=== PATIENT | female | born 1955 | race Caucasian/White ===

== ENCOUNTER → 2016-10-29 | Outpatient (CLI) | payer OTHER ==
[~2016-10-29] MED LIST: ADVIN10/60 INH; ALLO100T PO; ASCO100061 PO; ATOR-22 PO; CALC500C70 PO; CHOL20009 PO; DILT120C68 PO; DLCSR120 PO; DTRSR/10 PO; FURO-85 PO; GLIM2TAB2 PO; LEVO112T4 PO; LEVO137T3 PO; LISI20TA3 PO; LSN20 PO; MULT-190 PO; MULT-671 PO; OMEG10007 PO; PRLSR20 PO; RIVA1TAB4 PO; XRL20 PO; [UNRECOGNIZED DRUG - OTHER] PO
--- NOTE | 2016-10-29 13:45 | MAMMOGRAPHY REPORT ---
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 The p atient consulted with the surgeon, and she decided not to have the mass surgically removed and opted for follow-up. TECHNIQUE: Current study was also evaluated with a Computer Aided Detection (CAD) system. Left CC and MLO views and spot magnification left CC and ML views were obtained. COMPARISON: Comparison is made to exams dated: 04/30/2016 mammogram, 04/30/2016 ultrasound biopsy, 04/17/2016 ultrasound, 04/17/2016 mammogram, 04/13/2016 mammogram, and 03/29/2015 mammogram - [facility]. BREAST COMPOSITION: There are scattered areas of fibroglandular density in the left breast. FINDINGS: A biopsy marker clip is noted in the left inferior breast at approximately 6 to 6:30. Im mediately adjacent to the clip is a 5 mm faint mass with 1 to 2 residual calcifications. This was p reviously biopsied and yielded an intraductal papilloma. The mass and associated calcifications do not appear increased compared to the April 2016 exam. The remainder of the left breast is stable c ompared to prior exams, without suspicious masses, calcifications, or areas of architectural distort ion noted. Targeted ultrasound was performed of the area of the left breast mass. In the left breast at 6:00, 2 cm from the nipple, again noted is a lobulated hypoechoic mass which measures 3 x 3 x 2 mm; this i s stable to decreased in size compared to the April 2016 exam, where the mass previously measured 4 x 3 x 3 mm. This corresponds with the mammographic mass and associated calcifications. IMPRESSION: ACR-BI-RADS CATEGORY 3: PROBABLY BENIGN, TARGETED ULTRASOUND ACR-BI-RADS CATEGORY 3: SC OBABLY BENIGN Stable to decreased size of the hypoechoic 3 mm mass with associated calcifications in the left 6:00 breast. This was previously biopsied with pathology yielding an intraductal papilloma without atyp ia. The patient opted for follow-up as opposed to surgical excision. Given no increase in the size of the mass and calcifications, the mass is probably benign. Recommend bilateral diagnostic mammog satish and possible ultrasound in 6 months, to reevaluate the left breast mass and for routine mammogr aphy of the right breast. The patient has been verbally notified of the results. Approximately 10% of breast cancers are not detected with mammography. A negative mammographic repor t should not delay biopsy if a clinically suggestive mass is present. Ritu Mayo M.D. ah/:10/29/2016 10:43:31 Electronic Systems Technician: Jan TENORIO(Jason)(Flor), [facility] letter sent: Follow Up Recommended 3 BI-RADS Code: ACR-BI-RADS Category 3: Probably Benign Ultrasound BI-RADS: ACR-BI-RADS Category 3: P robably Benign
== END | disposition home or self-care (01) ==
LOC: C.MAMM 09:00
PROVIDERS: ATTEND Surgery
DX: N63 Unspecified lump in breast (principal); R92.1 Mammographic calcification found on diagnostic imaging of breast; D24.9 Benign neoplasm of unspecified breast

== ENCOUNTER → 2017-01-05 | Outpatient (CLI) | payer OTHER ==
[2017-01-05 12:40] LABS: HEMATOCRIT 42.3 % (37-47); MEAN CELL VOLUME 87.6 fL (80-100); MEAN CORPUSCULAR HGB CONC 31.9 g/dl (32-36); MEAN PLATELET VOLUME 11.3 fL (7.4-10.4); PLATELET COUNT 260 K/uL (130-400); RED BLOOD COUNT 4.83 M/uL (4.2-5.4); WHITE BLOOD COUNT 6.52 K/uL (4.8-10.8)
[2017-01-05 12:42] LABS: ALB/GLOB RATIO 1.1 (0.9-2); ALT/SGPT 35 U/L (12-78); AST/SGOT 16 U/L (15-37); BLOOD UREA NITROGEN 31 mg/dl (7-18); BUN/CREATININE RATIO 23.6 (10-20); CALCIUM 9.4 mg/dl (8.5-10.1); CARBON DIOXIDE 29 mmol/L (21-32); CHLORIDE 105 mmol/L (98-107); GLUCOSE 162 mg/dl (70-99); POTASSIUM 4.7 mmol/L (3.5-5.1); SODIUM 139 mmol/L (136-145)
[2017-01-05 12:53] LABS: ALKALINE PHOSPHATASE 82 U/L (45-117); CHOLESTEROL 126 mg/dl (0-200); CHOLESTEROL/HDL RATIO 2.7; HDL CHOLESTEROL 46 mg/dl; LDL CHOLESTEROL CALCULATED 58 mg/dl; THYROID STIMULATING HORMONE 0.055 uIu/ml (0.300-4.500); TRIGLYCERIDES 110 mg/dl (0-150); VERY LOW DENSITY LIPOPROT CALC 22 mg/dl
[2017-01-05 14:10] LABS: ESTIMATED AVERAGE GLUCOSE 120 mg/dl; HA1C FLAG Normal (Normal)
== END | disposition home or self-care (01) ==
LOC: C.LABBFT 10:20
PROVIDERS: ATTEND Internal Medicine
DX: E11.65 Type 2 diabetes mellitus with hyperglycemia (principal)

== ENCOUNTER → 2017-02-26 | Day surgery (SDC) | payer OTHER ==
[2017-02-19 08:21] VITALS: BMI 42.0
[~2017-02-26] VITALS: Ht 165.1 cm; Wt 116.4 kg
[~2017-02-26] MED LIST changes: -DLCSR120 PO; -LEVO137T3 PO; -LSN20 PO; -XRL20 PO; -[UNRECOGNIZED DRUG - OTHER] PO
[2017-02-26 09:52] VITALS: Ht 165.1 cm; Wt 116.4 kg
[2017-02-26 10:02] VITALS: TEMP 36.7
--- NOTE | 2017-02-26 10:18 | Endo History and Physical ---
History & Physical Date of Service: Feb 26, 2017. Chief Complaint: 3 YEAR FOLOLOW UP HISTORY POLYPS Referring Physician: DR. MORRIS History of Present Illness 61 yo CF who presents for colonoscopy secondary to history of colon polyps. Past Medical History Asthma, High Cholesterol, Hypertension, Thyroid Disease, Depression Past Surgical History Hx Cardiac Surgery: No Hx Internal Defibrillator: No Hx Pacemaker: No Hx Abdominal Surgery: Yes (UMBILICAL HERNIA REPAIR, DANIEL, TUBAL LIGATION) Hx of Implantable Prosthesis: No Hx Post-Op Nausea and Vomiting: No Hx Cancer Surgery: No Hx Thoracic Surgery: No Hx Orthopedic: No Hx Urinary Tract Surgery: No Family History None Social History Smoking Status: Former Smoker Hx Substance Use: No Hx Alcohol Use: No Allergies Coded Allergies: NO KNOWN DRUG ALLERGIES (Verified Allergy, Unknown, ., 02/26/17) Current Medications Reported Home Medications Medications Dose Route/Sig Max Daily Dose Days Date Category [place]-3 (Fish Oil) 1 Ea Cap 1 Cap PO 02/26/17 Reported Prinivil (Lisinopril) 20 Mg Tab 20 Mg PO QAM 02/19/17 Reported Levothyroxine Sodium 112 Mcg Tab 1 Tab PO QAM 90 02/19/17 Reported Tiazac (Diltiazem HCl) 120 Mg Capcr 120 Mg PO QAM 02/19/17 Reported Xarelto (Rivaroxaban) 20 Mg Tab 20 Mg PO DAILY AT 1130 02/19/17 Reported Lasix (Furosemide) 20 Mg Tab 20 Mg PO QAM 02/19/17 Reported Glimepiride 2 Mg Tab 2 Mg PO QAM 07/30/16 Reported Multi Complete/Iron (Multiple Vitamins W/ Minerals) 1 Tab Tab 1 Tab PO DAILY 07/30/16 Reported Zyloprim (Allopurinol) 100 Mg Tab 100 Mg PO QPM 07/30/16 Reported Prilosec (Omeprazole) 20 Mg Capcr 20 Mg PO QAM 07/30/16 Reported Advair Diskus 100/50 60 Dose (Fluticasone Prop/Salmeterol) 1 Ea Aerp 1 Puff INH BID 12/27/15 Reported Os-Aroldo 500 Plus D (Calcium/Vitamin D) Tab 1 Tab PO QPM 12/27/15 Reported Ascorbic Acid 1,000 Mg Tab 1,000 Mg PO QPM 12/27/15 Reported Vitamin D (Cholecalciferol) 2,000 Unit Tab 2,000 Units PO QPM 12/27/15 Reported Ocuvite Preservision (Multivitamins/Minerals) 1 Tab Tab 1 Tab PO QPM 12/27/15 Reported Oxybutynin Chloride ER (Oxybutynin Chloride) 10 Mg Tabcr 10 Mg PO QAM 12/27/15 Reported Lipitor (Atorvastatin Calcium) 20 Mg Tab 20 Mg PO QPM 12/27/15 Reported Vital Signs Weight (Kilograms): 116.36 Height (Feet): 5 Height (Inches): 5 Date Time Temp Pulse Resp B/P (MAP) Pulse Ox O2 Delivery O2 Flow Rate FiO2 02/26/17 10:02 36.7 76 20 128/72 (90) 96 Room Air Physical Exam General Appearance: WD/WN, no apparent distress Respiratory/Chest: Auscultation: breath sounds normal Cardiovascular: Heart Auscultation: RRR Abdomen: Bowel Sounds: normal Inspection & Palpation: soft, non-distended, no tenderness, guarding & rebound Assessment and Plan Assessment: 61 yo CF who presents for colonoscopy secondary to history of colon polyps. Plan: Proceed with colonoscopy.
--- NOTE | 2017-02-26 11:12 | GI REPORT ---
Procedure Date: 02/26/2017 10:39 AM Procedure: Colonoscopy Indications: Screening for colorectal malignant neoplasm Medicines: Monitored Anesthesia Care Complications: No immediate complications. Estimated Blood Loss: Estimated blood loss: none. Procedure: Pre-Anesthesia Assessment: - Prior to the procedure, a History and Physical was performed, and patient medications and allergies were reviewed. The patient's tolerance of previous anesthesia was also reviewed. The risks and benefits of the procedure and the sedation options and risks were discussed with the patient. All questions were answered, and informed consent was obtained. Prior Anticoagulants: The patient has taken no previous anticoagulant or antiplatelet agents. ASA Grade Assessment: II - A patient with mild systemic disease. After reviewing the risks and benefits, the patient was deemed in satisfactory condition to undergo the procedure. After I obtained informed consent, the scope was passed under direct vision. Throughout the procedure, the patient's blood pressure, pulse, and oxygen saturations were monitored continuously. The scope was introduced through the anus and advanced to the terminal ileum. The colonoscopy was performed without difficulty. The patient tolerated the procedure well. The quality of the bowel preparation was good. The terminal ileum, ileocecal valve, appendiceal orifice, and rectum were photographed. Findings: A 8 mm polyp was found in the ascending colon. The polyp was flat. The polyp was removed with a hot snare. Resection and retrieval were complete. To prevent bleeding after the polypectomy, one hemostatic clip was successfully placed (MR conditional). There was no bleeding at the end of the procedure. A 3 mm polyp was found in the ascending colon. The polyp was sessile. The polyp was removed with a cold biopsy forceps. Resection and retrieval were complete. Multiple small-mouthed diverticula were found in the sigmoid colon. Non-bleeding internal hemorrhoids were found during retroflexion. The hemorrhoids were small. Impression: - One 8 mm polyp in the ascending colon, removed with a hot snare. Resected and retrieved. Clip (MR conditional) was placed. - One 3 mm polyp in the ascending colon, removed with a cold biopsy forceps. Resected and retrieved. - Diverticulosis in the sigmoid colon. - Non-bleeding internal hemorrhoids. Recommendation: - Resume previous diet. - Continue present medications. - Repeat colonoscopy for surveillance based on pathology results. - Return to primary care physician as previously scheduled. Mario Reyez DO 02/26/2017 11:11:21 AM This report has been signed electronically. Note Initiated On: 02/26/2017 10:39 AM I attest to the content of the Intraoperative Record and orders documented therein, exceptions below
--- NOTE | 2017-02-26 11:14 | Discharge Instructions ---
Endoscopy Patient Instructions Date / Procedure(s) Performed Feb 26, 2017. Colonoscopy Allergy Information Coded Allergies: NO KNOWN DRUG ALLERGIES (Verified Allergy, Unknown, ., 02/26/17) Discharge Date / Findings Feb 26, 2017. Colon polyps Diverticulosis Internal hemorrhoids Medication Instructions Stopped Medication(s): XARELTO STOPPED 02/23/17 OK to resume all medications today as prescribed Medications Dose Route/Sig Max Daily Dose Days Date Category [place]-3 (Fish Oil) 1 Ea Cap 1 Cap PO 02/26/17 Reported Prinivil (Lisinopril) 20 Mg Tab 20 Mg PO QAM 02/19/17 Reported Levothyroxine Sodium 112 Mcg Tab 1 Tab PO QAM 90 02/19/17 Reported Tiazac (Diltiazem HCl) 120 Mg Capcr 120 Mg PO QAM 02/19/17 Reported Xarelto (Rivaroxaban) 20 Mg Tab 20 Mg PO DAILY AT 1130 02/19/17 Reported Lasix (Furosemide) 20 Mg Tab 20 Mg PO QAM 02/19/17 Reported Glimepiride 2 Mg Tab 2 Mg PO QAM 07/30/16 Reported Multi Complete/Iron (Multiple Vitamins W/ Minerals) 1 Tab Tab 1 Tab PO DAILY 07/30/16 Reported Zyloprim (Allopurinol) 100 Mg Tab 100 Mg PO QPM 07/30/16 Reported Prilosec (Omeprazole) 20 Mg Capcr 20 Mg PO QAM 07/30/16 Reported Advair Diskus 100/50 60 Dose (Fluticasone Prop/Salmeterol) 1 Ea Aerp 1 Puff INH BID 12/27/15 Reported Os-Aroldo 500 Plus D (Calcium/Vitamin D) Tab 1 Tab PO QPM 12/27/15 Reported Ascorbic Acid 1,000 Mg Tab 1,000 Mg PO QPM 12/27/15 Reported Vitamin D (Cholecalciferol) 2,000 Unit Tab 2,000 Units PO QPM 12/27/15 Reported Ocuvite Preservision (Multivitamins/Minerals) 1 Tab Tab 1 Tab PO QPM 12/27/15 Reported Oxybutynin Chloride ER (Oxybutynin Chloride) 10 Mg Tabcr 10 Mg PO QAM 12/27/15 Reported Lipitor (Atorvastatin Calcium) 20 Mg Tab 20 Mg PO QPM 12/27/15 Reported Provider Instructions Activity Restrictions - No exercising or heavy lifting for 24 hours. - Do not drink alcohol the day of the procedure. - Do not drive a car or operate machinery until the day after the procedure. - Do not make any important decisions or sign important papers in 24 hours after the procedure. Following Day: - Return to full activity which may include returning to work/school. Diet Start your diet with liquids and light foods (jello, soup, juice, toast). Then eat your usual diet if not nauseated. Treatment For Common After Affects For mild abdominal pain, bloating, or excessive gas: - Rest - Eat lightly - Lie on right side Follow-Up Information Follow-up with DR. MORIRS as scheduled Anesthesia Information What You Should Know You have had a procedure that required some medicine to reduce anxiety and discomfort. This treatment is called moderate sedation. After receiving the treatment, you may be sleepy, but you will be able to breathe on your own. The effects of the treatment may last for several hours. Follow these instructions along with Activity/Diet recommendations noted above: * Do NOT do anything where dizziness or clumsiness would be dangerous. * Rest quietly at home today, then you can be up and about tomorrow. * Have a responsible person stay with you the rest of today. * You may have had an I.V. today. If so, you may take the dressing off later today. Recommendations Call your doctor if: * Trouble breathing * Continuous vomiting for more than 24 hours * Temperature above 101 degrees * Severe abdominal pain or bloating * Pain not relieved by pain medicine ordered * There is increased drainage or redness from any incision * A large amount of rectal bleeding greater than 2-3 tablespoons. (If you had a polyp/s removed or have hemorrhoids, a small amount of blood - from the rectum is to be expected.) * You have any unanswered questions or concerns. IN THE EVENT OF A SERIOUS EMERGENCY, GO TO THE NEAREST EMERGENCY ROOM Your discharge instructions were prepared by provider Mario Reyez. Patient Instructions Signature Page Erin Nur Patient (or Guardian) Signature/Date: I have read and understand the instructions given to me by my caregivers. Caregiver/RN/Doctor Signature/Date: The above-named patient and/or guardian has received patient instructions on this date. + Original Patient Signature Page (only) stays with chart. Please make copy for patient.
[2017-02-26 11:36] VITALS: BP 127/69; PULSE 71; O2SAT 98
--- NOTE | 2017-02-26 13:29 | Anesthesiology Progress Note ---
Anesthesia Post Op Note Date & Time Feb 26, 2017 at 13:29 Vital Signs Pain Intensity: 2 Vital Signs Past 12 Hours Date Time Temp Pulse Resp B/P (MAP) Pulse Ox O2 Delivery O2 Flow Rate FiO2 02/26/17 11:36 71 20 127/69 (88) 98 Room Air 02/26/17 11:21 69 20 108/54 (72) 98 Room Air 02/26/17 11:06 73 20 101/51 (68) 95 Room Air 02/26/17 10:02 36.7 76 20 128/72 (90) 96 Room Air Notes Mental Status: alert / awake / arousable, participated in evaluation Pt Amnestic to Procedure: Yes Nausea / Vomiting: adequately controlled Pain: adequately controlled Airway Patency, RR, SpO2: stable & adequate BP & HR: stable & adequate Hydration State: stable & adequate Anesthetic Complications: no major complications apparent
== END | disposition home or self-care (01) ==
LOC: C.GI 09:27
PROVIDERS: ATTEND Internal Medicine
DX: Z12.11 Encounter for screening for malignant neoplasm of colon (principal); D12.2 Benign neoplasm of ascending colon; K57.30 Diverticulosis of large intestine without perforation or abscess without bleeding; K64.8 Other hemorrhoids; Z86.010 Personal history of colon polyps; I10 Essential (primary) hypertension; E78.00 Pure hypercholesterolemia, unspecified; E07.9 Disorder of thyroid, unspecified; J45.909 Unspecified asthma, uncomplicated; F32.9 Major depressive disorder, single episode, unspecified; Z87.891 Personal history of nicotine dependence; Z79.899 Other long term (current) drug therapy

== ENCOUNTER → 2017-03-02 | Outpatient (CLI) | payer OTHER ==
[2017-03-02 12:41] LABS: THYROID STIMULATING HORMONE 0.378 uIu/ml (0.300-4.500)
== END | disposition home or self-care (01) ==
LOC: C.LABBFT 10:21
PROVIDERS: ATTEND Internal Medicine
DX: E03.9 Hypothyroidism, unspecified (principal)

== ENCOUNTER → 2017-03-19 | Outpatient (CLI) | payer OTHER ==
[2017-03-19 13:16] LABS: CHOLESTEROL/HDL RATIO 2.7
== END | disposition home or self-care (01) ==
LOC: C.LABBFT 07:31
PROVIDERS: ATTEND Internal Medicine Cardiovascular Disease
DX: E78.5 Hyperlipidemia, unspecified (principal); E78.00 Pure hypercholesterolemia, unspecified

== ENCOUNTER → 2017-04-29 | Outpatient (CLI) | payer OTHER ==
--- NOTE | 2017-04-29 14:07 | MAMMOGRAPHY REPORT ---
BILATERAL DIGITAL DIAGNOSTIC MAMMOGRAM TOMOSYNTHESIS WITH CAD AND TARGETED LEFT ULTRASOUND: 04/29/2017 CLINICAL HISTORY: History of left breast biopsy April 2016, with pathology yielding an intraductal p apilloma without atypia. The patient decided not to have the mass surgically removed and opted for f ollow-up. The patient reports no current complaints. TECHNIQUE: Breast tomosynthesis in addition to standard 2D mammography was performed. Current study was also evaluated with a Computer Aided Detection (CAD) system. Bilateral CC and MLO 2-D and tomosy nthesis images and spot magnification left CC and ML views were obtained. COMPARISON: Comparison is made to exams dated: 10/29/2016 ultrasound, 10/29/2016 mammogram, 04/30/2016 mammogram, 04/30/2016 ultrasound biopsy, 04/17/2016 mammogram, and 04/13/2016 mammogram - [facility]. BREAST COMPOSITION: There are scattered areas of fibroglandular density in both breasts. FINDINGS: There has been no significant interval change compared to prior exams. A biopsy marker cl ip is again noted in the left 6:00 breast. Immediately adjacent to the clip is a faint 5 mm mass wit h a few faint residual calcifications. The mass and calcifications do not appear significantly wallace ed compared to the Oct 2016 exam. The remainder of both breasts are stable compared to prior exams, without suspicious masses, calcifications, or areas of architectural distortion noted. Targeted ultrasound was performed of the previously biopsied mass. In the left breast at 6:00, 2 cm from the nipple, again noted is a lobulated hypoechoic circumscribed mass which measures 3 x 2 x 4 mm , not significantly changed compared to prior exams. This corresponds with the stable mammographic m ass and residual calcifications. This was previously biopsied and yielded an intraductal papilloma w ithout atypia. IMPRESSION: ACR BI-RADS CATEGORY 2: BENIGN, TARGETED ULTRASOUND ACR BI-RADS CATEGORY 2: BENIGN Stable size of 4 mm hypoechoic mass with a few residual calcifications in the left 6:00 breast, which was previously biopsied and yielded an intraductal papilloma without atypia. Given the stability an d benign pathology, the mass is considered benign and can be monitored for any changes on routine jaelyn ual mammograms. There no mammographic or targeted sonographic evidence of malignancy. A 1 year scree leanne mammogram is recommended. The patient has been verbally notified of the results. Approximately 10% of breast cancers are not detected with mammography. A negative mammographic report should not delay biopsy if a clinically suggestive mass is present. Ritu Mayo M.D. ah/:04/29/2017 11:43:33 Pressurization Mechanic: Gladys TENORIO(R)(M), [facility] letter sent: Normal 1/2 BI-RADS Code: ACR BI-RADS Category 2: Benign Ultrasound BI-RADS: ACR BI-RADS Category 2: Benign
== END | disposition home or self-care (01) ==
LOC: C.MAMM 11:02
PROVIDERS: ATTEND Surgery
DX: N63 Unspecified lump in breast (principal); R92.1 Mammographic calcification found on diagnostic imaging of breast

== ENCOUNTER → 2017-07-30 | Outpatient (CLI) | payer OTHER ==
[2017-07-30 12:16] LABS: BASO % 0.5 %; BASO ABS # 0.03 K/uL (0-0.2); COMPLETE YES; EOS % 5.9 %; HEMATOCRIT 40.4 % (37-47); IG% 0.3 %; LYMPH % 34.6 %; LYMPH ABS # 2.22 K/uL (1.2-3.4); MEAN CELL VOLUME 88.6 fL (80-100); MEAN CORPUSCULAR HEMOGLOBIN 28.3 pg (25-34); MEAN CORPUSCULAR HGB CONC 31.9 g/dl (32-36); MEAN PLATELET VOLUME 10.8 fL (7.4-10.4); MONO % 7.9 %; NEUT % 50.8 %; PLATELET COUNT 262 K/uL (130-400); RED BLOOD COUNT 4.56 M/uL (4.2-5.4); WHITE BLOOD COUNT 6.42 K/uL (4.8-10.8)
[2017-07-30 12:31] LABS: ESTIMATED AVERAGE GLUCOSE 120 mg/dl; HA1C FLAG Normal (Normal)
[2017-07-30 12:40] LABS: ALT/SGPT 31 U/L (12-78); BLOOD UREA NITROGEN 32 mg/dl (7-18); BUN/CREATININE RATIO 26.9 (10-20); CALCIUM 9.5 mg/dl (8.5-10.1); CARBON DIOXIDE 29 mmol/L (21-32); CHLORIDE 102 mmol/L (98-107); CHOLESTEROL 143 mg/dl (0-200); CREATININE 1.19 mg/dl (0.60-1.20); GLUCOSE 146 mg/dl (70-99); POTASSIUM 4.1 mmol/L (3.5-5.1); SODIUM 139 mmol/L (136-145); TRIGLYCERIDES 140 mg/dl (0-150); VERY LOW DENSITY LIPOPROT CALC 28 mg/dl
[2017-07-30 12:41] LABS: CREATININE RANDOM URINE < 13.0 mg/dl
[2017-07-30 12:51] LABS: ALKALINE PHOSPHATASE 102 U/L (45-117); AST/SGOT 13 U/L (15-37); CHOLESTEROL/HDL RATIO 2.6; HDL CHOLESTEROL 55 mg/dl; LDL CHOLESTEROL CALCULATED 60 mg/dl
== END | disposition home or self-care (01) ==
LOC: C.LABBFT 09:19
PROVIDERS: ATTEND Internal Medicine
DX: E11.9 Type 2 diabetes mellitus without complications (principal)

== ENCOUNTER → 2017-09-02 | Outpatient (CLI) | payer OTHER ==
--- NOTE | 2017-09-02 11:56 | DIAGNOSTIC IMAGING REPORT ---
CHEST 2 VIEWS ROUTINE HISTORY: 62 years-old Female ASTHMA W/ ACUTE EXACERBATION acute asthma COMPARISON: Routine chest radiograph 07/30/2016 TECHNIQUE: PA and lateral views of the chest FINDINGS: Cardiac silhouette is mildly enlarged, unchanged. Mild pulmonary vascular congestion. Atherosclerosis of the aorta. No pneumothorax, pleural effusion, focal or overt pulmonary edema. Patchy opacities are noted within the lingula. Trace fluid along the right major fissure. Probable right shoulder rotator cuff calcific tendinosis. Bones of the chest appear grossly intact. IMPRESSION: 1. Mild pulmonary vascular congestion without overt pulmonary edema. 2. Patchy opacities of the lingula suggest atelectasis with pneumonia thought to be less likely. The above report was generated using voice recognition software. It may contain grammatical, syntax or spelling errors. Electronically signed by: Aman Lyn M.D. 09/02/2017 11:55 AM Dictated Date/Time: 09/02/2017 11:53 AM
== END | disposition home or self-care (01) ==
LOC: C.RAD1850 11:43
PROVIDERS: ATTEND Internal Medicine
DX: R91.8 Other nonspecific abnormal finding of lung field (principal); J45.901 Unspecified asthma with (acute) exacerbation

== ENCOUNTER → 2017-10-27 | Outpatient (CLI) | payer OTHER ==
--- NOTE | 2017-10-27 18:17 | DIAGNOSTIC IMAGING REPORT ---
CHEST 2 VIEWS ROUTINE CLINICAL HISTORY: 62 years-old Female presenting with R06.02 Shortness of breath. TECHNIQUE: PA and lateral views of the chest were obtained. COMPARISON: 09/02/2017. FINDINGS: Cardiomediastinal silhouette normal. Bandlike opacity at the left lung base. Trace pleural effusions may be present. No pneumothorax. Degenerative changes of the thoracic spine. Upper abdomen normal. IMPRESSION: 1. Trace pleural effusions and suspected left basilar atelectasis. Otherwise no acute cardiopulmonary disease. Electronically signed by: Geraldo Gallegos M.D. 10/27/2017 6:16 PM Dictated Date/Time: 10/27/2017 6:14 PM
== END | disposition home or self-care (01) ==
LOC: C.RAD 17:58
PROVIDERS: ATTEND Nurse Practitioner
DX: R06.02 Shortness of breath (principal); J90 Pleural effusion, not elsewhere classified

== ENCOUNTER → 2017-11-18 | Outpatient (CLI) | payer OTHER ==
--- NOTE | 2017-11-18 10:29 | DIAGNOSTIC IMAGING REPORT ---
CHEST 2 VIEWS ROUTINE HISTORY: Pneumonia. Cough. COMPARISON: Chest 10/27/2017. FINDINGS: The right lung is clear. The heart is normal in size. No pleural effusions. No pneumothorax. Small focal airspace opacity within the lingula. This is new from the prior study. IMPRESSION: There is a new small focal airspace opacity within the lingula. Therefore, this could represent atelectasis or pneumonia. One month chest x-ray follow up is recommended to ensure resolution. Electronically signed by: Esa Araiza M.D. 11/18/2017 10:28 AM Dictated Date/Time: 11/18/2017 10:26 AM
== END | disposition home or self-care (01) ==
LOC: C.RAD1850 10:17
PROVIDERS: ATTEND Nurse Practitioner
DX: J18.9 Pneumonia, unspecified organism (principal)

== ENCOUNTER → 2017-12-10 | Outpatient (CLI) | payer OTHER ==
[2017-12-10 17:13] LABS: BASO % 0.5 %; BASO ABS # 0.05 K/uL (0-0.2); EOS % 7.3 %; EOS ABS # 0.74 K/uL (0-0.5); HEMATOCRIT 41.5 % (37-47); HEMOGLOBIN 13.4 g/dL (12.0-16.0); IG# 0.09 K/uL (0.00-0.02); LYMPH % 24.7 %; LYMPH ABS # 2.51 K/uL (1.2-3.4); MEAN CELL VOLUME 86.1 fL (80-100); MEAN CORPUSCULAR HEMOGLOBIN 27.8 pg (25-34); MEAN CORPUSCULAR HGB CONC 32.3 g/dl (32-36); MEAN PLATELET VOLUME 10.2 fL (7.4-10.4); MONO ABS # 0.71 K/uL (0.11-0.59); NEUT % 59.6 %; NEUT ABS # 6.07 K/uL (1.4-6.5); PLATELET COUNT 343 K/uL (130-400); RED CELL DISTRIBUTION WIDTH CV 14.7 % (11.5-14.5); RED CELL DISTRIBUTION WIDTH SD 46.4 fL (36.4-46.3); WHITE BLOOD COUNT 10.17 K/uL (4.8-10.8)
[2017-12-10 17:52] LABS: ALBUMIN 3.6 gm/dl (3.4-5.0); ALT/SGPT 29 U/L (12-78); BLOOD UREA NITROGEN 43 mg/dl (7-18); CALCIUM 9.5 mg/dl (8.5-10.1); CARBON DIOXIDE 28 mmol/L (21-32); CHOLESTEROL 135 mg/dl (0-200); CREATININE 1.38 mg/dl (0.60-1.20); GLUCOSE 79 mg/dl (70-99); SODIUM 136 mmol/L (136-145)
[2017-12-10 18:02] LABS: ALKALINE PHOSPHATASE 91 U/L (45-117); AST/SGOT 15 U/L (15-37); LDL CHOLESTEROL CALCULATED 65 mg/dl; TOTAL PROTEIN 7.5 gm/dl (6.4-8.2)
[2017-12-11 07:25] LABS: HEMOGLOBIN A1C 6.5 % (4.5-5.6)
== END | disposition home or self-care (01) ==
LOC: C.LABBFT 13:51
PROVIDERS: ATTEND Internal Medicine
DX: E11.9 Type 2 diabetes mellitus without complications (principal)

== ENCOUNTER → 2017-12-16 | Outpatient (CLI) | payer OTHER ==
--- NOTE | 2017-12-16 10:30 | DIAGNOSTIC IMAGING REPORT ---
CT OF THE CHEST WITHOUT IV CONTRAST CLINICAL HISTORY: Lung infiltrate. COMPARISON STUDY: Chest radiographs October 27, 2017 and November 18, 2017. CT DOSE: 626.60 mGycm TECHNIQUE: Axial images of the chest were obtained without IV contrast. Images were reviewed in the axial, sagittal, and coronal planes. IV contrast was not administered for this examination. A dose lowering technique was utilized adhering to the principles of ALARA. FINDINGS: No enlarged axillary, mediastinal or hilar lymph nodes are present. The size of the heart is normal. There is no pericardial effusion. There is mild coronary artery calcification. The central airways are patent. There is no pneumothorax or pleural effusion. Moderate scattered multifocal airspace opacities throughout the lungs are noted, many of which are in a tree-in-bud distribution. There is no cavitation. Lingular opacity has improved since exam of November 18, 2017. There is no lobar consolidation. No suspicious osseous lesion is present. Upper abdomen is unremarkable on this unenhanced exam. IMPRESSION: Scattered multifocal airspace opacities throughout the lungs, many of which are in a tree-in-bud distribution. The findings favor an infectious process. While nonspecific, an atypical mycobacterial infection is within the differential. Electronically signed by: Ra Kong M.D. 12/16/2017 10:29 AM Dictated Date/Time: 12/16/2017 9:39 AM
== END | disposition home or self-care (01) ==
LOC: C.CTS 09:27
PROVIDERS: ATTEND Internal Medicine Pulmonary Disease
DX: R91.8 Other nonspecific abnormal finding of lung field (principal)

== ENCOUNTER → 2018-01-19 | Outpatient (CLI) | payer OTHER | END | disposition home or self-care (01) | LOC: C.LAB 15:23 | PROVIDERS: ATTEND Internal Medicine Pulmonary Disease | DX: R91.8 Other nonspecific abnormal finding of lung field (principal) ==

== ENCOUNTER → 2018-01-21 | Outpatient (CLI) | payer OTHER | END | disposition home or self-care (01) | LOC: C.LAB 08:11 | PROVIDERS: ATTEND Internal Medicine Pulmonary Disease | DX: R91.8 Other nonspecific abnormal finding of lung field (principal) ==

== ENCOUNTER 2020-06-04 16:37 | Observation (INO) ==
[2020-06-04 17:11] LABS: Basophils # (auto) 0.01 K/uL (0-0.2); Basophils % (auto) 0.1 %; Hematocrit (blood only) 44.8 % (37-47); Hemoglobin 14.9 g/dL (12.0-16.0); Immature Granulocytes # (auto) 0.05 K/uL (0.00-0.02); Immature Granulocytes % (auto) 0.3 %; Lymphocytes # (auto) 1.19 K/uL (1.2-3.4); Mean Corpuscular Hemoglobin 28.3 pg (25-34); Mean Corpuscular Hgb Conc 33.3 g/dL (32-36); Mean Platelet Volume 10.2 fL (7.4-10.4); Monocytes # (auto) 0.96 K/uL (0.11-0.59); Monocytes % (auto) 6.5 %; Neutrophils # (auto) 12.63 K/uL (1.4-6.5); Neutrophils % (auto) 85.1 %; Platelet Count 360 K/uL (130-400); RDW Coefficient of Variation 16.1 % (11.5-14.5); RDW Standard Deviation 49.8 fL (36.4-46.3); Red Blood Count 5.27 M/uL (4.2-5.4); White Blood Count 14.84 K/uL (4.8-10.8)
[2020-06-04] MEDS ORDERED: STAT IV Infusion **Titration per Protocol STA (17:12)
[2020-06-04] MEDS ORDERED: SODIUM CHLORIDE 0.9% 500 ML IV ONE (17:12)
[2020-06-04] MEDS ORDERED: dilTIAZem HCl 5 MG/ML 5 ML VIAL IV STA (17:12)
[2020-06-04] MEDS ORDERED: dilTIAZem HCL 125 MG in DEXTROSE 5% 100 ML IV SCH (17:15)
--- NOTE | 2020-06-04 17:15 | Emergency Department Note ---
Impression & Plan Atrial fibrillation with rapid ventricular response, Cough, Heart palpitations ED Provider Note NAME: MARC GARCIA AGE: 65 SEX: F : 1955 ARRIVES VIA: Walk-In INFORMANT: Patient ED PROVIDER(S): Nino Michaels DO CHIEF COMPLAINT: Palpitations and elevated heart rate HPI: Patient is a 65-year-old female who presents the ER for increased heart rate. She notes this has been present since earlier this morning. She has a history of A. fib. Has happened once before in the past. She takes Xarelto. She has not missed any doses. She follows with Dr. Jacob. She has had a covid test this past for a cough, runny nose, and sore throat which was neg ative. She denies any other complaints. She does admit to some mild shortness of breath and chest tightness. ROS: See above HPI for pertinent positives & negatives. A total of 10 systems reviewed and were otherwise negative. PAST MEDICAL HISTORY:See Below PAST SURGICAL HISTORY:See Below FAMILY HISTORY:See Below SOCIAL HISTORY:See Below HOME MEDICATIONS:See Below ALLERGIES:See Below VITALS:See Below PHYSICAL EXAMINATION: GENERAL: Sitting up in bed, alert, well appearing, well nourished, no distress, non-toxic EYE EXAM: normal conjunctiva. OROPHARYNX: no exudate, no erythema, lips, buccal mucosa, and tongue normal and mucous membranes are moist NECK: supple, no nuchal rigidity, no adenopathy, non-tender LUNGS: Tachycardic and irregular regular. Normal chest wall mechanics HEART: no murmurs, S1 normal and S2 normal ABDOMEN: abdomen soft, non-tender, normo-active bowel sounds, no masses, no rebound or guarding. BACK: Back is symmetrical on inspection and there is no deformity, no midline tenderness, no CVA tenderness. SKIN: no rashes and no bruising UPPER EXTREMITIES: upper extremities are grossly normal. LOWER EXTREMITIES: No pitting edema. NEURO EXAM: Normal sensorium, cranial nerves II-XII grossly intact, normal speech, no gross weakness of arms, no gross weakness of legs. MEDICAL DECISION MAKING: Patient is a 65-year-old female with a past medical history of A. fib on Xarelto who presents the ER for elevated heart rate associate with a cough and shortness of breath. IV was established blood work was obtained and shows mild leukocytosis of 14,000. No significant anemia. INR was at 1.4. BMP with creatinine 1.3. LFTs bilirubin was unremarkable. Troponin was negative. proBNP was unremarkable. TSH was slightly low at 0.14. Chest x-ray with questionable trace pleural effusions. EKG did show A. fib RVR. She was placed on a Cardizem drip. She was updated bedside. Discussed with the hospitalist admit for further work-up. Did not recall the test are as test for the same symptoms was negative this past . Triage Nursing notes reviewed. Prior medical records reviewed Vital Signs: reviewed and remarkable for tachycardia and HTN Differential diagnosis: Differential diagnoses includes but is not limited to acute coronary syndrome, myocardial infarction, pericarditis, pulmonary embolus, aortic dissection, pneumonia, pneumothorax, musculoskeletal, shingles, esophageal. ER treatment provided: See below Diagnostics interpreted by me: ECG: A. fib RVR rate of 115 Normal axis No PVCs Normal QTC Nonspecific ST wave changes in the inferior leads Cardiac Monitoring: An order was placed for continuous cardiac monitoring. The monitor shows a rate of 120 with A. fib rhythm. Laboratory studies: As stated above and show below. Imaging studies: Portable AP upright 1 view of the chest shows no focal infiltrate Consultation(s): Discussed with Dr. Hero Garcia who evaluated the patient for further treatment ED COURSE: Procedures: none Critical Care: I have personally spent 31 minutes of critical care time in the direct manageme nt of this patient. This includes bedside care, interpretation of diagnostic studies, and testing, discussion with consultants, patient, and family members, and other required patient management activities. This 31 minutes is in excess of all separately billable procedures. Past Med/Surg History Medical History (Updated 06/04/20 @ 22:52 by Nino Michaels DO) Diverticulosis Former smoker Papilloma of breast Pneumonia Umbilical hernia Surgical History H/O colonoscopy (02/26/17) sessile serrated adenoma, recheck in 5 years, Dr Reyez H/O oral surgery History of hernia repair S/P hysterectomy S/P tubal ligation Family History Mother Breast cancer Diabetes Hypertension Father Prostate cancer Brother Diabetes Hypertension Social History Smoking Status: Former smoker Tobacco Type: Cigarettes Hx Alcohol Use: Yes Hx Substance Use: No Preferred Language: Thai Communication Ability: Effective Drawer In Jacquard Loom Required: No Beliefs That Will Affect Care: None marital status: Current Living Situation: Spouse current occupational status: employed Other Information That Helps Us Care for You: No Feels Safe at Home: Yes Dental Care, Regularly: No Seatbelt Use: always Assistive Devices: Glasses Allergies Allergies Allergy/AdvReac Type Severity Reaction Status Date / Time No Known Drug Allergies Allergy Unknown . Verified 06/04/20 19:11 Home Meds Home Medications Medication Instructions Recorded Confirmed albuterol sulfate 2.5 mg INHALATION QID PRN #2 ml 04/21/19 06/04/20 blood sugar diagnostic #10 ea 04/21/19 04/08/20 blood-glucose meter #1 ea 04/21/19 04/08/20 diltiazem HCl 120 mg 120 mg PO DAILY 04/21/19 06/04/20 capsule,extended release 24 hr lancets 30 gauge #25 ea 04/21/19 11/23/19 calcium carbonate 500 mg calcium 500 mg PO DAILY tab 04/25/19 06/04/20 (1,250 mg) tablet vit C 250 mg-E 200 unit-zinc 40 1 tab PO DAILY cap 07/03/19 06/04/20 mg-copper 1 [id number] capsule atorvastatin 20 mg tablet 20 mg PO WK tab 11/23/19 06/04/20 allopurinol [Zyloprim] 100 mg PO QPM 06/04/20 06/04/20 furosemide 20 mg PO DAILY 06/04/20 06/04/20 magnesium 500 mg PO DAILY 06/04/20 06/04/20 Previous Rx's Medication Instructions Recorded rivaroxaban 20 mg tablet 20 mg PO DAILY #30 tab 02/06/20 losartan 50 mg tablet 50 mg PO DAILY #90 tab 04/24/20 levothyroxine 137 mcg tablet 137 mcg PO DAILY #30 tab 04/30/20 oxybutynin chloride 10 mg 10 mg PO DAILY #30 tab 04/30/20 tablet,extended release 24 hr fluticasone furoate 200 1 ea INHALATION DAILY #60 ea 05/02/20 mcg-vilanterol 25 mcg/dose inhalation powder albuterol sulfate 90 mcg/actuation 2 puff INHALATION QID PRN #8.5 g 05/21/20 aerosol inhaler benzonatate 100 mg capsule 100 mg PO TID #30 cap 05/30/20 prednisone 20 mg tablet 20 mg PO .COMPLEX #30 tab 05/30/20 Results & Data (ED) Vital Signs Vital Signs - 24 hr 06/04/20 16:40 06/04/20 17:07 06/04/20 17:10 Temperature 37.0 C Temperature Source Oral Pulse Rate 130 H 118 H 112 H Pulse Rate from SpO2 Sensor Respiratory Rate 20 21 21 Respiratory Effort / Characteristics Non-Labored Respiratory Depth Normal Blood Pressure 141/81 H Blood Pressure Mean 101 Pulse Oximetry 94 Oxygen Delivery Method Room Air Sepsis Recent Fever Within 48 Hours No Sepsis New/Unexplained Change in Mental Status N/A Sepsis Action Taken by Nursing No Action Required 06/04/20 17:16 06/04/20 17:20 06/04/20 17:30 Temperature Temperature Source Pulse Rate 98 H 109 H 125 H Pulse Rate from SpO2 Sensor 93 H 91 H 118 H Respiratory Rate 26 H 23 22 Respiratory Effort / Characteristics Respiratory Depth Blood Pressure 101/74 114/62 Blood Pressure Mean 83 71 Pulse Oximetry 92 93 92 Oxygen Delivery Method Sepsis Recent Fever Within 48 Hours Sepsis New/Unexplained Change in Mental Status Sepsis Action Taken by Nursing 06/04/20 17:31 06/04/20 17:40 06/04/20 17:46 Temperature Temperature Source Pulse Rate 108 H 115 H 96 H Pulse Rate from SpO2 Sensor 107 H 104 H 99 H Respiratory Rate 20 22 20 Respiratory Effort / Characteristics Respiratory Depth Blood Pressure 104/69 Blood Pressure Mean 77 Pulse Oximetry 92 93 92 Oxygen Delivery Method Room Air Sepsis Recent Fever Within 48 Hours Sepsis New/Unexplained Change in Mental Status Sepsis Action Taken by Nursing 06/04/20 17:50 06/04/20 18:00 06/04/20 18:01 Temperature Temperature Source Pulse Rate 102 H 113 H 97 H Pulse Rate from SpO2 Sensor 97 H 103 H 99 H Respiratory Rate 22 21 22 Respiratory Effort / Characteristics Respiratory Depth Blood Pressure 107/81 Blood Pressure Mean 98 Pulse Oximetry 93 93 93 Oxygen Delivery Method Sepsis Recent Fever Within 48 Hours Sepsis New/Unexplained Change in Mental Status Sepsis Action Taken by Nursing 06/04/20 18:10 06/04/20 18:15 06/04/20 18:20 Temperature Temperature Source Pulse Rate 99 H 85 108 H Pulse Rate from SpO2 Sensor 102 H 91 H 97 H Respiratory Rate 23 20 19 Respiratory Effort / Characteristics Respiratory Depth Blood Pressure 137/79 Blood Pressure Mean 88 Pulse Oximetry 94 94 94 Oxygen Delivery Method Sepsis Recent Fever Within 48 Hours Sepsis New/Unexplained Change in Mental Status Sepsis Action Taken by Nursing 06/04/20 18:30 06/04/20 18:38 06/04/20 18:40 Temperature Temperature Source Pulse Rate 90 123 H 113 H Pulse Rate from SpO2 Sensor 85 111 H 102 H Respiratory Rate 23 21 23 Respiratory Effort / Characteristics Respiratory Depth Blood Pressure 121/81 Blood Pressure Mean 86 Pulse Oximetry 94 96 95 Oxygen Delivery Method Sepsis Recent Fever Within 48 Hours Sepsis New/Unexplained Change in Mental Status Sepsis Action Taken by Nursing 06/04/20 18:45 06/04/20 18:50 06/04/20 19:00 Temperature Temperature Source Pulse Rate 106 H 98 H 92 H Pulse Rate from SpO2 Sensor 104 H 105 H 94 H Respiratory Rate 22 20 18 Respiratory Effort / Characteristics Respiratory Depth Blood Pressure 135/88 137/97 Blood Pressure Mean 107 105 Pulse Oximetry 93 94 91 Oxygen Delivery Method Sepsis Recent Fever Within 48 Hours Sepsis New/Unexplained Change in Mental Status Sepsis Action Taken by Nursing 06/04/20 19:01 06/04/20 19:10 06/04/20 19:15 Temperature Temperature Source Pulse Rate 97 H 93 H 85 Pulse Rate from SpO2 Sensor 107 H 98 H 94 H Respiratory Rate 15 18 23 Respiratory Effort / Characteristics Respiratory Depth Blood Pressure 132/78 Blood Pressure Mean 92 Pulse Oximetry 93 92 91 Oxygen Delivery Method Sepsis Recent Fever Within 48 Hours Sepsis New/Unexplained Change in Mental Status Sepsis Action Taken by Nursing 06/04/20 19:20 06/04/20 19:30 06/04/20 19:31 Temperature Temperature Source Pulse Rate 94 H 89 83 Pulse Rate from SpO2 Sensor 95 H 86 92 H Respiratory Rate 17 21 22 Respiratory Effort / Characteristics Respiratory Depth Blood Pressure 131/74 Blood Pressure Mean 86 Pulse Oximetry 93 92 92 Oxygen Delivery Method Sepsis Recent Fever Within 48 Hours Sepsis New/Unexplained Change in Mental Status Sepsis Action Taken by Nursing Laboratory Data Result diagrams: 06/04/20 17:00 06/04/20 17:00 Lab Results 06/04/20 06/04/20 06/04/20 Range/Units 17:00 17:00 17:00 WBC 14.84 H (4.8-10.8) K/uL RBC 5.27 (4.2-5.4) M/uL Hgb 14.9 (12.0-16.0) g/dL Hct 44.8 (37-47) % MCV 85.0 (80-100) fL MCH 28.3 (25-34) pg MCHC 33.3 (32-36) g/dL RDW Std Deviation 49.8 H (36.4-46.3) fL RDW Coeff of Parish 16.1 H (11.5-14.5) % Plt Count 360 (130-400) K/uL MPV 10.2 (7.4-10.4) fL Immature Gran % (Auto) 0.3 % Neut % (Auto) 85.1 % Lymph % (Auto) 8.0 % Antelope % (Auto) 6.5 % Eos % (Auto) 0.0 % Baso % (Auto) 0.1 % Neut # (Auto) 12.63 H (1.4-6.5) K/uL Lymph # (Auto) 1.19 L (1.2-3.4) K/uL Antelope # (Auto) 0.96 H (0.11-0.59) K/uL Eos # (Auto) 0.00 (0-0.5) K/uL Baso # (Auto) 0.01 (0-0.2) K/uL Immature Gran # (Auto) 0.05 H (0.00-0.02) K/uL PT 14.6 H (9.0-12.0) Seconds INR 1.4 H (0.9-1.1) APTT 35.0 H (21.0-31.0) Seconds PTT Ratio 1.3 Sodium 139 (136-145) mmol/L Potassium 3.8 (3.5-5.1) mmol/L Chloride 106 (98-107) mmol/L Carbon Dioxide 27 (21-32) mmol/L Anion Gap 6.0 (3-11) BUN 37 H (7-18) mg/dl Creatinine 1.30 H (0.6-1.2) mg/dl Est Cr Clr Drug Dosing 51.2 ml/min Est GFR ( Amer) 49.9 Est GFR (Non-Af Amer) 43.0 BUN/Creatinine Ratio 28.7 H (10-20) Glucose 166 H (70-99) mg/dl Calcium 8.8 (8.5-10.1) mg/dl Total Bilirubin 0.6 (0.2-1) mg/dl AST 10 L (15-37) U/L ALT 24 (12-78) U/L Alkaline Phosphatase 99 (45-117) U/L Troponin I < 0.015 (0-0.045) ng/ml NT-Pro-B Natriuret Pep (0-900) pg/ml Total Protein 6.8 (6.4-8.2) gm/dl Albumin 3.1 L (3.4-5.0) gm/dl Globulin 3.7 (2.5-4.0) gm/dl Albumin/Globulin Ratio 0.8 L (0.9-2) Procalcitonin (0-0.5) ng/ml TSH (0.300-4.500) uIu/ml Specimen Hemolysis 06/04/20 06/04/20 Range/Units 17:00 17:00 WBC (4.8-10.8) K/uL RBC (4.2-5.4) M/uL Hgb (12.0-16.0) g/dL Hct (37-47) % MCV (80-100) fL MCH (25-34) pg MCHC (32-36) g/dL RDW Std Deviation (36.4-46.3) fL RDW Coeff of [place] (11.5-14.5) % Plt Count (130-400) K/uL MPV (7.4-10.4) fL Immature Gran % (Auto) % Neut % (Auto) % Lymph % (Auto) % Antelope % (Auto) % Eos % (Auto) % Baso % (Auto) % Neut # (Auto) (1.4-6.5) K/uL Lymph # (Auto) (1.2-3.4) K/uL Antelope # (Auto) (0.11-0.59) K/uL Eos # (Auto) (0-0.5) K/uL Baso # (Auto) (0-0.2) K/uL Immature Gran # (Auto) (0.00-0.02) K/uL PT (9.0-12.0) Seconds INR (0.9-1.1) APTT (21.0-31.0) Seconds PTT Ratio Sodium (136-145) mmol/L Potassium (3.5-5.1) mmol/L Chloride (98-107) mmol/L Carbon Dioxide (21-32) mmol/L Anion Gap (3-11) BUN (7-18) mg/dl Creatinine (0.6-1.2) mg/dl Est Cr Clr Drug Dosing ml/min Est GFR ( Amer) Est GFR (Non-Af Amer) BUN/Creatinine Ratio (10-20) Glucose (70-99) mg/dl Calcium (8.5-10.1) mg/dl Total Bilirubin (0.2-1) mg/dl AST (15-37) U/L ALT (12-78) U/L Alkaline Phosphatase (45-117) U/L Troponin I (0-0.045) ng/ml NT-Pro-B Natriuret Pep 339 (0-900) pg/ml Total Protein (6.4-8.2) gm/dl Albumin (3.4-5.0) gm/dl Globulin (2.5-4.0) gm/dl Albumin/Globulin Ratio (0.9-2) Procalcitonin < 0.05 (0-0.5) ng/ml TSH 0.149 L (0.300-4.500) uIu/ml Specimen Hemolysis Administered Medications Allopurinol (Allopurinol 100 Mg Tab) 100 mg PO QPM CALOS Stop: 07/04/20 20:59 Last Admin: 06/04/20 22:20 Dose: 100 mg Documented by: [id number] Diltiazem HCl 125 mg/ Dextrose 125 mls @ 5 mls/hr IV .Q24H CALOS; Protocol Stop: 07/04/20 17:14 Last Titration: 06/04/20 21:08 Dose: 5 mg/hr, 5 mls/hr Documented by: [id number] Cosigned by: [id number] Admin: 06/04/20 17:52 Dose: 5 mg/hr, 5 mls/hr Documented by: [id number] Cosigned by: [id number] Methylprednisolone 60 mg/ (Syringe) 0.96 mls @ 1.5 mls/min IV Q12H CALOS Stop: 07/04/20 21:59 Last Admin: 09/22/20 22:20 Dose: 1.5 mls/min Documented by: [id number] Insulin Aspart (Insulin Aspart 100 Units/Ml 3 Ml Pen) 0 units SC ACHS CALOS Stop: 07/04/20 20:59 Last Admin: 06/04/20 22:15 Dose: 9 units Documented by: [id number] Cosigned by: [id number] Discontinued Medications Diltiazem HCl (Diltiazem Hcl 5 Mg/Ml 5 Ml Vial) 10 mg IV NOW STA Stop: 06/04/20 17:13 Last Admin: 06/04/20 17:52 Dose: Not Given Documented by: [id number] Diltiazem HCl (Diltiazem Hcl 30 Mg Tab) 30 mg PO NOW ONE Stop: 06/04/20 19:29 Last Admin: 06/04/20 20:26 Dose: 30 mg Documented by: [id number] Furosemide (Furosemide 40 Mg/4 Ml Vial) 20 mg IV NOW STA Stop: 06/04/20 19:29 Last Admin: 06/04/20 20:26 Dose: 20 mg Documented by: [id number] Sodium Chloride (Nss) 500 mls @ 999 mls/hr IV .Q31M ONE Stop: 06/04/20 17:42 Last Infusion: 06/04/20 18:32 Dose: 0 mls/hr Documented by: [id number] Admin: 06/04/20 17:45 Dose: 999 mls/hr Documented by: [id number] Insulin Human NPH (Novolin-N (Nph) Per Unit Charge) 10 units SQ 2200 ONE Stop: 06/04/20 22:01 Last Admin: 06/04/20 22:17 Dose: 10 units Documented by: [id number] Cosigned by: [id number] Miscellaneous (Stat Iv Infusion Titration Per Protocol) 1 ea N/A NOW STA Stop: 06/04/20 17:13 Last Admin: 06/04/20 17:53 Dose: 1 ea Documented by: [id number] Potassium Chloride (Potassium Chloride 20 Meq Tabcr) 20 meq PO NOW STA Stop: 06/04/20 21:03 Last Admin: 06/04/20 22:20 Dose: 20 meq Documented by: [id number] Discharge Plan Visit Data Chief Complaint: Cardiac Assessment Stated Complaint: AFIB, HEART BEAT FAST ED Provider: Nino Michaels Discharge Problem: Atrial fibrillation with rapid ventricular response, Cough, Heart palpitations Patient Disposition: Admitted As Inpatient Discharge Instructions Interventions: ED Discharge Assessment Last Done: 06/04/20 20:16
--- NOTE | 2020-06-04 17:20 | XRay Report ---
XR chest 1V portable CLINICAL HISTORY: Atypical chest pain COMPARISON STUDY: 07/30/2016 FINDINGS: The heart is the upper limits of normal in size. Mild pulmonary venous hypertension is susp ected. There is no overt edema. There is no lobar consolidation. Trace pleural effusions are suspecte d. Left basilar densities are likely atelectatic IMPRESSION: 1. Cardiomegaly and suspected mild pulmonary venous hypertension 2. Possible trace pleural effusions ACT 112: Negative or not required by law. Electronically signed by: Sarthak Velasquez M.D. 06/04/2020 5:19 PM
[2020-06-04 17:23] LABS: INR 1.4 (0.9-1.1); Partial Thromboplastin Ratio 1.3; Prothrombin Time 14.6 Seconds (9.0-12.0)
[2020-06-04 17:30] LABS: Alanine Aminotransferase 24 U/L (12-78); Albumin Level 3.1 gm/dl (3.4-5.0); Aspartate Aminotransferase 10 U/L (15-37); BUN Creatinine Ratio 28.7 (10-20); Blood Urea Nitrogen 37 mg/dl (7-18); Calcium 8.8 mg/dl (8.5-10.1); Carbon Dioxide 27 mmol/L (21-32); Chloride 106 mmol/L (98-107); Creatinine Clr Calc Pharmacy 51.2 ml/min; Est GFR (African American) 49.9; Glucose 166 mg/dl (70-99); Potassium 3.8 mmol/L (3.5-5.1); Sodium 139 mmol/L (136-145)
[2020-06-04 17:34] LABS: Albumin Globulin Ratio 0.8 (0.9-2); Alkaline Phosphatase 99 U/L (45-117); Bilirubin,Total 0.6 mg/dl (0.2-1); Globulin 3.7 gm/dl (2.5-4.0); Total Protein 6.8 gm/dl (6.4-8.2); Troponin I < 0.015 ng/ml (0-0.045)
[2020-06-04] MEDS ORDERED: FUROSEMIDE 40 MG/4 ML VIAL IV STA (19:28)
[2020-06-04] MEDS ORDERED: dilTIAZem HCL 30 MG TAB PO ONE (19:28)
--- NOTE | 2020-06-04 20:37 | History & Physical Report ---
Date of Service June 04, 2020 Assessment & Plan (1) Atrial fibrillation: Ms. Nur is a 65yo female with a PMHx of atrial fibrillation on Xarelto and PO Diltiazem, HTN, HLD, DMII, Hypothyroidism, REYNALDO on CPAP, Asthma and Gout who presents with the complaint of weakness and shakiness for the past few days and was found to be in a fib with rvr. Atrial Fibrillation with Rapid Ventricular rate -Pt presented with weakness and shakiness -EKG showed a fib with rvr HR of 115,, qtc of 370 -Pt notes that she has had this hx for the last 4 years -Was in NSR last month when she saw her sales engineer account manager last -Likely brought on by acute illness (see below) -TSH pending, has Hx of hypothyroidism (see below) -continue diltiazem drip started in the ED, wean off as tolerated -ordered PO diltiazem 30mg q8h to be given simultaneously, titrate dose up as needed while drip is weaned -continue home xarelto 20mg daily -optimize K+ >4, Mag >2 (Mag pending with AM lab) -consider cardiology consultation Cough/SOB, Hx of Asthma -Pt with a 3 week Hx of cough and SOB -Treated outpatient with Augmentin, Azithromycin, and prednisone taper -Chest XR with some noted pleural effusions, no obvious signs of infection -COVID NEGATIVE -ordered CT chest -procalcitonin pending -BNP, echo pending to rule out CHF as a possible cause -received fluids in the ED, one dose of Lasix IV 20mg ordered, continue home furosemide 20mg daily -will transition from prednisone taper to IV Solumedrol 120mg q12h -continue Xoponex scheduled, hold home albuterol. -continue home Breo inhaler as needed -ordered Robitussin DM for cough, hold home benzonatate DMII -HgbA1c of 5.8 in March 2020 -Pt is not on medications for diabetes, controlled mostly with diet and weight loss -ISS while hospitalized given she is on steroids and current acute illness Hypothyroidism -Last TSH in March WNL -repeat TSH ordered to rule out as potential cause of her atrial fibrillation -continue home levothyroxine 137mcg HTN -continue home losartan 50mg daily HLD -continue home atorvastatin 20mg tablet WEEKLY Gout -continue home allopurinol 100mg daily REYNALDO -ordered CPAP for nightly use Urinary Incontinence -continue home oxybutynin 10mg daily FEN/GI: DMII diet DVT prophylaxis: On home Xarelto CODE STATUS: Full Dispo: PCU/Tele (2) Asthma: (3) Type 2 diabetes mellitus: (4) Obesity: (5) Obstructive sleep apnea of adult: (6) Hyperlipidemia: (7) Hypothyroidism: (8) Cough: (9) Hypertension: (10) Gout: (11) DVT prophylaxis: History of Present Illness Primary Care Provider: Sudeep Monroe MD Ms. Nur is a 65yo female with a PMHx of atrial fibrillation on Xarelto and PO Diltiazem, HTN, HLD, DMII, Hypothyroidism, REYNALDO on CPAP, Asthma and Gout who presents with the complaint of weakness and shakiness for the past few days and was found to be in a fib with rvr. She states she was first diagnosed with a fib about 4 years ago in a similar setting of acute illness. She has been on Xarelto and PO diltiazem for it since then, and was even in NSR as recently as last month when she saw her sales engineer account manager. He recommended she continue with her medications and follow up in a year. She states that she has been having a cough and associated SOB especially when she lays down since Labor day (almost 3 weeks ago). Has been treated with Augmentin, Azithromycin and a prednisone taper all with minimal relief. PSH: Hysterectomy, tubal ligation, umbilical hernia repair, wisdom tooth removal Fam Hx: Mother-HTN Allergies: NKDA SH: Nonsmoker, no alcohol use and no recreational drug use. Lives at home with in a 2 lobo home. Allergies Allergy/AdvReac Type Severity Reaction Status Date / Time No Known Drug Allergies Allergy Unknown . Verified 06/04/20 19:11 Home Medications Home Medications Medication Instructions Recorded Confirmed Type albuterol sulfate 2.5 mg INHALATION QID PRN #2 ml 04/21/19 06/04/20 History blood sugar diagnostic #10 ea 04/21/19 04/08/20 History blood-glucose meter #1 ea 04/21/19 04/08/20 History diltiazem HCl 120 mg 120 mg PO DAILY 04/21/19 06/04/20 History capsule,extended release 24 hr lancets 30 gauge #25 ea 04/21/19 11/23/19 History calcium carbonate 500 mg calcium 500 mg PO DAILY tab 04/25/19 06/04/20 History (1,250 mg) tablet vit C 250 mg-E 200 unit-zinc 40 1 tab PO DAILY cap 07/03/19 06/04/20 History mg-copper 1 [id number] capsule atorvastatin 20 mg tablet 20 mg PO WK tab 11/23/19 06/04/20 History rivaroxaban 20 mg tablet 20 mg PO DAILY #30 tab 02/06/20 06/04/20 Rx losartan 50 mg tablet 50 mg PO DAILY #90 tab 04/24/20 06/04/20 Rx levothyroxine 137 mcg tablet 137 mcg PO DAILY #30 tab 04/30/20 06/04/20 Rx oxybutynin chloride 10 mg 10 mg PO DAILY #30 tab 04/30/20 06/04/20 Rx tablet,extended release 24 hr fluticasone furoate 200 1 ea INHALATION DAILY #60 ea 05/02/20 06/04/20 Rx mcg-vilanterol 25 mcg/dose inhalation powder albuterol sulfate 90 mcg/actuation 2 puff INHALATION QID PRN #8.5 g 05/21/20 06/04/20 Rx aerosol inhaler benzonatate 100 mg capsule 100 mg PO TID #30 cap 05/30/20 06/04/20 Rx prednisone 20 mg tablet 20 mg PO .COMPLEX #30 tab 05/30/20 06/04/20 Rx allopurinol [Zyloprim] 100 mg PO QPM 06/04/20 06/04/20 History furosemide 20 mg PO DAILY 06/04/20 06/04/20 History magnesium 500 mg PO DAILY 06/04/20 06/04/20 History Past Med/Surg History Medical History (Updated 06/04/20 @ 23:06 by Akosua Yates MD) Asthma Atrial fibrillation Colon polyp 12/2012 tubular adenoma. 02/2017 sessile serrated adenoma (recheck in 5 years) Diverticulosis Former smoker Gout Hyperlipidemia Hypertension Hypothyroidism Obesity Obstructive sleep apnea of adult Papilloma of breast Pneumonia Type 2 diabetes mellitus Umbilical hernia Surgical History H/O colonoscopy (02/26/17) sessile serrated adenoma, recheck in 5 years, Dr Reyez H/O oral surgery History of hernia repair S/P hysterectomy S/P tubal ligation Family History Mother Breast cancer Diabetes Hypertension Father Prostate cancer Brother Diabetes Hypertension Social History Smoking Status: Former smoker Tobacco Type: Cigarettes Hx Alcohol Use: Yes Hx Substance Use: No Preferred Language: Setswana Communication Ability: Effective Incoming Inspector Required: No Beliefs That Will Affect Care: None marital status: Current Living Situation: Spouse current occupational status: employed Other Information That Helps Us Care for You: No Feels Safe at Home: Yes Dental Care, Regularly: No Seatbelt Use: always Assistive Devices: Glasses Review of Systems Constitutional: + fatigue, + weakness and + insomnia; no fever, no chills and no sweats Eyes: no worsening vision Ear, Nose, Mouth, Throat: no dizziness, no nasal congestion and no sore throat Respiratory: + cough and + dyspnea; no pain with cough Cardiovascular: + dyspnea and + palpitations; no chest pain and no edema Gastrointestinal: no abdominal pain, no nausea, no vomiting, no constipation, no diarrhea/loose stools and no blood in stools Genitourinary: no dysuria and no hematuria Musculoskeletal: + neck pain; no back pain Integumentary: no rash Neurologic: + generalized weakness; no tingling, no numbness, no dizziness, no headache(s) and no confusion Psychiatric: no confusion Physical Exam Physical Exam: General: Alert, oriented. No acute distress, sitting up in bed Skin: Arms significantly tanned Psych: Appropriate mood and affect Neuro: No gross deficits HEENT: NC/AT Chest: Nontender to palpation. CV: Irregularly irregular rate and rhythm Resp: Breath sounds tight and decreased bilaterally, no increased effort of breathing. Abdomen: BS+. Soft, nontender, nondistended. No guarding. Extremities: No edema in lower extremities bilaterally. Results & Data Results & Data ([facility]) Vital Signs (Past 12 Hours) Vital Signs Temp Pulse Resp BP Pulse Ox 06/04/20 18:50 98 H 20 94 06/04/20 18:45 106 H 22 135/88 93 06/04/20 18:40 113 H 23 95 06/04/20 18:38 123 H 21 96 06/04/20 18:30 90 23 121/81 94 06/04/20 18:20 108 H 19 94 06/04/20 18:15 85 20 137/79 94 06/04/20 18:10 99 H 23 94 06/04/20 18:01 97 H 22 93 06/04/20 18:00 113 H 21 107/81 93 06/04/20 17:50 102 H 22 93 06/04/20 17:46 96 H 20 104/69 92 06/04/20 17:40 115 H 22 93 06/04/20 17:31 108 H 20 92 06/04/20 17:30 125 H 22 114/62 92 06/04/20 17:20 109 H 23 93 06/04/20 17:16 98 H 26 H 101/74 92 06/04/20 17:10 112 H 21 06/04/20 17:07 118 H 21 06/04/20 16:40 37.0 C 130 H 20 141/81 H 94 Laboratory Results 06/04/20 06/04/20 06/04/20 Range/Units 21:10 17:00 17:00 WBC (4.8-10.8) K/uL RBC (4.2-5.4) M/uL Hgb (12.0-16.0) g/dL Hct (37-47) % MCV (80-100) fL MCH (25-34) pg MCHC (32-36) g/dL RDW Std Deviation (36.4-46.3) fL RDW Coeff of Parish (11.5-14.5) % Plt Count (130-400) K/uL MPV (7.4-10.4) fL Immature Gran % (Auto) % Neut % (Auto) % Lymph % (Auto) % [place] % (Auto) % Eos % (Auto) % Baso % (Auto) % Neut # (Auto) (1.4-6.5) K/uL Lymph # (Auto) (1.2-3.4) K/uL [place] # (Auto) (0.11-0.59) K/uL Eos # (Auto) (0-0.5) K/uL Baso # (Auto) (0-0.2) K/uL Immature Gran # (Auto) (0.00-0.02) K/uL PT (9.0-12.0) Seconds INR (0.9-1.1) APTT (21.0-31.0) Seconds PTT Ratio Sodium (136-145) mmol/L Potassium (3.5-5.1) mmol/L Chloride (98-107) mmol/L Carbon Dioxide (21-32) mmol/L Anion Gap (3-11) BUN (7-18) mg/dl Creatinine (0.6-1.2) mg/dl Est Cr Clr Drug Dosing ml/min Est GFR ( Amer) Est GFR (Non-Af Amer) BUN/Creatinine Ratio (10-20) Glucose (70-99) mg/dl POC Glucose 159 H (70-99) mg/dl Calcium (8.5-10.1) mg/dl Total Bilirubin (0.2-1) mg/dl AST (15-37) U/L ALT (12-78) U/L Alkaline Phosphatase (45-117) U/L Troponin I (0-0.045) ng/ml NT-Pro-B Natriuret Pep 339 (0-900) pg/ml Total Protein (6.4-8.2) gm/dl Albumin (3.4-5.0) gm/dl Globulin (2.5-4.0) gm/dl Albumin/Globulin Ratio (0.9-2) Procalcitonin < 0.05 (0-0.5) ng/ml TSH 0.149 L (0.300-4.500) uIu/ml Specimen Hemolysis 06/04/20 06/04/20 06/04/20 Range/Units 17:00 17:00 17:00 WBC 14.84 H (4.8-10.8) K/uL RBC 5.27 (4.2-5.4) M/uL Hgb 14.9 (12.0-16.0) g/dL Hct 44.8 (37-47) % MCV 85.0 (80-100) fL MCH 28.3 (25-34) pg MCHC 33.3 (32-36) g/dL RDW Std Deviation 49.8 H (36.4-46.3) fL RDW Coeff of Parish 16.1 H (11.5-14.5) % Plt Count 360 (130-400) K/uL MPV 10.2 (7.4-10.4) fL Immature Gran % (Auto) 0.3 % Neut % (Auto) 85.1 % Lymph % (Auto) 8.0 % [place] % (Auto) 6.5 % Eos % (Auto) 0.0 % Baso % (Auto) 0.1 % Neut # (Auto) 12.63 H (1.4-6.5) K/uL Lymph # (Auto) 1.19 L (1.2-3.4) K/uL [place] # (Auto) 0.96 H (0.11-0.59) K/uL Eos # (Auto) 0.00 (0-0.5) K/uL Baso # (Auto) 0.01 (0-0.2) K/uL Immature Gran # (Auto) 0.05 H (0.00-0.02) K/uL PT 14.6 H (9.0-12.0) Seconds INR 1.4 H (0.9-1.1) APTT 35.0 H (21.0-31.0) Seconds PTT Ratio 1.3 Sodium 139 (136-145) mmol/L Potassium 3.8 (3.5-5.1) mmol/L Chloride 106 (98-107) mmol/L Carbon Dioxide 27 (21-32) mmol/L Anion Gap 6.0 (3-11) BUN 37 H (7-18) mg/dl Creatinine 1.30 H (0.6-1.2) mg/dl Est Cr Clr Drug Dosing 51.2 ml/min Est GFR ( Amer) 49.9 Est GFR (Non-Af Amer) 43.0 BUN/Creatinine Ratio 28.7 H (10-20) Glucose 166 H (70-99) mg/dl POC Glucose (70-99) mg/dl Calcium 8.8 (8.5-10.1) mg/dl Total Bilirubin 0.6 (0.2-1) mg/dl AST 10 L (15-37) U/L ALT 24 (12-78) U/L Alkaline Phosphatase 99 (45-117) U/L Troponin I < 0.015 (0-0.045) ng/ml NT-Pro-B Natriuret Pep (0-900) pg/ml Total Protein 6.8 (6.4-8.2) gm/dl Albumin 3.1 L (3.4-5.0) gm/dl Globulin 3.7 (2.5-4.0) gm/dl Albumin/Globulin Ratio 0.8 L (0.9-2) Procalcitonin (0-0.5) ng/ml TSH (0.300-4.500) uIu/ml Specimen Hemolysis Diagnostic Findings XR chest 1V portable CLINICAL HISTORY: Atypical chest pain COMPARISON STUDY: 07/30/2016 FINDINGS: The heart is the upper limits of normal in size. Mild pulmonary venous hypertension is suspected. There is no overt edema. There is no lobar consolidation. Trace pleural effusions are suspected. Left basilar densities are likely atelectatic IMPRESSION: 1. Cardiomegaly and suspected mild pulmonary venous hypertension 2. Possible trace pleural effusions ECG Additional Comments: ECG on 06/04/2020 at 1648 with atrial fibrillation with RVR, rate 115, mild upsloping ST depression in anterior leads Code Status & VTE Plan Code Status Full code VTE Prophylaxis Plan VTE Prophylaxis will be ordered: Yes Supervising Physician Co-Signing Physician Notes I personally examined the patient and verified all duran points of history and exam, discussed case, and agree with decision making with Dr. Andrade with the following additions/exceptions: This patient is a 65-year-old female with a history of paroxysmal atrial fibrillation on Xarelto, HTN, hyperlipidemia, DM 2 diet-controlled, asthma, REYNALDO on CPAP, hypothyroidism, obesity, and gout, who presents to the ER with 4 days of feeling weak and shaky and noted to have a rapid heart rate at home in the 130s on home blood pressure monitor cuff. Over the last 3 weeks, she has been struggling with a persistent cough that initially was productive and now has become dry. She has been treated for an asthma exacerbation as well as for bronchitis with first course of Augmentin, followed by 2 bursts of prednisone and 2 Z-Paks as well as albuterol nebulizer and Tessalon Perles. She has persistent cough. She notes worsening shortness of breath with lying flat and has been sleeping sitting upright in a chair. She has not been able to tolerate her CPAP for the last 3 weeks due to the cough and inability to sleep from that. She denies fevers or chills or COVID exposures. She had a COVID test that was -1-week ago. In the ER, found to be in rapid atrial fibrillation. Chest x-ray with bilateral small pleural effusions and some pulmonary vascular congestion. She was started on a diltiazem drip after bolus of 10 mg was given and her rates were in the high 90s when I saw her. History and ROS reviewed as above. Vitals reviewed Gen: AAOx3, NAD, obese HEENT: Anicteric sclerae, EOMI, oropharynx clear without exudate CV: Irregularly irregular, mildly tachycardic no mgr nl S1S2 Pulm: Positive bibasilar crackles, no wheezes Abd: +BS soft NT ND no masses or hernias Ext: No edema, 2+ DP pulses, no calf tenderness Skin: No rashes, warm/dry Neuro: Full strength throughout 65-year-old female with history as above, here with rapid atrial fibrillation in the setting of persistent cough and asthma exacerbation. Plan outlined as above Check CT of the chest and consider pulmonary consultation if abnormal findings Treat for asthma with IV steroids and bronchodilators, also treating with IV Lasix for volume overload which is likely acute on chronic diastolic CHF secondary to 4 days of rapid atrial fibrillation. Check proBNP, procalcitonin. We will hold off on any further antibiotics at this time. She is afebrile and leukocytosis is likely from recent prednisone burst. Follow daily weights, I's and O's Starting diltiazem 30 mg p.o. x1 now and if has good rate control and blood pressure can tolerate, can wean off diltiazem drip and consider increasing home dose of diltiazem 120 up to 180 for tomorrow Check echocardiogram. Continue Xarelto for atrial fibrillation and also DVT prophylaxis Resident Activity Tracking Resident Involvement: Resident Care Provided Care Provided: Adult Hospital Medicine
[2020-06-04] MEDS ORDERED: CARBOHYDRATES FOR HYPOGLYCEMIA PO PRN (21:00)
[2020-06-04] MEDS ORDERED: DEXTROSE 50% 50 ML SYRINGE IV PRN (21:00)
[2020-06-04] MEDS ORDERED: allopurinoL 100 MG TAB PO SCH (21:00)
[2020-06-04] MEDS ORDERED: methylPREDNISolone 125 MG/2 ML VIAL IV SCH (21:00)
[2020-06-04] MEDS ORDERED: GLUCAGON FOR INJ 1 MG VIAL SQ PRN (21:00)
[2020-06-04] MEDS ORDERED: GLUCOSE 10 TABS/TUBE PO PRN (21:00)
[2020-06-04] MEDS ORDERED: GLUCOSE 40% GEL 15 GM TUBE PO PRN (21:00)
[2020-06-04] MEDS ORDERED: GUAIFENESIN/DEXTROM SYRUP 100MG/10MG 5ML UDC PO PRN (21:00)
[2020-06-04] MEDS ORDERED: ALBUTEROL HFA 8 GM INHALER INH PRN (21:00)
[2020-06-04] MEDS ORDERED: POTASSIUM CHLORIDE 20 MEQ TABCR PO STA (21:02)
[2020-06-04] MEDS ORDERED: PHARMACY GLYCEMIC MGMT CONSULT PRN (21:11)
[2020-06-04 21:31] LABS: Thyroid Stimulating Hormone 0.149 uIu/ml (0.300-4.500)
[2020-06-04] MEDS ORDERED: NovoLIN-N (NPH) PER UNIT CHARGE SQ ONE (22:00)
[2020-06-04] MEDS: INSULIN ASPART 100 UNITS/ML 3 ML PEN SC SCH (22:15)
[2020-06-04] MEDS: methylPREDNISolone 60 MG in SYRINGE 0 ML IV SCH (22:20)
--- NOTE | 2020-06-04 23:15 | Billing Data ---
Date of Service June 04, 2020 Coding Level of Care Code 94065 Initial Inpt Care Lvl 3
[2020-06-05] MEDS: INSULIN ASPART 100 UNITS/ML 3 ML PEN SC SCH ×4 (01:03→11:58)
[2020-06-05] MEDS: LEVALBUTEROL HCL 0.63 MG/3 ML NEB NEB SCH ×3 (01:26→13:04)
[2020-06-05] MEDS ORDERED: LEVOTHYROXINE SODIUM 137 MCG TABLET PO SCH (06:30)
[2020-06-05] MEDS ORDERED: LEVOTHYROXINE SODIUM 125 MCG TABLET PO SCH (06:30)
[2020-06-05 07:02] LABS: Hematocrit (blood only) 43.3 % (37-47); Immature Granulocytes # (auto) 0.05 K/uL (0.00-0.02); Immature Granulocytes % (auto) 0.4 %; Lymphocytes # (auto) 1.06 K/uL (1.2-3.4); Lymphocytes % (auto) 8.1 %; Mean Corpuscular Hemoglobin 27.5 pg (25-34); Mean Corpuscular Hgb Conc 32.3 g/dL (32-36); Mean Corpuscular Volume 84.9 fL (80-100); Mean Platelet Volume 10.2 fL (7.4-10.4); Monocytes # (auto) 0.26 K/uL (0.11-0.59); Neutrophils # (auto) 11.78 K/uL (1.4-6.5); Neutrophils % (auto) 89.5 %; Platelet Count 330 K/uL (130-400); RDW Coefficient of Variation 16.1 % (11.5-14.5); RDW Standard Deviation 49.5 fL (36.4-46.3); White Blood Count 13.15 K/uL (4.8-10.8)
[2020-06-05 07:28] LABS: BUN Creatinine Ratio 34.7 (10-20); Calcium 8.7 mg/dl (8.5-10.1); Creatinine Clr Calc Pharmacy 64.2 ml/min; Est GFR (African American) 65.3; Est GFR (Non-African American) 56.3; Magnesium 2.3 mg/dl (1.8-2.4); Potassium 3.7 mmol/L (3.5-5.1)
[2020-06-05 07:29] LABS: Phosphorus 3.1 mg/dl (2.5-4.9)
--- NOTE | 2020-06-05 07:47 | CT Scan Report ---
CT chest wo con CT DOSE: 736.82 mGy.cm CLINICAL HISTORY: 65 years-old Female with unresolving cough, pleaural effusions. Chronic cough with pleural effusion TECHNIQUE: Multiaxial CT images of the chest were performed without contrast. A dose lowering techni que was utilized adhering to the principles of ALARA. COMPARISON: Chest CT 12/16/2017 FINDINGS: Trace pericardial effusion. Heart is normal in size. Mild coronary artery calcifications. A scending thoracic aorta measures 3.5 cm in transverse dimension. Mild calcified plaque of the thoraci c aorta. No adenopathy. Trace pleural effusions with mild right hemidiaphragmatic elevation. Consolidative opacities of the b saloni lower lobes with air bronchograms. There is no pneumothorax, suspicious pulmonary nodule or mass . There is resolution of the previously described patchy bilateral tree-in-bud airspace opacities muc ous plugging of the basal lower lobes. No acute process of the imaged upper abdomen. The soft tissues are unremarkable. Degenerative changes of the spine and shoulders. Demineralized appearance the bones. Bilateral shoulder rotator cuff calc ific tendinosis. IMPRESSION: 1. Trace pleural effusions with dependent consolidative opacities and air bronchograms of the basal l ower lobes. These findings may be secondary to atelectasis versus pneumonitis. 2. Additionally, there is mild bibasilar mucous plugging. 3. Resolution of the previously noted likely infectious tree-in-bud airspace opacities. 4. No adenopathy. ACT 112: Negative or not required by law. Electronically signed by: Aman Lyn M.D. 06/05/2020 7:45 AM
[2020-06-05] MEDS ORDERED: Nursing to Pharmacy Communication SCH (08:15)
[2020-06-05] MEDS ORDERED: FUROSEMIDE 20 MG TAB PO SCH (09:00)
[2020-06-05] MEDS ORDERED: dilTIAZem HCL 120 MG CAPCR PO SCH ×2 (09:00→13:00)
[2020-06-05] MEDS ORDERED: RIVAROXABAN 20 MG TAB PO SCH ×2 (09:00→13:00)
[2020-06-05] MEDS ORDERED: CALCIUM CARBONATE 1250MG TAB PO SCH (09:00)
[2020-06-05] MEDS ORDERED: FLUTICASONE/VILANTEROL 200/25MCG 14 PUFFS/INHALER INH SCH (09:00)
[2020-06-05] MEDS ORDERED: LOSARTAN POTASSIUM 50 MG TAB PO SCH (09:00)
[2020-06-05] MEDS ORDERED: MAGNESIUM OXIDE 400 MG TAB PO SCH (09:00)
[2020-06-05] MEDS ORDERED: OXYBUTYNIN CHLORIDE XL 5 MG TABCR PO SCH (09:00)
[2020-06-05] MEDS ORDERED: INSULIN GLARGINE SOLOSTAR 100 UNITS/ML 3 ML PEN SC SCH ×2 (09:00→21:00)
[2020-06-05] MEDS ORDERED: CEROVITE ADV FORMULA TAB PO SCH (09:00)
[2020-06-05] MEDS: methylPREDNISolone 60 MG in SYRINGE 0 ML IV SCH (10:15)
[2020-06-05] MEDS ORDERED: AZITHROMYCIN 250 MG TAB PO ONE (11:30)
--- NOTE | 2020-06-05 11:31 | Hospitalist Progress Note ---
Date of Service June 05, 2020 Assessment & Plan Admission and Anticipated Discharge Date Admission Date: June 04, 2020 Results & Data Results & Data ([facility]) Vital Signs (Past 12 Hours) Vital Signs Temp Pulse Pulse Pulse Pulse Resp BP 06/05/20 11:09 36.7 C 65 19 135/74 06/05/20 08:00 59 L 06/05/20 07:39 36.5 C 61 19 120/72 06/05/20 06:52 66 20 06/05/20 04:08 36.8 C 56 L 18 06/05/20 01:27 72 16 06/04/20 23:57 36.4 C L 80 18 06/04/20 23:38 80 18 BP Pulse Ox 06/05/20 11:09 93 06/05/20 08:00 06/05/20 07:39 94 06/05/20 06:52 93 06/05/20 04:08 91/52 L 91 06/05/20 01:27 94 06/04/20 23:57 111/68 93 06/04/20 23:38 95 PG Care Time/CCT Total # of Minutes Spent Total Time Spent with Patient: Total time spent is greater than 50% in coordination of care (as documented) at patient's floor/unit and/or counseling patient: Coding
--- NOTE | 2020-06-05 12:07 | XCELERA ---
[id number]
--- NOTE | 2020-06-05 13:40 | Discharge Summary ---
Date of Service June 05, 2020 Admission HPI Per Admitting Provider Ms. Nur is a 65yo female with a PMHx of atrial fibrillation on Xarelto and PO Diltiazem, HTN, HLD, DMII, Hypothyroidism, REYNALDO on CPAP, Asthma and Gout who presents with the complaint of weakness and shakiness for the past few days and was found to be in a fib with rvr. She states she was first diagnosed with a fib about 4 years ago in a similar setting of acute illness. She has been on Xarelto and PO diltiazem for it since then, and was even in NSR as recently as last month when she saw her roll icer. He recommended she continue with her medications and follow up in a year. She states that she has been having a cough and associated SOB especially when she lays down since Labor day (almost 3 weeks ago). Has been treated with Augmentin, Azithromycin and a prednisone taper all with minimal relief. PSH: Hysterectomy, tubal ligation, umbilical hernia repair, wisdom tooth removal Fam Hx: Mother-HTN Allergies: NKDA SH: Nonsmoker, no alcohol use and no recreational drug use. Lives at home with in a 2 lobo home. Admission Exam Per Admitting Provider Physical Exam: General: Alert, oriented. No acute distress, sitting up in bed Skin: Arms significantly tanned Psych: Appropriate mood and affect Neuro: No gross deficits HEENT: NC/AT Chest: Nontender to palpation. CV: Irregularly irregular rate and rhythm Resp: Breath sounds tight and decreased bilaterally, no increased effort of breathing. Abdomen: BS+. Soft, nontender, nondistended. No guarding. Extremities: No edema in lower extremities bilaterally. Principal Diagnosis Afib with RVR Discharge Exam Constitutional WD/WN, vitals as above no acute distress Eyes PERRL, conjunctivae normal, anicteric sclerae ENMT external ear and nose normal, oropharynx normal Neck trachea midline, no thyromegaly Respiratory normal respiratory effort, lungs clear to auscultation Cardiovascular RRR, no murmur, no edema Gastrointestinal (Abdomen) normal bowel sounds, soft, nontender, no hepatosplenomegaly Musculoskeletal no cyanosis or clubbing, extremities motor strength 5/5 Skin no rashes, warm and dry Neurologic patellar DTR's 2+ bilat, sensation intact Psychiatric A+Ox3, euthymic affect Lymphatic no cervical or axillary lymphadenopathy Discharge Data Allergies Allergy/AdvReac Type Severity Reaction Status Date / Time No Known Drug Allergies Allergy Unknown . Verified 06/04/20 19:11 Consultations 06/04/20 18:16 ED Decision to Admit Stat Ordered Studies 06/04/20 21:[address] chest wo con Urgent 06/05 ECHO Hospital Course (1) Atrial fibrillation: Ms. Nur is a 65yo female with a PMHx of atrial fibrillation on Xarelto and PO Diltiazem, HTN, HLD, DMII, Hypothyroidism, REYNALDO on CPAP, Asthma and Gout who presents with the complaint of weakness and shakiness for the past few days and was found to be in a fib with rvr with rates up in the 150s. Patient placed on telemetry and Cardizem gtt with conversion to NSR and maintenance of normal rhythm off of drip and back on her home diltiazem with rates 60-70s. Patient was found to have overtreatment of her thyroid with TSH 0.149 and her levothyroxine was decreased from 137mcg to 125mcg daily and will need repeat TFT outpatient in 4-6 weeks with her PCP. Xarelto continued, given paroxysmal nature of her afib. ECHO with mild LVH, LV systolic function normal, RV systolic pressure is elevated at 40-50mmHg. Scheduled for follow up with Dr. Jacob, her roll icer at discharge. (2) Hypothyroidism: See above -- levothyroxine decreased to 125mcg and will need repeat TFT 4- 6 weeks (3) Asthma: 3 week hx cough/sob. treated outpatient without improvement -- mild persistent CXR with pleural effusions. ECHO without evidence of CHF. COVID negative Nebs, Breo, Robitussin DM for cough CT chest with mucus plugging, effusions, although improvement of bud in tree -- was started and sent on Zpak with Mucinex to thin secretions. Also suggested OTC Zyrtec or Melanie for post-nasal drip/upper airway congestion Maintained 95% on RA Stable prior to discharge and continued on prednisone taper (4) Type 2 diabetes mellitus: -HgbA1c of 5.8 in March 2020 -Pt is not on medications for diabetes, controlled mostly with diet and weight loss -ISS while hospitalized (5) Obesity: Encouraged weight loss/diet (6) Obstructive sleep apnea of adult: CPAP (7) Hyperlipidemia: Continued Lipitor (8) Cough: see above (9) Hypertension: Stable Continued home losartan (10) Gout: continued allopurinol (11) DVT prophylaxis: Xarelto (12) Paroxysmal atrial fibrillation with rapid ventricular response: Total Time Total Time Spent Total Time Spent (In Minutes): 75 Discharge Plan Discharge Items Patient Disposition: Home - Self-Care Reason For Visit: A FIB WITH RVR Discharge Diagnosis: Atrial Fibrillation with RVR Goals: You have been hospitalized for an acute medical problem. During your stay at [facility], we have made an effort to correct the problem that brought you to the hospital while keeping you as comfortable as possible. Medications were used to bring your condition under control and your discharge instructions will include directions for any medications you should take after leaving the hospital. Please make sure you see your Primary Care Provider as part of your follow up plan. Activity: Resume your previous activity Non-emergency contact: Primary Care Provider and Chute Boss Call non-emergency contact if: you have any medication questions and your symptoms worsen Follow-up/Referrals: Lance Jacob MD [Physician] - (2 weeks) Sudeep Monroe III, MD [Primary Care Provider] - Diet: Carb Consistent or DM2 and Heart Healthy Addtl Attending Provider Instructions: You have been hospitalized and found to be in atrial fibrillation with rapid ventricular response. You were placed on a Cardizem drip and converted back into a normal rhythm and have remained in this since discontinuing the IV medication. You were found to have been over treated for your thyroid and your Levnothyroxine (Synthroid) was decreased to 125mcg daily and will need to have repeat thyroid function testing as an outpatient in the next 4-6 weeks to monitor if you will need any further adjustments to this medication. CT of your chest was performed which showed some mucus plugging but otherwise improvement in other areas compared to previous imaging. You have been started on and will continue azithromycin for the next 4 days at 250mg by mouth once daily. You were also started on Mucinex to help thin the mucus and help to bring this up. You may want to consider an over the counter antihistamine such as zyrtec in the future to help with sinus drainage/allergies given your lungs sounded clear but had upper airway congestion. You should continue on your prednisone taper and utilize nebulizer treatments and rescue inhalers as previously ordered. Please follow up with your primary care provider in the next week to monitor your progress as well as follow up with your roll icer in the next 2 weeks for surveillance. An ECHO (ultrasound) of your heart was performed and showed normal pumping function with some leakiness of some of your valves, but only trace-mild and will need routine follow-up. Please return to the emergency department with any worsening palpitations, shortness of breath, chest pain, or for any other symptoms that are concerning for you. It has been a pleasure being a part of the medical team providing for you while you have been in the hospital. Take care! Pending Studies at Discharge: No Stand-Alone Forms: My [facility] [employer], Smoking Cessation Medications and DC Order Prescriptions: New azithromycin 250 mg Tablet 250 mg PO DAILY Qty: 4 RF: 0 dextromethorphan-guaifenesin 10-100 mg/5 mL Syrup 5 ml PO Q6H PRN (Reason: cough) Qty: 237 RF: 0 levothyroxine [Synthroid] 125 mcg Tablet 125 mcg PO DAILYBB Qty: 30 RF: 0 Continued Xarelto 20 mg tablet 20 mg PO DAILY Qty: 30 RF: 11 losartan 50 mg tablet 50 mg PO DAILY Qty: 90 RF: 3 oxybutynin chloride 10 mg tablet extended release 24hr 10 mg PO DAILY Qty: 30 RF: 11 fluticasone furoate-vilanterol 200-25 mcg/dose blister with device 1 ea inhalation DAILY Qty: 60 RF: 5 atorvastatin 20 mg tablet 20 mg PO WK RF: 0 albuterol sulfate 90 mcg/actuation HFA aerosol inhaler 2 puff inhalation QID PRN (Reason: bronchospasm) Qty: 8.5 RF: 0 prednisone 20 mg tablet 20 mg PO .COMPLEX Qty: 30 RF: 0 benzonatate 100 mg capsule 100 mg PO TID Qty: 30 RF: 1 PreserVision AREDS-2 [id number] yh-[id number]-rj-mg capsule 1 tab PO DAILY RF: 0 diltiazem HCl [Cartia XT] 120 mg capsule,extended release 24hr 120 mg PO DAILY RF: 0 albuterol sulfate 2.5 mg /3 mL (0.083 %) solution for nebulization 2.5 mg inhalation QID PRN (Reason: Shortness Of Breath Or Wheezing) Qty: 2 RF: 0 (DME) Accu-Chek SmartView Test Strip strip See Dose Instructions .ROUTE .MEDSUPPLY Qty: 10 RF: 0 (DME) blood-glucose meter [Accu-Chek Nikki] misc See Dose Instructions .ROUTE .MEDSUPPLY Qty: 1 RF: 0 (DME) lancets [OneTouch Delica Lancets] 30 gauge misc See Dose Instructions .ROUTE .MEDSUPPLY Qty: 25 RF: 0 calcium carbonate [Calcium 500] 500 mg calcium (1,250 mg) tablet 500 mg PO DAILY RF: 0 magnesium 500 mg Tablet 500 mg PO DAILY RF: 0 allopurinol [Zyloprim] 100 mg tablet 100 mg PO QPM RF: 0 furosemide 20 mg tablet 20 mg PO DAILY RF: 0 Discontinued levothyroxine 137 mcg tablet 137 mcg PO DAILY Qty: 30 RF: 11 Discharge Orders: Discharge Order (Routine); Ordered 06/05/20 Ordered By: Gay Garcia Admission Data Admit Date/Time: 06/04/20 19:37 Attending Provider: Nehemiah Ovalle Admit Provider: Stacey Andrade Primary Care Provider: Sudeep Monroe III Other Providers: Narciso Garcia Other Interventions: Discharge Summary Assessment (RN) Last Done: 06/05/20 15:03 Coding Level of Care Code 55396 OBS Care - Discharge Diagnoses Atrial fibrillation I48.91 Hypothyroidism E03.9 Asthma J45.909 Type 2 diabetes mellitus E11.9 Obesity E66.9 Obstructive sleep apnea of adult G47.33 Hyperlipidemia E78.5 Cough R05 Hypertension I10 Gout M10.9 DVT prophylaxis Z29.9 Paroxysmal atrial fibrillation with rapid ventricular response I48.0
--- NOTE | 2020-06-05 14:22 | Pharmacy Report ---
Pharmacy Glycemic Short Note 2 - Date of Service June 05, 2020 - Glycemic Short BSG Results (Last 24 hours): 06/04/20 06/04/20 06/05/20 17:00 21:10 00:30 Glucose 166 H POC Glucose 159 H 108 H 06/05/20 06/05/20 06/05/20 04:04 06:27 07:23 Glucose 166 H POC Glucose 158 H 169 H 06/05/20 11:25 Glucose POC Glucose 177 H OUTPATIENT ANTIDIABETIC REGIMEN: * N/A- diet controlled * A1c 5.8% ASSESSMENT: * Ms. Nur admitted with atrial fibrillation currently on diltiazem infusion (dextrose diluent). Her A1c indicates excellent outpatient control. BSGs in the 160-170s with IV solumedrol 60 mg BID. * Patient received 10 units of lantus last PM, fasting 169, slightly above goal range. Will continue lantus with scale up to maximum 20 daily total units * Will continue current novolog parameters with weight based stress of 2 carb ratio and slightly tighter correction factor. If BSGs remain above goal will tighten carb coverage as steroids typically have most effect on prandial BSGS. PLAN FOR INPATIENT GLYCEMIC CONTROL: * Hold outpatient oral diabetes medications * Basal insulin * Lantus 5/10/15 units SQ BID (5 units x 1 this AM) * Bolus insulin * NovoLog per scale ACHS or Q6hrs while NPO * Goal Range: Low 110 mg/dL - High 140 mg/dL * Correction Factor: 20 mg/dL/unit * Nutritional / Prandial insulin per carb ratio of 1 unit per 8 grams CHO consumed PLAN FOR DISCHARGE: * Support Patient Self-Management Healthy Lifestyle (diet, exercise, and smoking cessation) Disease self-management (SMBG) Prevention of complications (BP, Lipid goals, Immunizations)
--- NOTE | 2020-06-05 14:25 | Electrocardiogram Report ---
Test Reason : Blood Pressure : / mmHG Vent. Rate : 115 BPM Atrial Rate : 107 BPM P-R Int : 000 ms QRS Dur : 094 ms QT Int : 268 ms P-R-T Axes : 000 053 033 degrees QTc Int : 370 ms Atrial fibrillation with rapid ventricular response Abnormal ECG When compared with ECG of 31-JUL-2016 07:19, Atrial fibrillation has replaced Sinus rhythm Vent. rate has increased BY [address] no longer elevated in Inferior leads Confirmed by Christiano Singh ([id number]) on 06/05/2020 2:25:31 PM Referred By: REFERRED SELF Confirmed By:Christiano Singh
[2020-06-05] MEDS ORDERED: ATORVASTATIN 20 MG TAB PO SCH (17:00)
[2020-06-05] MEDS ORDERED: guaiFENesin 600 MG TABCR PO SCH (21:00)
[2020-06-06] MEDS ORDERED: AZITHROMYCIN 250 MG TAB PO SCH (09:00)
== END 2020-06-05 15:34 | disposition home or self-care (01) ==
LOC: ED 16:37 → INTOOBSV 19:37 → SUATTDRO 19:37 → 2S 19:37

== ENCOUNTER 2023-01-18 06:37 | Observation (INO) ==
--- NOTE | 2022-12-29 10:52 | PAT Medication Instructions ---
Medication Instructions Date of Service December 29, 2022 Home Medications Medication Instructions Recorded Auto Titrating CPAP #1 ea 06/21/20 CPAP Supplies #1 ea 06/21/20 Incentive Spirometer #1 ea 06/21/20 allopurinol 100 mg tablet 100 mg PO QPM #90 tabs 04/23/22 (Zyloprim) albuterol sulfate 90 mcg/actuation 2 puff inhalation QID PRN 07/08/22 aerosol inhaler bronchospasm #8.5 grams montelukast 10 mg tablet 10 mg PO QPM #90 tabs 07/08/22 (Singulair) rivaroxaban 20 mg tablet (Xarelto) 20 mg PO 1300 #90 tabs 08/04/22 atorvastatin 20 mg tablet 20 mg PO WE #12 tabs 09/01/22 albuterol sulfate 2.5 mg/3 mL 2.5 mg (3 mL) inhalation QID PRN 09/25/22 (0.083 %) solution for nebulization Shortness Of Breath Or Wheezing #75 mL levothyroxine 137 mcg tablet 137 mcg PO QAM #90 tabs 10/27/22 oxybutynin chloride 10 mg 10 mg PO QAM #90 tabs 11/09/22 tablet,extended release 24 hr furosemide 20 mg tablet 20 mg PO QAM #90 tabs 11/30/22 calcium carbonate 500 mg calcium (1,250 mg) tablet (Calcium 500) 500 mg PO QAM magnesium 500 mg tablet 500 mg PO QAM fluticasone propionate 50 mcg/actuation nasal spray,suspension (Allergy Relief (fluticasone)) 1 spray intranasal DAILY PRN guaifenesin 600 mg tablet, extended release 12 hr (Mucinex) 600 mg PO QAM allopurinol 100 mg tablet (Zyloprim) 100 mg PO QPM albuterol sulfate 90 mcg/actuation aerosol inhaler 2 puff inhalation QID PRN montelukast 10 mg tablet (Singulair) 10 mg PO QPM rivaroxaban 20 mg tablet (Xarelto) 20 mg PO atorvastatin 20 mg tablet 20 mg PO albuterol sulfate 2.5 mg/3 mL (0.083 %) solution for nebulization 2.5 mg (3 mL) inhalation QID PRN levothyroxine 137 mcg tablet 137 mcg PO QAM oxybutynin chloride 10 mg tablet,extended release 24 hr 10 mg PO QAM furosemide 20 mg tablet 20 mg PO QAM cetirizine 10 mg tablet 10 mg PO diltiazem HCl 120 mg capsule,24 hr,extended release 120 mg PO fluticasone furoate 100 mcg-vilanterol 25 mcg/dose inhalation powder (Breo Ellipta) 1 inh inhalation DAILY PRN losartan 50 mg tablet 50 mg PO QAM metformin 500 mg tablet,extended release 24hr 500 mg PO QAM [id number] 5 mg-zeaxanth 1 mg-bilberry 7.5 mg-herbal capsule (Macular Health Formula) 1 cap PO QAM Continue as directed atorvastatin 20 mg tablet 20 mg PO diltiazem HCl 120 mg capsule,24 hr,extended release 120 mg PO fluticasone furoate 100 mcg-vilanterol 25 mcg/dose inhalation powder (Breo Ellipta) 1 inh inhalation DAILY PRN(if needed) fluticasone propionate 50 mcg/actuation nasal spray,suspension (Allergy Relief (fluticasone)) 1 spray intranasal DAILY PRN(if needed) ASK your prescriber and surgeon rivaroxaban 20 mg tablet (Xarelto) 20 mg PO(in order for spinal or epidural anesthesia, Xarelto needs to be stopped 72 hours/3 days before surgery. Please check if okay with doctor that prescribes this to you) STOP taking 2 weeks before surgery (or as soon as possible if surgery is within 2 weeks) [id number] 5 mg-zeaxanth 1 mg-bilberry 7.5 mg-herbal capsule (Macular Health Formula) 1 cap PO QAM DO NOT take the morning of surgery calcium carbonate 500 mg calcium (1,250 mg) tablet (Calcium 500) 500 mg PO QAM magnesium 500 mg tablet 500 mg PO QAM guaifenesin 600 mg tablet, extended release 12 hr (Mucinex) 600 mg PO QAM oxybutynin chloride 10 mg tablet,extended release 24 hr 10 mg PO QAM furosemide 20 mg tablet 20 mg PO QAM cetirizine 10 mg tablet 10 mg PO losartan 50 mg tablet 50 mg PO QAM metformin 500 mg tablet,extended release 24hr 500 mg PO QAM Take morning of surgery With a small sip of water, OTHERWISE NOTHING TO EAT OR DRINK AFTER MIDNIGHT: albuterol sulfate 90 mcg/actuation aerosol inhaler 2 puff inhalation QID PRN(use if needed; please bring with you to hospital day of surgery if possible) albuterol sulfate 2.5 mg/3 mL (0.083 %) solution for nebulization 2.5 mg (3 mL) inhalation QID PRN(if needed) levothyroxine 137 mcg tablet 137 mcg PO QAM Take evening before surgery allopurinol 100 mg tablet (Zyloprim) 100 mg PO QPM albuterol sulfate 90 mcg/actuation aerosol inhaler 2 puff inhalation QID PRN(if needed) montelukast 10 mg tablet (Singulair) 10 mg PO QPM albuterol sulfate 2.5 mg/3 mL (0.083 %) solution for nebulization 2.5 mg (3 mL) inhalation QID PRN(if needed) Other Notes If you have any questions please call us at [phone] or [phone] or [phone] or [phone]
--- NOTE | 2023-01-06 10:21 | Anesthesiology Consultation ---
Date of Service January 06, 2023 Assessment & Plan (1) Encounter for pre-operative examination: - Check BSG AM DOS - S/P Laparoscopic ventral hernia repair (05/14/22): Grade 2 view, ETT 7 at [facility] - Outpatient joint assessment: Pt currently scheduled for inpatient pathway. If surgeon requests review for outpatient joint pathway, patient is not recommended candidate for outpatient joint program from anesthesia standpoint. - Xarelto instructions: patient made aware that in order for spinal anesthesia, Xarelto needs to be held 72 hours/3 days prior to surgery. Patient voiced understanding/will check if okay with prescriber. - Cardiology visit (04/10/22): "The patient is stable from a cardiovascular standpoint. She demonstrates excellent control of her blood pressure and cholesterol values. She is tolerating rate control and long-term anticoagulation for her paroxysmal atrial fibrillation without difficulty.. Continue current medications.. Continue physical activity.. Continue home blood pressure monitoring.. Lipid panel per primary care team.. Follow-up in 1 year." - Pulmonary visit (07/08/22): "Patient was diagnosed withasthmain her 50s.. ast exacerbation May 2020.. Continue with Breo 100-25 MCG on a daily basis along with as needed albuterol.. Given the high eosinophil count and allergy symptoms, I do think patient might benefit from montelukast. I will prescribe her 10 mg to be taken on a daily basis.. Patient is compliant with her CPAP.. Abnormal chest CT.. Bilateral lower lobe atelectasis versus consolidative process --> no clinical signs of infection.. Patient is not having any fever or chills. Cough is decreased in intensity.. Allergic rhinitis with postnasal drip.. Better controlled.. If still not controlled we will give the patient for generation antihistamine.. Pulmonary hypertension.. Likely from underlying obesity as well as REYNALDO/OHS.. 2D echo 06/05/2020: EF 60-65%,mild concentric LVH. RVSP 40-55 mmHg,right ventricle normal in size and function" > 1 year followup recommended. - PCP visit (01/06/23): "Patient experiencing symptoms of acute asthma exacerbation and has knee replacement surgery scheduled in 2 weeks. CXR earlier today for PAT was clear. Will star zpack and medrol dose pack - hoping to prevent worsening of symptoms.. Call if symptoms worsen rather than improve." - COVID screening: Per assessment on 01/06: No known COVID-19 positive contacts. Travel screen negative. Patient vaccinated. Patient developed cough/wheezing 01/04/23. Covid test done at [facility] 01/06- Awaiting results. Patient seen by [facility] PCP 01/06 for further evaluation of cough/wheezing- prescribed zpack + medrol dose pack. CXR 01/06/23 NAD. Covid test done 01/06/23 at [facility] was negative. Patient advised to contact if symptoms not resolved prior to surgery. Chart Review Chart Review: Acceptable Risk for Surgery (pending evaluation AM DOS) and Patient seen in Pre Admission Testing Teaching & Discussion Pre-Anesthesia Teaching/Discussion Notes: Instructed NPO after midnight before surgery,except medications with 15 cc of water. Medication instructions provided according to the [facility] guidelines. History Surgery Operation Date: 01/18/23 09:20 Proposed Procedures p Left Total Knee Arthroplasty - Juan Antonio Bradley MD Height/Weight Height: 5 ft 3.75 in Weight: 117 kg Allergies Allergy/AdvReac Type Severity Reaction Status Date / Time shellfish derived Allergy Mild gout Verified 01/06/23 15:20 oxycodone AdvReac Mild Gastrointestinal Verified 01/06/23 15:20 Upset Medications Home Medications Medication Instructions Recorded Confirmed Last Taken blood sugar diagnostic (Accu-Chek #10 ea 04/21/19 01/06/23 Unknown SmartView Test Strips) blood-glucose meter (Accu-Chek #1 ea 04/21/19 01/06/23 Unknown Nikki) lancets 30 gauge (OneTouch Delica #25 ea 04/21/19 01/06/23 Unknown Lancets) calcium carbonate 500 mg calcium 500 mg PO QAM 04/25/19 01/06/23 05/13/22 17:00 (1,250 mg) tablet (Calcium 500) magnesium 500 mg tablet 500 mg PO QAM 06/04/20 01/06/23 05/13/22 10:00 Auto Titrating CPAP #1 ea 06/21/20 01/06/23 Unknown CPAP Supplies #1 ea 06/21/20 01/06/23 Unknown Incentive Spirometer #1 ea 06/21/20 01/06/23 Unknown fluticasone propionate 50 1 spray intranasal DAILY PRN 06/01/06/23 13:00 mcg/actuation nasal Allergy Symptoms spray,suspension (Allergy Relief (fluticasone)) guaifenesin 600 mg tablet, 600 mg PO QAM 09/17/21 01/06/23 05/13/22 10:00 extended release 12 hr (Mucinex) allopurinol 100 mg tablet 100 mg PO QPM #90 tabs 04/23/22 01/06/23 05/13/22 17:00 (Zyloprim) albuterol sulfate 90 mcg/actuation 2 puff inhalation QID PRN 07/08/22 01/06/23 Unknown aerosol inhaler bronchospasm #8.5 grams montelukast 10 mg tablet 10 mg PO QPM #90 tabs 07/08/22 01/06/23 Unknown (Singulair) rivaroxaban 20 mg tablet (Xarelto) 20 mg PO 1300 #90 tabs 08/04/22 01/06/23 Unknown atorvastatin 20 mg tablet 20 mg PO WE #12 tabs 09/01/22 01/06/23 Unknown albuterol sulfate 2.5 mg/3 mL 2.5 mg (3 mL) inhalation QID PRN 09/25/22 01/06/23 Unknown (0.083 %) solution for nebulization Shortness Of Breath Or Wheezing #75 mL levothyroxine 137 mcg tablet 137 mcg PO QAM #90 tabs 10/27/22 01/06/23 Unknown oxybutynin chloride 10 mg 10 mg PO QAM #90 tabs 11/09/22 01/06/23 Unknown tablet,extended release 24 hr furosemide 20 mg tablet 20 mg PO QAM #90 tabs 11/30/22 01/06/23 Unknown cetirizine 10 mg tablet 10 mg PO 1300 12/28/22 01/06/23 Unknown diltiazem HCl 120 mg capsule,24 120 mg PO 1300 12/28/22 01/06/23 Unknown hr,extended release fluticasone furoate 100 1 inh inhalation DAILY PRN 12/28/22 01/06/23 Unknown mcg-vilanterol 25 mcg/dose Shortness Of Breath inhalation powder (Breo Ellipta) losartan 50 mg tablet 50 mg PO QAM 12/28/22 01/06/23 Unknown metformin 500 mg tablet,extended 500 mg PO QAM 12/28/22 01/06/23 Unknown release 24hr boeliywn-eug-odlkqg 5 mg-zeaxanth 1 cap PO QAM 12/28/22 01/06/23 Unknown 1 mg-bilberry 7.5 mg-herbal capsule (Macular Health Formula) azithromycin 250 mg tablet See Rx Instructions PO .COMPLEX #6 01/06/23 01/06/23 Unknown (Zithromax Z-Chris) tabs methylprednisolone 4 mg tablets in See Rx Instructions .Route 01/06/23 01/06/23 Unknown a dose pack (Medrol (Chris)) .COMPLEX #21 ea Past Medical History Medical History Acid reflux Hx, no recent issues Asthma Atrial fibrillation Dx 3 years ago, reason for Xarelto Follows with Dr. Jacob Chronic back pain Colon polyp 12/2012 tubular adenoma 02/2017 sessile serrated adenoma (recheck in 5 years) Diverticulosis Gout [place] (hard of hearing) Hyperlipidemia Hypertension Hypothyroidism Morbid obesity Obstructive sleep apnea of adult CPAP (compliant) Pulmonary hypertension [facility] pulmonary monitoring, felt to be likely from underlying obesity as well as REYNALDO/OHS RVSP 40-50mmhg per 2019 echo Type 2 diabetes mellitus NIDDM Urinary incontinence Exercise / Class Metabolic Activity III < 4 Walking/Shop/Light housework Past Family History Family History Mother Diabetes Breast cancer Hypertension Father Prostate cancer Brother Diabetes Hypertension Other No family history of adverse response to anesthesia Denies family history of Ovarian cancer Myocardial infarction Colorectal cancer Past Surgical History Surgical History H/O colonoscopy sessile serrated adenoma, recheck in 5 years, Dr Reyez H/O oral surgery H/O ventral hernia repair Laparoscopic ventral hernia repair (05/14/22): Grade 2 view, ETT 7 at [facility] History of hernia repair umbilical History of hysterectomy History of tonsillectomy and adenoidectomy History of tubal ligation History of wisdom tooth extraction Past Anesthesia History No Hx of Anesthesia Complications and No Family Hx of Anesthesia Complications History of PONV No Hx of PONV and No Hx of Motion Sickness Social History Smoking Status: Former smoker Do You Dip or Chew Tobacco: No Smoking End Date: Quit 1987 Hx Alcohol Use: No Hx Substance Use: No substance use type: does not use Review of Systems + cough, wheeze since 01/04/23. Patient denies chest pain, shortness of breath, fever, chills, palpitations. Physical Exam Vital Signs VITALS BP 132/81 P 73 TEMP 98.2 SP02 96%RA RESP 18 PHYSICAL Full cervical extension range of motion. Full TMJ range of motion. TMD 3 finger breaths Mallampati Score 1 Dentition: intact, + caps Lungs: clear throughout to auscultation Cardiac: regular rate and rhythm, II/ systolic murmur Spine: normal Carotid arteries: negative bruit Extremities: no LE edema Lab Results Anesthesia Preop Results Results Anesthesia Widget: WBC 7.96 K/ul (4.8-10.8) 01/06/23 Hgb 13.8 g/dl (12.0-16.0) 01/06/23 Hct 43.4 % (37.0-47.0) 01/06/23 Plt 278 K/uL (130-400) 01/06/23 Na 142 mmol/L (136-145) 01/06/23 K 3.8 mmol/L (3.5-5.1) 01/06/23 Cl 104 mmol/L (98-107) 01/06/23 CO2 33 mmol/L (21-32) H 01/06/23 BUN 20 mg/dl (6-23) 01/06/23 Creat 0.84 mg/dl (0.6-1.2) 01/06/23 Glucose Level 87 mg/dl (70-99(Fasting)) 01/06/23 PT 11.5 Seconds (9.0-12.0) 01/06/23 PTT 35.1 Seconds (21.0-31.0) H 01/06/23 INR 1.1 (0.9-1.1) 01/06/23 TSH 3.259 uIu/ml (0.300-4.500) 12/03/22 HA1c 5.8 % (4.5-5.6) H 01/06/23 Blood Type O Positive 01/06/23 Antibody Screen NEGATIVE 01/06/23 Testing Electrocardiogram Date: 04/20/22 Findings: + NSR @ (64) Chest X-Ray Date: 01/06/23 FINDINGS: PA and lateral chest radiographs are compared to study dated 12/25/2020 and correlated with chest CT dated 06/04/2020. The cardiomediastinal silhouette is unremarkable. Chronic interstitial thickening is similar to previous. The lungs and pleural spaces are clear noting bibasilar scarring/atelectasis. There is no pneumothorax. The skeletal structures are osteopenic. The bony thorax appears intact. Degenerative change is noted in the spine. IMPRESSION: No active disease in the chest. Echocardiogram Date: 06/05/20 EF 60-65%. LV wall motion is normal. Mild concentric LVH. RVSP elevated at 40-50 mmHg. Mild TR.
[~2023-01-18 06:37] MED LIST changes: +ACETAMINOPHEN 500 MG TAB PO SCH; -ADVIN10/60 INH; -ALLO100T PO; -ASCO100061 PO; -ATOR-22 PO; +BUPIVACAINE 0.5 % 5 MG/1 ML PF 10ML VIAL ONE; -CALC500C70 PO; -CHOL20009 PO; +CeleBREX 200 MG CAP PO SCH; -DILT120C68 PO; -DTRSR/10 PO; +FAMOTIDINE 20 MG TAB PO SCH; -FURO-85 PO; +GABAPENTIN 300 MG CAP PO SCH; -GLIM2TAB2 PO; -LEVO112T4 PO; -LISI20TA3 PO; +LR 500ML BOLUS, THEN 15ML/HR IV SCH; +METOCLOPRAMIDE HCL 10 MG TABLET PO SCH; -MULT-190 PO; -MULT-671 PO; -OMEG10007 PO; -PRLSR20 PO; -RIVA1TAB4 PO; +ROPIVACAINE 0.5% 5 MG/ML 30 ML VIAL ONE; +ROPIVACAINE 0.5% HCL/PF 150 MG, BUPIVACAINE 0.75% MPF 20 ML, EPINEPHrine 30MG/30ML (OR ... INSTIL SCH; +TRANEXAMIC ACID 1,000 MG **IV Intra-op IV SCH; +TRANEXAMIC ACID 1,000 MG **IV Pre-op IV SCH; +ceFAZolin 2000MG 2,000 MG/15 ML SYR IV SCH; +dexAMETHasone 4 MG TAB PO SCH; +oxyCODONE HCL 10 MG TABCR (OxyCONTIN) PO SCH
--- NOTE | 2023-01-18 07:19 | History & Physical Report ---
Date of Service January 18, 2023 Assessment & Plan (1) Osteoarthritis of left knee: Plan: Left total knee replacement. 23-hour observation. History of Present Illness Chief Complaint: Left knee pain Primary Care Provider: SADIA Ibanez Erin is a 67-year-old woman with left knee osteoarthritis. Allergies Allergy/AdvReac Type Severity Reaction Status Date / Time shellfish derived Allergy Mild gout Verified 01/18/23 07:14 oxycodone AdvReac Mild Gastrointestinal Verified 01/18/23 07:14 Upset Home Medications Medication Instructions Recorded Confirmed Type blood sugar diagnostic (Accu-Chek #10 ea 04/21/19 01/06/23 History SmartView Test Strips) blood-glucose meter (Accu-Chek #1 ea 04/21/19 01/06/23 History Nikki) lancets 30 gauge (OneTouch Delica #25 ea 04/21/19 01/06/23 History Lancets) calcium carbonate 500 mg calcium 500 mg PO QAM 04/25/19 01/06/23 History (1,250 mg) tablet (Calcium 500) magnesium 500 mg tablet 500 mg PO QAM 06/04/20 01/06/23 History Auto Titrating CPAP #1 ea 06/21/20 01/06/23 Rx CPAP Supplies #1 ea 06/21/20 01/06/23 Rx Incentive Spirometer #1 ea 06/21/20 01/06/23 Rx fluticasone propionate 50 1 spray intranasal DAILY PRN 03/03/21 01/06/23 History mcg/actuation nasal Allergy Symptoms spray,suspension (Allergy Relief (fluticasone)) guaifenesin 600 mg tablet, 600 mg PO QAM 09/17/21 01/06/23 History extended release 12 hr (Mucinex) allopurinol 100 mg tablet 100 mg PO QPM #90 tabs 04/23/22 01/06/23 Rx (Zyloprim) albuterol sulfate 90 mcg/actuation 2 puff inhalation QID PRN 07/08/22 01/06/23 Rx aerosol inhaler bronchospasm #8.5 grams montelukast 10 mg tablet 10 mg PO QPM #90 tabs 07/08/22 01/06/23 Rx (Singulair) rivaroxaban 20 mg tablet (Xarelto) 20 mg PO 1300 #90 tabs 08/04/22 01/06/23 Rx atorvastatin 20 mg tablet 20 mg PO WE #12 tabs 09/01/22 01/06/23 Rx albuterol sulfate 2.5 mg/3 mL 2.5 mg (3 mL) inhalation QID PRN 09/25/22 01/06/23 Rx (0.083 %) solution for nebulization Shortness Of Breath Or Wheezing #75 mL levothyroxine 137 mcg tablet 137 mcg PO QAM #90 tabs 10/27/22 01/06/23 Rx oxybutynin chloride 10 mg 10 mg PO QAM #90 tabs 11/09/22 01/06/23 Rx tablet,extended release 24 hr furosemide 20 mg tablet 20 mg PO QAM #90 tabs 11/30/22 01/06/23 Rx cetirizine 10 mg tablet 10 mg PO 1300 12/28/22 01/06/23 History diltiazem HCl 120 mg capsule,24 120 mg PO 1300 12/28/22 01/06/23 History hr,extended release fluticasone furoate 100 1 inh inhalation DAILY PRN 12/28/22 01/06/23 History mcg-vilanterol 25 mcg/dose Shortness Of Breath inhalation powder (Breo Ellipta) losartan 50 mg tablet 50 mg PO QAM 12/28/22 01/06/23 History metformin 500 mg tablet,extended 500 mg PO QAM 12/28/22 01/06/23 History release 24hr snehcvir-xkq-smhxsb 5 mg-zeaxanth 1 cap PO QAM 12/28/22 01/06/23 History 1 mg-bilberry 7.5 mg-herbal capsule ([employer] Formula) Past Med/Surg History Medical History Acid reflux Hx, no recent issues Asthma Atrial fibrillation Dx 3 years ago, reason for Xarelto Follows with Dr. Jacob Chronic back pain Colon polyp 12/2012 tubular adenoma 02/2017 sessile serrated adenoma (recheck in 5 years) Diverticulosis Gout [place] (hard of hearing) Hyperlipidemia Hypertension Hypothyroidism Morbid obesity Obstructive sleep apnea of adult CPAP (compliant) Pulmonary hypertension [facility] pulmonary monitoring, felt to be likely from underlying obesity as well as REYNALDO/OHS RVSP 40-50mmhg per 2019 echo Type 2 diabetes mellitus NIDDM Urinary incontinence Surgical History H/O colonoscopy sessile serrated adenoma, recheck in 5 years, Dr Reyez H/O oral surgery H/O ventral hernia repair Laparoscopic ventral hernia repair (05/14/22): Grade 2 view, ETT 7 at [facility] [place] History of hernia repair umbilical History of hysterectomy History of tonsillectomy and adenoidectomy History of tubal ligation History of wisdom tooth extraction Family History Mother Diabetes Breast cancer Hypertension Father Prostate cancer Brother Diabetes Hypertension Other No family history of adverse response to anesthesia Denies family history of Ovarian cancer Myocardial infarction Colorectal cancer Social History Smoking Status: Former smoker Tobacco Type: Cigarettes Age Started Using Tobacco: 17; Age Quit Using Tobacco: 33; Smoking End Date: Quit 1987; Second Hand Exposure: No; Do You Dip or Chew Tobacco: No; Tobacco Cessation Education Requested by Patient: No Hx Alcohol Use: No Hx Substance Use: No Preferred Language: Welsh Communication Ability: Effective Visual Impairment: No Limitations Hearing Ability: Normal Civil Designer Required: No Beliefs That Will Affect Care: None marital status: Current Living Situation: Spouse current occupational status: retired 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 Other Information That Helps Us Care for You: No Feels Safe at Home: Yes Safety Concerns: Feels Safe At This Time Childhood Exposure to Second-Hand Smoke: Yes Diet: regular Dental Care, Regularly: Yes Physical Activity Frequency: Does not Exercise Seatbelt Use: always Sunscreen Use: Yes Assistive Devices: CPAP, Glasses and Nebulizer Physical Exam Constitutional: Well-developed, well-nourished, no acute distress Eyes: PERRL, conjunctivae normal, anicteric sclerae Respiratory: Clear to auscultation Cardiovascular: Regular rate and rhythm Musculoskeletal: Left knee: Decreased range of motion, medial greater than lateral joint line tenderness. Crepitus with range of motion.
[2023-01-18] MEDS ORDERED: MIDAZOLAM HCL 1 MG/ML 2ML VIAL ONE ×2 (08:44→08:47)
[2023-01-18] MEDS ORDERED: ONDANSETRON INJ 2 MG/ML 2 ML VIAL ONE (08:53)
[2023-01-18] MEDS ORDERED: PROPOFOL IV EMULSION 10 MG/ML 20 ML VIAL IV ONE (08:53)
[2023-01-18] MEDS ORDERED: LIDOCAINE 2% 2 ML VIAL/AMP(20MG/ML) INFIL ONE (08:53)
[2023-01-18] MEDS ORDERED: ATROPINE SULFATE 0.1 MG/ML 10ML SYR IV PRN (09:08)
[2023-01-18] MEDS ORDERED: HYDROmorphone INJ 2 MG/ML SYR/VIAL IV PRN (09:08)
[2023-01-18] MEDS ORDERED: ONDANSETRON INJ 2 MG/ML 2 ML VIAL IV PRN ×2 (09:08→11:07)
[2023-01-18] MEDS ORDERED: fentaNYL citrate PF 100 MCG/2 ML VIAL IV PRN (09:08)
[2023-01-18] MEDS ORDERED: ePHEDrine sulfate 50 MG/ML AMP IV PRN (09:08)
[2023-01-18] MEDS ORDERED: ORTHO JOINT ANESTHETIC ONE (09:53)
--- NOTE | 2023-01-18 11:02 | Post Operative Brief Note ---
Immediate Post Op Note v1 Date of Surgery January 18, 2023 Pre & Post Diagnosis Operation Date: 01/18/23 08:45 Pre-Op Diagnosis: Left Knee Osteoarthritis Post-Op Diagnosis: Left Knee Osteoarthritis I identified the patient and participated in the time-out.: Yes Procedure Operation Date: 01/18/23 08:45 Actual Procedures p Left Total Knee Arthroplasty(Left) - Juan Antonio Bradley MD Surgeon Juan Antonio Bradley MD Graduation Coach Gay Milian PA-C Estimated Blood Loss 5 Findings Consistent with Post-Op Diagnosis Osteoarthritis left knee Anesthesia Type MAC Spinal Regional Complications No complication
[2023-01-18] MEDS ORDERED: ALBUTEROL 0.083% NEBU SOLN 3 ML VIAL INH PRN (11:03)
[2023-01-18] MEDS ORDERED: FLUTICASONE/VILANTEROL 100/25MCG 14 PUFFS/INHALER INH PRN (11:03)
[2023-01-18] MEDS ORDERED: FLUTICASONE PROPIONATE NA SPR 16 GM BTL PRN (11:03)
[2023-01-18] MEDS ORDERED: ALBUTEROL HFA 8 GM INHALER INH PRN (11:03)
--- NOTE | 2023-01-18 11:03 | Operative Report ---
Post Operative Report Pre & Post Diagnosis Operation Date: 01/18/23 08:45 Pre-Op Diagnosis: Left Knee Osteoarthritis Post-Op Diagnosis: Left Knee Osteoarthritis I identified the patient and participated in the time-out.: Yes Procedure Operation Date: 01/18/23 08:45 Actual Procedures p Left Total Knee Arthroplasty(Left) - Juan Antonio Bradley MD Surgeon Juan Antonio Bradley MD Access Services Assistant Gay Milian PA-C Estimated Blood Loss 5 Findings Consistent with Post-Op Diagnosis Osteoarthritis left knee Specimens Bone and cartilage left knee Drains No drain Anesthesia Type MAC Spinal Regional Complications No complications Indications Erin is a 67-year-old woman with left knee osteoarthritis. After the failure of conservative treatment I recommended a total knee replacement. I explained the risk benefits and alternatives to her and she consented to proceed. Description of Procedure Implants: Anabelle triathlon cemented cruciate retaining total knee replacement. Femur size 4. Tibia size 4. Polyethylene size 4 x 9 mm. Patella size 36 mm. Procedure: The patient was taken to the operating room and after verifying their identity and confirming the operative side spinal anesthesia and a regional block was administered. A nonsterile tourniquet was placed on the operative leg and the operative leg was sterilely prepped and draped in usual fashion. After exsanguinating the leg and inflating the tourniquet a 6 inch incision was made over the patella and carried sharply through subcutaneous tissue. A medial parapatellar arthrotomy was performed, the patella was everted, and planed to a thickness of 14 mm. The appropriate size patella was trialed and the drill holes were completed. The knee was flexed and the femur cleaned of soft tissue. The femoral intramedullary guide was utilized to take a 5 valgus cut 10 mm total resection. The distal femur cut was completed. The cutting guide was removed. The AP sizing guide was placed in the correct size determined. The appropriately sized sized 4 in 1 cutting guide was placed and its position confirmed with the epicondyle axis and anterior cortex. The cuts were co mpleted. The tibia was subluxed forward and the extra medullary tibial guide was placed and pinned in place. A 2 mm resection was measured on the medial tibial plateau perpendicular to the long axis of the tibia. The proximal tibia was cut. The guide was removed. A lamina market basket maker was placed with the knee in 90 of flexion in the remaining meniscus and posterior soft tissue were removed. The PCL was preserved. 20 cc of local injection was utilized in the posterior capsule and soft tissues. The knee was balanced in flexion and extension utilizing the gap coin machine servicer repairer. The tibia was subluxed forward and the appropriately sized trial was placed and pinned in place. The femoral trial was placed and the appropriate size poly-was utilized to achieve full extension, full flexion and good stability to varus and valgus stress. Trial components were all removed. The knee was thoroughly irrigated with pulse lavage, bacteriocidal wash, and a repeat pulse lavage. 20 cc of local injection was utilized in the medial tissues and 20 cc in the lateral tissues. Antibiotic cement was mixed using vacuum technique in the tibial and femoral components were cemented in place. The poly-was inserted and the knee held in full extension while the cement hardened. The patella was cemented and clamped. Excess cement was carefully removed. After the cement hardened range of motion was once again assessed and noted to be full including full extension and good stability to varus and valgus stress with central patellar tracking. The knee was irrigated with pulse lavage, a bacteriocidal wash, and a repeat pulse lavage. 20 cc of local was used in the anterior subcutaneous tissues. The arthrotomy was closed with #1 Ethibond, the remaining incision with 2-0 Vicryl and rodolfo. A silver dressing was applied and a compression wrap. The patient tolerated the procedure well and there were no intraoperative complications. Gay Milian PA-C assisted in all aspects of the procedure including patient positioning, prepping and draping, manipulation of surgical instruments and retractors, wound closure, dressing placement, and compression wrap placement. I attest to the content of the Intraoperative Record and any orders documented therein. Any exceptions are noted below.
[2023-01-18] MEDS ORDERED: MAGNESIUM HYDROXIDE SUSP 30 ML UDC PO PRN (11:07)
[2023-01-18] MEDS ORDERED: NALOXONE HCL 0.4 MG/1 ML VIAL/CARP IV PRN (11:07)
[2023-01-18] MEDS ORDERED: bisacodyL 10 MG SUPP PR PRN (11:07)
--- NOTE | 2023-01-18 12:58 | Hospitalist Consultation ---
Date of Consultation January 18, 2023 Assessment & Plan (1) Osteoarthritis of left knee: s/p Left Total Knee Arthroplasty(Left) - Juan Antonio Bradley MD. EBL 5cc Pain control/bowel regimen/PT/OT per primary service DVT proph: SCDs, shayna nadegee. Xarelto to begin tomorrow (hx paroxysmal afib, EKG pre-op NSR, NSR on exam) Monitor labs in AM (2) Atrial fibrillation: noted hx parosyxmal afib, follows with Dr Jacob continue diltiazem, xarelto to resume tomorrow keep Mag ~2, K~4 and will monitor on AM labs -- added mag to AM labs (3) Hypothyroidism: Most recent TSH in november wnl, prior had been elevated continue levothyroxine 137mcg daily outpt f/u pcp for repeat labs to ensure stable per PCP discretion (4) Asthma: continue home inhalers or hospital equivalent recent medrol dose meghana/azithromycin per PCP Currently on 2L NC post-op, titrate as able Lung exam stable, reporting no issues since rx by PCP Monitor for any issues (5) Obstructive sleep apnea of adult: Order CPAP HS (6) Type 2 diabetes mellitus: Most recent A1c 5.8, good control Most recent BSG 143 Holding metformin, will order sliding scale w/ loose parameters post-op given steroids but A1c well controlled (7) Hypertension: Hold losartan/lasix for AM, continue diltiazem given pafib BP 119/75, stable at present reports weights have been stable, does not seem volume overloaded on exam (8) Hyperlipidemia: continue statin Plan Thank you for allowing hospitalist service to participate in the care of Ms Nur. Hospitalist service will follow up in AM. Supervising Physician Co-Signing Physician Notes I personally saw and examined the patient. I verified all duran points and agree with Gay Garcia PA-C with the following exceptions and/or additions: 67 year old female POD#0 left TKA. EBL 5ml. No concerns or questions from patient O/E A&Ox3, HS RRR, no murmurs, Chest CTAB, Abdo SNT A/P s/p TKA - VTE/Pain/bowel management per primary team Other medical conditions are stable with plan as above History of Present Illness Reason for Consultation: med management Requesting Physician: Dr Bradley Attending Physician: Juan Antonio Bradley MD History of Present Illness 67yo female with PMHx significant for paroxysmal atrial fibrillation (on xarelto), hypothyroidism, HTN, DM II, asthma, REYNALDO presented for LEFT TKA with Dr Bradley. Recently seen by PCP w/ cough/wheezing x 2 days on 01/06 and provided Azithro mycin and medrol dose meghana. She notes those symptoms have resolved and she has not had to use her albuterol HFA very often since that time. Pain controlled, no present at current time from block, sensation intact to touch, pulses palpable. Never had prior surgery to joints, from [place] and hopeful for uneventful course. Had been sick earlier this year but TSH elevation from that but when was still elevated adjustments made and most recent TSH wnl and monitoring by PCP. She monitors her weights at home and notes these to have been stable. On xarelto for afib, no palpitations. Discussed to resume in morning, has SCDs in place at present. No CP/SOB, abdominal pain, nausea or vomiting at present. Questions/concerns addressed at this time. Allergies Allergy/AdvReac Type Severity Reaction Status Date / Time shellfish derived Allergy Mild gout Verified 01/18/23 07:14 oxycodone AdvReac Mild Gastrointestinal Verified 01/18/23 07:14 Upset Home Medications Medication Instructions Recorded Confirmed Type blood sugar diagnostic (Accu-Chek #10 ea 04/21/19 01/06/23 History SmartView Test Strips) blood-glucose meter (Accu-Chek #1 ea 04/21/19 01/06/23 History Nikki) lancets 30 gauge (OneTouch Delica #25 ea 04/21/19 01/06/23 History Lancets) calcium carbonate 500 mg calcium 500 mg PO QAM 04/25/19 01/18/23 History (1,250 mg) tablet (Calcium 500) magnesium 500 mg tablet 500 mg PO QAM 06/04/20 01/18/23 History Auto Titrating CPAP #1 ea 06/21/20 01/06/23 Rx CPAP Supplies #1 ea 06/21/20 01/06/23 Rx Incentive Spirometer #1 ea 06/21/20 01/06/23 Rx fluticasone propionate 50 1 spray intranasal DAILY PRN 03/03/21 01/18/23 History mcg/actuation nasal Allergy Symptoms spray,suspension (Allergy Relief (fluticasone)) guaifenesin 600 mg tablet, 600 mg PO QAM 09/17/21 01/18/23 History extended release 12 hr (Mucinex) allopurinol 100 mg tablet 100 mg PO QPM #90 tabs 04/23/22 01/18/23 Rx (Zyloprim) albuterol sulfate 90 mcg/actuation 2 puff inhalation QID PRN 07/08/22 01/18/23 Rx aerosol inhaler bronchospasm #8.5 grams montelukast 10 mg tablet 10 mg PO QPM #90 tabs 07/08/22 01/18/23 Rx (Singulair) rivaroxaban 20 mg tablet (Xarelto) 20 mg PO 1300 #90 tabs 08/04/22 01/18/23 Rx atorvastatin 20 mg tablet 20 mg PO WE #12 tabs 09/01/22 01/18/23 Rx albuterol sulfate 2.5 mg/3 mL 2.5 mg (3 mL) inhalation QID PRN 09/25/22 01/18/23 Rx (0.083 %) solution for nebulization Shortness Of Breath Or Wheezing #75 mL levothyroxine 137 mcg tablet 137 mcg PO QAM #90 tabs 10/27/22 01/18/23 Rx oxybutynin chloride 10 mg 10 mg PO QAM #90 tabs 11/09/22 01/18/23 Rx tablet,extended release 24 hr furosemide 20 mg tablet 20 mg PO QAM #90 tabs 11/30/22 01/18/23 Rx cetirizine 10 mg tablet (Zyrtec) 10 mg PO 1300 12/28/22 01/18/23 History diltiazem HCl 120 mg capsule,24 120 mg PO 1300 12/28/22 01/18/23 History hr,extended release (Tiazac) fluticasone furoate 100 1 inh inhalation DAILY PRN 12/28/22 01/18/23 History mcg-vilanterol 25 mcg/dose Shortness Of Breath inhalation powder (Breo Ellipta) losartan 50 mg tablet 50 mg PO QAM 12/28/22 01/18/23 History metformin 500 mg tablet,extended 500 mg PO QAM 12/28/22 01/18/23 History release 24hr hugpskym-hbz-fznzge 5 mg-zeaxanth 1 cap PO QAM 12/28/22 01/18/23 History 1 mg-bilberry 7.5 mg-herbal capsule ([employer] Formula) acetaminophen 500 mg tablet 1,000 mg PO Q8H 21 days #90 tabs 01/19/23 Rx (Tylenol Extra Strength) oxycodone 5 mg tablet 5 - 10 mg PO Q4H PRN pain #30 tabs 01/19/23 Rx Patient History Medical History Acid reflux Hx, no recent issues Asthma Atrial fibrillation Dx 3 years ago, reason for Xarelto Follows with Dr. Jacob Chronic back pain Colon polyp 12/2012 tubular adenoma 02/2017 sessile serrated adenoma (recheck in 5 years) Diverticulosis Gout [place] (hard of hearing) Hyperlipidemia Hypertension Hypothyroidism Morbid obesity Obstructive sleep apnea of adult CPAP (compliant) Pulmonary hypertension [facility] pulmonary monitoring, felt to be likely from underlying obesity as well as REYNALDO/OHS RVSP 40-50mmhg per 2019 echo Type 2 diabetes mellitus NIDDM Urinary incontinence Surgical History H/O colonoscopy sessile serrated adenoma, recheck in 5 years, Dr Reyez H/O oral surgery H/O ventral hernia repair Laparoscopic ventral hernia repair (05/14/22): Grade 2 view, ETT 7 at [facility] History of hernia repair umbilical History of hysterectomy History of tonsillectomy and adenoidectomy History of tubal ligation History of wisdom tooth extraction Family History Mother Diabetes Breast cancer Hypertension Father Prostate cancer Brother Diabetes Hypertension Other No family history of adverse response to anesthesia Denies family history of Ovarian cancer Myocardial infarction Colorectal cancer Social History Smoking Status: Former smoker Tobacco Type: Cigarettes Age Started Using Tobacco: 17; Age Quit Using Tobacco: 33; Smoking End Date: Quit 1987; Second Hand Exposure: No; Do You Dip or Chew Tobacco: No; Tobacco Cessation Education Requested by Patient: No Hx Alcohol Use: No Hx Substance Use: No Preferred Language: Cuban Communication Ability: Effective Visual Impairment: No Limitations Hearing Ability: Normal Barley Steeper Required: No Beliefs That Will Affect Care: None marital status: Current Living Situation: Spouse current occupational status: retired 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 Other Information That Helps Us Care for You: No Feels Safe at Home: Yes Safety Concerns: Feels Safe At This Time Childhood Exposure to Second-Hand Smoke: Yes Diet: regular Dental Care, Regularly: Yes Physical Activity Frequency: Does not Exercise Seatbelt Use: always Sunscreen Use: Yes Assistive Devices: CPAP and Walker Review of Systems Review of Systems: All systems reviewed & are unremarkable except as noted in HPI & below Physical Exam Physical Exam: General: WD/WN obese female sitting up in bed, NAD, getting post-op vitals done, has not eaten HEENT: head normocephalic, atraumatic, mmm, trachea midline without deviation Resp: CTA, no obvious wheezing/rales, diminished in the bases, on 2L NC, no tachypnea CV: RRR, no significant m/r/g, no pitting edema, pulses palpable GI: +BS, soft/NT MSK/Neuro: no focal deficit/no slurred speech, following commands SOBIA wrap/dressing to LLE intact, ICE pack in place, dorsiflexion/plantar flexion intact,NVI, pulses palpable, Psych: AOx3, cooperative with examination Results & Data Results & Data Vital Signs (Past 12 Hours) Vital Signs Temp Pulse Pulse Resp BP BP Pulse Ox 01/18/23 12:17 36.2 C L 74 18 117/74 92 01/18/23 12:05 36.4 C L 73 12 124/66 95 01/18/23 11:55 77 14 126/71 100 01/18/23 11:45 80 14 119/70 100 01/18/23 11:38 36.6 C 86 14 121/65 96 01/18/23 07:24 01/18/23 07:24 36.8 C 66 20 152/79 H 95 O2 Del Method O2 Flow Rate 01/18/23 12:17 Room Air 01/18/23 12:05 Room Air 01/18/23 11:55 Oxymask 5 01/18/23 11:45 Oxymask 9 01/18/23 11:38 Oxymask 9 01/18/23 07:24 CPAP 01/18/23 07:24 Room Air Laboratory Results 01/18/23 01/18/23 01/18/23 Range/Units Unknown 12:39 11:43 POC Glucose 143 H 131 H (70-99) mg/dl SARS-CoV-2, RNA, NAAT NEGATIVE (NEGATIVE) 01/18/23 Range/Units 07:11 POC Glucose 94 (70-99) mg/dl SARS-CoV-2, RNA, NAAT (NEGATIVE) PG Care Time/CCT Total # of Minutes Spent Total Time Spent with Patient: Total time spent is greater than 50% in coordination of care (as documented) at patient's floor/unit and/or counseling patient: Coding Level of Care Code 91320 IN/OBS CONSULT LVL 3,45M Diagnoses Osteoarthritis of left knee M17.12 Atrial fibrillation I48.91 Hypothyroidism E03.9 Asthma J45.909 Obstructive sleep apnea of adult G47.33 Type 2 diabetes mellitus E11.9 Hypertension I10 Hyperlipidemia E78.5
[2023-01-18] MEDS ORDERED: CETIRIZINE HCL 10 MG TABLET PO SCH (13:00)
[2023-01-18] MEDS: SODIUM CHLORIDE 0.9% 1000ML 1,000 ML IV SCH (13:05)
[2023-01-18] MEDS ORDERED: CARBOHYDRATES FOR HYPOGLYCEMIA PO PRN (13:19)
[2023-01-18] MEDS ORDERED: GLUCOSE 40% GEL 15 GM TUBE PO PRN (13:19)
[2023-01-18] MEDS ORDERED: GLUCOSE 10 TAB/TUBE PO PRN (13:19)
[2023-01-18] MEDS ORDERED: DEXTROSE 50% 50 ML SYRINGE IV PRN (13:19)
[2023-01-18] MEDS ORDERED: GLUCAGON FOR INJ 1 MG VIAL SQ PRN (13:19)
[2023-01-18] MEDS ORDERED: dilTIAZem HCL 120 MG CAPCR PO SCH (13:30)
--- NOTE | 2023-01-18 14:18 | Anesthesiology Progress Note ---
Date of Service January 18, 2023 Anesthesia Post Procedure Vital Signs Vital Signs: Temp Pulse Pulse Resp BP BP Pulse Ox 01/18/23 13:48 36 C L 78 18 131/82 97 01/18/23 13:07 35.3 C L 73 18 119/75 98 01/18/23 12:50 36.2 C L 69 16 117/72 96 01/18/23 12:17 36.2 C L 74 18 117/74 92 01/18/23 12:05 36.4 C L 73 12 124/66 95 01/18/23 11:55 77 14 126/71 100 01/18/23 11:45 80 14 119/70 100 01/18/23 11:38 36.6 C 86 14 121/65 96 01/18/23 07:24 01/18/23 07:24 36.8 C 66 20 152/79 H 95 O2 Del Method O2 Flow Rate 01/18/23 13:48 Nasal Cannula 2 01/18/23 13:07 Nasal Cannula 2 01/18/23 12:50 Nasal Cannula 2 01/18/23 12:17 Room Air 01/18/23 12:05 Room Air 01/18/23 11:55 Oxymask 5 01/18/23 11:45 Oxymask 9 01/18/23 11:38 Oxymask 9 01/18/23 07:24 CPAP 01/18/23 07:24 Room Air Transfer of Care Handoff Completed per policy Notes Mental Status: alert / awake / arousable and participated in evaluation Patient Amnestic to Procedure: Yes Nausea / Vomiting: adequately controlled Pain: adequately controlled Airway Patency, RR, SpO2: stable & adequate BP & HR: stable & adequate Hydration State: stable & adequate Anesthetic Complications: no major complications apparent
[2023-01-18] MEDS: oxyCODONE HCL IR 5 MG TAB (IMMEDIATE RELEASE) PO PRN ×2 (14:35→18:41)
[2023-01-18] MEDS: INSULIN ASPART PER UNIT CHARGE SC SCH ×2 (17:27→20:16)
[2023-01-18] MEDS: ACETAMINOPHEN 500 MG TAB PO PRN (17:45)
[2023-01-18] MEDS: ceFAZolin 2000MG 2,000 MG/15 ML SYR IV SCH (17:45)
[2023-01-18] MEDS: DOCUSATE SODIUM 100 MG CAP PO SCH (20:10)
[2023-01-18] MEDS ORDERED: SENNA 8.6 MG TAB PO SCH (21:00)
[2023-01-18] MEDS ORDERED: allopurinoL 100 MG TAB PO SCH (21:00)
[2023-01-18] MEDS ORDERED: MONTELUKAST SODIUM 10 MG TABLET PO SCH (21:00)
[2023-01-19] MEDS: SODIUM CHLORIDE 0.9% 1000ML 1,000 ML IV SCH (01:20)
[2023-01-19] MEDS: ceFAZolin 2000MG 2,000 MG/15 ML SYR IV SCH (01:28)
[2023-01-19] MEDS: oxyCODONE HCL IR 5 MG TAB (IMMEDIATE RELEASE) PO PRN ×2 (03:16→08:56)
[2023-01-19] MEDS: ACETAMINOPHEN 500 MG TAB PO PRN (06:13)
[2023-01-19] MEDS ORDERED: LEVOTHYROXINE SODIUM 137 MCG TABLET PO SCH (06:30)
[2023-01-19 06:34] LABS: Hematocrit (blood only) 36.7 % (37.0-47.0); Hemoglobin 11.7 g/dl (12.0-16.0); Mean Corpuscular Hemoglobin 27.6 pg (25.0-34.0); Mean Corpuscular Hgb Conc 31.9 g/dL (32.0-36.0); Mean Corpuscular Volume 86.6 fL (80.0-100.0); Mean Platelet Volume 10.7 fL (9.4-12.4); Platelet Count 229 K/uL (130-400); RDW Coefficient of Variation 14.7 % (11.5-14.5); RDW Standard Deviation 47.5 fL (36.4-46.3); Red Blood Count 4.24 M/uL (4.20-5.40); White Blood Count 15.84 K/ul (4.8-10.8)
[2023-01-19 06:46] LABS: BUN Creatinine Ratio 21.7 (10-20); Calcium 8.5 mg/dl (8.6-10.3); Creatinine Clr Calc Pharmacy 65.4 ml/min; Est GFR (African American) 62.9 ml/min; Est GFR (Non-African American) 54.3 ml/min; Magnesium 1.9 mg/dl (1.7-2.4); Potassium 4.8 mmol/L (3.5-5.1)
[2023-01-19] MEDS ORDERED: dexAMETHasone 10 MG in SYRINGE 0 ML IV SCH (08:00)
[2023-01-19] MEDS: DOCUSATE SODIUM 100 MG CAP PO SCH (08:47)
[2023-01-19] MEDS: INSULIN ASPART PER UNIT CHARGE SC SCH (08:54)
[2023-01-19] MEDS ORDERED: MAGNESIUM OXIDE 400 MG TAB PO SCH (09:00)
[2023-01-19] MEDS ORDERED: LOSARTAN POTASSIUM 50 MG TAB PO SCH (09:00)
[2023-01-19] MEDS ORDERED: guaiFENesin 600 MG TABCR PO SCH (09:00)
[2023-01-19] MEDS ORDERED: FUROSEMIDE 20 MG TAB PO SCH (09:00)
[2023-01-19] MEDS ORDERED: metFORMIN HCL ER 500 MG TABCR PO SCH (09:00)
[2023-01-19] MEDS ORDERED: OXYBUTYNIN CHLORIDE XL 5 MG TABCR PO SCH (09:00)
--- NOTE | 2023-01-19 09:46 | Orthopedic Progress Note ---
Date of Service January 19, 2023 Assessment & Plan (1) Osteoarthritis of left knee: Plan: POD #1 s/p Left TKA pt/ot dvt proph with BHUMI/SCD/Xarelto plan for d/c home with HHPT after PT Today Admission and Anticipated Discharge Date Admission Date: January 18, 2023 Subjective POD #1 s/p Left TKA Review of Systems Constitutional: no fever, no chills and no sweats Respiratory: no cough and no dyspnea Cardiovascular: no chest pain and no dyspnea Gastrointestinal: no abdominal pain, no nausea and no vomiting Physical Exam Physical Exam: Vital Signs Temp 36.6 C 01/19/23 05:45 Pulse 70 01/19/23 05:45 Resp 18 01/19/23 05:45 BP 146/72 H 01/19/23 05:45 Pulse Ox 94 01/19/23 05:45 O2 Del Method Room Air 01/19/23 05:45 O2 Flow Rate 2 01/18/23 15:18 FiO2 21 01/18/23 23:01 Intake & Output 01/18/23 01/19/23 01/19/23 18:59 06:59 18:59 Intake Total 1750 / 2750 1000 / 2750 Output Total 5 / 505 500 / 505 Balance 1745 / 2245 500 / 2245 Weight 120 kg Intake: IV 100 / 1100 1000 / 1100 Lactated Ringe r's 1,000 ml @ 15 0 / 0 mls/hr IV .Q24 H [facility] Rx#: [id number] Sodium Chlorid e 0.9% 1000ML 1, 1000 / 1000 000 ml @ 100 m ls/hr IV .Q10H [facility] Rx#:[id number] Tranexamic Aci d / 0.7% NaCl 1, 100 / 100 000 mg In 100 ml @ 600 mls/hr IV TODAY@0600 [facility] Rx#:[id number] IV Perioperative 1300 / 1300 Oral 350 / 350 Output: Urine 500 / 500 Estimated Blood Loss 5 / 5 Other: # Unmeasured Voi ds 1 1 Weight Measureme nt Method Standing Scale Musculoskeletal: Left Leg: NVDI, calf SNT, negative sigifredo sign. DP palpable, able to wiggle toes/ankle movement without difficulty. dressing clean dry and intact. Results & Data Vital Signs (Past 12 Hours) Vital Signs Temp Pulse Pulse Resp BP Pulse Ox O2 Del Method 01/19/23 05:45 36.6 C 70 18 146/72 H 94 Room Air 01/19/23 03:11 36.5 C 81 18 133/82 94 Room Air 01/18/23 23:27 36.7 C 56 L 16 137/67 93 Room Air, CPAP 01/18/23 23:01 67 24 92 FiO2 01/19/23 05:45 01/19/23 03:11 01/18/23 23:27 01/18/23 23:01 21 Laboratory Results Laboratory Results WBC 15.84 K/ul (4.8-10.8) H 01/19/23 05:38 RBC 4.24 M/uL (4.20-5.40) 01/19/23 05:38 Hgb 11.7 g/dl (12.0-16.0) L 01/19/23 05:38 Hct 36.7 % (37.0-47.0) L 01/19/23 05:38 MCV 86.6 fL (80.0-100.0) 01/19/23 05:38 MCH 27.6 pg (25.0-34.0) 01/19/23 05:38 MCHC 31.9 g/dL (32.0-36.0) L 01/19/23 05:38 RDW Std Deviation 47.5 fL (36.4-46.3) H 01/19/23 05:38 RDW Coeff of [place] 14.7 % (11.5-14.5) H 01/19/23 05:38 Plt Count 229 K/uL (130-400) 01/19/23 05:38 MPV 10.7 fL (9.4-12.4) 01/19/23 05:38 Sodium 141 mmol/L (136-145) 01/19/23 05:38 Potassium 4.8 mmol/L (3.5-5.1) 01/19/23 05:38 Chloride 107 mmol/L (98-107) 01/19/23 05:38 Carbon Dioxide 28 mmol/L (21-32) 01/19/23 05:38 Anion Gap 6 (3-11) 01/19/23 05:38 BUN 23 mg/dl (6-23) 01/19/23 05:38 Creatinine 1.06 mg/dl (0.6-1.2) 01/19/23 05:38 Est Cr Clr Drug Dosing 65.4 ml/min 01/19/23 05:38 Est GFR ( Amer) 62.9 ml/min 01/19/23 05:38 Est GFR (Non-Af Amer) 54.3 ml/min 01/19/23 05:38 BUN/Creatinine Ratio 21.7 (10-20) H 01/19/23 05:38 Glucose 178 mg/dl (70-99(Fasting)) H 01/19/23 05:38 POC Glucose 176 mg/dl (70-99) H 01/19/23 06:46 Calcium 8.5 mg/dl (8.6-10.3) L 01/19/23 05:38 Magnesium 1.9 mg/dl (1.7-2.4) 01/19/23 05:38 SARS-CoV-2, RNA, NAAT NEGATIVE (NEGATIVE) 01/18/23 Unknown
[2023-01-19] MEDS ORDERED: RIVAROXABAN 20 MG TAB PO SCH (13:00)
[2023-01-20] MEDS ORDERED: ATORVASTATIN 20 MG TAB PO SCH (09:00)
--- NOTE | 2023-01-25 13:51 | Discharge Summary ---
Date of Service January 19, 2023 Admission HPI Per Admitting Provider Erin is a 67-year-old woman with left knee osteoarthritis. Principal Diagnosis Left Knee DJD Discharge Exam Vital Signs Temp 36.6 C 01/19/23 05:45 Pulse 70 01/19/23 05:45 Resp 18 01/19/23 05:45 BP 146/72 H 01/19/23 05:45 Pulse Ox 94 01/19/23 05:45 O2 Del Method Room Air 01/19/23 05:45 O2 Flow Rate 2 01/18/23 15:18 FiO2 21 01/18/23 23:01 Intake & Output 01/18/23 01/19/23 01/19/23 18:59 06:59 18:59 Intake Total 1750 / 2750 1000 / 2750 Output Total 5 / 505 500 / 505 Balance 1745 / 2245 500 / 2245 Weight 120 kg Intake: IV 100 / 1100 1000 / 1100 Lactated Ringer's 1,000 ml @ 15 0 / 0 mls/hr IV .Q24H [facility] Rx#: [id number] Sodium Chloride 0.9% 1000ML 1, 1000 / 1000 000 ml @ 100 mls/hr IV .Q10H [facility] Rx#:[id number] Tranexamic Acid / 0.7% NaCl 1, 100 / 100 000 mg In 100 ml @ 600 mls/hr IV TODAY@0600 [facility] Rx#:[id number] IV Perioperative 1300 / 1300 Oral 350 / 350 Output: Urine 500 / 500 Estimated Blood Loss 5 / 5 Other: # Unmeasured Voids 1 1 Weight Measurement Method Standing Scale Eyes PERRL, conjunctivae normal, anicteric sclerae Discharge Data Allergies Allergy/AdvReac Type Severity Reaction Status Date / Time shellfish derived Allergy Mild gout Verified 01/18/23 07:14 oxycodone AdvReac Mild Gastrointestinal Verified 01/18/23 07:14 Upset Consultations 01/18/23 11:07 Consult Hospitalist Routine Procedures Performed Operation Date: 01/18/23 08:45 Actual Procedures p Left Total Knee Arthroplasty(Left) - Juan Antonio Bradley MD Ordered Studies 01/18/23 05:00 US - OR guided needle placemen Routine Hospital Course (1) Osteoarthritis of left knee: POD #1 s/p Left TKA pt/ot dvt proph with BHUMI/SCD/Xarelto plan for d/c home with HHPT after PT Today Total Time Total Time Spent Total Time Spent (In Minutes): 30 minutes Discharge Plan Discharge Items Patient Disposition: Home - Home Health Services Reason For Visit: Left Knee Osteoarthritis Discharge Diagnosis: LEFT TOTAL KNEE REPLACEMENT Activity: Per Instructions section Weightbearing Comment: WBAT with walker Non-emergency contact: Surgeon Call non-emergency contact if: you have any medication questions, your temperature is above 101, your wound has increased redness, your wound has increased drainage and your wound pain has increased Follow-up/Referrals: Chandni Gonzalez CRNP [Primary Care Provider] - Juan Antonio Bradley MD [Surgeon] - (14-16 days) Diet: Regular Addtl Attending Provider Instructions: Patient will resume her regular Xarelto dose for DVT prophylaxis. Post-op pain medication will be sent in to patient's pharmacy by Dr. Bradley. Post-op Silverlon to remain in place for 7 days. No showering for 7 days f ollowing surgery. After 7 days, patient can shower, but no submerging the knee. Discharge to home with home nursing and home PT. Weightbearing as tolerated left lower extremity. Pending Studies at Discharge: No Stand-Alone Forms: [employer], Smoking Cessation Medications and DC Order Prescriptions: New acetaminophen [Tylenol Extra Strength] 500 mg Tablet 1,000 mg PO Q8H 21 Days Qty: 90 0RF oxycodone 5 mg Tablet 5 - 10 mg PO Q4H PRN (Reason: pain) Qty: 30 0RF Continued allopurinol [Zyloprim] 100 mg tablet 100 mg PO QPM Qty: 90 3RF Xarelto 20 mg tablet 20 mg PO 1300 Qty: 90 3RF atorvastatin 20 mg tablet 20 mg PO WE Qty: 12 3RF Rx Instructions: Take Q Wednesday albuterol sulfate 2.5 mg /3 mL (0.083 %) solution for nebulization 2.5 mg inhalation QID PRN (Reason: Shortness Of Breath Or Wheezing) Qty: 75 0RF levothyroxine 137 mcg tablet 137 mcg PO QAM Qty: 90 3RF oxybutynin chloride 10 mg tablet extended release 24hr 10 mg PO QAM Qty: 90 3RF furosemide 20 mg tablet 20 mg PO QAM Qty: 90 3RF albuterol sulfate 90 mcg/actuation HFA aerosol inhaler 2 puff inhalation QID PRN (Reason: bronchospasm) Qty: 8.5 3RF montelukast [Singulair] 10 mg tablet 10 mg PO QPM Qty: 90 4RF (DME) Accu-Chek SmartView Test Strip strip See Dose Instructions .ROUTE .MEDSUPPLY Qty: 10 Rx Instructions: CHECK BLOOD SUGAR ONCE DAILY BEFORE ANY MEAL (DME) blood-glucose meter [Accu-Chek Nikki] misc See Dose Instructions .ROUTE .MEDSUPPLY Qty: 1 Rx Instructions: USE TO CHECK BLOOD SUGAR ONCE DAILY (DME) lancets [OneTouch Delica Lancets] 30 gauge misc See Dose Instructions .ROUTE .MEDSUPPLY Qty: 25 Rx Instructions: USE TO CHECK BLOOD SUGAR ONCE DAILY calcium carbonate [Calcium 500] 500 mg calcium (1,250 mg) tablet 500 mg PO QAM (DME) Incentive Spirometer Misc See Rx Instructions .ROUTE .MEDSUPPLY Qty: 1 0RF Rx Instructions: As directed ([facility]) Auto Titrating CPAP Misc See Rx Instructions .ROUTE .MEDSUPPLY Qty: 1 0RF Rx Instructions: Auto PAP with 10-20mm H20. Lifetime usage. G47.33 (DME) CPAP Supplies Misc See Rx Instructions .ROUTE .MEDSUPPLY Qty: 1 0RF Rx Instructions: CPAP supplies. G47.33 guaifenesin [Mucinex] 600 mg tablet extended release 12hr 600 mg PO QAM magnesium 500 mg Tablet 500 mg PO QAM fluticasone propionate [Allergy Relief (fluticasone)] 50 mcg/actuation spray,suspension 1 spray intranasal DAILY PRN (Reason: Allergy Symptoms) Rx Instructions: administer into each nostril once daily losartan 50 mg tablet 50 mg PO QAM diltiazem HCl [Tiazac] 120 mg capsule,extended release 24 hr 120 mg PO 1300 metformin 500 mg tablet extended release 24hr 500 mg PO QAM fluticasone furoate-vilanterol [Breo Ellipta] 100-25 mcg/dose blister with device 1 inh inhalation DAILY PRN (Reason: Shortness Of Breath) cetirizine [Zyrtec] 10 mg Tablet 10 mg PO 1300 Macular Health Formula 5-1-7.5 mg Capsule 1 cap PO QAM Admission Data Admit Date/Time: 01/18/23 11:07 Attending Provider: Juan Antonio Bradley Admit Provider: Juan Antonio Bradley Primary Care Provider: Chandni Gonzalez Other Providers: Nehemiah Ovalle ; [facility] ; Malissa Michelle Other Interventions: Discharge Summary Assessment (RN) Last Done: 01/19/23 09:58
== END 2023-01-19 11:28 | disposition home health service (06) ==
LOC: ASU 06:37 → 3E 06:37

== ENCOUNTER 2023-06-29 12:29 | Inpatient (IN) ==
--- NOTE | 2023-06-29 13:03 | ED Triage Note ---
Date of Service June 29, 2023 History of Present Illness This patient was briefly evaluated while in triage. An abbreviated physical exam was performed. This patient is a 68-year-old Female who presents to the ED for evaluation of cough and shortness of breath for 2 weeks. She was seen as an outpatient today and was hypoxic, 87% on RA. She was placed on 6L oxygen and is now feeling much better. Physical Exam VITALS: Vitals are noted on the nurse's note and reviewed by myself. GENERAL: This is a 68-year-old female, in no acute distress, well-developed well-nourished. HEART: Regular rate and rhythm without murmurs gallops or rubs. LUNGS: Decreased breath sounds bilaterally. NEURO: Patient was alert and oriented to person place and time. Initial orders for labs and / or imaging were placed and patient was placed in the waiting area until a bed is available. Please see further documentation for the full ED course.
--- NOTE | 2023-06-29 13:19 | Emergency Department Note ---
Impression & Plan Hypoxia, Pleural effusion ED Provider Note NAME: MARC GARCIA AGE: 68 SEX: F : 1955 ARRIVES VIA: Ambulance INFORMANT: Patient ED PROVIDER(S): Nino Michaels DO CHIEF COMPLAINT: shortness of breath HPI: Patient is a 68-year-old female who presents ER for shortness of breath. She has a past medical history of A-fib, hypertension and asthma. She notes her symptoms started about 2 weeks ago. Has been gradually getting worse. She has been on antibiotics when she followed back up with her PCP was found to be hypoxic and referred in. Patient denies any belly pain, nausea, vomiting, or diarrhea. ADDITIONAL HISTORY OBTAINED: Per HPI Chronic Medical/Social Conditions Affecting Care: Per HPI PAST MEDICAL HISTORY:See Below PAST SURGICAL HISTORY:See Below FAMILY HISTORY:See Below SOCIAL HISTORY:See Below HOME MEDICATIONS:See Below ALLERGIES:See Below VITALS:See Below PHYSICAL EXAMINATION: GENERAL: Sitting up in bed, alert, well appearing, well nourished, no distress, non-toxic EYE EXAM: normal conjunctiva. OROPHARYNX: mucous membranes are moist NECK: supple, no nuchal rigidity, no adenopathy, non-tender LUNGS: Faint wheezing bilaterally. Normal chest wall mechanics HEART: no murmurs, S1 normal and S2 normal ABDOMEN: abdomen soft, non-tender, normo-active bowel sounds, no masses, no rebound or guarding. UPPER EXTREMITIES: upper extremities are grossly normal. LOWER EXTREMITIES: No pitting edema. Calves are equal bilaterally NEURO EXAM: Normal sensorium, cranial nerves II-XII grossly intact, normal speech, no gross weakness of arms, no gross weakness of legs. No drift. Finger to nose intact. Gross sensation intact. MEDICAL DECISION MAKING: Patient is a 68-year-old female who presents ER for above-stated complaint. IV was established blood was obtained. Labs show no significant leukocytosis or anemia. BMP along with LFTs bilirubin and Pro-Aroldo was unremarkable. UA was negative. Viral panel was negative. Does have a history of asthma. She was given steroids and albuterol. I also covered her with Rocephin and azithromycin. She is updated bedside. Discussed with the hospitalist. She remained on nasal cannula and was admitted for further work-up of her shortness of breath and hypoxia. Did consider PE but is on a NOAC. Will not pursue any further. External Records Reviewed: Follow-up PCP EFL to be hypoxic with asthma Consults/Care Managements Discussions: Per MDM Triage Nursing notes reviewed. Limited review of prior medical records performed Vital Signs: reviewed and remarkable for HTn and hypoxic Differential diagnosis: Differential diagnoses includes but is not limited to pneumonia, bronchitis, COPD/Asthma exacerbation, pneumothorax, pulmonary embolism, congestive heart failure, acute coronary syndrome ER treatment provided: See below Diagnostics interpreted by me include EKG and cardiac monitoring as listed be low: -Cardiac Monitoring: An order was placed for continuous cardiac monitoring. The monitor shows a rate of 80 with sinus rhythm. -ECG: Sinus rhythm rate 73 Normal axis PVC QTc 431 -Laboratory studies:Interpreted by me as stated above in MDM and shown below. Imaging studies: Xrays: As interpreted by me: Portable AP upright 1 view of the chest shows pleural effusion. CTs show: none Procedures:none Critical Care: I have personally spent 32 minutes of critical care time in the direct management of this patient. This includes bedside care, interpretation of diagnostic studies, and testing, discussion with consultants, patient, and family members, and other required patient management activities. This 32 minutes is in excess of all separately billable procedures. Past Med/Surg History Medical History (Updated 06/29/23 @ 16:33 by Nino Michaels DO) Acid reflux Hx, no recent issues Asthma Atrial fibrillation Dx 3 years ago, reason for Xarelto Follows with Dr. Jacob Chronic back pain Colon polyp 12/2012 tubular adenoma 02/2017 sessile serrated adenoma (recheck in 5 years) Diverticulosis Gout TETLIN (hard of hearing) Hyperlipidemia Hypertension Hypothyroidism Morbid obesity Obstructive sleep apnea of adult CPAP (compliant) Pulmonary hypertension [facility] pulmonary monitoring, felt to be likely from underlying obesity as well as REYNALDO/OHS RVSP 40-50mmhg per 2019 echo Type 2 diabetes mellitus NIDDM Urinary incontinence Surgical History H/O colonoscopy sessile serrated adenoma, recheck in 5 years, Dr Reyez H/O oral surgery H/O ventral hernia repair Laparoscopic ventral hernia repair (05/14/22): Grade 2 view, ETT 7 at [facility] History of hernia repair umbilical History of hysterectomy History of tonsillectomy and adenoidectomy History of tubal ligation History of wisdom tooth extraction Family History Mother Diabetes Breast cancer Hypertension Father Prostate cancer Brother Diabetes Hypertension Other No family history of adverse response to anesthesia Denies family history of Ovarian cancer Myocardial infarction Colorectal cancer Social History Smoking Status: Former smoker Tobacco Type: Cigarettes Age Started Using Tobacco: 17; Age Quit Using Tobacco: 33; Second Hand Exposure: No; Do You Dip or Chew Tobacco: No; Hx Alcohol Use: No Hx Substance Use: No Preferred Language: Romanian Communication Ability: Effective Visual Impairment: No Limitations Hearing Ability: Normal Affiliate Marketing Manager Required: No Beliefs That Will Affect Care: None marital status: Current Living Situation: Spouse current occupational status: retired 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 Feels Safe at Home: Yes Childhood Exposure to Second-Hand Smoke: Yes Diet: regular Dental Care, Regularly: Yes Physical Activity Frequency: Does not Exercise Seatbelt Use: always Sunscreen Use: Yes Assistive Devices: CPAP and Walker Allergies Allergies Allergy/AdvReac Type Severity Reaction Status Date / Time shellfish derived Allergy Mild gout Verified 06/22/23 11:30 oxycodone AdvReac Mild Gastrointestinal Verified 06/22/23 11:30 Upset Home Meds Home Medications Medication Instructions Recorded Confirmed blood sugar diagnostic (Accu-Chek #10 ea 04/21/19 06/29/23 SmartView Test Strips) blood-glucose meter (Accu-Chek #1 ea 04/21/19 06/29/23 Nikki) lancets 30 gauge (OneTouch Delica #25 ea 04/21/19 06/29/23 Lancets) calcium carbonate 500 mg calcium 500 mg PO QAM 04/25/19 06/29/23 (1,250 mg) tablet (Calcium 500) magnesium 500 mg tablet 500 mg PO QAM 06/04/20 06/29/23 guaifenesin 600 mg tablet, 600 mg PO QAM 09/17/21 06/29/23 extended release 12 hr (Mucinex) cetirizine 10 mg tablet (Zyrtec) 10 mg PO 1300 12/28/22 06/29/23 losartan 50 mg tablet 50 mg PO QAM 12/28/22 06/29/23 metformin 500 mg tablet,extended 500 mg PO QAM 12/28/22 06/29/23 release 24hr qneuhwwc-waf-mxkuum 5 mg-zeaxanth 1 cap PO QAM 12/28/22 06/29/23 1 mg-bilberry 7.5 mg-herbal capsule (eInstruction by [employer] Formula) Previous Rx's Medication Instructions Recorded Auto Titrating CPAP #1 ea 06/21/20 CPAP Supplies #1 ea 06/21/20 montelukast 10 mg tablet 10 mg PO QPM #90 tabs 07/08/22 (Singulair) atorvastatin 20 mg tablet 20 mg PO WE #12 tabs 09/01/22 albuterol sulfate 2.5 mg/3 mL 2.5 mg (3 mL) inhalation QID PRN 09/25/22 (0.083 %) solution for nebulization Shortness Of Breath Or Wheezing #75 mL levothyroxine 137 mcg tablet 137 mcg PO QAM #90 tabs 10/27/22 oxybutynin chloride 10 mg 10 mg PO QAM #90 tabs 11/09/22 tablet,extended release 24 hr furosemide 20 mg tablet 20 mg PO QAM #90 tabs 11/30/22 rivaroxaban 20 mg tablet (Xarelto) 20 mg PO 1300 #90 tabs 03/01/23 allopurinol 100 mg tablet 100 mg PO QPM #90 tabs 04/12/23 (Zyloprim) diltiazem HCl 120 mg capsule,24 120 mg PO 1300 #90 caps 04/12/23 hr,extended release (Tiazac) albuterol sulfate 90 mcg/actuation 2 puff inhalation QID PRN 06/22/23 aerosol inhaler bronchospasm #8.5 grams benzonatate 100 mg capsule 100 mg PO TID PRN cough #30 caps 06/22/23 Results & Data (ED) Vital Signs Vital Signs - 24 hr 06/29/23 13:01 06/29/23 13:19 06/29/23 13:23 Temperature 36.5 C Temperature Source Temporal Artery Scan Pulse Rate 67 72 Pulse Rate [Right Finger] Respiratory Rate 20 Respiratory Effort / Characteristics Non-Labored Spontaneous Respiratory Depth Normal Blood Pressure 167/85 H Blood Pressure Mean 112 Pulse Oximetry 97 95 Oxygen Delivery Method Nasal Cannula Nasal Cannula Oxygen Flow Rate 6 2 Sepsis Recent Fever Within 48 Hours No Sepsis New/Unexplained Change in Mental Status No Sepsis Action Taken by Nursing No Action Required 06/29/23 13:42 Temperature Temperature Source Pulse Rate Pulse Rate [Right Finger] 80 Respiratory Rate 16 Respiratory Effort / Characteristics Non-Labored Spontaneous Respiratory Depth Blood Pressure Blood Pressure Mean Pulse Oximetry 100 Oxygen Delivery Method Room Air Nebulizer Oxygen Flow Rate 8 Sepsis Recent Fever Within 48 Hours Sepsis New/Unexplained Change in Mental Status Sepsis Action Taken by Nursing Laboratory Data 06/29/23 13:17 06/29/23 13:17 Lab Results 06/29/23 06/29/23 06/29/23 Range/Units 12:28 13:17 13:17 WBC 9.95 (4.8-10.8) K/ul RBC 5.21 (4.20-5.40) M/uL Hgb 13.8 (12.0-16.0) g/dl Hct 44.0 (37.0-47.0) % MCV 84.5 (80.0-100.0) fL MCH 26.5 (25.0-34.0) pg MCHC 31.4 L (32.0-36.0) g/dL RDW Std Deviation 47.2 H (36.4-46.3) fL RDW Coeff of Parish 15.3 H (11.5-14.5) % Plt Count 328 (130-400) K/uL MPV 10.1 (9.4-12.4) fL Immature Gran % (Auto) 0.6 % Neut % (Auto) 63.6 % Lymph % (Auto) 23.3 % Worth % (Auto) 7.6 % Eos % (Auto) 4.4 % Baso % (Auto) 0.5 % Neut # (Auto) 6.32 (1.40-6.50) K/uL Lymph # (Auto) 2.32 (1.20-3.40) K/uL Worth # (Auto) 0.76 H (0.11-0.59) K/uL Eos # (Auto) 0.44 (0.00-0.50) K/uL Baso # (Auto) 0.05 (0.00-0.20) K/uL Immature Gran # (Auto) 0.06 (0.01-0.20) K/uL VBG pH (7.36-7.41) VBG pCO2 (38-50) mmHg VBG pO2 mmHg VBG HCO3 mmol/L VBG O2 Saturation % VBG Base Excess mEq/L Sodium 140 (136-145) mmol/L Potassium 3.5 (3.5-5.1) mmol/L Chloride 102 (98-107) mmol/L Carbon Dioxide 32 (21-32) mmol/L Anion Gap 6 (3-11) BUN 28 H (6-23) mg/dl Creatinine 0.87 (0.6-1.2) mg/dl Est Cr Clr Drug Dosing Not Reportable Est GFR ( Amer) 79.3 ml/min Est GFR (Non-Af Amer) 68.5 ml/min BUN/Creatinine Ratio 32.2 H (10-20) Glucose 96 (70-99(Fasting)) mg/dl Calcium 9.4 (8.6-10.3) mg/dl Total Bilirubin 0.8 (0.2-1.0) mg/dl AST 11 L (13-39) U/L ALT 14 (7-52) U/L Alkaline Phosphatase 92 (34-104) U/L B-Natriuretic Peptide (0-100) pg/ml Total Protein 6.9 (6.0-8.3) gm/dl Albumin 3.8 (3.4-5.0) gm/dl Globulin 3.1 (2.5-4.0) gm/dl Albumin/Globulin Ratio 1.2 (0.9-2) Procalcitonin (0-0.5) ng/ml Urine Color Urine Appearance (Clear) Urine pH (4.5-7.5) Ur Specific Kerby (1.000-1.030) Urine Protein (Negative) Urine Glucose (UA) (Negative) Urine Ketones (Negative) Urine Blood (Negative) Urine Nitrite (Negative) Urine Bilirubin (Negative) Urine Urobilinogen (Negative) Ur Leukocyte Esterase (Negative) Adenovirus (PCR) Not Detected (NotDetected) B. pertussis DNA (PCR) Not Detected (NotDetected) B.parapertussis DNA PCR Not Detected (NotDetected) C. pneumoniae DNA (PCR) Not Detected (NotDetected) Coronavirus OC43 (PCR) Not Detected (NotDetected) Coronavirus HKU1 (PCR) Not Detected (NotDetected) Coronavirus 229E (PCR) Not Detected (NotDetected) SARS-CoV-2 (PCR) Not Detected (NotDetected) Coronavirus NL63 (PCR) Not Detected (NotDetected) Human Metapneumovir PCR Not Detected (NotDetected) Influenza Type A (PCR) Not Detected (NotDetected) Influenza Type B (PCR) Not Detected (NotDetected) M. pneumoniae (PCR) Not Detected (NotDetected) Parainfluenza 1 (PCR) Not Detected (NotDetected) Parainfluenza 2 (PCR) Not Detected (NotDetected) Parainfluenza 3 (PCR) Not Detected (NotDetected) Parainfluenza 4 (PCR) Not Detected (NotDetected) RSV (PCR) Not Detected (NotDetected) Entero/Rhino (PCR) Not Detected (NotDetected) 06/29/23 06/29/23 06/29/23 Range/Units 13:17 13:17 15:31 WBC (4.8-10.8) K/ul RBC (4.20-5.40) M/uL Hgb (12.0-16.0) g/dl Hct (37.0-47.0) % MCV (80.0-100.0) fL MCH (25.0-34.0) pg MCHC (32.0-36.0) g/dL RDW Std Deviation (36.4-46.3) fL RDW Coeff of Parish (11.5-14.5) % Plt Count (130-400) K/uL MPV (9.4-12.4) fL Immature Gran % (Auto) % Neut % (Auto) % Lymph % (Auto) % Worth % (Auto) % Eos % (Auto) % Baso % (Auto) % Neut # (Auto) (1.40-6.50) K/uL Lymph # (Auto) (1.20-3.40) K/uL Worth # (Auto) (0.11-0.59) K/uL Eos # (Auto) (0.00-0.50) K/uL Baso # (Auto) (0.00-0.20) K/uL Immature Gran # (Auto) (0.01-0.20) K/uL VBG pH 7.40 (7.36-7.41) VBG pCO2 46 (38-50) mmHg VBG pO2 24 mmHg VBG HCO3 29 mmol/L VBG O2 Saturation < 60.0 % VBG Base Excess 3.0 mEq/L Sodium (136-145) mmol/L Potassium (3.5-5.1) mmol/L Chloride (98-107) mmol/L Carbon Dioxide (21-32) mmol/L Anion Gap (3-11) BUN (6-23) mg/dl Creatinine (0.6-1.2) mg/dl Est Cr Clr Drug Dosing Est GFR ( Amer) ml/min Est GFR (Non-Af Amer) ml/min BUN/Creatinine Ratio (10-20) Glucose (70-99(Fasting)) mg/dl Calcium (8.6-10.3) mg/dl Total Bilirubin (0.2-1.0) mg/dl AST (13-39) U/L ALT (7-52) U/L Alkaline Phosphatase (34-104) U/L B-Natriuretic Peptide 26 (0-100) pg/ml Total Protein (6.0-8.3) gm/dl Albumin (3.4-5.0) gm/dl Globulin (2.5-4.0) gm/dl Albumin/Globulin Ratio (0.9-2) Procalcitonin < 0.05 (0-0.5) ng/ml Urine Color Urine Appearance (Clear) Urine pH (4.5-7.5) Ur Specific Kerby (1.000-1.030) Urine Protein (Negative) Urine Glucose (UA) (Negative) Urine Ketones (Negative) Urine Blood (Negative) Urine Nitrite (Negative) Urine Bilirubin (Negative) Urine Urobilinogen (Negative) Ur Leukocyte Esterase (Negative) Adenovirus (PCR) (NotDetected) B. pertussis DNA (PCR) (NotDetected) B.parapertussis DNA PCR (NotDetected) C. pneumoniae DNA (PCR) (NotDetected) Coronavirus OC43 (PCR) (NotDetected) Coronavirus HKU1 (PCR) (NotDetected) Coronavirus 229E (PCR) (NotDetected) SARS-CoV-2 (PCR) (NotDetected) Coronavirus NL63 (PCR) (NotDetected) Human Metapneumovir PCR (NotDetected) Influenza Type A (PCR) (NotDetected) Influenza Type B (PCR) (NotDetected) M. pneumoniae (PCR) (NotDetected) Parainfluenza 1 (PCR) (NotDetected) Parainfluenza 2 (PCR) (NotDetected) Parainfluenza 3 (PCR) (NotDetected) Parainfluenza 4 (PCR) (NotDetected) RSV (PCR) (NotDetected) Entero/Rhino (PCR) (NotDetected) 06/29/23 Range/Units Unknown WBC (4.8-10.8) K/ul RBC (4.20-5.40) M/uL Hgb (12.0-16.0) g/dl Hct (37.0-47.0) % MCV (80.0-100.0) fL MCH (25.0-34.0) pg MCHC (32.0-36.0) g/dL RDW Std Deviation (36.4-46.3) fL RDW Coeff of Parish (11.5-14.5) % Plt Count (130-400) K/uL MPV (9.4-12.4) fL Immature Gran % (Auto) % Neut % (Auto) % Lymph % (Auto) % Worth % (Auto) % Eos % (Auto) % Baso % (Auto) % Neut # (Auto) (1.40-6.50) K/uL Lymph # (Auto) (1.20-3.40) K/uL Worth # (Auto) (0.11-0.59) K/uL Eos # (Auto) (0.00-0.50) K/uL Baso # (Auto) (0.00-0.20) K/uL Immature Gran # (Auto) (0.01-0.20) K/uL VBG pH (7.36-7.41) VBG pCO2 (38-50) mmHg VBG pO2 mmHg VBG HCO3 mmol/L VBG O2 Saturation % VBG Base Excess mEq/L Sodium (136-145) mmol/L Potassium (3.5-5.1) mmol/L Chloride (98-107) mmol/L Carbon Dioxide (21-32) mmol/L Anion Gap (3-11) BUN (6-23) mg/dl Creatinine (0.6-1.2) mg/dl Est Cr Clr Drug Dosing Est GFR ( Amer) ml/min Est GFR (Non-Af Amer) ml/min BUN/Creatinine Ratio (10-20) Glucose (70-99(Fasting)) mg/dl Calcium (8.6-10.3) mg/dl Total Bilirubin (0.2-1.0) mg/dl AST (13-39) U/L ALT (7-52) U/L Alkaline Phosphatase (34-104) U/L B-Natriuretic Peptide (0-100) pg/ml Total Protein (6.0-8.3) gm/dl Albumin (3.4-5.0) gm/dl Globulin (2.5-4.0) gm/dl Albumin/Globulin Ratio (0.9-2) Procalcitonin (0-0.5) ng/ml Urine Color Yellow Urine Appearance Clear (Clear) Urine pH 7.0 (4.5-7.5) Ur Specific Kerby 1.008 (1.000-1.030) Urine Protein Negative (Negative) Urine Glucose (UA) Negative (Negative) Urine Ketones Negative (Negative) Urine Blood Negative (Negative) Urine Nitrite Negative (Negative) Urine Bilirubin Negative (Negative) Urine Urobilinogen Negative (Negative) Ur Leukocyte Esterase Negative (Negative) Adenovirus (PCR) (NotDetected) B. pertussis DNA (PCR) (NotDetected) B.parapertussis DNA PCR (NotDetected) C. pneumoniae DNA (PCR) (NotDetected) Coronavirus OC43 (PCR) (NotDetected) Coronavirus HKU1 (PCR) (NotDetected) Coronavirus 229E (PCR) (NotDetected) SARS-CoV-2 (PCR) (NotDetected) Coronavirus NL63 (PCR) (NotDetected) Human Metapneumovir PCR (NotDetected) Influenza Type A (PCR) (NotDetected) Influenza Type B (PCR) (NotDetected) M. pneumoniae (PCR) (NotDetected) Parainfluenza 1 (PCR) (NotDetected) Parainfluenza 2 (PCR) (NotDetected) Parainfluenza 3 (PCR) (NotDetected) Parainfluenza 4 (PCR) (NotDetected) RSV (PCR) (NotDetected) Entero/Rhino (PCR) (NotDetected) Administered Medications Azithromycin 500 mg/ Dextrose 255 mls @ 125 mls/hr IV ONE ONE Stop: 06/29/23 16:54 Last Admin: 06/29/23 15:40 Dose: 125 mls/hr Documented By: HUNTER Magnesium Sulfate/Dextrose (Magnesium Sulfate / D5w) 1 gm in 100 mls @ 50 mls/hr IV ONE ONE Stop: 06/29/23 17:45 Last Admin: 06/29/23 16:09 Dose: 50 mls/hr Documented By: HUNTER Discontinued Medications Albuterol (Albuterol 0.083% Nebu Soln 3 Ml Vial) 10 mg NEB NOW STA; Protocol Stop: 06/29/23 13:22 Last Admin: 06/29/23 13:35 Dose: 10 mg Documented By: SHANNON Diltiazem HCl (Diltiazem Hcl 120 Mg Capcr) 120 mg PO NOW STA Stop: 06/29/23 15:24 Last Admin: 06/29/23 16:08 Dose: 120 mg Documented By: HUNTER Furosemide (Furosemide 40 Mg/4 Ml Vial) 40 mg IV ONE ONE Stop: 06/29/23 15:24 Last Admin: 06/29/23 16:09 Dose: 40 mg Documented By: HUNTER Ceftriaxone Sodium (Rocephin) 2,000 mg in 50 mls @ 100 mls/hr IV NOW STA Stop: 06/29/23 15:21 Last Admin: 06/29/23 15:25 Dose: 100 mls/hr Documented By: HUNTER Methylprednisolone (Methylprednisolone 40 Mg/Ml Vial) 40 mg IV NOW STA Stop: 06/29/23 13:22 Last Admin: 06/29/23 13:35 Dose: 40 mg Documented By: HS Imaging Data Radiologist's Impression: Chest X-Ray 06/29/23 12:59 XR chest 1V portable HISTORY: 68 years-old Female Dyspnea acute shortness of breath COMPARISON: 01/06/2023 TECHNIQUE: AP view of the chest FINDINGS: Cardiac silhouette is enlarged. Pulmonary vascular congestion. Small left pleur al effusion with mild left basilar opacities. Bones appear grossly intact. IMPRESSION: 1. Cardiomegaly with pulmonary vascular congestion. 2. Small left pleural effusion with mild left basilar consolidation. ACT 112: Negative or not required by law. The above report was generated using voice recognition software. It may contain grammatical, syntax or spelling errors. Electronically signed by: Omer Lyn M.D. 06/29/2023 2:12 PM Discharge Plan Visit Data Chief Complaint: Shortness of Breath/Dyspnea Stated Complaint: SOB, COPD ED Provider: Nino Michaels Discharge Problem: Hypoxia, Pleural effusion Forms Stand Alone Forms: My [facility] Prescriptions Prescriptions: No Action atorvastatin 20 mg tablet 20 mg PO WE Qty: 12 3RF Rx Instructions: Take Q Wednesday albuterol sulfate 2.5 mg /3 mL (0.083 %) solution for nebulization 2.5 mg inhalation QID PRN (Reason: Shortness Of Breath Or Wheezing) Qty: 75 0RF levothyroxine 137 mcg tablet 137 mcg PO QAM Qty: 90 3RF oxybutynin chloride 10 mg tablet extended release 24hr 10 mg PO QAM Qty: 90 3RF furosemide 20 mg tablet 20 mg PO QAM Qty: 90 3RF Xarelto 20 mg tablet 20 mg PO 1300 Qty: 90 3RF allopurinol [Zyloprim] 100 mg tablet 100 mg PO QPM Qty: 90 3RF diltiazem HCl [Tiazac] 120 mg capsule,extended release 24 hr 120 mg PO 1300 Qty: 90 3RF montelukast [Singulair] 10 mg tablet 10 mg PO QPM Qty: 90 4RF (DME) Accu-Chek SmartView Test Strip strip See Dose Instructions .ROUTE .MEDSUPPLY Qty: 10 Rx Instructions: CHECK BLOOD SUGAR ONCE DAILY BEFORE ANY MEAL (DME) blood-glucose meter [Accu-Chek Nikki] misc See Dose Instructions .ROUTE .MEDSUPPLY Qty: 1 Rx Instructions: USE TO CHECK BLOOD SUGAR ONCE DAILY (DME) lancets [OneTouch Delica Lancets] 30 gauge misc See Dose Instructions .ROUTE .MEDSUPPLY Qty: 25 Rx Instructions: USE TO CHECK BLOOD SUGAR ONCE DAILY calcium carbonate [Calcium 500] 500 mg calcium (1,250 mg) tablet 500 mg PO QAM (DME) Auto Titrating CPAP Misc See Rx Instructions .ROUTE .MEDSUPPLY Qty: 1 0RF Rx Instructions: Auto PAP with 10-20mm H20. Lifetime usage. G47.33 (DME) CPAP Supplies Misc See Rx Instructions .ROUTE .MEDSUPPLY Qty: 1 0RF Rx Instructions: CPAP supplies. G47.33 guaifenesin [Mucinex] 600 mg tablet extended release 12hr 600 mg PO QAM albuterol sulfate 90 mcg/actuation HFA aerosol inhaler 2 puff inhalation QID PRN (Reason: bronchospasm) Qty: 8.5 3RF benzonatate 100 mg capsule 100 mg PO TID PRN (Reason: cough) Qty: 30 1RF magnesium 500 mg Tablet 500 mg PO QAM losartan 50 mg tablet 50 mg PO QAM metformin 500 mg tablet extended release 24hr 500 mg PO QAM cetirizine [Zyrtec] 10 mg Tablet 10 mg PO 1300 [facility] Formula 5-1-7.5 mg Capsule 1 cap PO QAM Referrals Referrals: Chandni Gonzalez CRNP [Primary Care Provider] -
[2023-06-29] MEDS ORDERED: ALBUTEROL 0.083% NEBU SOLN 3 ML VIAL NEB STA (13:21)
[2023-06-29 13:58] LABS: Basophils # (auto) 0.05 K/uL (0.00-0.20); Basophils % (auto) 0.5 %; Eosinophils # (auto) 0.44 K/uL (0.00-0.50); Eosinophils % (auto) 4.4 %; Hemoglobin 13.8 g/dl (12.0-16.0); Immature Granulocytes # (auto) 0.06 K/uL (0.01-0.20); Immature Granulocytes % (auto) 0.6 %; Lymphocytes # (auto) 2.32 K/uL (1.20-3.40); Lymphocytes % (auto) 23.3 %; Mean Corpuscular Hemoglobin 26.5 pg (25.0-34.0); Mean Corpuscular Hgb Conc 31.4 g/dL (32.0-36.0); Mean Corpuscular Volume 84.5 fL (80.0-100.0); Mean Platelet Volume 10.1 fL (9.4-12.4); Monocytes # (auto) 0.76 K/uL (0.11-0.59); Monocytes % (auto) 7.6 %; Neutrophils # (auto) 6.32 K/uL (1.40-6.50); Neutrophils % (auto) 63.6 %; Platelet Count 328 K/uL (130-400); RDW Coefficient of Variation 15.3 % (11.5-14.5); RDW Standard Deviation 47.2 fL (36.4-46.3); Red Blood Count 5.21 M/uL (4.20-5.40); White Blood Count 9.95 K/ul (4.8-10.8)
[2023-06-29 13:59] LABS: Appearance Urine Clear (Clear); Bilirubin Urine Negative (Negative); Blood Urine Negative (Negative); Color Urine Yellow; Glucose Urine UA Negative (Negative); Ketones Urine Negative (Negative); Leukocyte Esterase Urine Negative (Negative); Nitrite Urine Negative (Negative); Protein Urine Negative (Negative); Specific Gravity Urine 1.008 (1.000-1.030); Urobilinogen Urine Negative (Negative)
--- NOTE | 2023-06-29 14:13 | XRay Report ---
XR chest 1V portable HISTORY: 68 years-old Female Dyspnea acute shortness of breath COMPARISON: 01/06/2023 TECHNIQUE: AP view of the chest FINDINGS: Cardiac silhouette is enlarged. Pulmonary vascular congestion. Small left pleural effusion with mild left basilar opacities. Bones appear grossly intact. IMPRESSION: 1. Cardiomegaly with pulmonary vascular congestion. 2. Small left pleural effusion with mild left basilar consolidation. ACT 112: Negative or not required by law. The above report was generated using voice recognition software. It may contain grammatical, syntax o r spelling errors. Electronically signed by: Omer Lyn M.D. 06/29/2023 2:12 PM
[2023-06-29 14:14] LABS: Alanine Aminotransferase 14 U/L (7-52); Albumin Globulin Ratio 1.2 (0.9-2); Albumin Level 3.8 gm/dl (3.4-5.0); Alkaline Phosphatase 92 U/L (34-104); Anion Gap 6 (3-11); Aspartate Aminotransferase 11 U/L (13-39); BUN Creatinine Ratio 32.2 (10-20); Bilirubin,Total 0.8 mg/dl (0.2-1.0); Blood Urea Nitrogen 28 mg/dl (6-23); Calcium 9.4 mg/dl (8.6-10.3); Carbon Dioxide 32 mmol/L (21-32); Chloride 102 mmol/L (98-107); Est GFR (African American) 79.3 ml/min; Est GFR (Non-African American) 68.5 ml/min; Globulin 3.1 gm/dl (2.5-4.0); Glucose 96 mg/dl (70-99(Fasting)); Potassium 3.5 mmol/L (3.5-5.1); Sodium 140 mmol/L (136-145); Total Protein 6.9 gm/dl (6.0-8.3)
--- NOTE | 2023-06-29 14:39 | Electrocardiogram Report ---
Test Reason : Blood Pressure : / mmHG Vent. Rate : 073 BPM Atrial Rate : 073 BPM P-R Int : 178 ms QRS Dur : 088 ms QT Int : 392 ms P-R-T Axes : 078 062 066 degrees QTc Int : 431 ms Sinus rhythm with occasional Premature ventricular complexes Otherwise normal ECG When compared with ECG of 20-APR-2022 11:15, Premature ventricular complexes are now Present Confirmed by Todd Arrington ([id number]) on 06/29/2023 2:39:00 PM Referred By: Confirmed By:Todd Arrington
[2023-06-29 14:40] LABS: Adenovirus PCR Not Detected (NotDetected); Bordetella parapertussis PCR Not Detected (NotDetected); Bordetella pertussis PCR Not Detected (NotDetected); Chlamydia pneumoniae PCR Not Detected (NotDetected); Coronavirus 229E PCR Not Detected (NotDetected); Coronavirus CoV-2 (COVID19)PCR Not Detected (NotDetected); Coronavirus HKU1 PCR Not Detected (NotDetected); Coronavirus NL63 PCR Not Detected (NotDetected); Coronavirus OC43PCR Not Detected (NotDetected); Human Metapneumovirus PCR Not Detected (NotDetected); Influenza A PCR Not Detected (NotDetected); Influenza B PCR Not Detected (NotDetected); Mycoplasma pneumoniae PCR Not Detected (NotDetected); Parainfluenza Virus 1 PCR Not Detected (NotDetected); Parainfluenza Virus 2 PCR Not Detected (NotDetected); Parainfluenza Virus 3 PCR Not Detected (NotDetected); Parainfluenza Virus 4 PCR Not Detected (NotDetected); Respiratory Syncytial VirusPCR Not Detected (NotDetected); Rhinovirus/Enterovirus PCR Not Detected (NotDetected)
--- NOTE | 2023-06-29 14:47 | History & Physical Report ---
Date of Service June 29, 2023 Assessment & Plan (1) Hypoxia: Plan: -Admit to the PCU on tele and continuous pulse oximetry -Currently stable on RA but now in afib RVR after her albuterol treatment -At this time her hypoxia is likely multifactorial including but not limited to uncontrolled asthma with exacerbation and CHF exacerbation -The patient's WBC is WNL, she was recently treated with a 7 days course of doxycycline and prednisone without improvement in symptoms -No focal consolidation on CXR, was treated with Ceftriaxone and Azithromycin in the ED, will add on a procal and hold additional abx at this time >If procal is positive will continue abx for treatment of CAP -Full respiratory biofire is negative -Patient has been experiencing orthopnea with cardiomegaly, pulmonary vascular congestion, and small left pleural effusion on CXR >Will obtain BNP and TTE for further evaluation >Will give 40 mg IV lasix now and continue with 20 mg IV BID tomorrow -Patient still with significant wheezing on exam, will give 1gm IV mag sulfate now as her mag level is 1.9 -S/P 40 mg IV methylprednisolone in the ED, will continue with 60 mg IV daily x 4 days for possible asthma exacerbation -Continue prn Xoponex for ongoing wheezing, prn O2 to keep SpO2 at or above 94% -Incentive spirometry, flutter therapy -Transitioning to heparin drip, weight based, low dose, without bolus with afib RVR and new ST segment depressions in the anterior leads as she did not have her dose of Xarelto today -NPO for now until her initial workup is complete -AM CBC, BMP, Mag, PT/INR, aptt (2) Atrial fibrillation with rapid ventricular response: Plan: -Noted on initial admission evaluation, confirmed with repeat ECG -Likely due to acute hypoxia and extended albuterol treatment -Patient with previous diagnosis, has been on xarelto but did not have her dose yet today -Did not have her dose of Diltiazem today, will give stat -Switching patient to heparin drip at this time with new ST segment depressions requiring further workup, can transition back to Xarelto when she is stable -Mag level at 1.9 with potassium at 3.5, will replete mag to 2.0 and potassium t o 4.0 on admission -Will FU with TTE being obtained at the time of admission (3) Anterior ST segment depression: Plan: -Patient noted to have ST segment depressions in the anterior leads while in afib RVR -Patient noted to have jaw pain while in afib RVR as well -Obtaining STAT high sen trop with 2 hour repeat and STAT TTE for further evaluation -Continue heparin drip for now, can transition back to Xarelto when stable (4) Gout: Plan: -Continue allopurinol (5) Hypertension: Plan: -Stable -Continue losartan -Patient typically takes 20 mg PO lasix daily; will convert to 20 mg IV BID tomorrow -Will give 40 mg IV lasix now -Monitor intake and output (6) Type 2 diabetes mellitus: Plan: -Hold metformin -Monitor BSG ACHS, goal is 110-160 -Will start 5 units lantus BID as she will likely be hyperglycemic with IV glucocorticoids -CF of 50 ACHS -DMII, HH, 2gm sodium restricted diet -Pharmacy glycemic consult placed (7) Obstructive sleep apnea of adult: Plan: -HS CPAP ordered (8) Hypothyroidism: Plan: -Continue levothyroxine Plan The patient was discussed with Dr. Smith at the time of the admission History of Present Illness Chief Complaint: SOB, hypoxia Primary Care Provider: SADIA Ibanez Erin is a 68 year old female with a PMH significant for afib on xarelto, DMII, REYNALDO on HS CPAP, Pulmonary HTN (RVSP 40-50mmhg per 2020 echo), asthma, HTN, and hypothyroidism who presented to the [facility] ED from her PCP's office for ongoing SOB and hypoxia. Per chart review, the patient was seen at her PCP's office today for one week FU after see was seen last week for ongoing SOB and cough for the past month. She was initially treated with a course of Doxycycline, prednisone, and albuterol refill, however, she reported to her PCP that her symptoms progressed. In the PCP's office she was noted to have an SpO2 of 82% on RA which resolved after being placed on 2L NC. In the ED she remained stable on supplemental O2 via NC and was otherwise stable. Labs including CBC, CMP, UA, and full respiratory biofire were unremarkable. Chest xray was read as "1. Cardiomegaly with pulmonary vascular congestion. 2. Small left pleural effusion with mild left basilar consolidation.". Prior to admission the patient was given an hour long DuoNeb treatment, 40 mg IV methylprednisolone, a dose of Ceftriaxone and azithromycin. At the time of the exam the patient was sitting in bed in no acute distress, she had just finished her hour long nebulizer treatment. She states that she has been dealing with increased wheezing, cough, and SOB over the past month. She confirms she has a history of asthma and smoked approximately 1 pack of cigarettes per week for approximately 5 years, 20 years ago. She has also had significant second had smoke exposure over her life due to friends and family smoking. She confirms that she completed her course of Doxy, steroids, and has been using her albuterol inhaler without improvement in her symptoms. She also notes that she has been unable to lay flat recently due to significant SOB when doing so. She has not missed a recent dose of xarelto and is due for her afternoon dose of Diltiazem. While speaking with her, her HR fluctuated from the low 100's to the 140's and appeared irregular. The patient asked if she was in afib, "because my jaw is starting to hurt". She denies any chest pain at the time of my exam. She has noted some green sputum production today and denies hemoptysis. She denies recent fever or chills, chest pain, abd pain, nausea, vomiting, diarrhea, dysuria, hematuria, melena, and recent trauma. When asked about leg swelling, she states that her left LE is more swollen than her right. She clarifies that this has been since her left knee replacement in January of this year without significant change. She states that she feels the hour long albuterol treatment seems to have slightly improved her respiratory symptoms since arrival. She is a full code and wishes for her to make medical decisions for her if she cannot make them herself. Please refer to Dr. Simth's attestation for any changes to the treatment plan Allergies Allergy/AdvReac Type Severity Reaction Status Date / Time shellfish derived Allergy Mild gout Verified 06/22/23 11:30 oxycodone AdvReac Mild Gastrointestinal Verified 06/22/23 11:30 Upset Home Medications Medication Instructions Recorded Confirmed Type blood sugar diagnostic (Accu-Chek #10 ea 04/21/19 06/29/23 History SmartView Test Strips) blood-glucose meter (Accu-Chek #1 ea 04/21/19 06/29/23 History Nikki) lancets 30 gauge (OneTouch Delica #25 ea 04/21/19 06/29/23 History Lancets) calcium carbonate 500 mg calcium 500 mg PO QAM 04/25/19 06/29/23 History (1,250 mg) tablet (Calcium 500) magnesium 500 mg tablet 500 mg PO QAM 06/04/20 06/29/23 History Auto Titrating CPAP #1 ea 06/21/20 06/29/23 Rx CPAP Supplies #1 ea 06/21/20 06/29/23 Rx guaifenesin 600 mg tablet, 600 mg PO QAM 09/17/21 06/29/23 History extended release 12 hr (Mucinex) montelukast 10 mg tablet 10 mg PO QPM #90 tabs 07/08/22 06/29/23 Rx (Singulair) atorvastatin 20 mg tablet 20 mg PO WE #12 tabs 09/01/22 06/29/23 Rx albuterol sulfate 2.5 mg/3 mL 2.5 mg (3 mL) inhalation QID PRN 09/25/22 06/29/23 Rx (0.083 %) solution for nebulization Shortness Of Breath Or Wheezing #75 mL levothyroxine 137 mcg tablet 137 mcg PO QAM #90 tabs 10/27/22 06/29/23 Rx oxybutynin chloride 10 mg 10 mg PO QAM #90 tabs 11/09/22 06/29/23 Rx tablet,extended release 24 hr furosemide 20 mg tablet 20 mg PO QAM #90 tabs 11/30/22 06/29/23 Rx cetirizine 10 mg tablet (Zyrtec) 10 mg PO 1300 12/28/22 06/29/23 History losartan 50 mg tablet 50 mg PO QAM 12/28/22 06/29/23 History metformin 500 mg tablet,extended 500 mg PO QAM 12/28/22 06/29/23 History release 24hr btbtxixs-vwg-anohhl 5 mg-zeaxanth 1 cap PO QAM 12/28/22 06/29/23 History 1 mg-bilberry 7.5 mg-herbal capsule (Macular Health Formula) rivaroxaban 20 mg tablet (Xarelto) 20 mg PO 1300 #90 tabs 03/01/23 06/29/23 Rx allopurinol 100 mg tablet 100 mg PO QPM #90 tabs 04/12/23 06/29/23 Rx (Zyloprim) diltiazem HCl 120 mg capsule,24 120 mg PO 1300 #90 caps 04/12/23 06/29/23 Rx hr,extended release (Tiazac) albuterol sulfate 90 mcg/actuation 2 puff inhalation QID PRN 06/22/23 06/29/23 Rx aerosol inhaler bronchospasm #8.5 grams benzonatate 100 mg capsule 100 mg PO TID PRN cough #30 caps 06/22/23 06/29/23 Rx Past Med/Surg History Medical History (Updated 06/29/23 @ 16:33 by Nino Michaels, ) Acid reflux Hx, no recent issues Asthma Atrial fibrillation Dx 3 years ago, reason for Xarelto Follows with Dr. Jacob Chronic back pain Colon polyp 12/2012 tubular adenoma 02/2017 sessile serrated adenoma (recheck in 5 years) Diverticulosis Gout [place] (hard of hearing) Hyperlipidemia Hypertension Hypothyroidism Morbid obesity Obstructive sleep apnea of adult CPAP (compliant) Pulmonary hypertension [facility] pulmonary monitoring, felt to be likely from underlying obesity as well as REYNALDO/OHS RVSP 40-50mmhg per 2019 echo Type 2 diabetes mellitus NIDDM Urinary incontinence Surgical History H/O colonoscopy sessile serrated adenoma, recheck in 5 years, Dr Reyez H/O oral surgery H/O ventral hernia repair Laparoscopic ventral hernia repair (05/14/22): Grade 2 view, ETT 7 at [facility] History of hernia repair umbilical History of hysterectomy History of tonsillectomy and adenoidectomy History of tubal ligation History of wisdom tooth extraction Family History Mother Diabetes Breast cancer Hypertension Father Prostate cancer Brother Diabetes Hypertension Other No family history of adverse response to anesthesia Denies family history of Ovarian cancer Myocardial infarction Colorectal cancer Social History Smoking Status: Former smoker Tobacco Type: Cigarettes Age Started Using Tobacco: 17; Age Quit Using Tobacco: 33; Second Hand Exposure: No; Do You Dip or Chew Tobacco: No; Hx Alcohol Use: No Hx Substance Use: No Preferred Language: Icelandic Communication Ability: Effective Visual Impairment: No Limitations Hearing Ability: Normal Campus Safety Officer Required: No Beliefs That Will Affect Care: None marital status: Current Living Situation: Spouse current occupational status: retired 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 Feels Safe at Home: Yes Childhood Exposure to Second-Hand Smoke: Yes Diet: regular Dental Care, Regularly: Yes Physical Activity Frequency: Does not Exercise Seatbelt Use: always Sunscreen Use: Yes Assistive Devices: CPAP and Walker Physical Exam Physical Exam: Physical Exam: General: In no acute distress, stated age, ill appearing but non-toxic, morbidly obese HEENT: Normocephalic, atraumatic, no scleral icterus, pupils around round, symmetrical, and reactive to light, moist mucus membranes, trachea midline, no thyromegaly Chest/Pulm: No respiratory distress, symmetrical chest expansion, scattered expiratory wheezing throughout Cardiac: irregular rate and rhythm, no murmurs noted Abdomen: Negative for ascites and bruising, normoactive bowel sounds, soft, non-tender to palpation throughout Musculoskeletal: Symmetrical and without signs of acute trauma, upper and lower extremities with full ROM, no atrophy, spasticity, or flaccidity Extremities: Radial, dorsalis pedis, and posterior tibial pulses are intact and symmetrical, left LE > right without signs of erythema or tenderness Skin: Warm, dry, no rashes , lesions, or scars noted Neuro: Alert and oriented to person, place, month, year, and president, no focal defects, no tremors noted Psych: No acute distress, calm and cooperative during the exam Results & Data Results & Data Vital Signs (Past 12 Hours) Vital Signs Temp Pulse Pulse Resp BP Pulse Ox O2 Del Method 06/29/23 13:42 80 16 100 Room Air, Nebulizer 06/29/23 13:23 95 Nasal Cannula 06/29/23 13:19 72 06/29/23 13:01 36.5 C 67 20 167/85 H 97 Nasal Cannula O2 Flow Rate 06/29/23 13:42 8 06/29/23 13:23 2 06/29/23 13:19 06/29/23 13:01 6 Laboratory Results Abnormal lab results 06/29/23 06/29/23 Range/Units 13:17 13:17 MCHC 31.4 L (32.0-36.0) g/dL RDW Std Deviation 47.2 H (36.4-46.3) fL RDW Coeff of [place] 15.3 H (11.5-14.5) % [place] # (Auto) 0.76 H (0.11-0.59) K/uL BUN 28 H (6-23) mg/dl BUN/Creatinine Ratio 32.2 H (10-20) AST 11 L (13-39) U/L Diagnostic Findings Chest X-Ray 06/29/23 12:59 XR chest 1V portable HISTORY: 68 years-old Female Dyspnea acute shortness of breath COMPARISON: 01/06/2023 TECHNIQUE: AP view of the chest FINDINGS: Cardiac silhouette is enlarged. Pulmonary vascular congestion. Small left pleural effusion with mild left basilar opacities. Bones appear grossly intact. IMPRESSION: 1. Cardiomegaly with pulmonary vascular congestion. 2. Small left pleural effusion with mild left basilar consolidation. ACT 112: Negative or not required by law. The above report was generated using voice recognition software. It may contain grammatical, syntax or spelling errors. Electronically signed by: Omer Lyn M.D. 06/29/2023 2:12 PM ECG Additional Comments: Sinus rhythm with occasional Premature ventricular complexes Otherwise normal ECG When compared with ECG of 20-APR-2022 11:15, Premature ventricular complexes are now Present Confirmed by Todd Arrington ([id number]) on 06/29/2023 2:39:00 PM Code Status & VTE Plan Code Status Full code VTE Prophylaxis Plan VTE Prophylaxis will be ordered: Yes Supervising Physician Co-Signing Physician Notes Patient seen and examined, chart reviewed, case discussed with Skip Frank PA-C and I agree with the assessment and plan as above except as otherwise noted Labs and images reviewed Erin is a 68-year-old female with a history of A-fib on Xarelto, DM 2, REYNALDO on CPAP, pulmonary hypertension, asthma, hypertension, hypothyroidism who presents for shortness of breath and hypoxia. Patient had presented as outpatient with similar and had not improved on steroids/doxycycline. She does endorse that she has had orthopnea recently. On exam she has diffuse expiratory wheezing, bibasilar crackles are present. Patient had an episode of RVR following hour- long neb. We will continue steroids as noted for possible asthma exacerbation, will continue work-up for potential CHF exacerbation with her orthopnea. TTE is pending, will trial 1 dose of Lasix. She does appear to have some pulmonary vascular congestion on imaging. She is hemodynamically stable and rate is improving at time of bedside assessment. EKG at time of RVR shows ST depressions suspicious for demand, she does not have clinical chest pain. We will continue heparin in place of Xarelto, can transition this if troponin trend is normal/stable. PG Care Time/CCT Total # of Minutes Spent Total Time Spent with Patient: Total time spent is greater than 50% in coordination of care (as documented) at patient's floor/unit and/or counseling patient: Coding [place] [address] INT INP/OBS CARE 3/75MIN Patient Type Established Medical Decision Making High Complexity Diagnoses Hypoxia R09.02 Atrial fibrillation with rapid ventricular response I48.[address] segment depression R94.31 Gout M10.9 Hypertension I10 Type 2 diabetes mellitus E11.9 Obstructive sleep apnea of adult G47.33 Hypothyroidism E03.9
[2023-06-29] MEDS ORDERED: AZITHROMYCIN 500 MG in DEXTROSE 5% 250 ML IV ONE (14:52)
[2023-06-29] MEDS ORDERED: cefTRIAXone SODIUM 2,000 MG/50 ML BAG IV STA (14:52)
[2023-06-29] MEDS ORDERED: DEXTROSE 50% 50 ML SYRINGE IV PRN (14:53)
[2023-06-29] MEDS ORDERED: GLUCOSE 10 TAB/TUBE PO PRN (14:53)
[2023-06-29] MEDS ORDERED: CARBOHYDRATES FOR HYPOGLYCEMIA PO PRN (14:53)
[2023-06-29] MEDS ORDERED: PHARMACY GLYCEMIC MGMT CONSULT PRN (14:53)
[2023-06-29] MEDS ORDERED: GLUCAGON FOR INJ 1 MG VIAL SQ PRN (14:53)
[2023-06-29] MEDS ORDERED: GLUCOSE 40% GEL 15 GM TUBE PO PRN (14:53)
[2023-06-29] MEDS ORDERED: RIVAROXABAN 20 MG TAB PO STA (15:23)
[2023-06-29] MEDS ORDERED: dilTIAZem HCL 120 MG CAPCR PO STA (15:23)
[2023-06-29] MEDS ORDERED: FUROSEMIDE 40 MG/4 ML VIAL IV ONE (15:23)
[2023-06-29 15:45] LABS: HCO3 VBG 29 mmol/L; Oxygen Saturation VBG < 60.0 %; PCO2 VBG 46 mmHg (38-50); PO2 VBG 24 mmHg
[2023-06-29] MEDS ORDERED: Patient's HEIGHT &/or WEIGHT Needed SCH (15:45)
[2023-06-29] MEDS ORDERED: MAGNESIUM SULFATE / D5W 1 GM/100 ML BAG IV ONE (15:46)
[2023-06-29] MEDS ORDERED: HEPARIN SODIUM/DEXTROSE 25,000 UNITS/500 ML BAG IV SCH (16:15)
[2023-06-29 16:52] LABS: Magnesium 1.8 mg/dl (1.7-2.4)
[2023-06-29 16:58] LABS: Troponin I High Sensitivity 4.2 pg/ml (0-14)
--- NOTE | 2023-06-29 17:58 | Electrocardiogram Report ---
Test Reason : Blood Pressure : / mmHG Vent. Rate : 105 BPM Atrial Rate : 000 BPM P-R Int : 000 ms QRS Dur : 092 ms QT Int : 354 ms P-R-T Axes : 000 034 000 degrees QTc Int : 467 ms Atrial fibrillation with rapid ventricular response Nonspecific ST abnormality Abnormal ECG When compared with ECG of 29-JUN-2023 13:19, Atrial fibrillation has replaced Sinus rhythm ST now depressed in Anterior leads HR has increased by 32 bpm Confirmed by Todd Arrington ([id number]) on 06/29/2023 5:57:49 PM Referred By: Juan Antonio Jacques Confirmed By:Todd Arrington
[2023-06-29] MEDS: INSULIN ASPART PER UNIT CHARGE SC SCH ×2 (18:01→20:39)
[2023-06-29] MEDS: POTASSIUM CHLORIDE / WTR 10 MEQ/100 ML PLCT IV SCH ×2 (18:07→20:13)
[2023-06-29] MEDS ORDERED: ENOXAPARIN INJ 40 MG/0.4 ML SYR SQ SCH (18:20)
--- NOTE | 2023-06-29 18:58 | XCELERA ---
[id number]
[2023-06-29] MEDS: LEVALBUTEROL 1.25 MG/3 ML NEB NEB SCH (19:22)
[2023-06-29] MEDS ORDERED: LACTATED RINGER'S 1,000 ML IV ONE (19:50)
--- NOTE | 2023-06-29 19:50 | Communication Note ---
Date of Service: June 29, 2023 Reviewed the results of the patient's Echo ordered on admission. Results show hyperdynamic ventricles with some degree of left ventricular outflow tract obstruction. Patient initially presented with symptoms and exam findings consistent with CHF exacerbation. However, with BNP WNL and possible left ventricular outflow obstruction we want to avoid dehydration in this patient. Will give her a bolus of LR as she received 40 mg IV lasix on admission and continue to monitor on tele. Will placed routine Cardiology consult with Echo results. Will also discontinue BID IV lasix initially ordered to start tomorrow. The plan was discussed with Dr. Smith.
[2023-06-29] MEDS ORDERED: POTASSIUM CHLORIDE 10 MEQ / 100ML WTR IV ONE (19:53)
[2023-06-29 20:03] LABS: Estimated Average Glucose 131 mg/dl; Hemoglobin A1C 6.2 % (4.5-5.6)
[2023-06-29] MEDS: allopurinoL 100 MG TAB PO SCH (20:21)
[2023-06-29] MEDS: MONTELUKAST SODIUM 10 MG TABLET PO SCH (20:21)
[2023-06-29] MEDS ORDERED: LANTUS PER UNIT CHARGE SQ SCH (21:00)
[2023-06-30] MEDS: LEVALBUTEROL 1.25 MG/3 ML NEB NEB SCH ×4 (00:59→19:25)
[2023-06-30 01:33] LABS: Partial Thromboplastin Ratio 1.3; Partial Thromboplastin Time 37.6 Seconds (21.0-31.0)
[2023-06-30] MEDS: Heparin IV Adult Wt-Based Low-Dose *NO* Bolus Protocol IV SCH ×2 (02:44→02:45)
[2023-06-30] MEDS: LEVOTHYROXINE SODIUM 137 MCG TABLET PO SCH (06:14)
[2023-06-30 07:44] LABS: Basophils # (auto) 0.02 K/uL (0.00-0.20); Basophils % (auto) 0.2 %; Eosinophils # (auto) 0.01 K/uL (0.00-0.50); Eosinophils % (auto) 0.1 %; Hematocrit (blood only) 39.4 % (37.0-47.0); Hemoglobin 12.9 g/dl (12.0-16.0); Immature Granulocytes # (auto) 0.08 K/uL (0.01-0.20); Immature Granulocytes % (auto) 0.6 %; Lymphocytes # (auto) 2.32 K/uL (1.20-3.40); Lymphocytes % (auto) 18.4 %; Mean Corpuscular Hemoglobin 26.4 pg (25.0-34.0); Mean Corpuscular Hgb Conc 32.7 g/dL (32.0-36.0); Mean Corpuscular Volume 80.6 fL (80.0-100.0); Monocytes # (auto) 0.65 K/uL (0.11-0.59); Monocytes % (auto) 5.2 %; Neutrophils # (auto) 9.51 K/uL (1.40-6.50); Neutrophils % (auto) 75.5 %; Platelet Count 316 K/uL (130-400); RDW Coefficient of Variation 15.5 % (11.5-14.5); RDW Standard Deviation 45.1 fL (36.4-46.3); Red Blood Count 4.89 M/uL (4.20-5.40); White Blood Count 12.59 K/ul (4.8-10.8)
[2023-06-30 08:00] LABS: BUN Creatinine Ratio 27.5 (10-20); Calcium 9.2 mg/dl (8.6-10.3); Creatinine Clr Calc Pharmacy 90.7 ml/min; Est GFR (African American) 87.8 ml/min; Est GFR (Non-African American) 75.8 ml/min
[2023-06-30 08:40] LABS: Partial Thromboplastin Ratio 1.5; Prothrombin Time 11.2 Seconds (9.0-12.0)
[2023-06-30 08:46] LABS: Partial Thromboplastin Time 42.4 Seconds (21.0-31.0)
[2023-06-30] MEDS: INSULIN ASPART PER UNIT CHARGE SC SCH ×4 (08:51→20:46)
[2023-06-30] MEDS: LOSARTAN POTASSIUM 50 MG TAB PO SCH (08:52)
[2023-06-30] MEDS: OXYBUTYNIN CHLORIDE XL 5 MG TABCR PO SCH (08:53)
[2023-06-30] MEDS: MAGNESIUM OXIDE 400 MG TAB PO SCH (08:53)
[2023-06-30] MEDS ORDERED: ATORVASTATIN 20 MG TAB PO SCH (09:00)
[2023-06-30] MEDS ORDERED: FUROSEMIDE INJ 20 MG/2 ML VIAL IV ONE (09:00)
[2023-06-30] MEDS ORDERED: methylPREDNISolone 125 MG/2 ML VIAL IV SCH (09:00)
[2023-06-30] MEDS ORDERED: methylPREDNISolone 60 MG in SYRINGE 0 ML IV SCH (09:00)
[2023-06-30] MEDS ORDERED: guaiFENesin 600 MG TABCR PO SCH (09:00)
--- NOTE | 2023-06-30 09:29 | Pharmacy Report ---
Pharmacy Glycemic Short Note 2 - Date of Service June 30, 2023 - Glycemic Short BSG Results (Last 24 hours): 06/29/23 06/29/23 06/29/23 13:17 17:11 20:18 Glucose 96 POC Glucose 253 H 179 H 06/30/23 06/30/23 07:25 07:39 Glucose 136 H POC Glucose 130 H OUTPATIENT ANTIDIABETIC REGIMEN: * metformin 500mg PO daily HbA1C: 6.2% ASSESSMENT: * Patient is a 68 year old female admitted with hypoxia in setting of asthma/CHF exacerbation. History of DM2 on metformin at home. Pharmacy consulted to assist with glycemic management while admitted. * BSGs [phone]/dL since admission. Received 3 units of bolus insulin yesterday and 5 units of basal. * Tolerating diet, and receiving methylprednisolone 60mg IV q24h which is to be transitioned to prednisone 40mg PO daily starting tomorrow. * Will hold basal for now given controlled A1C on minimal therapies at home. Continue with Novolog ACHS- parameters tightened for prandial coverage in setting of steroid use. PLAN FOR INPATIENT GLYCEMIC CONTROL: * Hold outpatient oral diabetes medications * Basal insulin * Hold * Bolus insulin * NovoLog per scale ACHS or Q6hrs while NPO * Goal Range: Low 110 mg/dL - High 140 mg/dL * Correction Factor: 35 mg/dL/unit * Nutritional / Prandial insulin per carb ratio of 1 unit per 10 grams CHO consumed
--- NOTE | 2023-06-30 11:43 | Hospitalist Progress Note ---
Date of Service June 30, 2023 Assessment & Plan (1) Acute bronchitis with asthma with acute exacerbation: Plan: reviewed previous PFTs in 2019, Has allergic symptoms, asthma and REYNALDO/OHS. in the ED last night she was thought potentially to be in heart failure exacerbation, however, echocardiogram showed that she was hypovolemic and hyperdynamic therefore she was ultimately given some IV fluids back. She has no documented history of heart failure. failed outpatient treatment with 5-day course of prednisone and doxycycline. COVID, viral respiratory panel, chest x-ray, procalcitonin in ED were unrevealing. Doubt pneumonia however she reports purulent cough so will add on a second procalcitonin for this morning which will likely be negative. If no evidence of pneumonia plan to treat with 4 more days of oral azithromycin for acute tracheobronchitis and continue steroids. Received 60 mg IV Solu-Medrol this morning will change to prednisone 40 mg tomorrow she may need slower than a 5-day taper per her previous experience. Resumed her montelukast and cetirizine. She does have a nebulizer at home and will follow-up in pulmonary clinic (2) Anterior ST segment depression: Plan: - rate related anterior ST depression while in A-fib with RVR, minimal elevation of high-sensitivity troponin, no regional wall motion abnormalities on echo ordered follow-up EKG, troponins now downtrending discuss with cardiology anticipate discontinuing heparin drip, resuming Xarelto, outpatient follow-up (3) Atrial fibrillation: Plan: brief episode of atrial fibrillation with rapid rate -06/29. Driven by pulmonary status, nebulizers, steroids,hypovolemia. Resolved continue oral diltiazem, plan to resume Xarelto continue to monitor cardiac rate and rhythm on telemetry (4) Type 2 diabetes mellitus: Plan: -Hold metformin -Pharmacy glycemic consult placed reviewed recommendations, orders, and blood sugars for last 24 hours currently at goal continue short acting insulin for steroid-induced hyperglycemia (5) Hypertension: Plan: - reviewed BP 06/30, at goal -Continue losartan - oral furosemide held, probably resume in a.m. (6) Obstructive sleep apnea of adult: Plan: REYNALDO/OHS followed in pulmonary clinic, continue nighttime CPAP with which she is compliant (7) Gout: Plan: -Continue allopurinol (8) Hypothyroidism: Plan: -Continue levothyroxine (9) Troponin level elevated: (10) Morbid obesity: Plan: BMI 39, see above Plan Admission and Anticipated Discharge Date Admission Date: June 29, 2023 Anticipated date of discharge: 07/01/23 Subjective Erin feels better today. she had Xopenex at 7 AM and no nebulizers since. Currently no shortness of breath at rest and did not feel short of breath when walking to the bathroom today, however, she still has intermittent coughing fits which cause dyspnea. she reports that current episode started after mowing the lawn which triggered seasonal allergy symptoms of rhinitis coughing and wheezing. She denies any fevers. She was treated as an outpatient with unknown dose of prednisone and oral doxycycline for 5 days last dose on Wednesday but did not really improve. She did have a fairly brief episode of mild RVR yesterday evening possibly related to steroids nebulizers and volume depletion. During that time she did experience some bilateral jaw pain. She had jaw pain at some point in the remote past as well. No chest pain or left arm pain no nausea or diaphoresis. No leg swelling. She did use her CPAP last night and has been using it regularly at home Physical Exam Physical Exam: PHYSICAL EXAMINATION Last 24h vital signs reviewed, see documentation in flowsheet General: comfortable appearing, no distress sitting up in bed watching television HEENT: Normocephalic, atraumatic, pupils round and equal, sclerae anicteric, no conjunctival injection, moist mucus membranes Lungs: Normal respiratory effort. Clear to auscultation bilaterally. diminished in bilateral bases, No RRW. Good air movement and speaking in complete se ntences Heart: Regular rate and rhythm, no murmurs. No JVD/neck veins are flat Abdomen: Soft, nontender, nondistended. Bowel sounds present. Extremities: Warm, dry, well-perfused. No extremity edema. Neuro: Alert and oriented x 4, face symmetric, moves 4 extremities well Psych: Normal affect and behavior Results & Data Results & Data Vital Signs (Past 12 Hours) Vital Signs Temp Pulse Pulse Resp BP BP Pulse Ox 06/30/23 11:04 36.4 C L 69 20 135/74 93 06/30/23 07:49 70 06/30/23 09:38 06/30/23 07:55 87 20 92 06/30/23 06:56 36.4 C L 59 L 19 113/58 L 97 06/30/23 04:31 06/30/23 03:57 62 06/30/23 03:37 36.8 C 69 20 164/84 H 95 06/30/23 03:16 65 18 179/80 H 95 06/30/23 02:50 66 19 94 06/30/23 03:01 63 18 96 06/30/23 03:01 179/80 H 06/30/23 03:00 61 19 97 06/30/23 02:50 71 16 95 06/30/23 02:40 62 21 94 06/30/23 02:30 66 22 94 06/30/23 02:30 171/76 H 06/30/23 02:20 64 20 93 06/30/23 02:10 65 21 93 06/30/23 02:00 66 19 92 06/30/23 02:00 186/78 H 06/30/23 01:50 73 20 93 06/30/23 01:40 75 20 95 06/30/23 01:30 65 15 95 06/30/23 01:30 176/80 H 06/30/23 01:20 69 17 94 06/30/23 01:16 71 17 95 06/30/23 01:10 71 19 96 06/30/23 01:00 62 13 100 06/30/23 01:00 169/81 H 06/30/23 00:50 67 18 95 06/30/23 00:40 66 19 95 06/30/23 00:30 65 15 94 06/30/23 00:30 158/77 H 06/30/23 00:20 68 19 95 06/30/23 00:10 66 17 95 06/30/23 00:00 66 17 95 06/30/23 00:00 155/75 H 06/29/23 23:53 76 26 H 06/29/23 23:40 76 22 96 06/29/23 23:30 75 22 95 06/29/23 23:30 165/78 H 06/30/23 01:00 63 16 96 O2 Del Method FiO2 06/30/23 11:04 Room Air 06/30/23 07:49 06/30/23 09:38 Room Air 06/30/23 07:55 Room Air 06/30/23 06:56 CPAP 06/30/23 04:31 CPAP 06/30/23 03:57 10/18/23 03:37 CPAP 06/30/23 03:16 CPAP 06/30/23 02:50 21 06/30/23 03:01 06/30/23 03:01 06/30/23 03:00 06/30/23 02:50 06/30/23 02:40 06/30/23 02:30 06/30/23 02:30 06/30/23 02:20 06/30/23 02:10 06/30/23 02:00 06/30/23 02:00 06/30/23 01:50 06/30/23 01:40 06/30/23 01:30 06/30/23 01:30 06/30/23 01:20 06/30/23 01:16 21 06/30/23 01:10 06/30/23 01:00 06/30/23 01:00 06/30/23 00:50 06/30/23 00:40 06/30/23 00:30 06/30/23 00:30 06/30/23 00:20 06/30/23 00:10 06/30/23 00:00 06/30/23 00:00 06/29/23 23:53 06/29/23 23:40 06/29/23 23:30 06/29/23 23:30 06/30/23 01:00 Room Air Laboratory Results high-sensitivity troponins are mildly elevated and downtrending Diagnostic Findings echocardiogram reviewed in [facility], notable for hyperdynamic LV normal EF some degree of LV outflow tract obstruction, moderate to severe MR, no evidence of volume overload Medications Administered notable for Xopenex every 6 hours, Solu-Medrol 60 mg IV this morning, heparin drip PG Care Time/CCT Total # of Minutes Spent Total Time Spent with Patient: Total time spent is greater than 50% in coordination of care (as documented) at patient's floor/unit and/or counseling patient: Coding Level of Care Code 27326 SUB INP/OBS CARE 3/50MIN Diagnoses Acute bronchitis with asthma with acute exacerbation J20.9; J45.[address] segment depression R94.31 Atrial fibrillation I48.91 Type 2 diabetes mellitus E11.9 Hypertension I10 Obstructive sleep apnea of adult G47.33 Gout M10.9 Hypothyroidism E03.9 Troponin level elevated R79.89 Morbid obesity E66.01
[2023-06-30] MEDS ORDERED: RIVAROXABAN 20 MG TAB PO SCH ×2 (12:00→13:00)
--- NOTE | 2023-06-30 12:59 | Cardiology Consultation ---
Date of Consultation June 30, 2023 Assessment & Plan (1) Abnormal echocardiogram: -hyperdynamic function likely secondary to compromised respiratory status and rapid atrial fibrillation. -elevated left ventricular outflow tract velocities without evidence of DOLORES. -significant mitral regurgitation per Dr. Arrington. -I have reviewed this study, it is very technically limited. -plan to repeat an echocardiogram once improved clinically and has attained sinus rhythm. (2) Anterior ST segment depression: -likely secondary to LVH and rapid atrial fibrillation. -would change heparin back to Xarelto. -minor troponin elevation likely a supply demand mismatch. (3) Atrial fibrillation: -continue rate control and long-term anticoagulation. (4) Hypoxia: -likely secondary to pulmonary etiology rather than CHF. History of Present Illness Attending Physician: Maria D Barbosa MD History of Present Illness Mrs. Nur is a 68-year-old female admitted yesterday complaints of shortness of breath and found to be hypoxic at her PCP's office. This consultation was ordered as she had an abnormal echocardiogram. Of note, patient is well known to me from the outpatient setting. The patient was in her usual state of health until approximately 1 week ago. She presented to her primary care office with complaints of shortness of breath and fatigue. She was placed on a course of doxycycline and prednisone for presumed asthmatic exacerbation. She presented yesterday to her PCP office and was found to have an oxygen saturation of 82% room air. She was sent to the hospital for further care. On arrival here, chest x-ray suggested the possibility of pulmonary edema. However, her BNP was normal. In any event, she was started on intravenous furosemide. She also demonstrated atrial fibrillation with a rapid ventricular response. An echocardiogram performed yesterday and interpreted by Dr. Arrington noted hyperdynamic systolic function with ejection fraction of greater than 70%. There were no wall motion abnormalities. Left ventricular outflow tract velocities were elevated, however, there was no evidence of systolic anterior motion of the anterior mitral leaflet. There was significant mitral regurgitation according to his report. Currently, patient is resting comfortably in bed without complaints. We have discussed the results of her echocardiogram. Past medical and surgical history 1. Hypertension 2. Hypercholesterolemia 3. Paroxysmal atrial fibrillation 4. Diabetes mellitus 5. Hypothyroidism 6. Asthma 7. GERD 8. Gout 9. Diverticulitis 10. Colonic polyps 11. Morbid obesity 12. Obstructive sleep apnea 13. Chronic low back pain 14. Hearing deficit 15. Left TKR-January 2023 16. Ventral hernia repair 17. Umbilical hernia repair 18. Vaginal hysterectomy 19. Tonsillectomy 20. Tubal ligation Social history and lives with her Quit tobacco use at age 33 No alcohol Family history No early coronary artery disease. Review of systems A 10 point review systems was undertaken and negative except that described above. Allergies Allergy/AdvReac Type Severity Reaction Status Date / Time shellfish derived Allergy Mild gout Verified 06/22/23 11:30 oxycodone AdvReac Mild Gastrointestinal Verified 06/22/23 11:30 Upset Home Medications Medication Instructions Recorded Confirmed Type blood sugar diagnostic (Accu-Chek #10 ea 04/21/19 06/29/23 History SmartView Test Strips) blood-glucose meter (Accu-Chek #1 ea 04/21/19 06/29/23 History Nikki) lancets 30 gauge (OneTouch Delica #25 ea 04/21/19 06/29/23 History Lancets) calcium carbonate 500 mg calcium 500 mg PO QAM 04/25/19 06/29/23 History (1,250 mg) tablet (Calcium 500) magnesium 500 mg tablet 500 mg PO QAM 06/04/20 06/29/23 History Auto Titrating CPAP #1 ea 06/21/20 06/29/23 Rx CPAP Supplies #1 ea 06/21/20 06/29/23 Rx guaifenesin 600 mg tablet, 600 mg PO QAM 09/17/21 06/29/23 History extended release 12 hr (Mucinex) montelukast 10 mg tablet 10 mg PO QPM #90 tabs 07/08/22 06/29/23 Rx (Singulair) atorvastatin 20 mg tablet 20 mg PO WE #12 tabs 09/01/22 06/29/23 Rx albuterol sulfate 2.5 mg/3 mL 2.5 mg (3 mL) inhalation QID PRN 09/25/22 06/29/23 Rx (0.083 %) solution for nebulization Shortness Of Breath Or Wheezing #75 mL levothyroxine 137 mcg tablet 137 mcg PO QAM #90 tabs 10/27/22 06/29/23 Rx oxybutynin chloride 10 mg 10 mg PO QAM #90 tabs 11/09/22 06/29/23 Rx tablet,extended release 24 hr furosemide 20 mg tablet 20 mg PO QAM #90 tabs 11/30/22 06/29/23 Rx cetirizine 10 mg tablet (Zyrtec) 10 mg PO 1300 12/28/22 06/29/23 History losartan 50 mg tablet 50 mg PO QAM 12/28/22 06/29/23 History metformin 500 mg tablet,extended 500 mg PO QAM 12/28/22 06/29/23 History release 24hr ddtksycl-ahd-fkdyab 5 mg-zeaxanth 1 cap PO QAM 12/28/22 06/29/23 History 1 mg-bilberry 7.5 mg-herbal capsule ([employer] Formula) rivaroxaban 20 mg tablet (Xarelto) 20 mg PO 1300 #90 tabs 03/01/23 06/29/23 Rx allopurinol 100 mg tablet 100 mg PO QPM #90 tabs 04/12/23 06/29/23 Rx (Zyloprim) diltiazem HCl 120 mg capsule,24 120 mg PO 1300 #90 caps 04/12/23 06/29/23 Rx hr,extended release (Tiazac) albuterol sulfate 90 mcg/actuation 2 puff inhalation QID PRN 06/22/23 06/29/23 Rx aerosol inhaler bronchospasm #8.5 grams benzonatate 100 mg capsule 100 mg PO TID PRN cough #30 caps 06/22/23 06/29/23 Rx Patient History Medical History (Updated 06/30/23 @ 12:53 by Lance Jacob MD) Acid reflux Hx, no recent issues Asthma Atrial fibrillation Dx 3 years ago, reason for Xarelto Follows with Dr. Jacob Chronic back pain Colon polyp 12/2012 tubular adenoma 02/2017 sessile serrated adenoma (recheck in 5 years) Diverticulosis Gout [place] (hard of hearing) Hyperlipidemia Hypertension Hypothyroidism Morbid obesity Obstructive sleep apnea of adult CPAP (compliant) Pulmonary hypertension [facility] pulmonary monitoring, felt to be likely from underlying obesity as well as REYNALDO/OHS RVSP 40-50mmhg per 2019 echo Type 2 diabetes mellitus NIDDM Urinary incontinence Surgical History H/O colonoscopy sessile serrated adenoma, recheck in 5 years, Dr Reyez H/O oral surgery H/O ventral hernia repair Laparoscopic ventral hernia repair (05/14/22): Grade 2 view, ETT 7 at [facility] History of hernia repair umbilical History of hysterectomy History of tonsillectomy and adenoidectomy History of tubal ligation History of wisdom tooth extraction Family History Mother Diabetes Breast cancer Hypertension Father Prostate cancer Brother Diabetes Hypertension Other No family history of adverse response to anesthesia Denies family history of Ovarian cancer Myocardial infarction Colorectal cancer Social History Smoking Status: Former smoker Tobacco Type: Cigarettes Age Started Using Tobacco: 17; Age Quit Using Tobacco: 33; Second Hand Exposure: Yes; Do You Dip or Chew Tobacco: No; Tobacco Cessation Education Requested by Patient: No Hx Alcohol Use: No Hx Substance Use: No Preferred Language: Chilean Communication Ability: Effective Visual Impairment: No Limitations Hearing Ability: Normal Fiber Optics Supervisor Required: No Beliefs That Will Affect Care: None marital status: Current Living Situation: Spouse current occupational status: retired 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 HEENT exam is negative. Neck is supple with full carotid upstrokes. There are no carotid bruits. Jugular venous pressure is flat at 90. There is no thyromegaly. Cardiovascular exam reveals irregular irregular rhythm with distant heart sounds. No obvious murmurs. Lungs are clear without rales, rhonchi or wheezes. Abdomen is obese without bruits. Extremities reveal intact radial artery pulses bilaterally. There is no peripheral edema. Results & Data Vital Signs (Past 12 Hours) Vital Signs Temp Pulse Pulse Resp BP BP Pulse Ox 06/30/23 11:04 36.4 C L 69 20 135/74 93 06/30/23 07:49 70 06/30/23 09:38 06/30/23 07:55 87 20 92 06/30/23 06:56 36.4 C L 59 L 19 113/58 L 97 06/30/23 04:31 06/30/23 03:57 62 06/30/23 03:37 36.8 C 69 20 164/84 H 95 06/30/23 03:16 65 18 179/80 H 95 06/30/23 02:50 66 19 94 06/30/23 03:01 63 18 96 06/30/23 03:01 179/80 H 06/30/23 03:00 61 19 97 06/30/23 02:50 71 16 95 06/30/23 02:40 62 21 94 06/30/23 02:30 66 22 94 06/30/23 02:30 171/76 H 06/30/23 02:20 64 20 93 06/30/23 02:10 65 21 93 06/30/23 02:00 66 19 92 06/30/23 02:00 186/78 H 06/30/23 01:50 73 20 93 06/30/23 01:40 75 20 95 06/30/23 01:30 65 15 95 06/30/23 01:30 176/80 H 06/30/23 01:20 69 17 94 06/30/23 01:16 71 17 95 06/30/23 01:10 71 19 96 06/30/23 01:00 62 13 100 06/30/23 01:00 169/81 H 06/30/23 00:50 67 18 95 06/30/23 01:00 63 16 96 O2 Del Method FiO2 06/30/23 11:04 Room Air 06/30/23 07:49 06/30/23 09:38 Room Air 06/30/23 07:55 Room Air 06/30/23 06:56 CPAP 06/30/23 04:31 CPAP 06/30/23 03:57 06/30/23 03:37 CPAP 06/30/23 03:16 CPAP 06/30/23 02:50 21 06/30/23 03:01 06/30/23 03:01 06/30/23 03:00 06/30/23 02:50 06/30/23 02:40 06/30/23 02:30 06/30/23 02:30 06/30/23 02:20 06/30/23 02:10 06/30/23 02:00 06/30/23 02:00 06/30/23 01:50 06/30/23 01:40 06/30/23 01:30 06/30/23 01:30 06/30/23 01:20 06/30/23 01:16 21 06/30/23 01:10 06/30/23 01:00 06/30/23 01:00 06/30/23 00:50 06/30/23 01:00 Room Air Laboratory Results CBC notes hemoglobin 12.9, hematocrit 39.4, white count 12.6, and platelet count [id number]. Electrolytes note a sodium of 139, potassium 4.0, chloride 103, bicarb 20, BUN 22, creatinine 0.8, and glucose of 136. Initial high sensitivity troponin was 4.2 with follow-up values of 23.6, 153.6, and 149.6. BNP was normal at 26. Diagnostic Findings Echocardiogram as described above. EKG notes atrial fibrillation with a rapid ventricular response and nonspecific ST abnormality. Chest x-ray notes cardiomegaly and interstitial edema. PG Care Time/CCT Total # of Minutes Spent Total Time Spent with Patient: Total time spent is greater than 50% in coordination of care (as documented) at patient's floor/unit and/or counseling patient: Coding Level of Care Code 76117 INT INP/OBS CARE 3/75MIN Diagnoses Abnormal echocardiogram R93.[address] segment depression R94.31 Atrial fibrillation I48.91 Hypoxia R09.02
[2023-06-30] MEDS ORDERED: dilTIAZem HCL 120 MG CAPCR PO SCH (13:00)
[2023-06-30] MEDS ORDERED: CETIRIZINE HCL 10 MG TABLET PO SCH (13:00)
--- NOTE | 2023-06-30 16:52 | Electrocardiogram Report ---
Test Reason : Blood Pressure : / mmHG Vent. Rate : 069 BPM Atrial Rate : 069 BPM P-R Int : 180 ms QRS Dur : 086 ms QT Int : 400 ms P-R-T Axes : 056 060 058 degrees QTc Int : 428 ms Normal sinus rhythm Normal ECG When compared with ECG of 29-JUN-2023 15:19, Sinus rhythm has replaced Atrial fibrillation Vent. rate has decreased BY 36 BPM Non-specific change in ST segment in Inferior leads ST no longer depressed in Anterior leads Nonspecific T wave abnormality no longer evident in Inferior leads Nonspecific T wave abnormality no longer evident in Lateral leads Confirmed by Christiano Singh ([id number]) on 06/30/2023 4:51:45 PM Referred By: Juan Antonio Jacques Confirmed By:Christiano Singh
[2023-06-30] MEDS: guaiFENesin 600 MG TABCR PO SCH (20:01)
[2023-06-30] MEDS: allopurinoL 100 MG TAB PO SCH (20:01)
[2023-06-30] MEDS: MONTELUKAST SODIUM 10 MG TABLET PO SCH (20:04)
[2023-06-30] MEDS: BENZONATATE 100 MG CAPSULE PO PRN (20:17)
[2023-07-01] MEDS: LEVALBUTEROL 1.25 MG/3 ML NEB NEB SCH ×2 (00:47→07:02)
[2023-07-01] MEDS: LEVOTHYROXINE SODIUM 137 MCG TABLET PO SCH (05:24)
[2023-07-01] MEDS: BENZONATATE 100 MG CAPSULE PO PRN (05:26)
[2023-07-01] MEDS: INSULIN ASPART PER UNIT CHARGE SC SCH (08:05)
[2023-07-01] MEDS: MAGNESIUM OXIDE 400 MG TAB PO SCH (08:06)
[2023-07-01] MEDS: LOSARTAN POTASSIUM 50 MG TAB PO SCH (08:06)
[2023-07-01] MEDS: guaiFENesin 600 MG TABCR PO SCH (08:07)
[2023-07-01] MEDS: OXYBUTYNIN CHLORIDE XL 5 MG TABCR PO SCH (08:07)
[2023-07-01] MEDS ORDERED: predniSONE 20 MG TAB PO SCH (09:00)
[2023-07-01] MEDS ORDERED: AZITHROMYCIN 250 MG TAB PO SCH (11:15)
--- NOTE | 2023-07-01 17:32 | Discharge Summary ---
Date of Service July 01, 2023 Admission HPI Per Admitting Provider Erin is a 68 year old female with a PMH significant for afib on xarelto, DMII, REYNALDO on HS CPAP, Pulmonary HTN (RVSP 40-50mmhg per 2020 echo), asthma, HTN, and hypothyroidism who presented to the [facility] ED from her PCP's office for ongoing SOB and hypoxia. Per chart review, the patient was seen at her PCP's office today for one week FU after see was seen last week for ongoing SOB and cough for the past month. She was initially treated with a course of Doxycycline, prednisone, and albuterol refill, however, she reported to her PCP that her symptoms progressed. In the PCP's office she was noted to have an SpO2 of 82% on RA which resolved after being placed on 2L NC. In the ED she remained stable on supplemental O2 via NC and was otherwise stable. Labs including CBC, CMP, UA, and full respiratory biofire were unremarkable. Chest xray was read as "1. Cardiomegaly with pulmonary vascular congestion. 2. Small left pleural effusion with mild left basilar consolidation.". Prior to admission the patient was given an hour long DuoNeb treatment, 40 mg IV methylprednisolone, a dose of Ceftriaxone and azithromycin. At the time of the exam the patient was sitting in bed in no acute distress, she had just finished her hour long nebulizer treatment. She states that she has been dealing with increased wheezing, cough, and SOB over the past month. She confirms she has a history of asthma and smoked approximately 1 pack of cigarettes per week for approximately 5 years, 20 years ago. She has also had significant second had smoke exposure over her life due to friends and family smoking. She confirms that she completed her course of Doxy, steroids, and has been using her albuterol inhaler without improvement in her symptoms. She also notes that she has been unable to lay flat recently due to significant SOB when doing so. She has not missed a recent dose of xarelto and is due for her afternoon dose of Diltiazem. While speaking with her, her HR fluctuated from the low 100's to the 140's and appeared irregular. The patient asked if she was in afib, "because my jaw is starting to hurt". She denies any chest pain at the time of my exam. She has noted some green sputum production today and denies hemoptysis. She denies recent fever or chills, chest pain, abd pain, nausea, vomiting, diarrhea, dysuria, hematuria, melena, and recent trauma. When asked about leg swelling, she states that her left LE is more swollen than her right. She clarifies that this has been since her left knee replacement in January of this year without significant change. She states that she feels the hour long albuterol treatment seems to have slightly improved her respiratory symptoms since arrival. She is a full code and wishes for her to make medical decisions for her if she cannot make them herself. Please refer to Dr. Smith's attestation for any changes to the treatment plan Principal Diagnosis Acute exacerbation of asthma Discharge Exam PHYSICAL EXAMINATION Last 24h vital signs reviewed, see documentation in flowsheet General: comfortable appearing, no distress sitting up in bed HEENT: Normocephalic, atraumatic, pupils round and equal, sclerae anicteric, no conjunctival injection, moist mucus membranes Lungs: Normal respiratory effort, breathing seems improved. Clear to auscultation bilaterally. Air movement improved, No RRW. speaking in complete sentences Heart: Regular rate and rhythm, no murmurs. No JVD/neck veins are flat Abdomen: Soft, nondistended. Bowel sounds present. Extremities: Warm, dry, well-perfused. No extremity edema. Neuro: Alert and oriented x 4, face symmetric, moves 4 extremities well Psych: Normal affect and behavior Discharge Data Allergies Allergy/AdvReac Type Severity Reaction Status Date / Time shellfish derived Allergy Mild gout Verified 06/22/23 11:30 oxycodone AdvReac Mild Gastrointestinal Verified 06/22/23 11:30 Upset Consultations 06/29/23 14:51 ED Decision to Admit Stat 06/29/23 19:56 Consult Cardiology Routine Ordered Studies Transthoracic echocardiogram 06/29/2023LV appeared small and hyperdynamic there was some dynamic LVOT obstruction, moderate to severe MR, EF 70%, IVC collapsible. Hospital Course (1) Acute bronchitis with asthma with acute exacerbation: reviewed previous PFTs in 2019, Has allergic symptoms, asthma and REYNALDO/OHS. in the ED last she was thought potentially to be in heart failure exacerbation and treated with some IV Lasix, however, echocardiogram showed that she was hypovolemic and hyperdynamic therefore she was ultimately given some IV fluids back. She has no documented history of heart failure. failed outpatient treatment with 5-day course of prednisone and doxycycline. COVID, viral respiratory panel, chest x-ray, serial procalcitonin were unrevealing. Her trigger may have been allergic related to cutting the grass versus a URI -She had a good response to nebulized bronchodilators and intravenous Solu- Medrol which was changed to prednisone. Symptoms substantially improved day of discharge. Hypoxia resolved. In the past she has required courses of oral steroids longer than 5 days to improve therefore discharged her with a total of 5 days of prednisone at 40 mg and 5 days at 20 mg, she has pulmonary clinic follow-up within 2 days of completing that course No evidence of pneumonia treated with oral azithromycin for acute bronchitis since she does have thick difficult to clear sputum that is now improving Resumed her montelukast and cetirizine. Resumed her Breo inhaler pending further input from pulmonary clinic. she does have a nebulizer at home for rescue. (2) Anterior ST segment depression: - rate related anterior ST depression while in A-fib with RVR in the ED, developed minimal elevation of high-sensitivity troponin and was started on heparin drip -She remained chest pain-free, rapid atrial fibrillation resolved quickly, TTE was obtained and she had no regional wall motion abnormalities on echo discussed with her cell technician and agree with his assessment that the clinical picture is more compatible with some mild cardiac strain rather than an KS, resumed Xarelto, he plans to obtain follow-up echo in cardiology clinic (3) Atrial fibrillation: brief episode of atrial fibrillation with rapid rate -06/29. Driven by pulmonary status, nebulizers, steroids,hypovolemia. Resolved continue oral diltiazem, resumed Xarelto (4) Type 2 diabetes mellitus: (5) Hypertension: (6) Obstructive sleep apnea of adult: REYNALDO/OHS followed in pulmonary clinic, continue nighttime CPAP with which she is compliant (7) Gout: -Continue allopurinol (8) Hypothyroidism: -Continue levothyroxine (9) Troponin level elevated: (10) Morbid obesity: BMI 39, see above Plan Total Time Total Time Spent Total Time Spent (In Minutes): I spent 40 minutes total time coordinating care for discharge Discharge Plan Discharge Items Patient Disposition: Home - Self-Care Reason For Visit: SOB, COPD Discharge Diagnosis: Asthma exacerbation Activity: Resume your previous activity Non-emergency contact: Primary Care Provider and Regulatory Affairs Coordinator Call non-emergency contact if: you have any medication questions Follow-up/Referrals: Chandni Gonzalez CRNP [Primary Care Provider] - 07/12/23 2:00 pm (Follow up scheduled on 07/12/23 @ 2 pm) Diet: Regular Addtl Attending Provider Instructions: You had an asthma exacerbation. -this was treated with steroids (solumedrol / prednisone), breathing treatments, and azithromycin. We did not find a pneumonia. -I restarted your Breo Ellipta for now, talk with your power project manager about whether to continue it -I prescribed 10 days of prednisone, but it is okay to stop it after 5 days if your breathing is doing really well -follow up in pulmonary clinic in 2 weeks as scheduled Difficulty breathing and low oxygen caused you to have a short episode of rapid atrial fibrillation and some mild strain on your heart. -Your heart Echo was reassuring and Dr. Jacob recommended you follow up in the office with him - he will check a repeat Echo in the future -call his office to schedule a follow-up appointment Pending Studies at Discharge: No Stand-Alone Forms: My [facility], Smoking Cessation Medications and DC Order Prescriptions: New azithromycin 250 mg Tablet 250 mg PO QAM Qty: 2 0RF prednisone 20 mg Tablet 40 mg PO DAILY Qty: 13 0RF Rx Instructions: take 2 tabs every morning for four more days then 1 tab every morning for five days benzonatate 100 mg Capsule 100 mg PO TID PRN (Reason: cough) Qty: 20 0RF fluticasone furoate-vilanterol [Breo Ellipta] 100-25 mcg/dose blister with device 1 inh inhalation DAILY Qty: 60 0RF Continued atorvastatin 20 mg tablet 20 mg PO WE Qty: 12 3RF Rx Instructions: Take Q Wednesday levothyroxine 137 mcg tablet 137 mcg PO QAM Qty: 90 3RF oxybutynin chloride 10 mg tablet extended release 24hr 10 mg PO QAM Qty: 90 3RF furosemide 20 mg tablet 20 mg PO QAM Qty: 90 3RF Xarelto 20 mg tablet 20 mg PO 1300 Qty: 90 3RF allopurinol [Zyloprim] 100 mg tablet 100 mg PO QPM Qty: 90 3RF diltiazem HCl [Tiazac] 120 mg capsule,extended release 24 hr 120 mg PO 1300 Qty: 90 3RF montelukast [Singulair] 10 mg tablet 10 mg PO QPM Qty: 90 4RF calcium carbonate [Calcium 500] 500 mg calcium (1,250 mg) tablet 500 mg PO QAM (DME) Auto Titrating CPAP Misc See Rx Instructions .ROUTE .MEDSUPPLY Qty: 1 0RF Rx Instructions: Auto PAP with 10-20mm H20. Lifetime usage. G47.33 (DME) CPAP Supplies Misc See Rx Instructions .ROUTE .MEDSUPPLY Qty: 1 0RF Rx Instructions: CPAP supplies. G47.33 guaifenesin [Mucinex] 600 mg tablet extended release 12hr 600 mg PO QAM albuterol sulfate 90 mcg/actuation HFA aerosol inhaler 2 puff inhalation QID PRN (Reason: bronchospasm) Qty: 8.5 3RF magnesium 500 mg Tablet 500 mg PO QAM losartan 50 mg tablet 50 mg PO QAM metformin 500 mg tablet extended release 24hr 500 mg PO QAM cetirizine [Zyrtec] 10 mg Tablet 10 mg PO 1300 Macular Health Formula 5-1-7.5 mg Capsule 1 cap PO QAM albuterol sulfate 2.5 mg /3 mL (0.083 %) solution for nebulization 2.5 mg inhalation QID PRN (Reason: Shortness Of Breath Or Wheezing) Qty: 75 0RF Discontinued benzonatate 100 mg capsule 100 mg PO TID PRN (Reason: cough) Qty: 30 1RF No Action (DME) Accu-Chek SmartView Test Strip strip See Dose Instructions .ROUTE .MEDSUPPLY Qty: 10 Rx Instructions: CHECK BLOOD SUGAR ONCE DAILY BEFORE ANY MEAL (DME) blood-glucose meter [Accu-Chek Nikki] misc See Dose Instructions .ROUTE .MEDSUPPLY Qty: 1 Rx Instructions: USE TO CHECK BLOOD SUGAR ONCE DAILY (DME) lancets [OneTouch Delica Lancets] 30 gauge misc See Dose Instructions .ROUTE .MEDSUPPLY Qty: 25 Rx Instructions: USE TO CHECK BLOOD SUGAR ONCE DAILY Discharge Orders: Discharge Order (Routine); Ordered 07/01/23 Ordered By: Maria D Peters/Other Patient Handouts: Managing Type 2 Diabetes Admission Data Admit Date/Time: 06/29/23 14:51 Attending Provider: Maria D Barbosa Admit Provider: Geraldo Smith Primary Care Provider: Chandni Gonzalez Other Providers: Geraldo Smith ; Brenden Abdalla Other Interventions: Discharge Summary Assessment (RN) Last Done: 07/01/23 11:14 Coding Level of Care Code 95712 INP/OBS DISCH >30 MIN Diagnoses Acute bronchitis with asthma with acute exacerbation J20.9; J45.[address] segment depression R94.31 Atrial fibrillation I48.91 Type 2 diabetes mellitus E11.9 Hypertension I10 Obstructive sleep apnea of adult G47.33 Gout M10.9 Hypothyroidism E03.9 Troponin level elevated R79.89 Morbid obesity E66.01
== END 2023-07-01 11:36 | disposition home or self-care (01) | DRG 202 ==
LOC: ED 12:29 → EDINP 14:51 → SUATTDRO 14:51 → 2S 06-30 03:16
DX: I11.0 Hypertensive heart disease with heart failure; I48.91 Unspecified atrial fibrillation; J90 Pleural effusion, not elsewhere classified; Z87.891 Personal history of nicotine dependence; Z88.5 Allergy status to narcotic agent; I50.9 Heart failure, unspecified; E66.2 Morbid (severe) obesity with alveolar hypoventilation; M10.9 Gout, unspecified; Q24.8 Other specified congenital malformations of heart; R09.02 Hypoxemia; J45.901 Unspecified asthma with (acute) exacerbation; Z79.84 Long term (current) use of oral hypoglycemic drugs; I27.20 Pulmonary hypertension, unspecified; E11.9 Type 2 diabetes mellitus without complications; Z96.652 Presence of left artificial knee joint; Z68.39 Body mass index [BMI] 39.0-39.9, adult; E03.9 Hypothyroidism, unspecified; Z79.890 Hormone replacement therapy; J20.9 Acute bronchitis, unspecified

== ENCOUNTER 2023-11-30 06:40 | Observation (INO) ==
--- NOTE | 2023-11-02 09:04 | PAT Medication Instructions ---
Medication Instructions Date of Service November 02, 2023 Home Medications Medication Instructions Recorded Auto Titrating CPAP #1 ea 06/21/20 CPAP Supplies #1 ea 06/21/20 furosemide 20 mg tablet 20 mg PO QAM #90 tabs 11/30/22 rivaroxaban 20 mg tablet (Xarelto) 20 mg PO 1300 #90 tabs 03/01/23 allopurinol 100 mg tablet 100 mg PO QPM #90 tabs 04/12/23 (Zyloprim) diltiazem HCl 120 mg capsule,24 120 mg PO 1300 #90 caps 04/12/23 hr,extended release (Tiazac) albuterol sulfate 90 mcg/actuation 2 puff inhalation QID PRN 06/22/23 aerosol inhaler bronchospasm #8.5 grams albuterol sulfate 2.5 mg/3 mL 2.5 mg (3 mL) inhalation QID PRN 07/01/23 (0.083 %) solution for nebulization Shortness Of Breath Or Wheezing #75 mL benzonatate 100 mg capsule 100 mg PO TID PRN cough #20 caps 07/01/23 fluticasone furoate 100 1 inh inhalation DAILY #60 ea 07/13/23 mcg-vilanterol 25 mcg/dose inhalation powder (Breo Ellipta) fluticasone propionate 50 1 spray intranasal BID #18.2 mL 07/13/23 mcg/actuation nasal spray,suspension (Flonase Allergy Relief) levothyroxine 150 mcg tablet 150 mcg PO QAM #90 tabs 09/27/23 montelukast 10 mg tablet 10 mg PO QPM #90 tabs 09/28/23 (Singulair) oxybutynin chloride 10 mg 10 mg PO QAM #90 tabs 11/01/23 tablet,extended release 24 hr calcium carbonate 500 mg calcium (1,250 mg) tablet (Calcium 500) 500 mg PO QAM magnesium 500 mg tablet 500 mg PO QAM furosemide 20 mg tablet 20 mg PO QAM cetirizine 10 mg tablet (Zyrtec) 10 mg PO losartan 50 mg tablet 50 mg PO QAM [id number] 5 mg-zeaxanth 1 mg-bilberry 7.5 mg-herbal capsule (Macular Health Formula) 1 cap PO QAM rivaroxaban 20 mg tablet (Xarelto) 20 mg PO allopurinol 100 mg tablet (Zyloprim) 100 mg PO QPM diltiazem HCl 120 mg capsule,24 hr,extended release (Tiazac) 120 mg PO 1300 albuterol sulfate 90 mcg/actuation aerosol inhaler 2 puff inhalation QID PRN albuterol sulfate 2.5 mg/3 mL (0.083 %) solution for nebulization 2.5 mg (3 mL) inhalation QID PRN benzonatate 100 mg capsule 100 mg PO TID PRN fluticasone furoate 100 mcg-vilanterol 25 mcg/dose inhalation powder (Breo Ellipta) 1 inh inhalation DAILY fluticasone propionate 50 mcg/actuation nasal spray,suspension (Flonase Allergy Relief) 1 spray intranasal BID levothyroxine 150 mcg tablet 150 mcg PO QAM montelukast 10 mg tablet (Singulair) 10 mg PO QPM atorvastatin 20 mg tablet 20 mg PO UD metformin 500 mg tablet,extended release 24 hr 500 mg PO QAM oxybutynin chloride 10 mg tablet,extended release 24 hr 10 mg PO QAM Continue as directed diltiazem HCl 120 mg capsule,24 hr,extended release (Tiazac) 120 mg PO 1300 fluticasone furoate 100 mcg-vilanterol 25 mcg/dose inhalation powder (Breo Ellipta) 1 inh inhalation DAILY atorvastatin 20 mg tablet 20 mg PO UD ASK your prescriber and surgeon rivaroxaban 20 mg tablet (Xarelto) 20 mg PO(in order for spinal or epidural anesthesia, Xarelto needs to be stopped 72 hours/3 days before surgery. Please check if okay with doctor that prescribes this to you) STOP taking 2 weeks before surgery (or as soon as possible if surgery is within 2 weeks) [id number] 5 mg-zeaxanth 1 mg-bilberry 7.5 mg-herbal capsule ([employer] Health Formula) 1 cap PO QAM DO NOT take the morning of surgery calcium carbonate 500 mg calcium (1,250 mg) tablet (Calcium 500) 500 mg PO QAM magnesium 500 mg tablet 500 mg PO QAM furosemide 20 mg tablet 20 mg PO QAM cetirizine 10 mg tablet (Zyrtec) 10 mg PO losartan 50 mg tablet 50 mg PO QAM benzonatate 100 mg capsule 100 mg PO TID PRN metformin 500 mg tablet,extended release 24 hr 500 mg PO QAM oxybutynin chloride 10 mg tablet,extended release 24 hr 10 mg PO QAM Take morning of surgery With a small sip of water, OTHERWISE NOTHING TO EAT OR DRINK AFTER MIDNIGHT: albuterol sulfate 90 mcg/actuation aerosol inhaler 2 puff inhalation QID PRN(use if needed; please bring with you to hospital day of surgery if possible) albuterol sulfate 2.5 mg/3 mL (0.083 %) solution for nebulization 2.5 mg (3 mL) inhalation QID PRN(if needed) fluticasone propionate 50 mcg/actuation nasal spray,suspension (Flonase Allergy Relief) 1 spray intranasal BID levothyroxine 150 mcg tablet 150 mcg PO QAM Take evening before surgery allopurinol 100 mg tablet (Zyloprim) 100 mg PO QPM albuterol sulfate 90 mcg/actuation aerosol inhaler 2 puff inhalation QID PRN(use if needed; please bring with you to hospital day of surgery if possible) albuterol sulfate 2.5 mg/3 mL (0.083 %) solution for nebulization 2.5 mg (3 mL) inhalation QID PRN(if needed) benzonatate 100 mg capsule 100 mg PO TID PRN(if needed) fluticasone propionate 50 mcg/actuation nasal spray,suspension (Flonase Allergy Relief) 1 spray intranasal BID montelukast 10 mg tablet (Singulair) 10 mg PO QPM Other Notes If you have any questions please call us at [phone] or [phone] or [phone] or [phone]
--- NOTE | 2023-11-04 11:49 | Anesthesiology Consultation ---
Date of Service November 04, 2023 Assessment & Plan (1) Encounter for pre-operative examination: - Case discussed in detail with Dr. Urena who advised sending cardiology a workload note regarding if anything additional is needed prior to surgery. Surgeon ordered medical clearance, awaiting pre-op notation from [place] PCP. - check BSG am DOS. - Outpatient joint assessment: Patient is currently scheduled for inpatient pathway. If re-evaluated and patient/surgeon requests outpatient pathway, patient is not recommended candidate for outpatient joint program from anesthesia standpoint. Chart Review Chart Review: Pending: Refer to Additional Notes / Consult section and Patient seen in Pre Admission Testing Teaching & Discussion Pre-Anesthesia Teaching/Discussion Notes: Instructed NPO after midnight before surgery, except medications with 15 cc of water. Medication instructions provided according to the PAT guidelines. History Surgery Operation Date: 12/01/23 07:15 Proposed Procedures p Right Total Knee Arthroplasty - Nehemiah Allen DO Height/Weight Height: 5 ft 3 in Weight: 125.4 kg Allergies Allergy/AdvReac Type Severity Reaction Status Date / Time shellfish derived Allergy Mild gout Verified 10/28/23 14:33 oxycodone AdvReac Mild Gastrointestinal Verified 10/28/23 14:33 Upset Medications Home Medications Medication Instructions Recorded Confirmed Last Taken blood sugar diagnostic (Accu-Chek #10 ea 04/21/19 09/27/23 Unknown SmartView Test Strips) blood-glucose meter (Accu-Chek #1 ea 04/21/19 09/27/23 Unknown Nikki) lancets 30 gauge (OneTouch Delica #25 ea 04/21/19 09/27/23 Unknown Lancets) calcium carbonate 500 mg calcium 500 mg PO QAM 04/25/19 10/28/23 01/17/23 10:00 (1,250 mg) tablet (Calcium 500) magnesium 500 mg tablet 500 mg PO QAM 06/04/20 10/28/23 01/17/23 10:00 Auto Titrating CPAP #1 ea 06/21/20 09/27/23 Unknown CPAP Supplies #1 ea 06/21/20 09/27/23 Unknown furosemide 20 mg tablet 20 mg PO QAM #90 tabs 11/30/22 10/28/23 01/17/23 10:00 cetirizine 10 mg tablet (Zyrtec) 10 mg PO 1300 12/28/22 10/28/23 01/17/23 13:00 losartan 50 mg tablet 50 mg PO QAM 12/28/22 10/28/23 01/17/23 10:00 [id number]-[id number]-[id number] 5 mg-zeaxanth 1 cap PO QAM 12/28/22 10/28/23 01/06/23 1 mg-bilberry 7.5 mg-herbal capsule (Macular Health Formula) rivaroxaban 20 mg tablet (Xarelto) 20 mg PO 1300 #90 tabs 03/01/23 10/28/23 Unknown allopurinol 100 mg tablet 100 mg PO QPM #90 tabs 04/12/23 10/28/23 Unknown (Zyloprim) diltiazem HCl 120 mg capsule,24 120 mg PO 1300 #90 caps 04/12/23 10/28/23 Unknown hr,extended release (Tiazac) albuterol sulfate 90 mcg/actuation 2 puff inhalation QID PRN 06/22/23 10/28/23 Unknown aerosol inhaler bronchospasm #8.5 grams albuterol sulfate 2.5 mg/3 mL 2.5 mg (3 mL) inhalation QID PRN 07/01/23 10/28/23 Unknown (0.083 %) solution for nebulization Shortness Of Breath Or Wheezing #75 mL benzonatate 100 mg capsule 100 mg PO TID PRN cough #20 caps 07/01/23 10/28/23 Unknown fluticasone furoate 100 1 inh inhalation DAILY #60 ea 07/13/23 10/28/23 Unknown mcg-vilanterol 25 mcg/dose inhalation powder (Breo Ellipta) fluticasone propionate 50 1 spray intranasal BID #18.2 mL 07/13/23 10/28/23 Unknown mcg/actuation nasal spray,suspension (Flonase Allergy Relief) levothyroxine 150 mcg tablet 150 mcg PO QAM #90 tabs 09/27/23 10/28/23 Unknown montelukast 10 mg tablet 10 mg PO QPM #90 tabs 09/28/23 10/28/23 Unknown (Singulair) atorvastatin 20 mg tablet 20 mg PO UD 10/28/23 10/28/23 Unknown metformin 500 mg tablet,extended 500 mg PO QAM 10/28/23 10/28/23 Unknown release 24 hr oxybutynin chloride 10 mg 10 mg PO QAM #90 tabs 11/01/23 Unknown tablet,extended release 24 hr Past Medical History Medical History (Updated 11/04/23 @ 13:27 by Romi Phillips PA-C) Acid reflux Hx, no recent issues Asthma controlled, stable per pt; last rescue inhaler use 07/2023 Atrial fibrillation Dx 3 years ago, reason for Xarelto Follows with Dr. Jacob Chronic back pain Colon polyp 12/2012 tubular adenoma 02/2017 sessile serrated adenoma (recheck in 5 years) Gout History of diverticulitis more than 10 yrs ago [place] (hard of hearing) Hyperlipidemia Hypertension controlled, stable per pt Hypothyroidism Left ventricular outflow tract obstruction reported on 07/2023 echo Morbid obesity Obstructive sleep apnea of adult CPAP (compliant) Pulmonary hypertension [facility] pulmonary monitoring, felt to be likely from underlying obesity as well as REYNALDO/OHS Type 2 diabetes mellitus NIDDM Urinary incontinence chronic, denies change or worsening Patient denies h/o stroke, seizures, heart attack, heart failure, blood clots/DVTs or blood transfusions. Exercise / Class Metabolic Activity III < 4 Walking/Shop/Light housework (denies chest discomfort or shortness of breath with usual activities) Past Family History Family History Mother Diabetes Breast cancer Hypertension Father Prostate cancer Brother Diabetes Hypertension Other No family history of adverse response to anesthesia Denies family history of Ovarian cancer Myocardial infarction Colorectal cancer Past Surgical History Surgical History H/O colonoscopy sessile serrated adenoma, recheck in 5 years, Dr Reyez H/O oral surgery H/O ventral hernia repair Laparoscopic ventral hernia repair (05/14/22): Grade 2 view, ETT 7 at [facility] History of hernia repair umbilical History of hysterectomy History of tonsillectomy and adenoidectomy History of tubal ligation History of wisdom tooth extraction Past Anesthesia History No Hx of Anesthesia Complications and No Family Hx of Anesthesia Complications History of PONV No Hx of PONV and No Hx of Motion Sickness Social History Smoking Status: Never smoker Do You Dip or Chew Tobacco: No Hx Alcohol Use: No Hx Substance Use: No substance use type: does not use Review of Systems Patient denies chest pain, shortness of breath, dyspnea on exertion, fever, chills, cough, wheezing, or palpitations. Physical Exam Vital Signs Vitals BP 118/80 P 68 TEMP 98.1 SP02 94% on RA RESP 18 Physical Patient resting comfortably in chair in no acute distress, alert and oriented, responding appropriately throughout visit Full cervical extension range of motion without pain TMD < 3 finger breadths Mallampati Score 3 Dentition: several crowns, denies chipped or loose teeth, caps, implants or bridges Lungs: normal respiratory effort. Good air movement, clear throughout to auscultation, no adventitious breath sounds Cardiac: regular rate and rhythm, no murmurs noted Carotid arteries: negative bruit bilat Lab Results Anesthesia Preop Results Results Anesthesia Widget: WBC 6.62 K/ul (4.8-10.8) 11/04/23 Hgb 12.9 g/dl (12.0-16.0) 11/04/23 Hct 42.0 % (37.0-47.0) 11/04/23 Plt 246 K/uL (130-400) 11/04/23 Na 141 mmol/L (136-145) 11/04/23 K 4.1 mmol/L (3.5-5.1) 11/04/23 Cl 106 mmol/L (98-107) 11/04/23 CO2 31 mmol/L (21-32) 11/04/23 BUN 24 mg/dl (6-23) H 11/04/23 Creat 0.75 mg/dl (0.6-1.2) 11/04/23 Glucose Level 93 mg/dl (70-99(Fasting)) 11/04/23 PT 11.2 Seconds (9.0-12.0) 11/04/23 PTT 35 Seconds (21-31) H 11/04/23 INR 1.0 (0.9-1.1) 11/04/23 TSH 1.124 uIu/ml (0.300-4.500) 11/04/23 Free T4 1.10 ng/dl (0.61-1.60) 09/27/23 HA1c 6.0 % (4.5-5.6) H 09/27/23 Blood Type O Positive 11/04/23 Antibody Screen NEGATIVE 11/04/23 Testing Electrocardiogram Date: 10/26/23 NSR, rate 72 bpm Low voltage QRS Chest X-Ray Date: 07/28/23 No acute abnormality and in particular no evidence of pulmonary vascular congestion or left pleural effusion seen on prior exam. Echocardiogram Date: 07/28/23 EF 60-65% No LV regional wall motion abnormalities Moderate cLVH Mildly dilated LA Elevated LV outflow tract and transaortic velocities suggest some degree of dynamic LV outflow tract obstruction No systolic anterior motion of the mitral valve Mild mitral regurgitation Mild tricuspid regurgitation Grade II diastolic dysfunction Other Testing Head and neck CTA 03/03/21 1. No acute intracranial abnormality. 2. Unremarkable CTA of the head and neck.
--- NOTE | 2023-11-11 13:12 | History & Physical Report ---
Date of Service November 11, 2023 date of surgery: 12/01/23 Procedure: Right Total Knee Arthroplasty Surgeon: Nehemiah Allen, DO Assessment & Plan (1) Arthritis of right knee: Plan: Risks and benefits of the procedure were discussed, she would like to proceed with right total knee arthroplasty. Will plan on overnight stay at the hospital with discharge home the following day with home health nursing physical therapy. Will continue her Xarelto beginning postop day #1. Currently awaiting cardiac clearance for her surgery, otherwise she has no questions or concerns The risks and benefits have been discussed including, but not limited to, risk of infection, nerve injury, stiffness, loss of motion, failure to improve, etc. Reasonable outcomes and options of treatment were discussed. An explanation of appropriate alternatives to the procedure that may be advantageous were discussed and their risks and benefits, as well as the risks and benefits of not proceeding with treatment. I offered to answer any additional inquiries concerning the treatment involved. All the patient's questions were answered. The patient is agreeable, understanding of the treatment plan and alternatives, and wishes to proceed with the treatment plan. Please note the above document was generated using voice recognition software. It may contain grammatical, syntax or spelling errors. Any formal questions or concerns about the content, text or information contained within the body of this dictation should be directly addressed to the provider for clarification History of Present Illness Chief Complaint: Right knee pain Primary Care Provider: SADIA Ibanez Erin is a 68-year-old female who presented for preop evaluation prior to upcoming right total knee arthroplasty. She states her knee pain is gradually worsened and is now affecting her daily activities, has undergone previous cortisone injection as well as viscosupplementation with no improvement. She rates her pain as a 7 out of 10, is complaints of pain decreased range of motion and weakness. After discussing further care with Dr. Allen, has elected to proceed with a right total knee replacement. She is unable to take anti- inflammatories secondary to using Xarelto Allergies Allergy/AdvReac Type Severity Reaction Status Date / Time shellfish derived Allergy Mild gout Verified 10/28/23 14:33 oxycodone AdvReac Mild Gastrointestinal Verified 10/28/23 14:33 Upset Home Medications Medication Instructions Recorded Confirmed Type blood sugar diagnostic (Accu-Chek #10 ea 04/21/19 09/27/23 History SmartView Test Strips) blood-glucose meter (Accu-Chek #1 ea 04/21/19 09/27/23 History Nikki) lancets 30 gauge (OneTouch Delica #25 ea 04/21/19 09/27/23 History Lancets) calcium carbonate 500 mg calcium 500 mg PO QAM 04/25/19 10/28/23 History (1,250 mg) tablet (Calcium 500) magnesium 500 mg tablet 500 mg PO QAM 06/04/20 10/28/23 History Auto Titrating CPAP #1 ea 06/21/20 09/27/23 Rx CPAP Supplies #1 ea 06/21/20 09/27/23 Rx furosemide 20 mg tablet 20 mg PO QAM #90 tabs 11/30/22 10/28/23 Rx cetirizine 10 mg tablet (Zyrtec) 10 mg PO 1300 12/28/22 10/28/23 History losartan 50 mg tablet 50 mg PO QAM 12/28/22 10/28/23 History svazzqov-wok-[id number] 5 mg-zeaxanth 1 cap PO QAM 12/28/22 10/28/23 History 1 mg-bilberry 7.5 mg-herbal capsule ([facility] Formula) rivaroxaban 20 mg tablet (Xarelto) 20 mg PO 1300 #90 tabs 03/01/23 10/28/23 Rx allopurinol 100 mg tablet 100 mg PO QPM #90 tabs 04/12/23 10/28/23 Rx (Zyloprim) diltiazem HCl 120 mg capsule,24 120 mg PO 1300 #90 caps 04/12/23 10/28/23 Rx hr,extended release (Tiazac) albuterol sulfate 90 mcg/actuation 2 puff inhalation QID PRN 06/22/23 10/28/23 Rx aerosol inhaler bronchospasm #8.5 grams albuterol sulfate 2.5 mg/3 mL 2.5 mg (3 mL) inhalation QID PRN 07/01/23 10/28/23 Rx (0.083 %) solution for nebulization Shortness Of Breath Or Wheezing #75 mL benzonatate 100 mg capsule 100 mg PO TID PRN cough #20 caps 07/01/23 10/28/23 Rx fluticasone furoate 100 1 inh inhalation DAILY #60 ea 07/13/23 10/28/23 Rx mcg-vilanterol 25 mcg/dose inhalation powder (Breo Ellipta) fluticasone propionate 50 1 spray intranasal BID #18.2 mL 07/13/23 10/28/23 Rx mcg/actuation nasal spray,suspension (Flonase Allergy Relief) levothyroxine 150 mcg tablet 150 mcg PO QAM #90 tabs 09/27/23 10/28/23 Rx montelukast 10 mg tablet 10 mg PO QPM #90 tabs 09/28/23 10/28/23 Rx (Singulair) atorvastatin 20 mg tablet 20 mg PO UD 10/28/23 10/28/23 History metformin 500 mg tablet,extended 500 mg PO QAM 10/28/23 10/28/23 History release 24 hr oxybutynin chloride 10 mg 10 mg PO QAM #90 tabs 11/01/23 Rx tablet,extended release 24 hr Past Med/Surg History Medical History (Updated 11/11/23 @ 13:08 by Radames Beck PA-C) Left ventricular outflow tract obstruction reported on 07/2023 echo History of diverticulitis more than 10 yrs ago Pulmonary hypertension [facility] pulmonary monitoring, felt to be likely from underlying obesity as well as REYNALDO/OHS Morbid obesity Urinary incontinence chronic, denies change or worsening Chronic back pain Acid reflux Hx, no recent issues [place] (hard of hearing) Atrial fibrillation Dx 3 years ago, reason for Xarelto Follows with Dr. Cecil Mata Obstructive sleep apnea of adult CPAP (compliant) Colon polyp 12/2012 tubular adenoma 02/2017 sessile serrated adenoma (recheck in 5 years) Hyperlipidemia Hypothyroidism Type 2 diabetes mellitus NIDDM Hypertension controlled, stable per pt Asthma controlled, stable per pt; last rescue inhaler use 07/2023 Surgical History H/O ventral hernia repair Laparoscopic ventral hernia repair (05/14/22): Grade 2 view, ETT 7 at [facility] History of tubal ligation History of hysterectomy History of wisdom tooth extraction History of tonsillectomy and adenoidectomy History of hernia repair umbilical H/O oral surgery H/O colonoscopy sessile serrated adenoma, recheck in 5 years, Dr Reyez Family History Mother Diabetes Breast cancer Hypertension Father Prostate cancer Brother Diabetes Hypertension Other No family history of adverse response to anesthesia Denies family history of Ovarian cancer Myocardial infarction Colorectal cancer Social History Smoking Status: Never smoker Tobacco Type: Cigarettes Age Started Using Tobacco: 17; Age Quit Using Tobacco: 33; Second Hand Exposure: No; Do You Dip or Chew Tobacco: No; Hx Alcohol Use: No Hx Substance Use: No Preferred Language: Arabic Communication Ability: Effective Visual Impairment: No Limitations Hearing Ability: Normal Can Reforming Machine Operator Required: No Beliefs That Will Affect Care: None marital status: Current Living Situation: Spouse current occupational status: retired 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 Feels Safe at Home: Yes Childhood Exposure to Second-Hand Smoke: Yes Diet: regular Dental Care, Regularly: Yes Physical Activity Frequency: Does not Exercise Seatbelt Use: always Sunscreen Use: Yes Assistive Devices: Cane and Glasses Review of Systems Review of Systems: All systems reviewed & are unremarkable except as noted in HPI & below Constitutional: no fever, no chills and no sweats Respiratory: no cough and no dyspnea Cardiovascular: no chest pain, no dyspnea and no orthopnea Gastrointestinal: no abdominal pain, no nausea and no vomiting Musculoskeletal: as per Subjective / HPI Physical Exam Constitutional: WD/WN, vitals as above no acute distress Respiratory: normal respiratory effort, lungs clear to auscultation no respiratory distress, no labored breathing and does not use accessory muscles Cardiovascular: RRR, no murmur, no edema Gastrointestinal (Abdomen): normal bowel sounds, soft, nontender, no hepat osplenomegaly Musculoskeletal: Knee: + knee abnormal to inspection (Right Knee: ), + effusion (+1 effusion), + limited ROM of knee (ROM 0/3/110), + knee ROM with crepitation, + joint line tenderness (medial joint line) and + Bryce's sign positive; no deformity, no skin erythema, no ecchymosis, no valgus laxity, no varus laxity, anterior drawer test negative, Manjeet's sign negative and pivot shift test negative Results & Data Results & Data Diagnostic Findings Right Knee X-ray: Right knee series showing degenerative changes to the right knee, narrowing of the medial compartment and patello-femoral joint with patellar spurring noted, findings showing joint space narrowing of the medial compartment and patello- femoral joint, osteophyte formation and subchondral sclerosis noted. overall varus alignment. no acute bony pathology noted.
[~2023-11-30 06:40] MED LIST changes: -ACETAMINOPHEN 500 MG TAB PO SCH; +BUPIVACAINE 0.25% PF 30 ML VIAL ONE; -CeleBREX 200 MG CAP PO SCH; +DEXAMETHASONE SOD INJ 4 MG/ML VIAL ONE; +EPINEPHrine INJ 1 MG/ML AMP ONE; -FAMOTIDINE 20 MG TAB PO SCH; -GABAPENTIN 300 MG CAP PO SCH; -LR 500ML BOLUS, THEN 15ML/HR IV SCH; -METOCLOPRAMIDE HCL 10 MG TABLET PO SCH; -ROPIVACAINE 0.5% 5 MG/ML 30 ML VIAL ONE; -ROPIVACAINE 0.5% HCL/PF 150 MG, BUPIVACAINE 0.75% MPF 20 ML, EPINEPHrine 30MG/30ML (OR ... INSTIL SCH; -TRANEXAMIC ACID 1,000 MG **IV Intra-op IV SCH; -TRANEXAMIC ACID 1,000 MG **IV Pre-op IV SCH; +[UNRECOGNIZED DRUG - REMARK] SCH; -ceFAZolin 2000MG 2,000 MG/15 ML SYR IV SCH; -dexAMETHasone 4 MG TAB PO SCH; -oxyCODONE HCL 10 MG TABCR (OxyCONTIN) PO SCH
[2023-11-30] MEDS ORDERED: GLYCOPYRROLATE 0.2 MG/ML VIAL ONE (07:05)
[2023-11-30] MEDS ORDERED: DEXAMETHASONE SOD INJ 4 MG/ML VIAL ONE (07:05)
[2023-11-30] MEDS ORDERED: MIDAZOLAM HCL 1 MG/ML 2ML VIAL ONE (07:05)
[2023-11-30] MEDS ORDERED: ONDANSETRON INJ 2 MG/ML 2 ML VIAL ONE (07:05)
[2023-11-30] MEDS ORDERED: LIDOCAINE 2% 2 ML VIAL/AMP(20MG/ML) INFIL ONE (07:05)
[2023-11-30] MEDS ORDERED: PROPOFOL IV EMULSION 10 MG/ML 20 ML VIAL IV ONE ×2 (07:05→08:45)
[2023-11-30] MEDS ORDERED: fentaNYL citrate PF 100 MCG/2 ML VIAL ONE (07:05)
--- NOTE | 2023-11-30 07:17 | History & Physical Bridge Note ---
Date of Service November 30, 2023 History & Physical Bridge Note I have examined the patient, reviewed the History & Physical and in the interval since the performance of the History & Physical I have noted the following changes of clinical significance: no changes noted
[2023-11-30] MEDS ORDERED: ROCURONIUM BROMIDE 10 MG/ML 5 ML VIAL IV ONE (07:27)
[2023-11-30] MEDS ORDERED: ePHEDrine sulfate 50 MG/ML AMP IV PRN (07:29)
[2023-11-30] MEDS ORDERED: ONDANSETRON INJ 2 MG/ML 2 ML VIAL IV PRN ×2 (07:29→11:12)
[2023-11-30] MEDS ORDERED: ATROPINE SULFATE 0.1 MG/ML 10ML SYR IV PRN (07:29)
[2023-11-30] MEDS ORDERED: fentaNYL citrate PF 100 MCG/2 ML VIAL IV PRN (07:29)
[2023-11-30] MEDS: ACETAMINOPHEN 500 MG TAB PO SCH ×2 (07:34→12:08)
[2023-11-30] MEDS: CeleBREX 200 MG CAP PO SCH (07:35)
[2023-11-30] MEDS: GABAPENTIN 300 MG CAP PO SCH (07:37)
[2023-11-30] MEDS: METOCLOPRAMIDE HCL 10 MG TABLET PO SCH (07:37)
[2023-11-30] MEDS: FAMOTIDINE 20 MG TAB PO SCH (07:37)
[2023-11-30] MEDS: dexAMETHasone**PF** 10 MG/ML VIAL IV SCH (07:37)
[2023-11-30] MEDS: LACTATED RINGER'S 1,000 ML IV SCH (07:38)
[2023-11-30] MEDS: LR 60ML/HR IV SCH (07:38)
[2023-11-30] MEDS: TRANEXAMIC ACID 1,000 MG **IV Pre-op IV SCH (08:19)
[2023-11-30] MEDS: ceFAZolin 3000MG 3,000 MG/72.5 ML BAG IV SCH (08:28)
[2023-11-30] MEDS: ROPIV 0.5% 246mg, Ketorolac 30mg, EPINEPHrine 0.5mg in NSS INFIL ONE (09:14)
--- NOTE | 2023-11-30 09:47 | Operative Report ---
Post Operative Report Pre & Post Diagnosis Operation Date: 11/30/23 08:15 Pre-Op Diagnosis: Right Knee Degenerative Joint DiseaseMorbid obesity BMI 47.6 Post-Op Diagnosis: Right Knee Degenerative Joint DiseaseMorbid obesity BMI 47 point I identified the patient and participated in the time-out.: Yes Procedure Operation Date: 11/30/23 08:15 Actual Procedures p Right Total Knee Arthroplasty(Right) Utilizing [employer]pie [employer] Nephew journey 2 patient-matched total knee arthroplasty size femur 4 tibia 2 poly 13 patella 29 oval- Nehemiah Allen DO Surgeon Nehemiah Allen DO Cupola Hoist Operator Radames LANG Estimated Blood Loss 15 (-) Findings Consistent with Post-Op Diagnosis Patient presents with severe tricompartmental DJD eburnated [id number] subchondral sclerosis marginal osteophytes moderate to large effusion Specimens Bone and cartilage Drains Medium bore Hemovac Anesthesia Type MAC Spinal Regional Complications none Disposition Accompanied Patient To Recovery: No Disposition: Recovery Room Indications Patient presents with severe end-stage tricompartmental DJD failed attempted conservative management patient has failed attempted corticosteroid injection viscosupplementation relative rest and light weight loss and presents with above intraoperative findings Description of Procedure After proper prepping and draping of the Right lower extremity anterior midline incision was made over the region of the extensor extensor mechanism after meticulous hemostasis was obtained and maintained in subcutaneous tissues a medial parapatellar incision was made The patella was subluxed lateralward the medial lateral gutter were cleaned from any hypertrophic synovitis and scar tissue of the distal femoral block was placed and the distal femoral osteotomy cut was made subsequently the chamfers anterior and posterior osteotomy cuts were made utilizing the 4-in-1 block the tibia was subsequently subluxed anteriorward medial and ateral meniscal remnants were excised in their entirety remnants of the anterior and posterior cruciate ligaments were excised in their entirety excellent exposure of the proximal tibia was obtained the tibial osteotomy guide was placed on the proximal tibial osteotomy cut was made once again the knee was irrigated with copious amounts of sterile saline solution the patella was subsequently everted lateralward thickened scar tissue around the patella was removed the patella was subsequently cut utilizing a freehand technique and was drilled prepared for final preparation and placement of patella socially flexion-extension gaps were checked and the equal and symmetric trials were placed to the appropriate femoral and tibial trials with poly-spacer being placed for equal flexion and extension gaps and full range of motion including extension to 0 and flexion to 140 the trial components after having been taken to recovery range of motion was subsequently removed meticulous hemostasis was obtained and maintained subsequently a knee block injection of joint cocktail including ropivacaine 0.5% 150 mg. Bupivacaine 0.5% epinephrine 1-200,030 mL's toradol 30 mg dexamethasone 4 mg ketamine 10 mg clonidine 100 micrograms normal saline solution 30 mg was infiltrated into the soft tissues of the posterior knee medial lateral gutters and periosteal synovium special attention was paid to protect neurovascular structures at all times subsequently trial components having been removed the knee was irrigated with sterile saline solution. debris was removed the proximal tibia was subsequently prepared and was made ready for the placement of the tibial component tibial component was also cemented and tamped into position the femoral component was subsequently placed and cemented in the position the patellar component was subsequently cemented in position because hemostasis once again obtained and maintained wound having been thoroughly irrigated with debridement and debridement lavage was performed as well as a medial parapatellar incision closed with #1 Vicryl in interrupted fashion subcutaneous was closed with #2 Vicryl skin was closed with skin clips. PA-C was necessary for prepping and drapping as well as wound closure of deep fascia Sub cutaneous tissue and skin and was necessary for the case. A sterile compressive dressing was placed patient was taken to recovery in stable condition of report dictated by Alejandro I attest to the content of the Intraoperative Record and any orders documented therein. Any exceptions are noted below.Due to the complex nature of the procedure, the entire surgery was performed with the operational assistance of [employer]. The assistant editor, under direct supervision, was involved in the actual performance of all aspects of the surgical procedure including hemostasis, tissue retraction and incision, instrument management, patient positioning, and wound closure.The patient is 125.9 kgwith a BMI of 47,6. The patient's habitus did contribute to significant technical difficulty requiring extra time. Additional help was necessary in order to position the patient safely. The use of specialized (longer, deeper) retractors and/or instruments were needed. Due to this, the procedure took 20 minutes longer than the standard total knee arthroplasty." I attest to the content of the Intraoperative Record and any orders documented therein. Any exceptions are noted below.
[2023-11-30] MEDS: TRANEXAMIC ACID 1,000 MG **IV Intra-op IV SCH (09:50)
--- NOTE | 2023-11-30 10:37 | XRay Report ---
TWO VIEWS RIGHT KNEE CLINICAL HISTORY: Postoperative examination. FINDINGS: AP and crosstable lateral portable views of the right knee are obtained. A right knee arthr oplasty is in near anatomic alignment. There has been undersurface remodeling of the patella. No acut e fracture is seen. There are expected postoperative changes around the knee including skin clips, a surgical drain, soft tissue edema, and subcutaneous gas. IMPRESSION: Expected postoperative changes status post right knee arthroplasty. No acute fracture is seen. ACT 112: Negative or not required by law. Electronically signed by: Mina Gibbons M.D. 11/30/2023 10:35 AM
[2023-11-30] MEDS ORDERED: bisacodyL 10 MG SUPP PR PRN (11:12)
[2023-11-30] MEDS ORDERED: oxyCODONE HCL IR 5 MG TAB (IMMEDIATE RELEASE) PO PRN (11:12)
[2023-11-30] MEDS ORDERED: MAGNESIUM HYDROXIDE SUSP 30 ML UDC PO PRN (11:12)
[2023-11-30] MEDS ORDERED: NALOXONE HCL 0.4 MG/1 ML VIAL/CARP IV PRN (11:12)
[2023-11-30] MEDS ORDERED: NON-FORMULARY MEDICATION (Auto Titrating Cpap misc) SCH (11:12)
[2023-11-30] MEDS ORDERED: ALBUTEROL HFA 8 GM INHALER INH PRN (11:12)
[2023-11-30] MEDS ORDERED: diphenhydrAMINE Capsule 25 MG CAP PO PRN (11:12)
[2023-11-30] MEDS ORDERED: HYDROmorphone INJ 1 MG/ML SYRINGE IV PRN (11:12)
[2023-11-30] MEDS ORDERED: METOCLOPRAMIDE HCL INJ 5 MG/ML 2 ML VIAL IV PRN (11:12)
[2023-11-30] MEDS ORDERED: PHARMACY GLYCEMIC MGMT CONSULT PRN (11:12)
[2023-11-30] MEDS ORDERED: ALBUTEROL 0.083% NEBU SOLN 3 ML VIAL INH PRN (11:12)
[2023-11-30] MEDS ORDERED: BENZONATATE 100 MG CAPSULE PO PRN (11:12)
[2023-11-30] MEDS: SODIUM CHLORIDE 0.9% 1,000 ML IV SCH (11:18)
--- NOTE | 2023-11-30 11:28 | Anesthesiology Progress Note ---
Date of Service November 30, 2023 Anesthesia Post Procedure Vital Signs Vital Signs: Temp Pulse Pulse Resp BP Pulse Ox O2 Del Method 11/30/23 11:00 75 20 150/60 H 95 Room Air 11/30/23 10:50 75 16 127/60 92 Room Air 11/30/23 10:40 76 16 126/64 92 Room Air 11/30/23 10:30 36.4 C L 75 17 124/59 L 97 Oxymask 11/30/23 10:20 82 15 120/50 L 100 Oxymask 11/30/23 10:14 36.2 C L 82 18 110/53 L 96 Oxymask 11/30/23 07:11 36.6 C 71 20 162/83 H 95 Room Air O2 Flow Rate 11/30/23 11:00 11/30/23 10:50 11/30/23 10:40 11/30/23 10:30 2 11/30/23 10:20 7 11/30/23 10:14 7 11/30/23 07:11 Pain Intensity Right Knee: Pain Intensity: 3 Transfer of Care Handoff Completed per policy Notes Mental Status: alert / awake / arousable Patient Amnestic to Procedure: Yes Nausea / Vomiting: adequately controlled Pain: adequately controlled Airway Patency, RR, SpO2: stable & adequate BP & HR: stable & adequate Hydration State: stable & adequate Neuraxial Anesthesia: was administered and sensory block is resolving Anesthetic Complications: no major complications apparent and Pt Satisfied with anesthetic care
[2023-11-30] MEDS ORDERED: GLUCAGON FOR INJ 1 MG VIAL IM PRN (11:45)
[2023-11-30] MEDS ORDERED: GLUCOSE 40% GEL 15 GM TUBE PO PRN (11:45)
[2023-11-30] MEDS ORDERED: CARBOHYDRATES FOR HYPOGLYCEMIA PO PRN (11:45)
[2023-11-30] MEDS ORDERED: GLUCOSE 10 TAB/TUBE PO PRN (11:45)
[2023-11-30] MEDS ORDERED: DEXTROSE 50% 50 ML SYRINGE IV PRN (11:45)
--- NOTE | 2023-11-30 11:46 | Pharmacy Report ---
Pharmacy Glycemic Short Note 2 - Date of Service November 30, 2023 - Glycemic Short BSG Results (Last 24 hours): 11/30/23 11/30/23 07:20 10:16 POC Glucose 107 H 122 H OUTPATIENT ANTIDIABETIC REGIMEN: * Metformin 500 mg PO AM * HbA1c: 6.1% (11/04/23) ASSESSMENT: * 68 yo F admitted postoperatively on 11/30/23 following a right total knee arthroplasty. Pharmacy has been consulted to assist with inpatient glycemic ma nagement. Patient is a Type 2 diabetic as an outpatient. Please refer to outpatient regimen and most recent HbA1c above. * Pre-op BSG was 107 mg/dL. Received 10 mg of IV dexamethasone brittani-op. No ongo ing steroids. Ordered a T2DM diet, will follow to see if tolerating. * Post-op BSG 122 mg/dL. Give Lantus 10 units SC x 1 now to account of steroids. Likely will not require any basal after dose today. * Novolog will be based on weight/stress of 2. PLAN FOR INPATIENT GLYCEMIC CONTROL: * Hold outpatient oral diabetes medications * Basal insulin * Lantus 10 units SC x 1 * Bolus insulin * NovoLog per scale ACHS or Q6hrs while NPO * Goal Range: Low 110 mg/dL - High 140 mg/dL * Correction Factor: 25 mg/dL/unit * Nutritional / Prandial insulin per carb ratio of 1 unit per 8 grams CHO consumed
[2023-11-30] MEDS: LANTUS PER UNIT CHARGE SC ONE (12:08)
[2023-11-30] MEDS: INSULIN ASPART PER UNIT CHARGE SC SCH (12:08)
--- NOTE | 2023-11-30 12:48 | Hospitalist Consultation ---
Date of Consultation November 30, 2023 History of Present Illness Reason for Consultation: Post-op medical management Requesting Physician: Nehemiah Allen DO Attending Physician: Dr. Josh Penn DO, Allergies Allergy/AdvReac Type Severity Reaction Status Date / Time shellfish derived Allergy Mild gout Verified 11/30/23 07:05 oxycodone AdvReac Mild Gastrointestinal Verified 11/30/23 07:05 Upset Home Medications Medication Instructions Recorded Confirmed Type blood sugar diagnostic (Accu-Chek #10 ea 04/21/19 11/24/23 History SmartView Test Strips) blood-glucose meter (Accu-Chek #1 ea 04/21/19 11/24/23 History Nikki) lancets 30 gauge (OneTouch Delica #25 ea 04/21/19 11/24/23 History Lancets) calcium carbonate 500 mg calcium 500 mg PO QAM 04/25/19 11/30/23 History (1,250 mg) tablet (Calcium 500) magnesium 500 mg tablet 500 mg PO QAM 06/04/20 11/30/23 History Auto Titrating CPAP #1 ea 06/21/20 11/24/23 Rx CPAP Supplies #1 ea 06/21/20 11/24/23 Rx furosemide 20 mg tablet 20 mg PO QAM #90 tabs 11/30/22 11/30/23 Rx cetirizine 10 mg tablet (Zyrtec) 10 mg PO 1300 12/28/22 11/30/23 History bcsnvrin-hlz-bzfqjh 5 mg-zeaxanth 1 cap PO QAM 12/28/22 11/30/23 History 1 mg-bilberry 7.5 mg-herbal capsule (Macular Health Formula) rivaroxaban 20 mg tablet (Xarelto) 20 mg PO 1300 #90 tabs 03/01/23 11/30/23 Rx allopurinol 100 mg tablet 100 mg PO QPM #90 tabs 04/12/23 11/30/23 Rx (Zyloprim) diltiazem HCl 120 mg capsule,24 120 mg PO 1300 #90 caps 04/12/23 11/30/23 Rx hr,extended release (Tiazac) albuterol sulfate 90 mcg/actuation 2 puff inhalation QID PRN 06/22/23 11/30/23 Rx aerosol inhaler bronchospasm #8.5 grams albuterol sulfate 2.5 mg/3 mL 2.5 mg (3 mL) inhalation QID PRN 07/01/23 11/30/23 Rx (0.083 %) solution for nebulization Shortness Of Breath Or Wheezing #75 mL benzonatate 100 mg capsule 100 mg PO TID PRN cough #20 caps 07/01/23 11/30/23 Rx fluticasone propionate 50 1 spray intranasal BID #18.2 mL 07/13/23 11/30/23 Rx mcg/actuation nasal spray,suspension (Flonase Allergy Relief) levothyroxine 150 mcg tablet 150 mcg PO QAM #90 tabs 09/27/23 11/30/23 Rx montelukast 10 mg tablet 10 mg PO QPM #90 tabs 09/28/23 11/30/23 Rx (Singulair) atorvastatin 20 mg tablet 20 mg PO UD 10/28/23 11/30/23 History metformin 500 mg tablet,extended 500 mg PO QAM 10/28/23 11/30/23 History release 24 hr oxybutynin chloride 10 mg 10 mg PO QAM #90 tabs 11/01/23 11/30/23 Rx tablet,extended release 24 hr losartan 50 mg tablet 50 mg PO QAM #100 tabs 11/22/23 11/30/23 Rx fluticasone furoate 100 1 inh inhalation DAILY #60 ea 11/23/23 11/30/23 Rx mcg-vilanterol 25 mcg/dose inhalation powder (Breo Ellipta) Patient History Medical History Left ventricular outflow tract obstruction reported on 07/2023 echo History of diverticulitis more than 10 yrs ago Pulmonary hypertension [facility] pulmonary monitoring, felt to be likely from underlying obesity as well as REYNALDO/OHS Morbid obesity Urinary incontinence chronic, denies change or worsening Chronic back pain Acid reflux Hx, no recent issues CAHUILLA (hard of hearing) Atrial fibrillation Dx 3 years ago, reason for Xarelto Follows with Dr. Cecil Mata Obstructive sleep apnea of adult CPAP (compliant) Colon polyp 12/2012 tubular adenoma 02/2017 sessile serrated adenoma (recheck in 5 years) Hyperlipidemia Hypothyroidism Type 2 diabetes mellitus NIDDM Hypertension controlled, stable per pt Asthma controlled, stable per pt; last rescue inhaler use 07/2023 Surgical History H/O ventral hernia repair Laparoscopic ventral hernia repair (05/14/22): Grade 2 view, ETT 7 at [facility] History of tubal ligation History of hysterectomy History of wisdom tooth extraction History of tonsillectomy and adenoidectomy History of hernia repair umbilical H/O oral surgery H/O colonoscopy sessile serrated adenoma, recheck in 5 years, Dr Reyez Family History Mother Diabetes Breast cancer Hypertension Father Prostate cancer Brother Diabetes Hypertension Other No family history of adverse response to anesthesia Denies family history of Ovarian cancer Myocardial infarction Colorectal cancer Social History Smoking Status: Never smoker Tobacco Type: Cigarettes Age Started Using Tobacco: 17; Age Quit Using Tobacco: 33; Second Hand Exposure: No; Do You Dip or Chew Tobacco: No; Tobacco Cessation Education Requested by Patient: No Hx Alcohol Use: No Hx Substance Use: No Preferred Language: Gambian Communication Ability: Effective Visual Impairment: No Limitations Hearing Ability: Normal Journeyman Level Acoustic Analyst Required: No Beliefs That Will Affect Care: None marital status: Current Living Situation: Spouse current occupational status: retired 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 Other Information That Helps Us Care for You: No Feels Safe at Home: Yes Safety Concerns: Feels Safe At This Time Childhood Exposure to Second-Hand Smoke: Yes Diet: regular Dental Care, Regularly: Yes Physical Activity Frequency: Does not Exercise Seatbelt Use: always Sunscreen Use: Yes Assistive Devices: Cane and Glasses Results & Data Results & Data Vital Signs (Past 12 Hours) Vital Signs Temp Pulse Pulse Pulse Resp BP BP 11/30/23 12:15 36.4 C L 85 16 149/88 H 11/30/23 11:45 36.4 C L 76 16 121/78 11/30/23 11:15 11/30/23 11:15 36.4 C L 81 18 125/75 11/30/23 11:00 75 20 150/60 H 11/30/23 10:50 75 16 127/60 11/30/23 10:40 76 16 126/64 11/30/23 10:30 36.4 C L 75 17 124/59 L 11/30/23 10:20 82 15 120/50 L 11/30/23 10:14 36.2 C L 82 18 110/53 L 11/30/23 07:11 36.6 C 71 20 162/83 H Pulse Ox O2 Del Method O2 Flow Rate 11/30/23 12:15 95 Nasal Cannula 2 11/30/23 11:45 93 Room Air 11/30/23 11:15 Nasal Cannula 2 11/30/23 11:15 92 Room Air 11/30/23 11:00 95 Room Air 11/30/23 10:50 92 Room Air 11/30/23 10:40 92 Room Air 11/30/23 10:30 97 Oxymask 2 11/30/23 10:20 100 Oxymask 7 11/30/23 10:14 96 Oxymask 7 11/30/23 07:11 95 Room Air PG Care Time/CCT Total # of Minutes Spent Total Time Spent with Patient: Total time spent is greater than 50% in coordination of care (as documented) at patient's floor/unit and/or counseling patient: Coding
[2023-11-30] MEDS: CETIRIZINE HCL 10 MG TABLET PO SCH (13:13)
[2023-11-30] MEDS: dilTIAZem HCL 120 MG CAPCR PO SCH (13:13)
--- NOTE | 2023-11-30 15:06 | Hospitalist Consultation ---
Date of Consultation November 30, 2023 Assessment & Plan (1) Arthritis of right knee: Assessment: 1. End-stage osteoarthritis right knee status post right total knee arthroplasty postop day 0 today. 2. Obstructive sleep apnea the patient does not have her home CPAP. Will order CPAP. Titrate for comfort. 3. Paroxysmal atrial fibrillation on chronic Xarelto therapy this has been restarted by orthopedics appropriately. 4. Hypothyroidism continue home medications. 6. Dyslipidemia continue home medications. 7. Diabetes mellitus type 2 insulin sliding scale been ordered. 8. Asthma without acute exacerbation. 9. History of gastroesophageal flux disease. 10. History of pulmonary hypertension follows with pulmonology as an outpatient. Plan as discussed above. Will obtain some postoperative laboratory studies in the morning. CPAP's been ordered. Please refer to orders for further planning. Thank you for the opportunity to participate in the care of Ms. Castellon she continues to convalesce her right total knee arthroplasty. History of Present Illness Reason for Consultation: Postoperative medical care. Status post right total knee arthroplasty postop day 0. Attending Physician: Nehemiah Allen DO History of Present Illness Pleasant 68-year-old female who presented to the hospital today to undergo elective right total knee arthroplasty today with orthopedics. Per the operative note procedure went well hospitalist consultation was obtained postoperatively for Co. medical management during her stay. Patient has no significant complaints at this time whatsoever. She is already eaten and she Is extremely time alert. Allergies Allergy/AdvReac Type Severity Reaction Status Date / Time shellfish derived Allergy Mild gout Verified 11/30/23 07:05 oxycodone AdvReac Mild Gastrointestinal Verified 11/30/23 07:05 Upset Home Medications Medication Instructions Recorded Confirmed Type blood sugar diagnostic (Accu-Chek #10 ea 04/21/19 11/24/23 History SmartView Test Strips) blood-glucose meter (Accu-Chek #1 ea 04/21/19 11/24/23 History Nikki) lancets 30 gauge (OneTouch Delica #25 ea 04/21/19 11/24/23 History Lancets) calcium carbonate 500 mg calcium 500 mg PO QAM 04/25/19 11/30/23 History (1,250 mg) tablet (Calcium 500) magnesium 500 mg tablet 500 mg PO QAM 06/04/20 11/30/23 History Auto Titrating CPAP #1 ea 06/21/20 11/24/23 Rx CPAP Supplies #1 ea 06/21/20 11/24/23 Rx furosemide 20 mg tablet 20 mg PO QAM #90 tabs 11/30/22 11/30/23 Rx cetirizine 10 mg tablet (Zyrtec) 10 mg PO 1300 12/28/22 11/30/23 History edbjyfuz-muz-yotkfn 5 mg-zeaxanth 1 cap PO QAM 12/28/22 11/30/23 History 1 mg-bilberry 7.5 mg-herbal capsule (Macular Health Formula) rivaroxaban 20 mg tablet (Xarelto) 20 mg PO 1300 #90 tabs 03/01/23 11/30/23 Rx allopurinol 100 mg tablet 100 mg PO QPM #90 tabs 04/12/23 11/30/23 Rx (Zyloprim) diltiazem HCl 120 mg capsule,24 120 mg PO 1300 #90 caps 04/12/23 11/30/23 Rx hr,extended release (Tiazac) albuterol sulfate 90 mcg/actuation 2 puff inhalation QID PRN 06/22/23 11/30/23 Rx aerosol inhaler bronchospasm #8.5 grams albuterol sulfate 2.5 mg/3 mL 2.5 mg (3 mL) inhalation QID PRN 07/01/23 11/30/23 Rx (0.083 %) solution for nebulization Shortness Of Breath Or Wheezing #75 mL benzonatate 100 mg capsule 100 mg PO TID PRN cough #20 caps 07/01/23 11/30/23 Rx fluticasone propionate 50 1 spray intranasal BID #18.2 mL 07/13/23 11/30/23 Rx mcg/actuation nasal spray,suspension (Flonase Allergy Relief) levothyroxine 150 mcg tablet 150 mcg PO QAM #90 tabs 09/27/23 11/30/23 Rx montelukast 10 mg tablet 10 mg PO QPM #90 tabs 09/28/23 11/30/23 Rx (Singulair) atorvastatin 20 mg tablet 20 mg PO UD 10/28/23 11/30/23 History metformin 500 mg tablet,extended 500 mg PO QAM 10/28/23 11/30/23 History release 24 hr oxybutynin chloride 10 mg 10 mg PO QAM #90 tabs 11/01/23 11/30/23 Rx tablet,extended release 24 hr losartan 50 mg tablet 50 mg PO QAM #100 tabs 11/22/23 11/30/23 Rx fluticasone furoate 100 1 inh inhalation DAILY #60 ea 11/23/23 11/30/23 Rx mcg-vilanterol 25 mcg/dose inhalation powder (Breo Ellipta) Patient History Medical History Left ventricular outflow tract obstruction reported on 07/2023 echo History of diverticulitis more than 10 yrs ago Pulmonary hypertension [facility] pulmonary monitoring, felt to be likely from underlying obesity as well as REYNALDO/OHS Morbid obesity Urinary incontinence chronic, denies change or worsening Chronic back pain Acid reflux Hx, no recent issues NEZ PERCE (hard of hearing) Atrial fibrillation Dx 3 years ago, reason for Xarelto Follows with Dr. Cecil Mata Obstructive sleep apnea of adult CPAP (compliant) Colon polyp 12/2012 tubular adenoma 02/2017 sessile serrated adenoma (recheck in 5 years) Hyperlipidemia Hypothyroidism Type 2 diabetes mellitus NIDDM Hypertension controlled, stable per pt Asthma controlled, stable per pt; last rescue inhaler use 07/2023 Surgical History H/O ventral hernia repair Laparoscopic ventral hernia repair (05/14/22): Grade 2 view, ETT 7 at [facility] History of tubal ligation History of hysterectomy History of wisdom tooth extraction History of tonsillectomy and adenoidectomy History of hernia repair umbilical H/O oral surgery H/O colonoscopy sessile serrated adenoma, recheck in 5 years, Case Family History Mother Diabetes Breast cancer Hypertension Father Prostate cancer Brother Diabetes Hypertension Other No family history of adverse response to anesthesia Denies family history of Ovarian cancer Myocardial infarction Colorectal cancer Social History Smoking Status: Never smoker Tobacco Type: Cigarettes Age Started Using Tobacco: 17; Age Quit Using Tobacco: 33; Second Hand Exposure: No; Do You Dip or Chew Tobacco: No; Tobacco Cessation Education Requested by Patient: No Hx Alcohol Use: No Hx Substance Use: No Preferred Language: [place] Islander Communication Ability: Effective Visual Impairment: No Limitations Hearing Ability: Normal Insole Doubler Required: No Beliefs That Will Affect Care: None marital status: Current Living Situation: Spouse current occupational status: retired 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 Physical Exam Physical Exam: In General: In general pleasant 68-year-old female who is alert and oriented x 3 at the time of my exam she is accompanied by her at the time of my examination. She has no complaints at this time. HEENT: Normocephalic atraumatic pupils are equal round and reactive to light bilaterally. No scleral icterus no conjunctival injection external auditory canals are patent septum is in the midline nose is without discharge oral mucosa is pink and moist without lesion. NECK: Supple no rigidity no lymphadenopathy no thyromegaly no carotid bruits no JVD no masses. HEART: Regular rate and rhythm I do not appreciate any ectopy or rub. No murmur. LUNGS: Clear to auscultation bilaterally and anteriorly with no evidence of adventitious sounds/wheezes rales or rhonchi. ABDOMEN: Soft nontender, no rebound, no peritoneal signs, positive bowel sounds, no appreciable organomegaly. EXTREMITIES: Extremities are neurovascularly intact. Peripheral pulses are palpable strong x 4. Right lower extremity is currently postoperatively dressed drain is in place. Dressings intact clean and dry.. NEUROLOGICAL: Cranial nerves II through XII are grossly intact with no focal deficit elicited upon examination. No tremor. Results & Data Results & Data Vital Signs (Past 12 Hours) Vital Signs Temp Pulse Pulse Pulse Resp BP BP 11/30/23 14:15 36.5 C 85 16 163/82 H 11/30/23 13:12 36.4 C L 87 18 154/88 H 11/30/23 12:15 36.4 C L 85 16 149/88 H 11/30/23 11:45 36.4 C L 76 16 121/78 11/30/23 11:15 11/30/23 11:15 36.4 C L 81 18 125/75 11/30/23 11:00 75 20 150/60 H 11/30/23 10:50 75 16 127/60 11/30/23 10:40 76 16 126/64 11/30/23 10:30 36.4 C L 75 17 124/59 L 11/30/23 10:20 82 15 120/50 L 11/30/23 10:14 36.2 C L 82 18 110/53 L 11/30/23 07:11 36.6 C 71 20 162/83 H Pulse Ox O2 Del Method O2 Flow Rate 11/30/23 14:15 97 Nasal Cannula 1 11/30/23 13:12 99 Nasal Cannula 2 11/30/23 12:15 95 Nasal Cannula 2 11/30/23 11:45 93 Room Air 11/30/23 11:15 Nasal Cannula 2 11/30/23 11:15 92 Room Air 11/30/23 11:00 95 Room Air 11/30/23 10:50 92 Room Air 11/30/23 10:40 92 Room Air 11/30/23 10:30 97 Oxymask 2 11/30/23 10:20 100 Oxymask 7 11/30/23 10:14 96 Oxymask 7 11/30/23 07:11 95 Room Air PG Care Time/CCT Total # of Minutes Spent Total Time Spent with Patient: Total time spent is greater than 50% in coordination of care (as documented) at patient's floor/unit and/or counseling patient: Coding Level of Care Code 85296 IN/OBS CONSULT LVL 4,60M Diagnoses Arthritis of right knee M17.11
[2023-11-30] MEDS: ceFAZolin 2000MG 2,000 MG/15 ML SYR IV SCH (16:58)
[2023-11-30] MEDS: MONTELUKAST SODIUM 10 MG TABLET PO SCH (20:39)
[2023-11-30] MEDS: SENNA 8.6 MG TAB PO SCH (20:39)
[2023-11-30] MEDS: DOCUSATE SODIUM 100 MG CAP PO SCH (20:39)
[2023-11-30] MEDS: allopurinoL 100 MG TAB PO SCH (20:40)
[2023-11-30] MEDS: FLUTICASONE PROPIONATE NA SPR 16 GM BTL NAE SCH (20:41)
[2023-12-01] MEDS: LEVOTHYROXINE SODIUM 150 MCG TABLET PO SCH (05:34)
[2023-12-01 06:04] LABS: Basophils # (auto) 0.01 K/uL (0.00-0.20); Basophils % (auto) 0.1 %; Hematocrit (blood only) 40.5 % (37.0-47.0); Hemoglobin 12.6 g/dl (12.0-16.0); Immature Granulocytes # (auto) 0.05 K/uL (0.01-0.20); Immature Granulocytes % (auto) 0.5 %; Lymphocytes % (auto) 10.1 %; Mean Corpuscular Hemoglobin 26.5 pg (25.0-34.0); Mean Corpuscular Hgb Conc 31.1 g/dL (32.0-36.0); Mean Corpuscular Volume 85.1 fL (80.0-100.0); Mean Platelet Volume 10.4 fL (9.4-12.4); Monocytes # (auto) 0.52 K/uL (0.11-0.59); Monocytes % (auto) 4.8 %; Neutrophils # (auto) 9.21 K/uL (1.40-6.50); Neutrophils % (auto) 84.5 %; Platelet Count 262 K/uL (130-400); RDW Coefficient of Variation 14.5 % (11.5-14.5); RDW Standard Deviation 44.9 fL (36.4-46.3); Red Blood Count 4.76 M/uL (4.20-5.40); White Blood Count 10.89 K/ul (4.8-10.8)
[2023-12-01 06:26] LABS: Albumin Globulin Ratio 1.5 (0.9-2); Albumin Level 3.5 gm/dl (3.4-5.0); BUN Creatinine Ratio 30.9 (10-20); Bilirubin,Total 0.5 mg/dl (0.2-1.0); Creatinine Clr Calc Pharmacy 72.9 ml/min; Est GFR (African American) 69.6 ml/min; Globulin 2.4 gm/dl (2.5-4.0); Potassium 4.6 mmol/L (3.5-5.1); Total Protein 5.9 gm/dl (6.0-8.3)
[2023-12-01 06:40] LABS: Thyroid Stimulating Hormone 0.488 uIu/ml (0.300-4.500)
--- NOTE | 2023-12-01 07:07 | Orthopedic Progress Note ---
Date of Service December 01, 2023 Assessment & Plan (1) History of total right knee replacement: Plan: POD #1 s/p Right TKA pt/ot dvt proph with [facility]/SCD/resume Xarelto plan for d/c home with HHPT Admission and Anticipated Discharge Date Admission Date: November 30, 2023 Subjective POD #1 s/p Right TKA Review of Systems Constitutional: no fever, no chills and no sweats Respiratory: no cough and no dyspnea Cardiovascular: no chest pain and no dyspnea Gastrointestinal: no abdominal pain, no nausea and no vomiting Physical Exam Physical Exam: Vital Signs Temp 36.8 C 11/30/23 22:25 Pulse 64 12/01/23 02:54 Resp 16 12/01/23 02:54 BP 146/71 H 12/01/23 02:54 Pulse Ox 95 12/01/23 02:54 O2 Del Method CPAP 12/01/23 02:54 O2 Flow Rate 1 11/30/23 14:15 FiO2 21 12/01/23 02:45 Intake & Output 11/30/23 12/01/23 12/01/23 18:59 06:59 18:59 Intake Total 3022.5 / 3959.167 936.667 / 3959.167 Output Total 665 / 715 50 / 715 Balance 2357.5 / 3244.167 886.667 / 3244.167 Weight 125.9 kg Intake: IV 1272.5 / 2209.167 936.667 / 2209.167 Lactated Ringe r's 1,000 ml @ 15 1000 / 1000 mls/hr IV .Q24 H [facility] Rx#: [id number] Sodium Chlorid e 0.9% 1,000 ml @ 936.667 / 936.667 100 mls/hr IV .Q10H [facility] Rx#: [id number] Tranexamic Aci d / 0.7% NaCl 1, 200 / 200 000 mg In 100 ml @ 600 mls/hr IV TODAY@0600 [facility] Rx#:[id number] ceFAZolin 3000 MG 3,000 mg In 72 72.5 / 72.5 .5 ml @ 130 ml s/hr IV PREOP [facility]OS Rx#:[id number] IV Perioperative 1500 / 1500 Oral 250 / 250 Output: Urine 600 / 600 Estimated Blood Loss 15 / 15 Drain Output 50 / 100 50 / 100 Right Knee Hem ovac 50 / 100 50 / 100 Other: # Unmeasured Voi ds 1 Musculoskeletal: Right Leg: NVDI, calf SNT, negative sigifredo sign. DP palpable, able to wiggle toes/ankle movement without difficulty. dressing clean dry and intact. Results & Data Vital Signs (Past 12 Hours) Vital Signs Temp Pulse Pulse Resp BP Pulse Ox O2 Del Method 12/01/23 02:54 64 16 146/71 H 95 CPAP 12/01/23 02:45 17 11/30/23 22:39 73 19 93 11/30/23 22:25 36.8 C 72 18 92 Room Air 11/30/23 22:23 119/75 11/30/23 20:00 Room Air 11/30/23 19:25 36.6 C 85 16 167/77 H 93 Room Air FiO2 12/01/23 02:54 12/01/23 02:45 21 11/30/23 22:39 21 11/30/23 22:25 11/30/23 22:23 11/30/23 20:00 11/30/23 19:25 Laboratory Results Laboratory Results WBC 10.89 K/ul (4.8-10.8) H 12/01/23 05:37 RBC 4.76 M/uL (4.20-5.40) 12/01/23 05:37 Hgb 12.6 g/dl (12.0-16.0) 12/01/23 05:37 Hct 40.5 % (37.0-47.0) 12/01/23 05:37 MCV 85.1 fL (80.0-100.0) 12/01/23 05:37 MCH 26.5 pg (25.0-34.0) 12/01/23 05:37 MCHC 31.1 g/dL (32.0-36.0) L 12/01/23 05:37 RDW Std Deviation 44.9 fL (36.4-46.3) 12/01/23 05:37 RDW Coeff of [place] 14.5 % (11.5-14.5) 12/01/23 05:37 Plt Count 262 K/uL (130-400) 12/01/23 05:37 MPV 10.4 fL (9.4-12.4) 12/01/23 05:37 Immature Gran % (Auto) 0.5 % 12/01/23 05:37 Neut % (Auto) 84.5 % 12/01/23 05:37 Lymph % (Auto) 10.1 % 12/01/23 05:37 [place] % (Auto) 4.8 % 12/01/23 05:37 Eos % (Auto) 0.0 % 12/01/23 05:37 Baso % (Auto) 0.1 % 12/01/23 05:37 Neut # (Auto) 9.21 K/uL (1.40-6.50) H 12/01/23 05:37 Lymph # (Auto) 1.10 K/uL (1.20-3.40) L 12/01/23 05:37 [place] # (Auto) 0.52 K/uL (0.11-0.59) 12/01/23 05:37 Eos # (Auto) 0.00 K/uL (0.00-0.50) 12/01/23 05:37 Baso # (Auto) 0.01 K/uL (0.00-0.20) 12/01/23 05:37 Immature Gran # (Auto) 0.05 K/uL (0.01-0.20) 12/01/23 05:37 Sodium 139 mmol/L (136-145) 12/01/23 05:37 Potassium 4.6 mmol/L (3.5-5.1) 12/01/23 05:37 Chloride 107 mmol/L (98-107) 12/01/23 05:37 Carbon Dioxide 27 mmol/L (21-32) 12/01/23 05:37 Anion Gap 5 (3-11) 12/01/23 05:37 BUN 30 mg/dl (6-23) H 12/01/23 05:37 Creatinine 0.97 mg/dl (0.6-1.2) 12/01/23 05:37 Est Cr Clr Drug Dosing 72.9 ml/min 12/01/23 05:37 Est GFR ( Amer) 69.6 ml/min 12/01/23 05:37 Est GFR (Non-Af Amer) 60.0 ml/min 12/01/23 05:37 BUN/Creatinine Ratio 30.9 (10-20) H 12/01/23 05:37 Glucose 162 mg/dl (70-99(Fasting)) H 12/01/23 05:37 POC Glucose 191 mg/dl (70-99) H 11/30/23 20:36 Calcium 9.0 mg/dl (8.6-10.3) 12/01/23 05:37 Total Bilirubin 0.5 mg/dl (0.2-1.0) 12/01/23 05:37 AST 11 U/L (13-39) L 12/01/23 05:37 ALT 10 U/L (7-52) 12/01/23 05:37 Alkaline Phosphatase 63 U/L (34-104) 12/01/23 05:37 Total Protein 5.9 gm/dl (6.0-8.3) L 12/01/23 05:37 Albumin 3.5 gm/dl (3.4-5.0) 12/01/23 05:37 Globulin 2.4 gm/dl (2.5-4.0) L 12/01/23 05:37 Albumin/Globulin Ratio 1.5 (0.9-2) 12/01/23 05:37 TSH 0.488 uIu/ml (0.300-4.500) 12/01/23 05:37 Impressions Knee X-Ray 11/30/23 09:06 TWO VIEWS RIGHT KNEE CLINICAL HISTORY: Postoperative examination. FINDINGS: AP and crosstable lateral portable views of the right knee are obtained. A right knee arthroplasty is in near anatomic alignment. There has been undersurface remodeling of the patella. No acute fracture is seen. There are expected postoperative changes around the knee including skin clips, a surgical drain, soft tissue edema, and subcutaneous gas. IMPRESSION: Expected postoperative changes status post right knee arthroplasty. No acute fracture is seen. ACT 112: Negative or not required by law. Electronically signed by: Mina Gibbons M.D. 11/30/2023 10:35 AM
--- NOTE | 2023-12-01 07:20 | Discharge Summary ---
Date of Service date of discharge: December 01, 2023 date of admission: 11/30/23 Admission HPI Per Admitting Provider Erin is a 68-year-old female who presented for preop evaluation prior to upcoming right total knee arthroplasty. She states her knee pain is gradually worsened and is now affecting her daily activities, has undergone previous cortisone injection as well as viscosupplementation with no improvement. She rates her pain as a 7 out of 10, is complaints of pain decreased range of motion and weakness. After discussing further care with Dr. Silverio, has elected to proceed with a right total knee replacement. She is unable to take anti- inflammatories secondary to using Xarelto Principal Diagnosis Right knee osteoarthritis Discharge Exam Vital Signs Temp 36.8 C 11/30/23 22:25 Pulse 64 12/01/23 02:54 Resp 16 12/01/23 02:54 BP 146/71 H 12/01/23 02:54 Pulse Ox 95 12/01/23 02:54 O2 Del Method CPAP 12/01/23 02:54 O2 Flow Rate 1 11/30/23 14:15 FiO2 21 12/01/23 02:45 Intake & Output 11/30/23 12/01/23 12/01/23 18:59 06:59 18:59 Intake Total 3022.5 / 3959.167 936.667 / 3959.167 Output Total 665 / 715 50 / 715 Balance 2357.5 / 3244.167 886.667 / 3244.167 Weight 125.9 kg Intake: IV 1272.5 / 2209.167 936.667 / 2209.167 Lactated Ringer's 1,000 ml @ 15 1000 / 1000 mls/hr IV .Q24H [facility] Rx#: [id number] Sodium Chloride 0.9% 1,000 ml @ 936.667 / 936.667 100 mls/hr IV .Q10H [facility] Rx#: [id number] Tranexamic Acid / 0.7% NaCl 1, 200 / 200 000 mg In 100 ml @ 600 mls/hr IV TODAY@0600 [facility] Rx#:[id number] ceFAZolin 3000MG 3,000 mg In 72 72.5 / 72.5 .5 ml @ 130 mls/hr IV PREOP [facility] Rx#:[id number] IV Perioperative 1500 / 1500 Oral 250 / 250 Output: Urine 600 / 600 Estimated Blood Loss 15 Drain Output 50 / 100 50 / 100 Right Knee Hemovac 50 / 100 50 / 100 Other: # Unmeasured Voids 1 Discharge Data Allergies Allergy/AdvReac Type Severity Reaction Status Date / Time shellfish derived Allergy Mild gout Verified 11/30/23 07:05 oxycodone AdvReac Mild Gastrointestinal Verified 11/30/23 07:05 Upset Consultations 11/30/23 11:12 Consult Hospitalist Routine Procedures Performed Operation Date: 11/30/23 08:15 Actual Procedures p Right Total Knee Arthroplasty(Right) - Nehemiah Silverio DO Ordered Studies 11/30/23 05:00 US - OR guided needle placemen Routine Hospital Course (1) History of total right knee replacement: POD #1 s/p Right TKA pt/ot dvt proph with BHUMI/SCD/resume Xarelto plan for d/c home with HHPT Total Time Total Time Spent Total Time Spent (In Minutes): 20 Discharge Plan Discharge Items Patient Disposition: Home - Home Health Services Reason For Visit: Right Knee Osteoarthritis Discharge Diagnosis: right total knee replacement Activity: Per Instructions section Weightbearing Comment: WBAT with walker Non-emergency contact: Surgeon Call non-emergency contact if: your temperature is above 101, your wound has increased redness, your wound has increased drainage and your wound pain has increased Follow-up/Referrals: Chandni Gonzalez CRNP [Primary Care Provider] - Diet: Regular Addtl Attending Provider Instructions: ACTIVITY RECOMMENDATIONS: SELF CARE INSTRUCTIONS AFTER TOTAL KNEE REPLACEMENT A. You may need to continue a physical therapy program after discharge from the hospital. There are several options available to you. Your doctor will assist you in selecting the best one for you. 1. An out-patient facility 2 to 3 times a week for therapy or home therapy. 2. Continue working on all exercises taught to you in the hospital. Your goals should be to increase bending of your knee to 90 degrees and beyond and to fully straighten your knee. B. You may progress at your own pace from walking with a walker or crutches to a cane; then to no assistive devices. C. Make walking a part of your daily routine. Be up as much as comfortable with rest periods throughout the day. Rest with leg elevation is very important. Use the ice wrap frequently for the first 3-4 weeks. D. There are no restrictions on activities. You may ride in a car, shop, participate in commissions specialist and all social activities. E. Wear the long elastic stockings (BHUMI hose) 20 hours a day for 2 weeks after surgery. They can be removed several times a day for laundering and for a bath. F. You may shower, no tub baths until cleared by your doctor. SPECIAL CARE INSTRUCTIONS: VERY IMPORTANT TO READ AND REVIEW A. There are a few signs you need to watch for after you are home. Call [facility] if you notice any of the followin. Increased severe knee pain. Some pain is expected especially when you exercise. 2. Increased swelling in your leg or knee; pain or swelling of the calf muscle in either lower leg. 3. Any fluid drainage from the incision. 4. Shortness of breath or chest pain. B. Please call [facility] at if you have any concerns or questions about your operation or recovery. The doctor or his nurse will return your call promptly. C. You must take antibiotics before dental work, bladder, bowel or other surgery. Your doctor will provide you with a permanent care to carry describing this precaution. IMPORTANT: * REMEMBER TO TAKE ASPIRIN, 81 MG, TWICE DAILY FOR 4 WEEKS UNLESS OTHERWISE DIRECTED. THIS IS YOUR BLOOD THINNER. * HIGH RISK PATIENTS MAY BE PRESCRIBED A STRONGER BLOOD THINNER. THIS WILL BE PROVIDED AT DISCHARGE. * CALL IF INCREASED PAIN, REDNESS, DRAINAGE OR FEVER GREATER THAT 101. * WEAR BHUMI HOSE 20 HOURS PER DAY FOR 2 WEEKS. DRESSING INSTRUCTIONS * ROBIN Dressing- This is a large suction dressing covering your incision. This will help pull any excess drainage from the wound and allow your incision to heal properly. You may shower with this if you can keep the unit outside of the shower. If any bleeding or leakage is noted please call your doctor's office. This will remain on your incision for 7 days and then should be removed. This can be done yourself or by the home nursing staff if applicable. The entire unit is disposable once removed. Once removed, keep incision clean and dry. If redness or drainage is noted, please call your surgeon. ONCE ROBIN IS REMOVED, FOLLOW THESE INSTRUCTIONS: DERMABOND Prineo- This is a mesh tape dressing that is covered with glue. It should remain in place until the incision is properly healed, usually 10-14 days. This dressing is designed to naturally slough off. You may trim the excess mesh tape as it peels off. Incision may be briefly wet in a shower. Dry immediately by blotting with a clean, dry towel. Do not bath or swim until instructed by your doctor. Do not scratch, rub, or pick at the dressing. Do n ot apply any topical ointments or lotions until dressing is completely removed and/or instructed by your doctor. There may be a small piece of suture material at one end of your incision. Do not pull or trim this. If it is bothersome or catching on clothing, you may cover it with a band-aid. IF INCISION IS LEAKING THROUGH DRESSING, CALL THE OFFICE . FOLLOW UP VISIT: If appointment is not already scheduled: Please call [facility] to make a follow-up appointment for 2 weeks after your surgery at . Pending Studies at Discharge: No Stand-Alone Forms: My [facility] Medications and DC Order Prescriptions: New acetaminophen 500 mg tablet 1,000 mg PO Q8 21 Days Qty: 126 0RF cefadroxil 500 mg capsule 500 mg PO BID 14 Days Qty: 28 0RF docusate sodium 100 mg Capsule 100 mg PO BID Qty: 20 0RF oxycodone 5 mg tablet 5 - 10 mg PO Q6H PRN (Reason: pain) Qty: 30 0RF Rx Instructions: ongoing therapy, supervising dr zeus silverio. max 6 tabs in 24 hours Continued furosemide 20 mg tablet 20 mg PO QAM Qty: 90 3RF Xarelto 20 mg tablet 20 mg PO 1300 Qty: 90 3RF allopurinol [Zyloprim] 100 mg tablet 100 mg PO QPM Qty: 90 3RF diltiazem HCl [Tiazac] 120 mg capsule,extended release 24 hr 120 mg PO 1300 Qty: 90 3RF levothyroxine 150 mcg tablet 150 mcg PO QAM Qty: 90 3RF montelukast [Singulair] 10 mg tablet 10 mg PO QPM Qty: 90 4RF oxybutynin chloride 10 mg tablet extended release 24hr 10 mg PO QAM Qty: 90 3RF losartan 50 mg tablet 50 mg PO QAM Qty: 100 3RF fluticasone furoate-vilanterol [Breo Ellipta] 100-25 mcg/dose blister with device 1 inh inhalation DAILY Qty: 60 3RF fluticasone propionate [Flonase Allergy Relief] 50 mcg/actuation spray,suspension 1 spray intranasal BID Qty: 18.2 2RF Rx Instructions: administer into each nostril (DME) Accu-Chek SmartView Test Strip strip See Dose Instructions .ROUTE .MEDSUPPLY Qty: 10 Rx Instructions: CHECK BLOOD SUGAR ONCE DAILY BEFORE ANY MEAL (DME) blood-glucose meter [Accu-Chek Nikki] misc See Dose Instructions .ROUTE .MEDSUPPLY Qty: 1 Rx Instructions: USE TO CHECK BLOOD SUGAR ONCE DAILY (DME) lancets [Peach LabsTouch Delica Lancets] 30 gauge misc See Dose Instructions .ROUTE .MEDSUPPLY Qty: 25 Rx Instructions: USE TO CHECK BLOOD SUGAR ONCE DAILY calcium carbonate [Calcium 500] 500 mg calcium (1,250 mg) tablet 500 mg PO QAM (DME) Auto Titrating CPAP Misc See Rx Instructions .ROUTE .MEDSUPPLY Qty: 1 0RF Rx Instructions: Auto PAP with 10-20mm H20. Lifetime usage. G47.33 (DME) CPAP Supplies Misc See Rx Instructions .ROUTE .MEDSUPPLY Qty: 1 0RF Rx Instructions: CPAP supplies. G47.33 albuterol sulfate 90 mcg/actuation HFA aerosol inhaler 2 puff inhalation QID PRN (Reason: bronchospasm) Qty: 8.5 3RF magnesium 500 mg Tablet 500 mg PO QAM cetirizine [Zyrtec] 10 mg Tablet 10 mg PO 1300 [facility] Formula 5-1-7.5 mg Capsule 1 cap PO QAM benzonatate 100 mg Capsule 100 mg PO TID PRN (Reason: cough) Qty: 20 0RF albuterol sulfate 2.5 mg /3 mL (0.083 %) solution for nebulization 2.5 mg inhalation QID PRN (Reason: Shortness Of Breath Or Wheezing) Qty: 75 0RF atorvastatin 20 mg tablet 20 mg PO UD Rx Instructions: Take Q Wednesday metformin 500 mg tablet extended release 24 hr 500 mg PO QAM Admission Data Admit Date/Time: 11/30/23 09:06 Attending Provider: Nehemiah Silverio Admit Provider: Nehemiah Silverio Primary Care Provider: Chandni Gonzalez Other Providers: Juan Pittman; Gay Garcia; Narciso Garcia; Manuel Velazco; Nehemiah Ovalle; Nino Cardenas; Akosua Yates; Kayleen Carmichael; Alissa Rubio; Skip Frank; Mitul Patel; Tyra Posey; Brenden Fallon; Narciso Beyer; Esa Roche; Suha Hall; Maria D Barbosa; Wild Lugo; Hodan Ash; Kenji Caro; Geraldo Smith; Darvin Gudino; Filomena Arthur; Felisa Carlisle; Josh Penn; John Gross; Manuel Walker; Nehemiah Sanchez; Cathryn Ochoa
[2023-12-01] MEDS: CALCIUM CARBONATE 1250MG TAB PO SCH (08:15)
[2023-12-01] MEDS: OXYBUTYNIN CHLORIDE XL 5 MG TABCR PO SCH (08:15)
[2023-12-01] MEDS: MAGNESIUM OXIDE 400 MG TAB PO SCH (08:15)
[2023-12-01] MEDS: LOSARTAN POTASSIUM 50 MG TAB PO SCH (08:15)
[2023-12-01] MEDS: FLUTICASONE/VILANTEROL 100/25MCG 14 PUFFS/INHALER INH SCH (08:18)
[2023-12-01] MEDS: MULTIVITAMIN TAB PO SCH (08:20)
[2023-12-01] MEDS: ATORVASTATIN 20 MG TAB PO SCH (08:20)
[2023-12-01] MEDS: LANTUS PER UNIT CHARGE SC ONE (08:31)
[2023-12-01] MEDS ORDERED: RIVAROXABAN 20 MG TAB PO SCH (13:00)
== END 2023-12-01 10:56 | disposition home health service (06) ==
LOC: 3E 06:40 → ASU 06:40

== ENCOUNTER 2024-07-07 15:02 | Observation (INO) ==
--- NOTE | 2024-07-07 15:44 | Emergency Department Note ---
History of Present Illness General Chief complaint: Cardiac Assessment Stated complaint: THINKS IS IN AFIB Time Seen by Provider: 07/07/24 15:30 Source: patient, family ( who is at the bedside), RN notes reviewed and old records reviewed (07/07/24-primary care office visit for URI) Mode of arrival: ambulatory Limitations: no limitations History of Present Illness This patient is a 69-year-old female comes in with concern for being in A-fib she has long history of A-fib and is on a Xarelto. She had a cough for couple days and has been primarily nonproductive with a little bit of production today she saw her doctor today and was started on Z-Chris and steroids and Tessalon Perles she did not have any issues then. About 130 she started feeling like she was back in A-fib like she has been in the past. She has some jaw pain but feels better now she did take kill diltiazem at 130 as well which is 120 mg. She has had no fever. no lower extremity pain or swelling .no fall or trauma she has a history of type with hypothyroidism but no recent med changes. No numbness or weakness. She had taken albuterol neb at 130 prior to this happening. She denies chest pain Home Medications Medication Instructions Recorded Confirmed Type blood sugar diagnostic (Accu-Chek #10 ea 04/21/19 07/07/24 History SmartView Test Strips) blood-glucose meter (Accu-Chek #1 ea 04/21/19 07/07/24 History Nikki) lancets 30 gauge (OneTouch Delica #25 ea 04/21/19 07/07/24 History Lancets) calcium carbonate (Calcium 500) 500 mg PO QAM 04/25/19 07/07/24 History magnesium 500 mg tablet 500 mg PO QAM 06/04/20 07/07/24 History Auto Titrating CPAP #1 ea 06/21/20 07/07/24 Rx CPAP Supplies #1 ea 06/21/20 07/07/24 Rx cetirizine 10 mg tablet (Zyrtec) 10 mg PO QPM 12/28/22 07/07/24 History qxmtymen-mfs-bkybfz 5 mg-zeaxanth 1 cap PO QAM 12/28/22 07/07/24 History 1 mg-bilberry 7.5 mg-herbal capsule ([facility] Formula) levothyroxine 150 mcg tablet 150 mcg PO QAM #90 tabs 09/27/23 07/07/24 Rx oxybutynin chloride 10 mg 10 mg PO QAM #90 tabs 11/01/23 07/07/24 Rx tablet,extended release 24 hr losartan 50 mg tablet 50 mg PO QAM #100 tabs 11/22/23 07/07/24 Rx furosemide 20 mg tablet 20 mg PO QAM #90 tabs 12/27/23 07/07/24 Rx metformin 500 mg tablet,extended 500 mg PO QAM #90 tabs 01/10/24 07/07/24 Rx release 24 hr albuterol sulfate 90 mcg/actuation 2 puff inhalation QID PRN 01/13/24 07/07/24 Rx aerosol inhaler bronchospasm #8.5 grams allopurinol 100 mg tablet 100 mg PO QPM #90 tabs 03/30/24 07/07/24 Rx (Zyloprim) diltiazem HCl 120 mg capsule,24 120 mg PO QPM 05/29/24 07/07/24 History hr,extended release (Tiazac) fluticasone furoate 100 1 inh inhalation QAM 05/29/24 07/07/24 History mcg-vilanterol 25 mcg/dose inhalation powder (Breo Ellipta) fluticasone propionate 50 1 spray intranasal BID PRN 05/29/24 07/07/24 History mcg/actuation nasal Congestion spray,suspension (Flonase Allergy Relief) montelukast 10 mg tablet 10 mg PO HS 05/29/24 07/07/24 History (Singulair) rivaroxaban 20 mg tablet (Xarelto) 20 mg PO QPM 05/29/24 07/07/24 History oxycodone-acetaminophen 5 mg-325 1 - 2 tab PO .q4-6h PRN pain, for 06/08/24 07/07/24 Rx mg tablet (Percocet) initial therapy, max 6 tabs per day #18 tabs atorvastatin 20 mg tablet 20 mg PO UD #12 tabs 06/28/24 07/07/24 Rx albuterol sulfate 2.5 mg/3 mL 2.5 mg (3 mL) inhalation QID PRN 07/07/24 07/07/24 Rx (0.083 %) solution for nebulization Shortness Of Breath Or Wheezing #75 mL azithromycin 250 mg tablet See Rx Instructions PO .COMPLEX #6 07/07/24 07/07/24 Rx tabs benzonatate 100 mg capsule 100 - 200 mg PO Q8H PRN cough 07/07/24 07/07/24 History prednisone 10 mg tablet 10 mg PO .COMPLEX #30 tabs 07/07/24 07/07/24 Rx Allergies Allergy/AdvReac Type Severity Reaction Status Date / Time shellfish derived Allergy Mild gout Verified 07/07/24 09:30 oxycodone AdvReac Mild Gastrointestinal Verified 07/07/24 09:30 Upset Past Med/Surg History Problem List (Updated 07/07/24 @ 18:24 by Pk Shepard MD) Reactive airway disease (Acute) Jaw pain (Acute) Current use of alf anticoagulation (Acute) Cough (Acute) Atrial fibrillation with RVR (Acute) URI (upper respiratory infection) H/O hemorrhoidectomy (06/08/24) Hemorrhoidectomy(Not Applicable) - Derrek Madden, DO Current use of poiser balance anticoagulation External hemorrhoids History of total right knee replacement Arthritis of right knee Abnormal CXR Acute bronchitis with asthma with acute exacerbation Osteoarthritis of left knee H/O ventral hernia repair Laparoscopic ventral hernia repair (05/14/22): Grade 2 view, ETT [address] [facility] Encounter for pre-operative examination Morbid obesity Recurrent umbilical hernia Screening for osteoporosis Urinary incontinence chronic, denies change or worsening History of colon polyps Allergic rhinitis with postnasal drip Abnormal computerized axial tomography of chest Gout Cough (Acute) Obesity (Acute) Obstructive sleep apnea of adult (Acute) CPAP (compliant) Colon polyp 12/2012 tubular adenoma 02/2017 sessile serrated adenoma (recheck in 5 years) Hyperlipidemia (Chronic) Hypothyroidism (Chronic) Atrial fibrillation (Chronic) Type 2 diabetes mellitus (Chronic) NIDDM Hypertension controlled, stable per pt Asthma (Acute) controlled, stable per pt; last rescue inhaler use 07/2023 Medical History Hx of colonic polyps Hyperlipidemia Chronic cough Gout Allergic rhinitis with postnasal drip Asthma daily and prn inh/neb Urinary incontinence chronic, denies change or worsening Type 2 diabetes mellitus NIDDM Hypothyroidism Hypertension REYNALDO (obstructive sleep apnea) CPAP Left ventricular outflow tract obstruction reported on 07/2023 echo History of diverticulitis prior to 2014 Pulmonary hypertension [facility] pulmonary monitoring, felt to be likely from underlying obesity as well as REYNALDO/OHS Chronic back pain Acid reflux Hx, no recent issues MOAPA (hard of hearing) Atrial fibrillation reason for Xarelto; Follows with Dr. Jacob Surgical History H/O ventral hernia repair Laparoscopic ventral hernia repair (05/14/22): Grade 2 view, ETT [address] [facility] History of total right knee replacement History of total left knee replacement History of tubal ligation History of hysterectomy History of wisdom tooth extraction History of tonsillectomy and adenoidectomy History of hernia repair umbilical H/O oral surgery H/O colonoscopy sessile serrated adenoma, recheck in 5 years, Dr Reyez Family History Mother Diabetes Breast cancer Hypertension Father Prostate cancer Brother Diabetes Hypertension Other No family history of adverse response to anesthesia Denies family history of Ovarian cancer Myocardial infarction Colorectal cancer Social History Smoking Status: Former smoker Tobacco Type: Cigarettes Age Started Using Tobacco: 17; Age Quit Using Tobacco: 33; packs per day: 0.25; Second Hand Exposure: Yes (hx as child); Do You Dip or Chew Tobacco: No; Hx Alcohol Use: No Hx Substance Use: No Preferred Language: Guatemalan Communication Ability: Effective Visual Impairment: No Limitations Hearing Ability: Normal Operating Room Coordinator Required: No Beliefs That Will Affect Care: None marital status: Current Living Situation: Spouse current occupational status: retired 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 Feels Safe at Home: Yes Childhood Exposure to Second-Hand Smoke: Yes Diet: regular Dental Care, Regularly: Yes Physical Activity Frequency: Does not Exercise Seatbelt Use: always Sunscreen Use: Yes Assistive Devices: CPAP, Glasses and Nebulizer Review of Systems A total of 10 systems reviewed and were otherwise negative Physical Exam Vital Signs Vital Signs - 24 hr 07/07/24 15:03 07/07/24 15:15 07/07/24 15:36 Temperature 36.6 C Temperature Source Temporal Artery Scan Pulse Rate 126 H 128 H Pulse Rate [Finger] Pulse Rate from SpO2 Sensor Respiratory Rate 18 19 Respiratory Effort / Characteristics Short of Breath SOB on Exertion Respiratory Depth Normal Blood Pressure 117/80 152/99 H Blood Pressure [Right Arm] Blood Pressure Mean 92 116 Blood Pressure Mean [Right Arm] Pulse Oximetry 95 Oxygen Delivery Method Room Air Sepsis Recent Fever Within 48 Hours No Sepsis New/Unexplained Change in Mental Status N/A Sepsis Action Taken by Nursing No Action Required 07/07/24 16:00 07/07/24 16:04 07/07/24 16:30 Temperature Temperature Source Pulse Rate 122 H 122 H 105 H Pulse Rate [Finger] Pulse Rate from SpO2 Sensor 128 H 104 H Respiratory Rate 22 23 Respiratory Effort / Characteristics Respiratory Depth Blood Pressure 133/79 99/82 L Blood Pressure [Right Arm] Blood Pressure Mean 97 87 Blood Pressure Mean [Right Arm] Pulse Oximetry 91 91 Oxygen Delivery Method Sepsis Recent Fever Within 48 Hours Sepsis New/Unexplained Change in Mental Status Sepsis Action Taken by Nursing 07/07/24 16:54 07/07/24 17:00 07/07/24 17:03 Temperature Temperature Source Pulse Rate 107 H Pulse Rate [Finger] 113 H Pulse Rate from SpO2 Sensor 108 H Respiratory Rate 25 H 20 Respiratory Effort / Characteristics Respiratory Depth Blood Pressure 147/102 H Blood Pressure [Right Arm] 147/102 H Blood Pressure Mean 122 Blood Pressure Mean [Right Arm] 117 Pulse Oximetry 93 93 Oxygen Delivery Method Room Air Sepsis Recent Fever Within 48 Hours Sepsis New/Unexplained Change in Mental Status Sepsis Action Taken by Nursing 07/07/24 17:30 Temperature Temperature Source Pulse Rate 111 H Pulse Rate [Finger] Pulse Rate from SpO2 Sensor 116 H Respiratory Rate 24 Respiratory Effort / Characteristics Respiratory Depth Blood Pressure 128/85 Blood Pressure [Right Arm] Blood Pressure Mean 99 Blood Pressure Mean [Right Arm] Pulse Oximetry 95 Oxygen Delivery Method Sepsis Recent Fever Within 48 Hours Sepsis New/Unexplained Change in Mental Status Sepsis Action Taken by Nursing General: Well developed well nourished [id number] middle-age female who appears in no acute distress, breathing comfortably on room air. Normal speech HEENT: Normal cephalic atraumatic. Pupils are equal round and reactive to light. Extraocular movements are intact. Oropharynx is pink with moist mucous membranes. No swelling of the mouth lips or tongue. Neck: Supple with a midline trachea. No meningeal signs or stiffness, no JVD or bruits. No Stridor. Chest: Clear to auscultation bilaterally. No wheezes or rhonchi. No increased work of breathing. Heart: Irregularly irregular rate and rhythm with a heart rate in the 120s Abdomen: Soft nontender, nondistended without rebound guarding or rigidity. Extremities: No cyanosis clubbing or edema. No calf tenderness or assymetry Spine/Back. Non tender to palpation. No CVA tenderness Skin: Good turgor without rashes. Neurologic exam: Cranial nerves two through 12 are intact. Motor and sensation are intact and symmetrical throughout. Course Administered Medications Magnesium Sulfate/Dextrose (Magnesium Sulfate / D5w) 1 gm in 100 mls @ 50 mls/hr IV ONE ONE Stop: 07/07/24 18:52 Last Admin: 07/07/24 17:01 Dose: 50 mls/hr Documented By: NATANAEL Discontinued Medications Diltiazem HCl (Diltiazem Hcl 5 Mg/Ml 5 Ml Vial) 5 mg IV NOW STA Stop: 07/07/24 16:00 Last Admin: 07/07/24 16:08 Dose: 5 mg Documented By: NATANAEL Co-signed By: NINOSKA Sodium Chloride (Nss) 500 mls @ 999 mls/hr IV .Q31M ONE Stop: 07/07/24 16:09 Last Infusion: 07/07/24 16:54 Dose: Infused Documented By: Admin: 07/07/24 15:45 Dose: 999 mls/hr Documented By: NATANAEL Medical Decision Making Differential Diagnosis Acute coronary syndrome, A-fib, arrhythmia, infection, COVID, electrolyte or metabolic abnormality, PE, pneumothorax, CHF Medical Records Attestation: I reviewed the patient's medical records. Home Medications Current Medication List: was personally reviewed by me Laboratory Data Attestation: I reviewed the patient's lab results. 07/07/24 15:26 07/07/24 15:26 Lab Results 07/07/24 07/07/24 Range/Units 15:26 15:45 WBC 6.45 (4.8-10.8) K/ul RBC 5.37 (4.20-5.40) M/uL Hgb 14.2 (12.0-16.0) g/dl Hct 45.6 (37.0-47.0) % MCV 84.9 (80.0-100.0) fL MCH 26.4 (25.0-34.0) pg MCHC 31.1 L (32.0-36.0) g/dL RDW Std Deviation 47.8 H (36.4-46.3) fL RDW Coeff of [place] 15.4 H (11.5-14.5) % Plt Count 291 (130-400) K/uL MPV 10.5 (9.4-12.4) fL Immature Gran % (Auto) 0.3 % Neut % (Auto) 84.8 % Lymph % (Auto) 11.6 % [place] % (Auto) 1.4 % Eos % (Auto) 1.4 % Baso % (Auto) 0.5 % Neut # (Auto) 5.47 (1.40-6.50) K/uL Lymph # (Auto) 0.75 L (1.20-3.40) K/uL [place] # (Auto) 0.09 L (0.11-0.59) K/uL Eos # (Auto) 0.09 (0.00-0.50) K/uL Baso # (Auto) 0.03 (0.00-0.20) K/uL Immature Gran # (Auto) 0.02 (0.01-0.20) K/uL Sodium 138 (136-145) mmol/L Potassium 4.2 (3.5-5.1) mmol/L Chloride 104 (98-107) mmol/L Carbon Dioxide 20 L (21-32) mmol/L Anion Gap 14 H (3-11) BUN 21 (6-23) mg/dl Creatinine 1.00 (0.6-1.2) mg/dl Est Cr Clr Drug Dosing 67.5 ml/min eGFR 60.98 BUN/Creatinine Ratio 21.0 H (10-20) Glucose 251 H (70-99(Fasting)) mg/dl Calcium 9.7 (8.6-10.3) mg/dl Magnesium 1.7 (1.7-2.4) mg/dl Total Bilirubin 0.6 (0.2-1.0) mg/dl AST 13 (13-39) U/L ALT 13 (7-52) U/L Alkaline Phosphatase 105 H (34-104) U/L Troponin I High Sens 5.3 (0-14) pg/ml B-Natriuretic Peptide 90 (0-100) pg/ml Total Protein 7.0 (6.0-8.3) gm/dl Albumin 4.1 (3.4-5.0) gm/dl Globulin 2.9 (2.5-4.0) gm/dl Albumin/Globulin Ratio 1.4 (0.9-2) Lipase 19 (11-82) U/L Adenovirus (PCR) Not Detected (NotDetected) B. pertussis DNA (PCR) Not Detected (NotDetected) B.parapertussis DNA PCR Not Detected (NotDetected) C. pneumoniae DNA (PCR) Not Detected (NotDetected) Coronavirus OC43 (PCR) Not Detected (NotDetected) Coronavirus HKU1 (PCR) Not Detected (NotDetected) Coronavirus 229E (PCR) Not Detected (NotDetected) SARS-CoV-2 (PCR) Not Detected (NotDetected) Coronavirus NL63 (PCR) Not Detected (NotDetected) Human Metapneumovir PCR Not Detected (NotDetected) Influenza Type A (PCR) Not Detected (NotDetected) Influenza Type B (PCR) Not Detected (NotDetected) M. pneumoniae (PCR) Not Detected (NotDetected) Parainfluenza 1 (PCR) Not Detected (NotDetected) Parainfluenza 2 (PCR) Not Detected (NotDetected) Parainfluenza 3 (PCR) Not Detected (NotDetected) Parainfluenza 4 (PCR) Not Detected (NotDetected) RSV (PCR) Not Detected (NotDetected) Entero/Rhino (PCR) Not Detected (NotDetected) Imaging Data Attestation: I personally reviewed and interpreted this imaging study as follows: My Impression: Chest x-raycardiomegaly megaly but no overt CHF pneumonia or pneumothorax seen. Radiologist's Impression: Chest X-Ray 07/07/24 15:38 XR chest 1V portable CLINICAL HISTORY: Chest pain, nonspecific. COMPARISON STUDY: Chest CT June 04, 2020. Chest radiograph July 28, 2023. FINDINGS: There is no pneumothorax or pleural effusion. Minimal left basilar opacity favors atelectasis or a epicardial fat pad. Cardiomediastinal silhouette is stable. Prominence of both gilson is unchanged and likely due to pulmonary vessels. There is pulmonary vascular congestion without evidence for pulmonary edema. There is no consolidation. IMPRESSION: 1. Pulmonary vascular congestion without overt pulmonary edema. 2. No consolidation to suggest pneumonia. ACT 112: Negative or not required by law. Electronically signed by: Ra Kong M.D. 07/07/2024 4:14 PM ECG Data Attestation: I personally reviewed and interpreted this ECG as follows: Indication: + palpitations Rate (beats per minute): 124 Rhythm: + atrial fibrillation ECG Intervals/blocks: + Normal QRS and + Normal QT ECG [place]: + Normal ECG ST segments: + Normal ST segments ECG Findings: no PACs or no PVCs Comparison ECG Date: from (07/08/23) Change: the following changes noted (A-fib has replaced normal sinus rhythm) Additional Comments: EKG #2: Normal sinus rhythm rate of 81, no acute ischemic changes or ectopy compared EKG #1, she is now in normal sinus rhythm and not in A-fib MDM Narrative This patient comes in as described above. She was placed on a patient monitor and room C9 she is concerned she is in A-fib it looks like she is based on her x-ray. She has been otherwise stable her rate is rapid although average in the 120s primarily. She has no chest pain at this point or shortness of breath she has had a recent URI she is not wheezing a full cardiac workup was ordered she had just taken Cardizem 120 mg at 130. She has no significant acrylate or metabolic abnormalities. I did discuss medications and consultation with Tu, her ED pharmacist. He recommends a small dose of Cardizem and she was given 5 mg IV she with this she slowed down and was in the 90s to 110s looks well. The rest of her workup was unremarkable thus far troponin is not elevated. she has no significant electrolyte or metabolic abnormality magnesium is 1.7. I did discuss the case at length with Dr. Tate in consultation. He is going to admit/observe her. He did see the patient in the ER and the patient was admitted on her way up. I went to check on her and it appears that she is in normal sinus rhythm now I got a second EKG which confirms this she looks well at present. . Continuous patient monitor call orders placed in EMR for continuous cardiac monitoring: Upon my evaluation she was noted to be in rapid A-fib in the rate in the 120s Impression & Plan Atrial fibrillation with RVR, Cough, Current use of alf anticoagulation, Jaw pain, Reactive airway disease Discharge Plan Visit Data Chief Complaint: Cardiac Assessment Stated Complaint: THINKS IS IN AFIB ED Provider: Pk Shepard Discharge Problem: Atrial fibrillation with RVR, Cough, Current use of alf anticoagulation, Jaw pain, Reactive airway disease Patient Disposition: Admitted As Inpatient Discharge Instructions Interventions: ED Discharge Assessment Last Done: 07/07/24 18:09 Forms Stand Alone Forms: My SCVNGR Prescriptions Prescriptions: No Action levothyroxine 150 mcg tablet 150 mcg PO QAM Qty: 90 3RF oxybutynin chloride 10 mg tablet extended release 24hr 10 mg PO QAM Qty: 90 3RF losartan 50 mg tablet 50 mg PO QAM Qty: 100 3RF furosemide 20 mg tablet 20 mg PO QAM Qty: 90 3RF metformin 500 mg tablet extended release 24 hr 500 mg PO QAM Qty: 90 3RF allopurinol [Zyloprim] 100 mg tablet 100 mg PO QPM Qty: 90 3RF atorvastatin 20 mg tablet 20 mg PO UD Qty: 12 3RF Rx Instructions: Take Q Wednesday (DME) Accu-Chek SmartView Test Strip strip See Dose Instructions .ROUTE .MEDSUPPLY Qty: 10 Rx Instructions: CHECK BLOOD SUGAR ONCE DAILY BEFORE ANY MEAL (DME) blood-glucose meter [Accu-Chek Nikki] misc See Dose Instructions .ROUTE .MEDSUPPLY Qty: 1 Rx Instructions: USE TO CHECK BLOOD SUGAR ONCE DAILY (DME) lancets [OneTouch Delica Lancets] 30 gauge misc See Dose Instructions .ROUTE .MEDSUPPLY Qty: 25 Rx Instructions: USE TO CHECK BLOOD SUGAR ONCE DAILY calcium carbonate [Calcium 500] 500 mg calcium (1,250 mg) tablet 500 mg PO QAM (DME) Auto Titrating CPAP Misc See Rx Instructions .ROUTE .MEDSUPPLY Qty: 1 0RF Rx Instructions: Auto PAP with 10-20mm H20. Lifetime usage. G47.33 (DME) CPAP Supplies Misc See Rx Instructions .ROUTE .MEDSUPPLY Qty: 1 0RF Rx Instructions: CPAP supplies. G47.33 albuterol sulfate 90 mcg/actuation HFA aerosol inhaler 2 puff inhalation QID PRN (Reason: bronchospasm) Qty: 8.5 3RF azithromycin 250 mg tablet See Rx Instructions PO .COMPLEX Qty: 6 0RF Rx Instructions: For 250 mg dose pack: take 500 mg today (day 1), then 250 mg for 4 days (days 2-5) PO prednisone 10 mg tablet 10 mg PO .COMPLEX Qty: 30 0RF Rx Instructions: 10 mg orally 4 daily for 3 days, 3 daily for 3 days, 2 daily for three days, 1 daily for 3 days. PO DAILY; albuterol sulfate 2.5 mg /3 mL (0.083 %) solution for nebulization 2.5 mg inhalation QID PRN (Reason: Shortness Of Breath Or Wheezing) Qty: 75 2RF magnesium 500 mg Tablet 500 mg PO QAM cetirizine [Zyrtec] 10 mg Tablet 10 mg PO QPM Macular Health Formula 5-1-7.5 mg Capsule 1 cap PO QAM diltiazem HCl [Tiazac] 120 mg capsule,extended release 24 hr 120 mg PO QPM montelukast [Singulair] 10 mg tablet 10 mg PO HS fluticasone propionate [Flonase Allergy Relief] 50 mcg/actuation spray,suspension 1 spray intranasal BID PRN (Reason: Congestion) Rx Instructions: administer into each nostril Xarelto 20 mg tablet 20 mg PO QPM Hold Instructions: Resume on 06/11/24. fluticasone furoate-vilanterol [Breo Ellipta] 100-25 mcg/dose blister with device 1 inh inhalation QAM oxycodone-acetaminophen [Percocet] 5-325 mg tablet 1 - 2 tab PO .q4-6h PRN (Reason: pain, for initial therapy, max 6 tabs per day) Qty: 18 0RF Rx Instructions: filled 06/08 for 3 day supply benzonatate 100 mg capsule 100 - 200 mg PO Q8H PRN (Reason: cough) Rx Instructions: 100 mg orally 1 or 2 capsules every 8 hours as needed for cough. PRN; Referrals Referrals: Chandni Gonzalez CRNP [Primary Care Provider] - Discharge Problem: Cough Qualifiers: Cough type: acute Qualified Code(s): R05.1 - Acute cough Reactive airway disease Qualifiers: Asthma severity: mild Asthma persistence: unspecified Qualified Code(s): J 45.909 - Unspecified asthma, uncomplicated
[2024-07-07] MEDS: SODIUM CHLORIDE 0.9% 500 ML IV ONE (15:45)
[2024-07-07 15:55] LABS: Basophils # (auto) 0.03 K/uL (0.00-0.20); Basophils % (auto) 0.5 %; Eosinophils # (auto) 0.09 K/uL (0.00-0.50); Eosinophils % (auto) 1.4 %; Hematocrit (blood only) 45.6 % (37.0-47.0); Hemoglobin 14.2 g/dl (12.0-16.0); Immature Granulocytes # (auto) 0.02 K/uL (0.01-0.20); Immature Granulocytes % (auto) 0.3 %; Lymphocytes # (auto) 0.75 K/uL (1.20-3.40); Lymphocytes % (auto) 11.6 %; Mean Corpuscular Hemoglobin 26.4 pg (25.0-34.0); Mean Corpuscular Hgb Conc 31.1 g/dL (32.0-36.0); Mean Corpuscular Volume 84.9 fL (80.0-100.0); Mean Platelet Volume 10.5 fL (9.4-12.4); Monocytes # (auto) 0.09 K/uL (0.11-0.59); Monocytes % (auto) 1.4 %; Neutrophils # (auto) 5.47 K/uL (1.40-6.50); Neutrophils % (auto) 84.8 %; Platelet Count 291 K/uL (130-400); RDW Coefficient of Variation 15.4 % (11.5-14.5); RDW Standard Deviation 47.8 fL (36.4-46.3); Red Blood Count 5.37 M/uL (4.20-5.40); White Blood Count 6.45 K/ul (4.8-10.8)
[2024-07-07] MEDS: dilTIAZem HCl 5 MG/ML 5 ML VIAL IV STA (16:08)
[2024-07-07 16:15] LABS: Albumin Globulin Ratio 1.4 (0.9-2); Albumin Level 4.1 gm/dl (3.4-5.0); Bilirubin,Total 0.6 mg/dl (0.2-1.0); Calcium 9.7 mg/dl (8.6-10.3); Creatinine Clr Calc Pharmacy 67.5 ml/min; Globulin 2.9 gm/dl (2.5-4.0); Magnesium 1.7 mg/dl (1.7-2.4); Potassium 4.2 mmol/L (3.5-5.1)
--- NOTE | 2024-07-07 16:16 | XRay Report ---
XR chest 1V portable CLINICAL HISTORY: Chest pain, nonspecific. COMPARISON STUDY: Chest CT June 04, 2020. Chest radiograph July 28, 2023. FINDINGS: There is no pneumothorax or pleural effusion. Minimal left basilar opacity favors atelectas is or a epicardial fat pad. Cardiomediastinal silhouette is stable. Prominence of both gilson is unchan ged and likely due to pulmonary vessels. There is pulmonary vascular congestion without evidence for pulmonary edema. There is no consolidation. IMPRESSION: 1. Pulmonary vascular congestion without overt pulmonary edema. 2. No consolidation to suggest pneumonia. ACT 112: Negative or not required by law. Electronically signed by: Ra Kong M.D. 07/07/2024 4:14 PM
[2024-07-07 16:21] LABS: Troponin I High Sensitivity 5.3 pg/ml (0-14)
--- NOTE | 2024-07-07 16:46 | History & Physical Report ---
Date of Service July 07, 2024 Assessment & Plan (1) URI (upper respiratory infection): Plan: Cough, congestion with history of asthma No leukocytosis. Chest x-ray without evidence of pneumonia Suspect viral URI, albuterol proceeded likely conversion to A-fib BioFire is pending Will continue Z-Chris, Breo, albuterol as needed, montelukast, prednisone 30 mg daily Patient is not hypoxic No wheezing on exam Patient feels URI symptoms are actually greatly improved 07/07 compared to prior 2 days. (2) Atrial fibrillation with rapid ventricular response: Plan: A-fib with RVR EKG: Atrial fibrillation with RVR. No territorial T wave changes. No ST changes greater than 1 mm. Xarelto continued, patient is compliant with her anticoagulation Continue diltiazem 120 mg evening Patient did have transient rate control with improvement to 901 10 following 5 mg of Cardizem push however did have a borderline hypotensive response to this with BPs in the 90s which subsequently improved and is normotensive on repeat assessment Given hypotensive response with diltiazem, will convert to additional control with metoprolol. 12.5 mg twice daily started, with 2.5 mg every 4 hours as n eeded available on-call Patient jaw pain was transient while her heart was racing and is not present on admission. Likely due to demand ischemia with A-fib RVR. Troponin is normal, 2-hour repeat ordered. Chest pain has completely resolved and has not recurred following rate control. Does have prior history of demand ischemia, Denies history of DC. If adequately controlled no recurrence of pain/troponin remains normal and will arrange outpatient follow-up with cardiology for further ischemic workup; if inadequate rate control appear to be obtained or troponin rise/jaw pain recurs will consult for inpatient evaluation Optimize mag goal 2.0, potassium 4.0 Suggestion of mild outflow obstruction on last echo. No history of syncope or exercise/RVR related syncopal episodes. (3) Type 2 diabetes mellitus: Plan: Type II DM Metformin held Weight-based basal bolus while admitted Goal BSG [id number] Plan Chronic stable issues: REYNALDO: Continue CPAP at bedtime Hypothyroidism: Continue Synthroid Hypertension: Continue losartan DVT prophylaxis: Anticoagulated Diet: Heart healthy, DM 2 Disposition: PCU for A-fib RVR CODE STATUS: Full code History of Present Illness Primary Care Provider: SADIA Ibanez is a 69-year-old female with a past medical history of type II DM, A-fib, hypothyroid, hyperlipidemia, asthma, A-fib on long-term anticoagulation, recent hemorrhoidectomy 06/08/[address] Chano muhammad with no issues at June follow-up who presents to the ER for intermittent productive cough for which he started as an outpatient on Z-Chris but who then developed a feeling palpitations similar to prior A-fib with some jaw pain. No fever or chills. She did take albuterol prior to her heart having a racing feeling. On ER dmitri romiation she was found to be in A-fib with RVR, rate 124. She is given diltiazem 5 mg IV, and 500 of saline. Magnesium 1.7. Chest x-ray shows pulmonary vascular congestion without edema Troponin 5.3 Last echo 07/2023: EF 60 to 65%, elevated left ventricular outflow tract and transaortic velocity suggestive of some degree of dynamic left obstruction. Reports she started coughing and wheezing a few days ago. Was using albertol to try and improve symptoms and went to her doctors and was prescibed a Z pack and steroids. 130 took a second albuterol nebulizer treatment for the day and shrotly after her jaw started to hurt on both sides. Checked her pulse by pulseox which was 140. No chest pain, but did feel her heart racing 'and trying to pound out'. +SoB for a few days. +mild wheezing for a few days. She feels her breathing is actulaly much better today than yesterday, but heart racing was new and what brought he rin. Cough seems to be improved. Took her Xarelto at 1:30pm today. Also takes diltiazem and losartan. She took all 3 medicines today. Denies nausea/vomiting/diarrhea. Hemmorhoid sx one month ago and has soft stool due to miralx. Medical History: Reviewed Medications: Reviewed Surgical History: Reviewed Family history: Reviewed Allergies: Reviewed Social History: no tobacco/etoh Code Status: Full Allergies Allergy/AdvReac Type Severity Reaction Status Date / Time shellfish derived Allergy Mild gout Verified 07/07/24 09:30 oxycodone AdvReac Mild Gastrointestinal Verified 07/07/24 09:30 Upset Home Medications Medication Instructions Recorded Confirmed Type blood sugar diagnostic (Accu-Chek #10 ea 04/21/19 07/07/24 History SmartView Test Strips) blood-glucose meter (Accu-Chek #1 ea 04/21/19 07/07/24 History Nikki) lancets 30 gauge (OneTouch Delica #25 ea 04/21/19 07/07/24 History Lancets) calcium carbonate (Calcium 500) 500 mg PO QAM 04/25/19 07/07/24 History magnesium 500 mg tablet 500 mg PO QAM 06/04/20 07/07/24 History Auto Titrating CPAP #1 ea 06/21/20 07/07/24 Rx CPAP Supplies #1 ea 06/21/20 07/07/24 Rx cetirizine 10 mg tablet (Zyrtec) 10 mg PO QPM 12/28/22 07/07/24 History cdbjpbgm-adp-bqiawr 5 mg-zeaxanth 1 cap PO QAM 12/28/22 07/07/24 History 1 mg-bilberry 7.5 mg-herbal capsule ([facility] Formula) levothyroxine 150 mcg tablet 150 mcg PO QAM #90 tabs 09/27/23 07/07/24 Rx oxybutynin chloride 10 mg 10 mg PO QAM #90 tabs 11/01/23 07/07/24 Rx tablet,extended release 24 hr losartan 50 mg tablet 50 mg PO QAM #100 tabs 11/22/23 07/07/24 Rx furosemide 20 mg tablet 20 mg PO QAM #90 tabs 12/27/23 07/07/24 Rx metformin 500 mg tablet,extended 500 mg PO QAM #90 tabs 01/10/24 07/07/24 Rx release 24 hr albuterol sulfate 90 mcg/actuation 2 puff inhalation QID PRN 01/13/24 07/07/24 Rx aerosol inhaler bronchospasm #8.5 grams allopurinol 100 mg tablet 100 mg PO QPM #90 tabs 03/30/24 07/07/24 Rx (Zyloprim) diltiazem HCl 120 mg capsule,24 120 mg PO QPM 05/29/24 07/07/24 History hr,extended release (Tiazac) fluticasone furoate 100 1 inh inhalation QAM 05/29/24 07/07/24 History mcg-vilanterol 25 mcg/dose inhalation powder (Breo Ellipta) fluticasone propionate 50 1 spray intranasal BID PRN 05/29/24 07/07/24 History mcg/actuation nasal Congestion spray,suspension (Flonase Allergy Relief) montelukast 10 mg tablet 10 mg PO HS 05/29/24 07/07/24 History (Singulair) rivaroxaban 20 mg tablet (Xarelto) 20 mg PO QPM 05/29/24 07/07/24 History oxycodone-acetaminophen 5 mg-325 1 - 2 tab PO .q4-6h PRN pain, for 06/08/24 07/07/24 Rx mg tablet (Percocet) initial therapy, max 6 tabs per day #18 tabs atorvastatin 20 mg tablet 20 mg PO UD #12 tabs 06/28/24 07/07/24 Rx albuterol sulfate 2.5 mg/3 mL 2.5 mg (3 mL) inhalation QID PRN 07/07/24 07/07/24 Rx (0.083 %) solution for nebulization Shortness Of Breath Or Wheezing #75 mL azithromycin 250 mg tablet See Rx Instructions PO .COMPLEX #6 07/07/24 07/07/24 Rx tabs benzonatate 100 mg capsule 100 - 200 mg PO Q8H PRN cough 07/07/24 History prednisone 10 mg tablet 10 mg PO .COMPLEX #30 tabs 07/07/24 07/07/24 Rx Past Med/Surg History Problem List URI (upper respiratory infection) H/O hemorrhoidectomy (06/08/24) Hemorrhoidectomy(Not Applicable) - Derrek Madden, Current use of medical terminologist anticoagulation External hemorrhoids History of total right knee replacement Arthritis of right knee Abnormal CXR Acute bronchitis with asthma with acute exacerbation Osteoarthritis of left knee H/O ventral hernia repair Laparoscopic ventral hernia repair (05/14/22): Grade 2 view, ETT 7 at [facility] Encounter for pre-operative examination Morbid obesity Recurrent umbilical hernia Screening for osteoporosis Urinary incontinence chronic, denies change or worsening History of colon polyps Allergic rhinitis with postnasal drip Abnormal computerized axial tomography of chest Gout Cough (Acute) Obesity (Acute) Obstructive sleep apnea of adult (Acute) CPAP (compliant) Colon polyp 12/2012 tubular adenoma 02/2017 sessile serrated adenoma (recheck in 5 years) Hyperlipidemia (Chronic) Hypothyroidism (Chronic) Atrial fibrillation (Chronic) Type 2 diabetes mellitus (Chronic) NIDDM Hypertension controlled, stable per pt Asthma (Acute) controlled, stable per pt; last rescue inhaler use 07/2023 Medical History Hx of colonic polyps Hyperlipidemia Chronic cough Gout Allergic rhinitis with postnasal drip Asthma daily and prn inh/neb Urinary incontinence chronic, denies change or worsening Type 2 diabetes mellitus NIDDM Hypothyroidism Hypertension REYNALDO (obstructive sleep apnea) CPAP Left ventricular outflow tract obstruction reported on 07/2023 echo History of diverticulitis prior to 2013 Pulmonary hypertension [facility] pulmonary monitoring, felt to be likely from underlying obesity as well as REYNALDO/OHS Chronic back pain Acid reflux Hx, no recent issues [place] (hard of hearing) Atrial fibrillation reason for Xarelto; Follows with Dr. Jacob Surgical History H/O ventral hernia repair Laparoscopic ventral hernia repair (05/14/22): Grade 2 view, ETT 7 at [facility] History of total right knee replacement History of total left knee replacement History of tubal ligation History of hysterectomy History of wisdom tooth extraction History of tonsillectomy and adenoidectomy History of hernia repair umbilical H/O oral surgery H/O colonoscopy sessile serrated adenoma, recheck in 5 years, Dr Reyez Family History Mother Diabetes Breast cancer Hypertension Father Prostate cancer Brother Diabetes Hypertension Other No family history of adverse response to anesthesia Denies family history of Ovarian cancer Myocardial infarction Colorectal cancer Social History Smoking Status: Former smoker Tobacco Type: Cigarettes Age Started Using Tobacco: 17; Age Quit Using Tobacco: 33; packs per day: 0.25; Second Hand Exposure: Yes (hx as child); Do You Dip or Chew Tobacco: No; Hx Alcohol Use: No Hx Substance Use: No Preferred Language: Macedonian Communication Ability: Effective Visual Impairment: No Limitations Hearing Ability: Normal Instruction Assistant Principal Required: No Beliefs That Will Affect Care: None marital status: Current Living Situation: Spouse current occupational status: retired 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 NAD. Cooperative. HEENT: Atraumatic, normocephalic. AYAN. Vision and hearing grossly intact. Pulm: CTAB A&P. -wheezes, -rales, -rhonchi. Symmetrical chest rise. No increased work of breathing. No respiratory distress. Cardiac: irir, soft sm. Radial pulses intact and symmetrical. Abdominal: Nontender, nondistended, soft. BS present. Ext: warm, dry. No edema Results & Data Results & Data Vital Signs (Past 12 Hours) Vital Signs Temp Pulse Resp BP Pulse Ox O2 Del Method 07/07/24 16:04 122 H 07/07/24 15:03 36.6 C 126 H 18 117/80 95 Room Air PG Care Time/CCT Total # of Minutes Spent Total Time Spent with Patient: Total time spent is greater than 50% in coordination of care (as documented) at patient's floor/unit and/or counseling patient: Coding Level of Care Code 88255 INT INP/OBS CARE 3/75MIN Diagnoses URI (upper respiratory infection) J06.9 Atrial fibrillation with rapid ventricular response I48.91 Type 2 diabetes mellitus E11.9
[2024-07-07 16:51] LABS: Adenovirus PCR Not Detected (NotDetected); Bordetella parapertussis PCR Not Detected (NotDetected); Bordetella pertussis PCR Not Detected (NotDetected); Chlamydia pneumoniae PCR Not Detected (NotDetected); Coronavirus 229E PCR Not Detected (NotDetected); Coronavirus CoV-2 (COVID19)PCR Not Detected (NotDetected); Coronavirus HKU1 PCR Not Detected (NotDetected); Coronavirus NL63 PCR Not Detected (NotDetected); Coronavirus OC43PCR Not Detected (NotDetected); Human Metapneumovirus PCR Not Detected (NotDetected); Influenza A PCR Not Detected (NotDetected); Influenza B PCR Not Detected (NotDetected); Mycoplasma pneumoniae PCR Not Detected (NotDetected); Parainfluenza Virus 1 PCR Not Detected (NotDetected); Parainfluenza Virus 2 PCR Not Detected (NotDetected); Parainfluenza Virus 3 PCR Not Detected (NotDetected); Parainfluenza Virus 4 PCR Not Detected (NotDetected); Respiratory Syncytial VirusPCR Not Detected (NotDetected); Rhinovirus/Enterovirus PCR Not Detected (NotDetected)
[2024-07-07] MEDS: MAGNESIUM SULFATE / D5W 1 GM/100 ML BAG IV ONE (17:01)
[2024-07-07] MEDS ORDERED: GLUCOSE 40% GEL 15 GM TUBE PO PRN (19:16)
[2024-07-07] MEDS ORDERED: ALBUTEROL 0.083% NEBU SOLN 3 ML VIAL INH PRN (19:16)
[2024-07-07] MEDS ORDERED: DEXTROSE 50% 50 ML SYRINGE IV PRN (19:16)
[2024-07-07] MEDS ORDERED: GLUCOSE 10 TAB/TUBE PO PRN (19:16)
[2024-07-07] MEDS ORDERED: FLUTICASONE PROPIONATE NA SPR 16 GM BTL PRN (19:16)
[2024-07-07] MEDS ORDERED: CARBOHYDRATES FOR HYPOGLYCEMIA PO PRN (19:16)
[2024-07-07] MEDS ORDERED: GLUCAGON FOR INJ 1 MG VIAL SQ PRN (19:16)
[2024-07-07] MEDS ORDERED: METOPROLOL TARTRATE 1 MG/ML VIAL IV PRN (20:00)
--- NOTE | 2024-07-07 20:18 | Electrocardiogram Report ---
Test Reason : Blood Pressure : */* mmHG Vent. Rate : 124 BPM Atrial Rate : * BPM P-R Int : * ms QRS Dur : 86 ms QT Int : 324 ms P-R-T Axes : * 57 42 degrees QTcB Int : 465 ms Atrial fibrillation with rapid ventricular response Abnormal ECG When compared with ECG of 08-Jul-2023 13:41, Atrial fibrillation has replaced Sinus rhythm Vent. rate has increased by 52 bpm Confirmed by Dilan Stearns ([id number]) on 07/07/2024 8:17:46 PM Referred By: REFERRED SELF Confirmed By: Dilan Stearns
[2024-07-07] MEDS: INSULIN ASPART PER UNIT CHARGE SC SCH (21:37)
[2024-07-07] MEDS: LANTUS PER UNIT CHARGE SQ SCH (21:38)
[2024-07-07] MEDS: MONTELUKAST SODIUM 10 MG TABLET PO SCH (21:49)
[2024-07-07] MEDS: allopurinoL 100 MG TAB PO SCH (21:49)
[2024-07-08] MEDS ORDERED: BENZONATATE 100 MG CAPSULE PO PRN (03:54)
[2024-07-08] MEDS: LEVOTHYROXINE SODIUM 150 MCG TABLET PO SCH (06:03)
[2024-07-08 08:18] VITALS: PULSE 59; RESP 20; TEMP 97.5; O2SAT 96
[2024-07-08 08:32] LABS: Basophils # (auto) 0.06 K/uL (0.00-0.20); Basophils % (auto) 0.8 %; Hematocrit (blood only) 41.1 % (37.0-47.0); Hemoglobin 13.1 g/dl (12.0-16.0); Immature Granulocytes # (auto) 0.02 K/uL (0.01-0.20); Immature Granulocytes % (auto) 0.3 %; Lymphocytes # (auto) 2.85 K/uL (1.20-3.40); Lymphocytes % (auto) 37.9 %; Mean Corpuscular Hemoglobin 26.5 pg (25.0-34.0); Mean Corpuscular Hgb Conc 31.9 g/dL (32.0-36.0); Monocytes # (auto) 0.53 K/uL (0.11-0.59); Neutrophils # (auto) 3.76 K/uL (1.40-6.50); Platelet Count 282 K/uL (130-400); RDW Coefficient of Variation 15.6 % (11.5-14.5); RDW Standard Deviation 47.1 fL (36.4-46.3); Red Blood Count 4.95 M/uL (4.20-5.40); White Blood Count 7.52 K/ul (4.8-10.8)
--- NOTE | 2024-07-08 08:33 | Communication Note ---
Date of Service: July 08, 2024 By CMS guidelines, a determination that the admission or continued stay is not medically necessary has been made by a member of the UR committee and a ph ysician for this hospital stay, therefore a Code 44 will be completed and the Inpatient admission will be changed to outpatient.
[2024-07-08 08:51] LABS: Calcium 9.3 mg/dl (8.6-10.3); Creatinine Clr Calc Pharmacy 75.6 ml/min; Potassium 3.9 mmol/L (3.5-5.1)
[2024-07-08 09:09] VITALS: BP 147/102
[2024-07-08] MEDS: predniSONE 20 MG TAB PO SCH (09:31)
[2024-07-08] MEDS: FLUTICASONE/VILANTEROL 100/25MCG 14 PUFFS/INHALER INH SCH (09:32)
[2024-07-08] MEDS: METOPROLOL TARTRATE 25 MG TAB PO SCH (09:32)
[2024-07-08] MEDS: OXYBUTYNIN CHLORIDE XL 5 MG TABCR PO SCH (09:33)
[2024-07-08] MEDS: LOSARTAN POTASSIUM 50 MG TAB PO SCH (09:34)
[2024-07-08] MEDS: MAGNESIUM OXIDE 400 MG TAB PO SCH (09:34)
--- NOTE | 2024-07-08 11:51 | Electrocardiogram Report ---
Test Reason : Blood Pressure : */* mmHG Vent. Rate : 74 BPM Atrial Rate : 74 BPM P-R Int : 180 ms QRS Dur : 86 ms QT Int : 394 ms P-R-T Axes : 69 54 67 degrees QTcB Int : 437 ms Normal sinus rhythm Normal ECG When compared with ECG of 07-Jul-2024 18:14, (unconfirmed) No significant change was found Confirmed by Brenden Abdalla ([id number]) on 07/08/2024 11:51:15 AM Referred By: REFERRED SELF Confirmed By: Brenden Abdalla
--- NOTE | 2024-07-08 12:04 | Discharge Summary ---
Discharge Summary Date of Service July 08, 2024 Principal Dx & Hospital Course #1 = Principal Diagnosis (1) URI (upper respiratory infection): Summary: Antonia is a 69-year-old female with a history of paroxysmal A-fib who presented with URI symptoms and A-fib RVR. Suspect A-fib RVR provoked by mild hypomagnesemia, albuterol use, and acute illness. Did have a transient hypotensive response to diltiazem push while in the ER but with good rate contr ol following addition of p.o. metoprolol and subsequently converted back to sinus. She did have some presenting jaw pain which resolved with rate control and with normal troponins. As patient converted to sinus and had provoking factors outpatient addition of metoprolol to her regimen was not prescribed, however was recommended to follow-up with cardiology both for for more outpatient ischemic evaluation and evaluation of whether metoprolol may be a better option for her control. Last echo with very mild outflow tract obstruction suggestion, normal EF. She was clinically well at time of discharge and respiratory symptoms were improving To do as outpatient: 1. Complete Z-Chris. URI, viral panel negative. No lobar pneumonia seen 2. Follow-up with cardiology for outpatient ischemic evaluation due to jaw pain with RVR, no chest pain at any point troponins were normal during admission 3. Follow-up with cardiology for? Beta-kamilla addition versus conversion for A-fib 4. Routine PCP control Last progress note copied below for completion Cough, congestion with history of asthma No leukocytosis. Chest x-ray without evidence of pneumonia Suspect viral URI, albuterol proceeded likely conversion to A-fib BioFire is pending Will continue Z-Chris, Breo, albuterol as needed, montelukast, prednisone 30 mg daily Patient is not hypoxic No wheezing on exam Patient feels URI symptoms are actually greatly improved / compared to prior 2 days. (2) Atrial fibrillation with rapid ventricular response: A-fib with RVR EKG: Atrial fibrillation with RVR. No territorial T wave changes. No ST changes greater than 1 mm. Xarelto continued, patient is compliant with her anticoagulation Continue diltiazem 120 mg evening Patient did have transient rate control with improvement to 901 10 following 5 mg of Cardizem push however did have a borderline hypotensive response to this with BPs in the 90s which subsequently improved and is normotensive on repeat assessment Given hypotensive response with diltiazem, will convert to additional control with metoprolol. 12.5 mg twice daily started, with 2.5 mg every 4 hours as needed available on-call Patient jaw pain was transient while her heart was racing and is not present on admission. Likely due to demand ischemia with A-fib RVR. Troponin is normal, 2-hour repeat ordered. Chest pain has completely resolved and has not recurred following rate control. Does have prior history of demand ischemia, Denies history of [place]. If adequately controlled no recurrence of pain/troponin remains normal and will arrange outpatient follow-up with cardiology for further ischemic workup; if inadequate rate control appear to be obtained or troponin rise/jaw pain recurs will consult for inpatient evaluation Optimize mag goal 2.0, potassium 4.0 Suggestion of mild outflow obstruction on last echo. No history of syncope or exercise/RVR related syncopal episodes. (3) Type 2 diabetes mellitus: Type II DM Metformin held Weight-based basal bolus while admitted Goal BSG [id number] Plan Chronic stable issues: REYNALDO: Continue CPAP at bedtime Hypothyroidism: Continue Synthroid Hypertension: Continue losartan DVT prophylaxis: Anticoagulated Diet: Heart healthy, DM 2 Disposition: PCU for A-fib RVR CODE STATUS: Full code Admission HPI Per Admitting Provider Erin is a 69-year-old female with a past medical history of type II DM, A-fib, hypothyroid, hyperlipidemia, asthma, A-fib on long-term anticoagulation, recent hemorrhoidectomy 06/08/[address] Chano muhammad with no issues at June follow-up who presents to the ER for intermittent productive cough for which he started as an outpatient on Z-Chris but who then developed a feeling palpitations similar to prior A-fib with some jaw pain. No fever or chills. She did take albuterol prior to her heart having a racing feeling. On ER evaluation she was found to be in A-fib with RVR, rate 124. She is given diltiazem 5 mg IV, and 500 of saline. Magnesium 1.7. Chest x-ray shows pulmonary vascular congestion without edema Troponin 5.3 Last echo 07/2023: EF 60 to 65%, elevated left ventricular outflow tract and transaortic velocity suggestive of some degree of dynamic left obstruction. Reports she started coughing and wheezing a few days ago. Was using albertol to try and improve symptoms and went to her doctors and was prescibed a Z pack and steroids. 130 took a second albuterol nebulizer treatment for the day and shrotly after her jaw started to hurt on both sides. Checked her pulse by pulseox which was 140. No chest pain, but did feel her heart racing 'and trying to pound out'. +SoB for a few days. +mild wheezing for a few days. She feels her breathing is actulaly much better today than yesterday, but heart racing was new and what brought he rin. Cough seems to be improved. Took her Xarelto at 1:30pm today. Also takes diltiazem and losartan. She took all 3 medicines today. Denies nausea/vomiting/diarrhea. Hemmorhoid sx one month ago and has soft stool due to miralx. Medical History: Reviewed Medications: Reviewed Surgical History: Reviewed Family history: Reviewed Allergies: Reviewed Social History: no tobacco/etoh Code Status: Full Discharge Plan Discharge Items Patient Disposition: Home - Self-Care Reason For Visit: AFIB RVR Discharge Diagnosis: paroxysmal Afib Activity: Resume your previous activity Non-emergency contact: Primary Care Provider and Pharmacist'S Aide Call non-emergency contact if: you have any medication questions, your symptoms worsen and your pain is not controlled Follow-up/Referrals: Derrek Keys PA-C [Physician Fire Control Officer] - Chandni Gonzalez CRNP [Primary Care Provider] - 07/14/24 1:00 pm (Hospital follow up scheduled July 14 at 1:[address] Jacques) Diet: Regular Addtl Attending Provider Instructions: You were seen in the hospital for episode of atrial fibrillation with a rapid heart rate. Your rate transiently improved with IV diltiazem, however your blood pressure was slightly low after this so you were transitioned to another rate control medication called metoprolol. After a dose of oral metoprolol you converted back into a normal heart rhythm, called normal sinus rhythm. Your A-fib was likely provoked by combination of upper respiratory illness, albuterol which can cause your heart to race, and low magnesium levels. He did receive magnesium supplementation while in the hospital. He tolerated oral metoprolol well without hypotension, however morning of discharge your heart rate was very slightly low at 59 while in a normal rhythm. You were discharged to continue your home diltiazem dose with a follow-up appointment being made to cardiology. He may benefit from transitioning to metoprolol instead of diltiazem, versus lowering the dose of diltiazem and having metoprolol added as an adjunct. Medication changes were not made at time of discharge as your episode had provoking causes including an acute illness and a butyryl use, and you are clinically improving from that standpoint. You did have some jaw pain when your heart was racing, likely from oxygen demand while your heart rate was high. This can be a sign of early coronary disease. Your heart enzymes/blood markers were normal while in the hospital. Your case was discussed with cardiology, and is recommended that you follow-up both for your episode of A-fib and for discussion of any further outpatient ischemic workup. If you develop any recurrent chest pain, jaw pain, sweating, shortness of breath please call 911 for immediate reevaluation in the emergency department If you develop any new or worsening symptoms including fever, chills, sweats, chest pain, chest pressure, difficulty breathing, uncontrolled nausea/vomiting, rash, wheezing, passing out or nearly passing out, bleeding, black/bloody bowel movements, or other new or concerning symptoms please call your primary care physician, or call 911 for re-evaluation in the emergency department if you are very concerned. Pending Studies at Discharge: No Stand-Alone Forms: [facility], Sm[facility] Cess[facility] Medications and DC Order Prescriptions: Continued levothyroxine 150 mcg tablet 150 mcg PO QAM Qty: 90 3RF oxybutynin chloride 10 mg tablet extended release 24hr 10 mg PO QAM Qty: 90 3RF losartan 50 mg tablet 50 mg PO QAM Qty: 100 3RF furosemide 20 mg tablet 20 mg PO QAM Qty: 90 3RF metformin 500 mg tablet extended release 24 hr 500 mg PO QAM Qty: 90 3RF allopurinol [Zyloprim] 100 mg tablet 100 mg PO QPM Qty: 90 3RF atorvastatin 20 mg tablet 20 mg PO UD Qty: 12 3RF Rx Instructions: Take Q Wednesday (DME) Accu-Chek SmartView Test Strip strip See Dose Instructions .ROUTE .MEDSUPPLY Qty: 10 Rx Instructions: CHECK BLOOD SUGAR ONCE DAILY BEFORE ANY MEAL (DME) blood-glucose meter [Accu-Chek Nikki] misc See Dose Instructions .ROUTE .MEDSUPPLY Qty: 1 Rx Instructions: USE TO CHECK BLOOD SUGAR ONCE DAILY (DME) lancets [OneTouch Delica Lancets] 30 gauge misc See Dose Instructions .ROUTE .MEDSUPPLY Qty: 25 Rx Instructions: USE TO CHECK BLOOD SUGAR ONCE DAILY calcium carbonate [Calcium 500] 500 mg calcium (1,250 mg) tablet 500 mg PO QAM (DME) Auto Titrating CPAP Misc See Rx Instructions .ROUTE .MEDSUPPLY Qty: 1 0RF Rx Instructions: Auto PAP with 10-20mm H20. Lifetime usage. G47.33 (DME) CPAP Supplies Misc See Rx Instructions .ROUTE .MEDSUPPLY Qty: 1 0RF Rx Instructions: CPAP supplies. G47.33 albuterol sulfate 90 mcg/actuation HFA aerosol inhaler 2 puff inhalation QID PRN (Reason: bronchospasm) Qty: 8.5 3RF azithromycin 250 mg tablet See Rx Instructions PO .COMPLEX Qty: 6 0RF Rx Instructions: For 250 mg dose pack: take 500 mg today (day 1), then 250 mg for 4 days (days 2-5) PO prednisone 10 mg tablet 10 mg PO .COMPLEX Qty: 30 0RF Rx Instructions: 10 mg orally 4 daily for 3 days, 3 daily for 3 days, 2 daily for three days, 1 daily for 3 days. PO DAILY; albuterol sulfate 2.5 mg /3 mL (0.083 %) solution for nebulization 2.5 mg inhalation QID PRN (Reason: Shortness Of Breath Or Wheezing) Qty: 75 2RF magnesium 500 mg Tablet 500 mg PO QAM cetirizine [Zyrtec] 10 mg Tablet 10 mg PO QPM [facility] Health Formula 5-1-7.5 mg Capsule 1 cap PO QAM diltiazem HCl [Tiazac] 120 mg capsule,extended release 24 hr 120 mg PO QPM montelukast [Singulair] 10 mg tablet 10 mg PO HS fluticasone propionate [Flonase Allergy Relief] 50 mcg/actuation spray,suspension 1 spray intranasal BID PRN (Reason: Congestion) Rx Instructions: administer into each nostril Xarelto 20 mg tablet 20 mg PO QPM Hold Instructions: Resume on 06/11/24. fluticasone furoate-vilanterol [Breo Ellipta] 100-25 mcg/dose blister with device 1 inh inhalation QAM oxycodone-acetaminophen [Percocet] 5-325 mg tablet 1 - 2 tab PO .q4-6h PRN (Reason: pain, for initial therapy, max 6 tabs per day) Qty: 18 0RF Rx Instructions: filled 06/08 for 3 day supply benzonatate 100 mg capsule 100 - 200 mg PO Q8H PRN (Reason: cough) Rx Instructions: 100 mg orally 1 or 2 capsules every 8 hours as needed for cough. PRN; Discharge Orders: Discharge Order (Routine); Ordered 07/08/24 Ordered By: Geraldo Smith Admission Data Admit Date/Time: 07/07/24 17:18 Attending Provider: Geraldo Smith Admit Provider: Geraldo Smith Primary Care Provider: Chandni Gonzalez Other Providers: Geraldo Smith Hospital Stay Data Consultations 07/07/24 16:53 ED Decision to Admit Stat Pending Results Patient Have Any Pending Studies at Discharge: No Discharge Instructions Given to Patient (Per Discharging Provider) You were seen in the hospital for episode of atrial fibrillation with a rapid heart rate. Your rate transiently improved with IV diltiazem, however your blood pressure was slightly low after this so you were transitioned to another rate control medication called metoprolol. After a dose of oral metoprolol you converted back into a normal heart rhythm, called normal sinus rhythm. Your A-fib was likely provoked by combination of upper respiratory illness, albuterol which can cause your heart to race, and low magnesium levels. He did receive magnesium supplementation while in the hospital. He tolerated oral metoprolol well without hypotension, however morning of discharge your heart rate was very slightly low at 59 while in a normal rhythm. You were discharged to continue your home diltiazem dose with a follow-up appointment being made to cardiology. He may benefit from transitioning to metoprolol instead of diltiazem, versus lowering the dose of diltiazem and having metoprolol added as an adjunct. Medication changes were not made at time of discharge as your episode had provoking causes including an acute illness and a butyryl use, and you are clinically improving from that standpoint. You did have some jaw pain when your heart was racing, likely from oxygen demand while your heart rate was high. This can be a sign of early coronary disease. Your heart enzymes/blood markers were normal while in the hospital. Your case was discussed with cardiology, and is recommended that you follow-up both for your episode of A-fib and for discussion of any further outpatient ischemic workup. If you develop any recurrent chest pain, jaw pain, sweating, shortness of breath please call 911 for immediate reevaluation in the emergency department If you develop any new or worsening symptoms including fever, chills, sweats, chest pain, chest pressure, difficulty breathing, uncontrolled nausea/vomiting, rash, wheezing, passing out or nearly passing out, bleeding, black/bloody bowel movements, or other new or concerning symptoms please call your primary care physician, or call 911 for re-evaluation in the emergency department if you are very concerned. Total Time Total Time Spent Total Time Spent (In Minutes): Time spend day of discharge 35 minutes including direct patient care, documentation, review of labs and images, and coordination of care. Coding Level of Care Code 73591 INP/OBS DISCH >30 MIN Diagnoses URI (upper respiratory infection) J06.9 Atrial fibrillation with rapid ventricular response I48.91 Type 2 diabetes mellitus E11.9
[2024-07-08] MEDS ORDERED: RIVAROXABAN 20 MG TAB PO SCH (16:30)
[2024-07-08] MEDS ORDERED: dilTIAZem HCL 120 MG CAPCR PO SCH (16:30)
--- NOTE | 2024-07-10 12:44 | Electrocardiogram Report ---
Test Reason : Blood Pressure : */* mmHG Vent. Rate : 81 BPM Atrial Rate : 81 BPM P-R Int : 198 ms QRS Dur : 82 ms QT Int : 366 ms P-R-T Axes : 56 41 63 degrees QTcB Int : 425 ms Normal sinus rhythm Normal ECG When compared with ECG of 07-Jul-2024 15:18, Sinus rhythm has replaced Atrial fibrillation Vent. rate has decreased by [address] no longer depressed in Inferior leads Non-specific change in ST segment in Lateral leads Confirmed by Brenden Abdalla ([id number]) on 07/10/2024 12:44:00 PM Referred By: REFERRED SELF Confirmed By: Brenden Abdalla
[2024-07-12] MEDS ORDERED: ATORVASTATIN 20 MG TAB PO SCH (09:00)
== END 2024-07-08 10:54 | disposition home or self-care (01) ==
LOC: ED 15:02 → 4W 17:18 → INTOOBSV 17:18 → 4W 18:09

== ENCOUNTER 2025-01-27 18:43 | Inpatient (IN) ==
[2025-01-27 19:23] LABS: Basophils # (auto) 0.04 K/uL (0.00-0.20); Basophils % (auto) 0.3 %; Eosinophils # (auto) 0.85 K/uL (0.00-0.50); Eosinophils % (auto) 7.1 %; Hematocrit (blood only) 43.9 % (37.0-47.0); Immature Granulocytes # (auto) 0.03 K/uL (0.01-0.20); Immature Granulocytes % (auto) 0.3 %; Lymphocytes # (auto) 2.76 K/uL (1.20-3.40); Lymphocytes % (auto) 23.1 %; Mean Corpuscular Hemoglobin 26.8 pg (25.0-34.0); Mean Corpuscular Hgb Conc 31.9 g/dL (32.0-36.0); Mean Corpuscular Volume 83.9 fL (80.0-100.0); Mean Platelet Volume 10.1 fL (9.4-12.4); Monocytes % (auto) 7.5 %; Neutrophils # (auto) 7.36 K/uL (1.40-6.50); Neutrophils % (auto) 61.7 %; Platelet Count 243 K/uL (130-400); RDW Coefficient of Variation 15.8 % (11.5-14.5); RDW Standard Deviation 48.5 fL (36.4-46.3); Red Blood Count 5.23 M/uL (4.20-5.40); White Blood Count 11.94 K/ul (4.8-10.8)
--- NOTE | 2025-01-27 19:29 | XRay Report ---
Chest radiograph, one view History: Chest pain Comparison: 08/03/2024 Findings: Single AP view of the chest performed. No focal consolidation or pleural effusion. No pneumothorax. The cardiomediastinal silhouette is within normal limits. Normal pulmonary vascularity. No evidence for lymphadenopathy. No visualized bony or soft tissue abnormality. Impression: Normal chest radiograph Electronically signed by Brenden Gillespie 01-27-2025 7:28 PM
[2025-01-27 19:39] LABS: BUN Creatinine Ratio 20.6 (10-20); Calcium 9.9 mg/dl (8.6-10.3); Creatinine Clr Calc Pharmacy 67.2 ml/min; Magnesium 1.8 mg/dl (1.7-2.4); Potassium 3.9 mmol/L (3.5-5.1)
[2025-01-27 19:46] LABS: Troponin I High Sensitivity 7.3 pg/ml (0-14)
[2025-01-27 19:50] LABS: INR 1.3 (0.9-1.1); Partial Thromboplastin Ratio 1.7; Partial Thromboplastin Time 45 Seconds (21-31); Prothrombin Time 13.4 Seconds (9.0-12.0)
--- NOTE | 2025-01-27 19:53 | Emergency Department Note ---
History of Present Illness General Chief Complaint: Cardiac Assessment Stated Complaint: AFIB Time Seen by Provider: 01/27/25 18:54 History of Present Illness Provider Complaint: shortness of breath, cough and chest pain Onset (ago): day(s) (3) Severity: similar to previous episodes Consistency/Duration: + progressively worsening Relieved By: + nothing Exacerbated By: + exertion and + coughing Context: + recent illness Known history of: asthma Associated symptoms: + sputum production and + chest congestion; no hemoptysis, no nausea/vomiting, no abdominal pain or no rash Home Medications Medication Instructions Recorded Confirmed Type blood sugar diagnostic (Accu-Chek #10 ea 04/21/19 01/11/25 History SmartView Test Strips) blood-glucose meter (Accu-Chek #1 ea 04/21/19 01/11/25 History Nikki) lancets 30 gauge (OneTouch Delica #25 ea 04/21/19 01/11/25 History Lancets) calcium carbonate (Calcium 500) 500 mg PO QAM 04/25/19 01/27/25 History magnesium 500 mg tablet 500 mg PO QAM 06/04/20 01/27/25 History Auto Titrating CPAP #1 ea 06/21/20 01/11/25 Rx CPAP Supplies #1 ea 06/21/20 01/11/25 Rx cetirizine 10 mg tablet (Zyrtec) 10 mg PO QPM 12/28/22 01/27/25 History allopurinol 100 mg tablet 100 mg PO QPM #90 tabs 03/30/24 01/27/25 Rx (Zyloprim) diltiazem HCl 120 mg capsule,24 120 mg PO QPM 05/29/24 01/27/25 History hr,extended release (Tiazac) rivaroxaban 20 mg tablet (Xarelto) 20 mg PO QPM 05/29/24 01/27/25 History atorvastatin 20 mg tablet 20 mg PO UD #12 tabs 06/28/24 01/27/25 Rx benzonatate 100 mg capsule 100 - 200 mg PO Q8H PRN cough 07/07/24 01/27/25 History levalbuterol HCl 1.25 mg/3 mL 1.25 mg (3 mL) inhalation Q6H #90 07/14/24 01/27/25 Rx solution for nebulization mL metoprolol succinate 25 mg 25 mg PO DAILY 08/23/24 01/27/25 History tablet,extended release 24 hr levothyroxine 150 mcg tablet 150 mcg PO QAM #90 tabs 09/05/24 01/27/25 Rx betamethasone dipropionate 0.05 % See Rx Instructions topical BID 09/27/24 01/27/25 Rx topical cream PRN skin irritation #15 grams oxybutynin chloride 10 mg 10 mg PO QAM #90 tabs 10/23/24 01/27/25 Rx tablet,extended release 24 hr losartan 50 mg tablet 50 mg PO QAM #100 tabs 11/27/24 01/27/25 Rx furosemide 20 mg tablet 20 mg PO QAM #90 tabs 12/12/24 01/27/25 Rx metformin 500 mg tablet,extended 500 mg PO QAM #90 tabs 12/26/24 01/27/25 Rx release 24 hr fluticasone propionate 50 1 spray intranasal BID PRN 01/15/25 01/27/25 Rx mcg/actuation nasal Congestion #16 grams spray,suspension (Flonase Allergy Relief) levalbuterol tartrate 45 2 inh inhalation Q6H #15 grams 01/15/25 01/27/25 Rx mcg/actuation aerosol inhaler (Xopenex HFA) montelukast 10 mg tablet 10 mg PO HS #90 tabs 01/15/25 01/27/25 Rx (Singulair) fluticasone fur. 200 mcg-umeclid 1 inh inhalation DAILY #28 ea 01/23/25 01/27/25 Rx 62.5 mcg-vilant 25 mcg inhalat.powder (Trelegy Ellipta) Allergies Allergy/AdvReac Type Severity Reaction Status Date / Time shellfish derived Allergy Mild gout Verified 01/27/25 20:14 oxycodone AdvReac Mild Gastrointestinal Verified 01/27/25 20:14 Upset Past Med/Surg History Problem List (Updated 01/27/25 @ 20:54 by Henry Coelho MD) Hypoxia (Acute) Presbycusis of both ears Tympanic membrane perforation Mixed hearing loss of right ear Sensorineural hearing loss (SNHL) of left ear with restricted hearing of right ear Mixed conductive and sensorineural hearing loss of right ear with restricted hearing of left ear Acute asthma exacerbation Reactive airway disease (Acute) Jaw pain (Acute) Current use of machine long goods helper anticoagulation (Acute) Cough (Acute) Atrial fibrillation with RVR (Acute) H/O hemorrhoidectomy (06/08/24) Hemorrhoidectomy(Not Applicable) - Derrek Madden, Current use of machine long goods helper anticoagulation History of total right knee replacement Osteoarthritis of left knee H/O ventral hernia repair Laparoscopic ventral hernia repair (05/14/22): Grade 2 view, ETT 7 at [facility] Encounter for pre-operative examination Morbid obesity Screening for osteoporosis Urinary incontinence chronic, denies change or worsening History of colon polyps Allergic rhinitis with postnasal drip Abnormal computerized axial tomography of chest Gout Cough (Acute) Obesity (Acute) Obstructive sleep apnea of adult (Acute) CPAP (compliant) Colon polyp 12/2012 tubular adenoma 02/2017 sessile serrated adenoma (recheck in 5 years) Hyperlipidemia (Chronic) Hypothyroidism (Chronic) Atrial fibrillation (Chronic) Type 2 diabetes mellitus (Chronic) NIDDM Hypertension controlled, stable per pt Asthma (Acute) controlled, stable per pt; last rescue inhaler use 07/2023 Medical History Hx of colonic polyps Hyperlipidemia Chronic cough Gout Allergic rhinitis with postnasal drip Asthma daily and prn inh/neb Urinary incontinence chronic, denies change or worsening Type 2 diabetes mellitus NIDDM Hypothyroidism Hypertension REY[place]LD[place] (obstructive sleep apnea) CPAP Left ventricular outflow tract obstruction reported on 07/2023 echo History of diverticulitis prior to 2013 Pulmonary hypertension [facility] pulmonary monitoring, felt to be likely from underlying obesity as well as REYNALDO/OHS Chronic back pain Acid reflux Hx, no recent issues [place] (hard of hearing) Atrial fibrillation reason for Xarelto; Follows with Dr. Jacob Surgical History H/O ventral hernia repair Laparoscopic ventral hernia repair (05/14/22): Grade 2 view, ETT 7 at [facility] History of total right knee replacement History of total left knee replacement History of tubal ligation History of hysterectomy History of wisdom tooth extraction History of tonsillectomy and adenoidectomy History of hernia repair umbilical H/O oral surgery H/O colonoscopy sessile serrated adenoma, recheck in 5 years, Dr Reyez Family History Mother Diabetes Breast cancer Hypertension Father Prostate cancer Brother Diabetes Hypertension Other No family history of adverse response to anesthesia Denies family history of Ovarian cancer Myocardial infarction Colorectal cancer Social History Smoking Status: Never smoker Tobacco Type: Cigarettes Age Started Using Tobacco: 17; Age Quit Using Tobacco: 33; packs per day: 0.25; Cigarettes Per Day: quit in 1987; Second Hand Exposure: No; Do You Dip or Chew Tobacco: No; Hx Alcohol Use: No Hx Substance Use: No Preferred Language: Kyrgyz Communication Ability: Effective Visual Impairment: No Limitations Hearing Ability: Normal Chemical Process Analyst Required: No Beliefs That Will Affect Care: None marital status: Current Living Situation: Spouse current occupational status: retired 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 Feels Safe at Home: Yes Childhood Exposure to Second-Hand Smoke: Yes Diet: regular Dental Care, Regularly: Yes Physical Activity Frequency: Does not Exercise Seatbelt Use: always Sunscreen Use: Yes Assistive Devices: Cane and Glasses Physical Exam 2 Vital Signs: Vital Signs - 24 hr 01/27/25 18:44 01/27/25 18:55 01/27/25 19:02 Temperature 36.9 C Temperature Source Temporal Artery Sc an Pulse Rate 134 H 123 H Pulse Rate [Apical ] Pulse Rhythm [Apic al] Respiratory Rate 18 Respiratory Effort / Characteristics Non-Labored Sponta neous Respiratory Depth Normal Respiratory Patter n Blood Pressure 150/66 H Blood Pressure [Ri ght Arm] Blood Pressure Sveta n 94 Blood Pressure Sveta n [Right Arm] Blood Pressure Pos ition Sitting Pulse Oximetry 93 93 Oxygen Delivery Me thod Room Air Room Air Oxygen Flow Rate Sepsis Recent Feve r Within 48 Hours No Sepsis New/Unexpla ined Change in Men glen Status N/A Sepsis Action Take n by Nursing No Action Required Oxygen Flow Rate - Titration Pulse Oximetry Pos t Tiitration 01/27/25 19:05 01/27/25 19:05 01/27/25 19:05 Temperature Temperature Source Pulse Rate Pulse Rate [Apical ] 103 H Pulse Rhythm [Apic al] Irregular Respiratory Rate 26 H Respiratory Effort / Characteristics Spontaneous Short of Breath Non-Labored Sponta neous Respiratory Depth Normal Normal Respiratory Patter n Regular Blood Pressure Blood Pressure [Ri ght Arm] 117/83 Blood Pressure Sveta n Blood Pressure Sveta n [Right Arm] 94 Blood Pressure Pos ition Pulse Oximetry 93 93 Oxygen Delivery Me thod Room Air Room Air Room Air Oxygen Flow Rate Sepsis Recent Feve r Within 48 Hours Sepsis New/Unexpla ined Change in Men glen Status Sepsis Action Take n by Nursing Oxygen Flow Rate - Titration Pulse Oximetry Pos t Tiitration 01/27/25 19:11 01/27/25 19:53 01/27/25 19:54 Temperature Temperature Source Pulse Rate Pulse Rate [Apical ] 92 H Pulse Rhythm [Apic al] Respiratory Rate 17 Respiratory Effort / Characteristics Non-Labored Sponta neous Respiratory Depth Normal Respiratory Patter n Regular Blood Pressure Blood Pressure [Ri ght Arm] 114/70 Blood Pressure Sveta n Blood Pressure Sveta n [Right Arm] 84 Blood Pressure Pos ition Pulse Oximetry 93 88 L 96 Oxygen Delivery Me thod Room Air Room Air Nasal Cannula Oxygen Flow Rate 2 Sepsis Recent Feve r Within 48 Hours Sepsis New/Unexpla ined Change in Men glen Status Sepsis Action Take n by Nursing Oxygen Flow Rate - Titration 2 Pulse Oximetry Pos t Tiitration 97 Physical Exam: Physical Exam GENERAL: oriented to person, place, and time. appears well-developed and well- nourished. HENT: Exam performed. - Head: Normocephalic and atraumatic. EYES: Conjunctivae and EOM are normal. Right eye exhibits no discharge. Left eye exhibits no discharge. No scleral icterus. NECK: Normal range of motion. Neck supple. No JVD present. CV: Normal rate, irregular rhythm, normal heart sounds and intact distal pulses. There is no peripheral edema. Palpable radial pulses bue. PULM/CHEST: Rhonchi bilaterally. ABD: The abdomen is soft. There is no tenderness. NEURO: Motor and sensation grossly intact. SKIN: Skin is warm and dry. He is not diaphoretic. PSYCH: normal mood and affect. Behavior is normal. Judgment and thought content normal. Course Course 1853: The patient was evaluated in room B2. A complete history and physical exam was performed Cardiac monitoring: An order was placed for continuous cardiac monitoring. The monitor shows a rate of 110 with atrial fibrilation rhythm interpreted by me 1954: Patient hypoxic on room air. Supplemental oxygen was applied which improved the patient's oxygen saturation. 2050: Vital signs stable supplemental oxygen via nasal cannula. Labs are unremarkable. Checks x-ray reviewed by me shows possible right middle lobe pneumonia. Formal x-ray read is negative. Patient was given repeat DuoNebs and prednisone. Given her hypoxia and asthma exacerbation, patient will be admitted to the medicine hospitalist team. Azithromycin ordered for the patient for her obstructive airway disease as well as any possible bronchitis/pneumonia. Administered Medications Discontinued Medications Albuterol (Albut/Ipratrop 3mg/0.5mg Neb 3 Ml Vial) 3 ml NEB NOW STA; Protocol Stop: 01/27/25 20:06 Last Admin: 01/27/25 20:09 Dose: 3 ml Documented By: KRISTIE Albuterol (Albut/Ipratrop 3mg/0.5mg Neb 3 Ml Vial) 3 ml NEB NOW STA; Protocol Stop: 01/27/25 20:07 Last Admin: 01/27/25 20:37 Dose: 3 ml Documented By: KRISTIE Azithromycin (Azithromycin 250 Mg Tab) 500 mg PO NOW ONE Stop: 01/27/25 20:28 Last Admin: 01/27/25 20:37 Dose: 500 mg Documented By: KRISTIE Prednisone (Prednisone 50 Mg Tab) 50 mg PO NOW STA Stop: 01/27/25 20:06 Last Admin: 01/27/25 20:09 Dose: 50 mg Documented By: KRISTIE Medical Decision Making Laboratory Data Attestation: I reviewed the patient's lab results. 01/27/25 19:03 01/27/25 19:03 Lab Results 01/27/25 01/27/25 Range/Units 19:03 20:15 WBC 11.94 H (4.8-10.8) K/ul RBC 5.23 (4.20-5.40) M/uL Hgb 14.0 (12.0-16.0) g/dl Hct 43.9 (37.0-47.0) % MCV 83.9 (80.0-100.0) fL MCH 26.8 (25.0-34.0) pg MCHC 31.9 L (32.0-36.0) g/dL RDW Std Deviation 48.5 H (36.4-46.3) fL RDW Coeff of [place] 15.8 H (11.5-14.5) % Plt Count 243 (130-400) K/uL MPV 10.1 (9.4-12.4) fL Immature Gran % (Auto) 0.3 % Neut % (Auto) 61.7 % Lymph % (Auto) 23.1 % [place] % (Auto) 7.5 % Eos % (Auto) 7.1 % Baso % (Auto) 0.3 % Neut # (Auto) 7.36 H (1.40-6.50) K/uL Lymph # (Auto) 2.76 (1.20-3.40) K/uL [place] # (Auto) 0.90 H (0.11-0.59) K/uL Eos # (Auto) 0.85 H (0.00-0.50) K/uL Baso # (Auto) 0.04 (0.00-0.20) K/uL Immature Gran # (Auto) 0.03 (0.01-0.20) K/uL PT 13.4 H (9.0-12.0) Seconds INR 1.3 H (0.9-1.1) APTT 45 H (21-31) Seconds PTT Ratio 1.7 VBG pH 7.47 H (7.36-7.41) VBG pCO2 47 (38-50) mmHg VBG pO2 28 mmHg VBG HCO3 34 mmol/L VBG O2 Saturation < 60.0 % VBG Base Excess 9.1 mEq/L Sodium 140 (136-145) mmol/L Potassium 3.9 (3.5-5.1) mmol/L Chloride 103 (98-107) mmol/L Carbon Dioxide 27 (21-32) mmol/L Anion Gap 10 (3-11) BUN 22 (6-23) mg/dl Creatinine 1.07 (0.6-1.2) mg/dl Est Cr Clr Drug Dosing 67.2 ml/min eGFR 56.23 BUN/Creatinine Ratio 20.6 H (10-20) Glucose 177 H (70-99(Fasting)) mg/dl Calcium 9.9 (8.6-10.3) mg/dl Magnesium 1.8 (1.7-2.4) mg/dl Troponin I High Sens 7.3 (0-14) pg/ml Lipase 20 (11-82) U/L Adenovirus (PCR) Not Detected (NotDetected) B. pertussis DNA (PCR) Not Detected (NotDetected) B.parapertussis DNA PCR Not Detected (NotDetected) C. pneumoniae DNA (PCR) Not Detected (NotDetected) Coronavirus OC43 (PCR) Not Detected (NotDetected) Coronavirus HKU1 (PCR) Not Detected (NotDetected) Coronavirus 229E (PCR) Not Detected (NotDetected) SARS-CoV-2 (PCR) Not Detected (NotDetected) Coronavirus NL63 (PCR) Not Detected (NotDetected) Human Metapneumovir PCR Not Detected (NotDetected) Influenza Type A (PCR) Not Detected (NotDetected) Influenza Type B (PCR) Not Detected (NotDetected) M. pneumoniae (PCR) Not Detected (NotDetected) Parainfluenza 1 (PCR) Not Detected (NotDetected) Parainfluenza 2 (PCR) Not Detected (NotDetected) Parainfluenza 3 (PCR) Not Detected (NotDetected) Parainfluenza 4 (PCR) Not Detected (NotDetected) RSV (PCR) Not Detected (NotDetected) Entero/Rhino (PCR) Not Detected (NotDetected) Imaging Data Attestation: I personally reviewed and interpreted this imaging study as follows: My Impression: Chest x-ray: Right middle lobe pneumonia Radiologist's Impression: Chest X-Ray 01/27/25 19:09 Chest radiograph, one view History: Chest pain Comparison: 08/03/2024 Findings: Single AP view of the chest performed. No focal consolidation or pleural effusion. No pneumothorax. The cardiomediastinal silhouette is within normal limits. Normal pulmonary vascularity. No evidence for lymphadenopathy. No visualized bony or soft tissue abnormality. Impression: Normal chest radiograph Electronically signed by Brenden Gillespie 01-27-2025 7:28 PM ECG Data Attestation: I personally reviewed and interpreted this ECG as follows: Interpretation: Atrial fibrillation with rate of 107. QRS and QTc intervals within normal limits. No ST elevation or ST depression. [facility] Narrative 1853: The patient was evaluated in room B2. A complete history and physical exam was performed Cardiac monitoring: An order was placed for continuous cardiac monitoring. The monitor shows a rate of 110 with atrial fibrilation rhythm interpreted by ok 1954: Patient hypoxic on room air. Supplemental oxygen was applied which improved the patient's oxygen saturation. 2050: Vital signs stable supplemental oxygen via nasal cannula. Labs are unremarkable. Checks x-ray reviewed by me shows possible right middle lobe pneumonia. Formal x-ray read is negative. Patient was given repeat DuoNebs and prednisone. Given her hypoxia and asthma exacerbation, patient will be admitted to the medicine hospitalist team. Azithromycin ordered for the patient for her obstructive airway disease as well as any possible bronchitis/pneumonia. Impression & Plan Hypoxia, Asthma Critical Care Time Critical Care Time: Yes Total Critical Care Time: 53 I have personally spent greater than 53 minutes of critical care time in the direct management of this patient. This includes bedside care, interpretation of diagnostic studies, and testing, discussion with consultants, patient, and family members, and other required patient management activities. This 53 minutes is in excess of all separately billable procedures. Discharge Plan Visit Data Chief Complaint: Cardiac Assessment Stated Complaint: AFIB ED Provider: Henry Coelho Discharge Problem: Hypoxia, Asthma Patient Disposition: Admitted As Inpatient Condition: Serious Forms Stand Alone Forms: My [facility] Prescriptions Prescriptions: No Action allopurinol [Zyloprim] 100 mg tablet 100 mg PO QPM Qty: 90 3RF atorvastatin 20 mg tablet 20 mg PO UD Qty: 12 3RF Rx Instructions: Take Q Wednesday levothyroxine 150 mcg tablet 150 mcg PO QAM Qty: 90 3RF oxybutynin chloride 10 mg tablet extended release 24hr 10 mg PO QAM Qty: 90 3RF losartan 50 mg tablet 50 mg PO QAM Qty: 100 3RF furosemide 20 mg tablet 20 mg PO QAM Qty: 90 3RF metformin 500 mg tablet extended release 24 hr 500 mg PO QAM Qty: 90 3RF Trelegy Ellipta 200-62.5-25 mcg blister with device 1 inh inhalation DAILY Qty: 28 2RF (DME) Accu-Chek SmartView Test Strip strip See Dose Instructions .ROUTE .MEDSUPPLY Qty: 10 Rx Instructions: CHECK BLOOD SUGAR ONCE DAILY BEFORE ANY MEAL (DME) blood-glucose meter [Accu-Chek Nikki] misc See Dose Instructions .ROUTE .MEDSUPPLY Qty: 1 Rx Instructions: USE TO CHECK BLOOD SUGAR ONCE DAILY (DME) lancets [OneTouch Delica Lancets] 30 gauge misc See Dose Instructions .ROUTE .MEDSUPPLY Qty: 25 Rx Instructions: USE TO CHECK BLOOD SUGAR ONCE DAILY calcium carbonate [Calcium 500] 500 mg calcium (1,250 mg) tablet 500 mg PO QAM (DME) Auto Titrating CPAP Misc See Rx Instructions .ROUTE .MEDSUPPLY Qty: 1 0RF Rx Instructions: Auto PAP with 10-20mm H20. Lifetime usage. G47.33 (DME) CPAP Supplies Misc See Rx Instructions .ROUTE .MEDSUPPLY Qty: 1 0RF Rx Instructions: CPAP supplies. G47.33 fluticasone propionate [Flonase Allergy Relief] 50 mcg/actuation spray,suspension 1 spray intranasal BID PRN (Reason: Congestion) Qty: 16 4RF Rx Instructions: administer into each nostril montelukast [Singulair] 10 mg tablet 10 mg PO HS Qty: 90 4RF levalbuterol tartrate [Xopenex HFA] 45 mcg/actuation HFA aerosol inhaler 2 inh inhalation Q6H Qty: 15 4RF levalbuterol HCl 1.25 mg/3 mL solution for nebulization 1.25 mg inhalation Q6H Qty: 90 2RF betamethasone dipropionate 0.05 % cream See Rx Instructions topical BID PRN (Reason: skin irritation) Qty: 15 0RF Rx Instructions: Apply small amount to right index finger topically twice a day PRN; metoprolol succinate 25 mg tablet extended release 24 hr 25 mg PO DAILY magnesium 500 mg Tablet 500 mg PO QAM cetirizine [Zyrtec] 10 mg Tablet 10 mg PO QPM diltiazem HCl [Tiazac] 120 mg capsule,extended release 24 hr 120 mg PO QPM Xarelto 20 mg tablet 20 mg PO QPM Hold Instructions: Resume on 06/11/24. benzonatate 100 mg capsule 100 - 200 mg PO Q8H PRN (Reason: cough) Rx Instructions: 100 mg orally 1 or 2 capsules every 8 hours as needed for cough. PRN; Referrals Referrals: Chandni Gonzalez CRNP [Primary Care Provider] - Discharge Problem: Asthma Qualifiers: Asthma severity: severe Asthma persistence: unspecified Asthma complication type: unspecified Qualified Code(s): J45.909 - Unspecified asthma, uncomplicated
[2025-01-27 20:04] LABS: Adenovirus PCR Not Detected (NotDetected); Bordetella parapertussis PCR Not Detected (NotDetected); Bordetella pertussis PCR Not Detected (NotDetected); Chlamydia pneumoniae PCR Not Detected (NotDetected); Coronavirus 229E PCR Not Detected (NotDetected); Coronavirus CoV-2 (COVID19)PCR Not Detected (NotDetected); Coronavirus HKU1 PCR Not Detected (NotDetected); Coronavirus NL63 PCR Not Detected (NotDetected); Coronavirus OC43PCR Not Detected (NotDetected); Human Metapneumovirus PCR Not Detected (NotDetected); Influenza A PCR Not Detected (NotDetected); Influenza B PCR Not Detected (NotDetected); Mycoplasma pneumoniae PCR Not Detected (NotDetected); Parainfluenza Virus 1 PCR Not Detected (NotDetected); Parainfluenza Virus 2 PCR Not Detected (NotDetected); Parainfluenza Virus 3 PCR Not Detected (NotDetected); Parainfluenza Virus 4 PCR Not Detected (NotDetected); Respiratory Syncytial VirusPCR Not Detected (NotDetected); Rhinovirus/Enterovirus PCR Not Detected (NotDetected)
[2025-01-27] MEDS: ALBUT/IPRATROP 3MG/0.5MG NEB 3 ML VIAL NEB STA ×2 (20:09→20:37)
[2025-01-27] MEDS: predniSONE 50 MG TAB PO STA (20:09)
[2025-01-27 20:22] LABS: Base Excess VBG 9.1 mEq/L; HCO3 VBG 34 mmol/L; Oxygen Saturation VBG < 60.0 %; PCO2 VBG 47 mmHg (38-50); PO2 VBG 28 mmHg; pH VBG 7.47 (7.36-7.41)
[2025-01-27] MEDS: AZITHROMYCIN 250 MG TAB PO ONE (20:37)
--- NOTE | 2025-01-27 20:47 | History & Physical Report ---
Date of Service January 27, 2025 Assessment & Plan (1) Community acquired pneumonia: (2) Atrial fibrillation: (3) Type 2 diabetes mellitus: (4) Hypertension: (5) Hypothyroidism: (6) Asthma: Plan Pt is a 69 yo female with a past medical history of asthma, a fib on xarelto, obesity, REYNALDO on CPAP, DMT2 on metformin only, and hypothyroidism who presents to the hospital on 01/27 for community acquired pneumonia. #Community acquired pneumonia - CXR on admission read as negative but hx and exam and upon comparison to old films does seem to have some increased RLL/perihilar congestion and LLL increased opacity - will treat with rocephin - will treat with azithromycin as well for atypical coverage - lactate pending - MRSA nares pending - bnp pending - oxygen prn #Asthma - prednisone 40 mg po daily - duonebs q6h demetrius - continue home montelukast #Afib - earlier this evening at home in RVR, not in RVR at time of admission - continue home xarelto - continue home metoprolol #Hypothyroidism - continue home levothyroxine - am TSH #HTN - continue home losartan - continue home diltiazem #DMT2 - hold home metformin - HA1c 09/2024; 6.4% - am HA1c #REYNALDO - CPAP HS DVT ppx: home xarelto History of Present Illness Chief Complaint: Community acquired pneumonia Primary Care Provider: SADIA Ibanez Pt is a 69 yo female with a past medical history of asthma, a fib on xarelto, obesity, REYNALDO on CPAP, DMT2 on metformin only, and hypothyroidism who presents to the hospital on 01/27 for community acquired pneumonia. Pt states that she felt well until when she started to get cough, fatigue, chills. No fever noted. She states the cough was initially with greyish sputum and then progressed to more green color the last day or so. N o chest pain or leg swelling but states she has had some SOB that has also worsened over the last day or so. Tonight around 6 pm she went into afib RVR at home and took an extra dose of home metoprolol as instructed but was unsure how long to wait for this so she called her and decided to come to the hospital for further eval. is present at bedside. She states she does not feel her heart is racing anymore, feeling a bit better overall with the breathing treatments. As gotten pneumonia before. Allergies Allergy/AdvReac Type Severity Reaction Status Date / Time shellfish derived Allergy Mild gout Verified 01/27/25 20:14 oxycodone AdvReac Mild Gastrointestinal Verified 01/27/25 20:14 Upset Home Medications Medication Instructions Recorded Confirmed Type blood sugar diagnostic (Accu-Chek #10 ea 04/21/19 01/11/25 History SmartView Test Strips) blood-glucose meter (Accu-Chek #1 ea 04/21/19 01/11/25 History Nikki) lancets 30 gauge (OneTouch Delica #25 ea 04/21/19 01/11/25 History Lancets) calcium carbonate (Calcium 500) 500 mg PO QAM 04/25/19 01/27/25 History magnesium 500 mg tablet 500 mg PO QAM 06/04/20 01/27/25 History Auto Titrating CPAP #1 ea 06/21/20 01/11/25 Rx CPAP Supplies #1 ea 06/21/20 01/11/25 Rx cetirizine 10 mg tablet (Zyrtec) 10 mg PO QPM 12/28/22 01/27/25 History allopurinol 100 mg tablet 100 mg PO QPM #90 tabs 03/30/24 01/27/25 Rx (Zyloprim) diltiazem HCl 120 mg capsule,24 120 mg PO QPM 05/29/24 01/27/25 History hr,extended release (Tiazac) rivaroxaban 20 mg tablet (Xarelto) 20 mg PO QPM 05/29/24 01/27/25 History atorvastatin 20 mg tablet 20 mg PO UD #12 tabs 06/28/24 01/27/25 Rx benzonatate 100 mg capsule 100 - 200 mg PO Q8H PRN cough 07/07/24 01/27/25 History levalbuterol HCl 1.25 mg/3 mL 1.25 mg (3 mL) inhalation Q6H #90 07/14/24 01/27/25 Rx solution for nebulization mL metoprolol succinate 25 mg 25 mg PO DAILY 08/23/24 01/27/25 History tablet,extended release 24 hr levothyroxine 150 mcg tablet 150 mcg PO QAM #90 tabs 09/05/24 01/27/25 Rx betamethasone dipropionate 0.05 % See Rx Instructions topical BID 09/27/24 01/27/25 Rx topical cream PRN skin irritation #15 grams oxybutynin chloride 10 mg 10 mg PO QAM #90 tabs 10/23/24 01/27/25 Rx tablet,extended release 24 hr losartan 50 mg tablet 50 mg PO QAM #100 tabs 11/27/24 01/27/25 Rx furosemide 20 mg tablet 20 mg PO QAM #90 tabs 12/12/24 01/27/25 Rx metformin 500 mg tablet,extended 500 mg PO QAM #90 tabs 12/26/24 01/27/25 Rx release 24 hr fluticasone propionate 50 1 spray intranasal BID PRN 01/15/25 01/27/25 Rx mcg/actuation nasal Congestion #16 grams spray,suspension (Flonase Allergy Relief) levalbuterol tartrate 45 2 inh inhalation Q6H #15 grams 01/15/25 01/27/25 Rx mcg/actuation aerosol inhaler (Xopenex HFA) montelukast 10 mg tablet 10 mg PO HS #90 tabs 01/15/25 01/27/25 Rx (Singulair) fluticasone fur. 200 mcg-umeclid 1 inh inhalation DAILY #28 ea 01/23/25 01/27/25 Rx 62.5 mcg-vilant 25 mcg inhalat.powder (Trelegy Ellipta) Past Med/Surg History Problem List (Updated 01/27/25 @ 21:25 by Caprice Arango DO) Community acquired pneumonia Hypoxia (Acute) Presbycusis of both ears Tympanic membrane perforation Mixed hearing loss of right ear Sensorineural hearing loss (SNHL) of left ear with restricted hearing of right ear Mixed conductive and sensorineural hearing loss of right ear with restricted hearing of left ear Acute asthma exacerbation Reactive airway disease (Acute) Jaw pain (Acute) Current use of chcf anticoagulation (Acute) Cough (Acute) Atrial fibrillation with RVR (Acute) H/O hemorrhoidectomy (06/08/24) Hemorrhoidectomy(Not Applicable) - Derrek Madden DO Current use of chcf anticoagulation History of total right knee replacement Osteoarthritis of left knee H/O ventral hernia repair Laparoscopic ventral hernia repair (05/14/22): Grade 2 view, ETT 7 at [facility] Encounter for pre-operative examination Morbid obesity Screening for osteoporosis Urinary incontinence chronic, denies change or worsening History of colon polyps Allergic rhinitis with postnasal drip Abnormal computerized axial tomography of chest Gout Cough (Acute) Obesity (Acute) Obstructive sleep apnea of adult (Acute) CPAP (compliant) Colon polyp 12/2012 tubular adenoma 02/2017 sessile serrated adenoma (recheck in 5 years) Hyperlipidemia (Chronic) Hypothyroidism (Chronic) Atrial fibrillation (Chronic) Type 2 diabetes mellitus (Chronic) NIDDM Hypertension controlled, stable per pt Asthma (Acute) controlled, stable per pt; last rescue inhaler use 07/2023 Medical History Hx of colonic polyps Hyperlipidemia Chronic cough Gout Allergic rhinitis with postnasal drip Asthma daily and prn inh/neb Urinary incontinence chronic, denies change or worsening Type 2 diabetes mellitus NIDDM Hypothyroidism Hypertension REYNALDO (obstructive sleep apnea) CPAP Left ventricular outflow tract obstruction reported on 07/2023 echo History of diverticulitis prior to 2013 Pulmonary hypertension [facility] pulmonary monitoring, felt to be likely from underlying obesity as well as REYNALDO/OHS Chronic back pain Acid reflux Hx, no recent issues [place] (hard of hearing) Atrial fibrillation reason for Xarelto; Follows with Dr. Jacob Surgical History H/O ventral hernia repair Laparoscopic ventral hernia repair (05/14/22): Grade 2 view, ETT 7 at [facility] History of total right knee replacement History of total left knee replacement History of tubal ligation History of hysterectomy History of wisdom tooth extraction History of tonsillectomy and adenoidectomy History of hernia repair umbilical H/O oral surgery H/O colonoscopy sessile serrated adenoma, recheck in 5 years, Dr Reyez Family History Mother Diabetes Breast cancer Hypertension Father Prostate cancer Brother Diabetes Hypertension Other No family history of adverse response to anesthesia Denies family history of Ovarian cancer Myocardial infarction Colorectal cancer Social History Smoking Status: Never smoker Tobacco Type: Cigarettes Age Started Using Tobacco: 17; Age Quit Using Tobacco: 33; packs per day: 0.25; Cigarettes Per Day: quit in 1987; Second Hand Exposure: No; Do You Dip or Chew Tobacco: No; Hx Alcohol Use: No Hx Substance Use: No Preferred Language: Maltese Communication Ability: Effective Visual Impairment: No Limitations Hearing Ability: Normal Litigation Docket Manager Required: No Beliefs That Will Affect Care: None marital status: Current Living Situation: Spouse current occupational status: retired 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 Physical Exam Physical Exam: General: Alert and oriented, no acute distress, HEENT: Normocephalic, moist oral mucosa, Cardio: Regular rate and rhythm, Resp: No wheezes noted throughout lung golden, air movement is fair in all golden with faint rhonchi in RLL. Skin: Warm, pink, dry, Results & Data Results & Data Vital Signs (Past 12 Hours) Vital Signs Temp Pulse Pulse Resp BP BP Pulse Ox 01/27/25 19:54 92 H 17 114/70 96 01/27/25 19:53 88 L 01/27/25 19:11 93 01/27/25 19:05 103 H 26 H 117/83 93 01/27/25 19:05 93 01/27/25 19:05 01/27/25 19:02 93 01/27/25 18:55 123 H 01/27/25 18:44 36.9 C 134 H 18 150/66 H 93 O2 Del Method O2 Flow Rate 01/27/25 19:54 Nasal Cannula 2 01/27/25 19:53 Room Air 01/27/25 19:11 Room Air 01/27/25 19:05 Room Air 01/27/25 19:05 Room Air 01/27/25 19:05 Room Air 01/27/25 19:02 Room Air 01/27/25 18:55 01/27/25 18:44 Room Air Supervising Physician Co-Signing Physician Notes patient seen and examined, chart reviewed, case discussed with Dr. Arango and I agree with the assessment and plan as document above. In brief, patient is a 69-year-old female history of asthma, atrial fibrillation on Xarelto, diabetes presenting with likely community-acquired pneumonia. Patient endorses cough, fatigue and chills. Cough is productive for some purulent sputum. On physical exam patient is afebrile, hemodynamically stable respiratory rate of 26 documented however, patient does not appear to be visibly tachypneic on exam. Did have decreased oxygen saturation at 88% at 1 point, now was on 2 L nasal cannula Skinno rash, HEENTno JVD, moist mucous membranes, neck supple Heart+ S1, S2, regular, no murmurs/rubs/gallops Lungsmild rhonchi in right lower lobe, no wheeze Abdomensoft, nontender, nondistended Labs and images reviewed. Significant for WBC = 11.94 with neutrophil predominance Assessment/plan: Suspected community acquired pneumonia Management with azithromycin and ceftriaxone Oxygen as needed Short prednisone taper given history of asthma, scheduled nebs Remainder as above Resident Activity Tracking Resident Involvement: Resident Care Provided Care Provided: Adult Hospital Medicine (2) Atrial fibrillation Atrial fibrillation type: paroxysmal Qualified Code(s): I48.0 - Paroxysmal atrial fibrillation (4) Hypertension Hypertension type: primary hypertension Qualified Code(s): I10 - Essential (primary) hypertension (6) Asthma Asthma complication type: unspecified Asthma persistence: unspecified Asthma severity: severe Qualified Code(s): J45.909 - Unspecified asthma, uncomplicated
[2025-01-27] MEDS: cefTRIAXone SODIUM 2,000 MG/50 ML BAG IV STA (22:02)
--- NOTE | 2025-01-28 00:18 | Billing Data ---
Date of Service January 27, 2025 Coding Level of Care Code 80099 INT INP/OBS CARE
[2025-01-28] MEDS ORDERED: FLUTICASONE PROPIONATE NA SPR 16 GM BTL PRN (00:20)
[2025-01-28] MEDS ORDERED: ONDANSETRON INJ 2 MG/ML 2 ML VIAL IV PRN (00:20)
[2025-01-28] MEDS ORDERED: POLYETHYLENE (MIRALAX) 17 GM PACK PO PRN (00:20)
[2025-01-28] MEDS ORDERED: CARBOHYDRATES FOR HYPOGLYCEMIA PO PRN (00:30)
[2025-01-28] MEDS ORDERED: GLUCOSE 40% GEL 15 GM TUBE PO PRN (00:30)
[2025-01-28] MEDS ORDERED: GLUCAGON FOR INJ 1 MG VIAL SQ PRN (00:30)
[2025-01-28] MEDS ORDERED: GLUCOSE 10 TAB/TUBE PO PRN (00:30)
[2025-01-28] MEDS ORDERED: DEXTROSE 50% 50 ML SYRINGE IV PRN (00:30)
[2025-01-28] MEDS: ALBUT/IPRATROP 3MG/0.5MG NEB 3 ML VIAL NEB SCH (00:38)
[2025-01-28] MEDS: LANTUS PER UNIT CHARGE SQ SCH ×2 (00:51→08:49)
[2025-01-28] MEDS: INSULIN ASPART PER UNIT CHARGE SC SCH (00:51)
[2025-01-28] MEDS: LEVOTHYROXINE SODIUM 150 MCG TABLET PO SCH (05:55)
[2025-01-28 07:14] LABS: Basophils # (auto) 0.01 K/uL (0.00-0.20); Basophils % (auto) 0.1 %; Eosinophils # (auto) 0.01 K/uL (0.00-0.50); Eosinophils % (auto) 0.1 %; Hematocrit (blood only) 40.4 % (37.0-47.0); Hemoglobin 12.9 g/dl (12.0-16.0); Immature Granulocytes # (auto) 0.04 K/uL (0.01-0.20); Immature Granulocytes % (auto) 0.4 %; Lymphocytes # (auto) 0.84 K/uL (1.20-3.40); Lymphocytes % (auto) 8.5 %; Mean Corpuscular Hemoglobin 26.6 pg (25.0-34.0); Mean Corpuscular Hgb Conc 31.9 g/dL (32.0-36.0); Mean Corpuscular Volume 83.3 fL (80.0-100.0); Mean Platelet Volume 10.6 fL (9.4-12.4); Monocytes # (auto) 0.35 K/uL (0.11-0.59); Monocytes % (auto) 3.5 %; Neutrophils # (auto) 8.63 K/uL (1.40-6.50); Neutrophils % (auto) 87.4 %; Platelet Count 226 K/uL (130-400); RDW Coefficient of Variation 15.7 % (11.5-14.5); RDW Standard Deviation 47.6 fL (36.4-46.3); Red Blood Count 4.85 M/uL (4.20-5.40); White Blood Count 9.88 K/ul (4.8-10.8)
--- NOTE | 2025-01-28 08:13 | Hospitalist Progress Note ---
Date of Service January 28, 2025 Assessment & Plan (1) Community acquired pneumonia: (2) Asthma: (3) Atrial fibrillation: (4) Type 2 diabetes mellitus: (5) Hypertension: (6) Hypothyroidism: Plan 69yo F w/ PMHx significant for asthma/reactive airway disease, afib (on xarelto), REYNALDO on CPAP, DM II (on metformin only), hypothyroidism, obesity presented to hospital 01/27 for CAP. Reports been feeling well until WEDNESDAY when developed cough, fatigue, chills with cough w/ greyish sputum--> green over day or two and increase SOB. Reports went into afib/RVR at home and took an extra dose of metoprolol and came to ER. Note see note from pulmonology from 01/[address] chest w/ b/l LL atelectasis vs consolidative process but no clinical signs of infection at that time CXR report negative however appear to have increased RLL/perihilar congestion and LLL increased opacity and hypoxia to 88% req 2L NC w/ WBC 11k.9. and RR 26. Lactic wnl. s/p Duoneb x 1, prednisone 50mg PO x 1 and Ceftriaxone/Azithromycin in ER #Community acquired pneumonia Ceftriaxone/Azithromycin. MRSA nares negative. BNP not elevated at 65 WBC improved/normalized on repeat, has been afebrile Duonebs transitioned to XOPENEX q8h - issues w/ tachycardia w/ neb albuterol by report and pt took extra BB UNIT CLERK for palpitations and EKG w/ AFIB RVR to 107bpm on admission. Appears in NSR since last evening Prednisone as outlined below for asthma and plan for taper Pulmonary toilet - added incentive spirometry, flutter valve, mucinex BID (takes at home) Trelegy inhaler resumed - brought in. otherwise can use equivalents inhouse. Rec repeat sample w/ pulm office Sputum cx sent - f/u O2 as needed to maintain sats #Asthma - follows w/ Dr Norwood, hx reactive airway disease. Dx w/ asthma in her 50s. Hx elevated eosinophil count and was given prednisone by pulm x 5 days and sample of trelegy at that time. Eosinophils do NOT appear to be elevated at time of admission Mucinex BID resumed for congestion/clearance, pulmonary toilet + flutter valve provided Resumed home inhlaer, changed nebs to Xopenex as above to prevent tachycardia. 1gm IV mag, also to keep replete w/ Afib hx Cont montelukast, cetirizine Prednisone 40mg daily - decreased wheezing, can start to taper next 24-48hr pending repeat exam Outpt pulm f/u at dc #Afib - reported palpitations/extra metoprolol prior to admission. EKG w/ Afib RVR 107bpm but reported not in on admission pr HPI Remains on usual metoprolol, xarelto. Currently NSR on telemetry since last evening and 1gm IV mag ordered to keep ~2 and will remain on telemetry. Nebs adjusted above to prevent issues #Hypothyroidism - TSH wnl and continues on home synthroid #HTN - chronic but elevated 146/92 on admit but improved w/ tx above. Baseline on losartan, diltiazem 120mg PM, metoprolol 25mg daily which have been continued and BP 128/64 #DMT2- A1c 6.4 on metformin which has been held and initially placed on lantus 5u BID w/ SSI and do note POC 280s last evening but was provided 50mg prednisone on admission --> Lantus decreased to 2u BID for this morning given insulin naive and POC 160 and remains on SSI. Adjustment as needed w/ continued steroids #REYNALDO- CPAP HS. Prior ECHO 2022 w/ grade 2 diastolic dysfunction, RV moderately dilated w/ normal systolic function DVT proph: Xarelto continued Dispo: continued inpatient stay on abx/nebs/steroids. Suspect dc 24-48hrs pending response to treatment. F/u sputum cx Admission and Anticipated Discharge Date Admission Date: January 27, 2025 Supervising Physician Co-Signing Physician Notes The patient was not seen by me. The chart was reviewed. Case discussed with PRECIOUS Shepherd. Agree with assessment and plan Subjective Patient evaluated this morning, Lorenzo in room. Improvement from admission, ongoing cough/sputum production but on room air. CPAP in room.. Has been using trelegy from pul as sample, able to continue. Can see if able to get refill at office/sample at co. Sputum sent this morning. Flutter valve in room and to get IS. She reports she does use mucinex at baseline as well which has been resumed and that albuterol neb causes tachycardia and has been changed to xopenex. Does not report any benefit from tessalon pearls and will avoid for now. Questions/concerns addressed at this time. Physical Exam 2 Physical Exam: General: 69yo female sitting up in bed eating lunch, in room, + cough/productive sputum Head atraumatic, normocephalic, mmm Resp: decreased wheezing bilaterally (R>L), slightly diminished in the bases, +rhonchi on the RIGHT, on room air, no tachypnea, able to speak in complete sentences CV: SR on telemetry, rates 60s (appears ?converted around 9pm last evening), no significant m/r/g, no pitting edema GI: +BS, soft/NT MSK/Neuro: not confused, non focal, answering questions appropriately, moves all extremities Psych: AOx3, cooperative with exam Results & Data Results & Data Vital Signs (Past 12 Hours) Vital Signs Temp Pulse Pulse Pulse Resp BP BP 01/28/25 07:20 63 14 01/28/25 07:08 77 01/28/25 03:53 36.6 C 68 20 129/74 01/28/25 03:47 73 17 01/28/25 00:55 74 24 01/28/25 00:38 93 H 18 01/28/25 00:16 80 01/28/25 00:14 01/28/25 00:14 37.1 C 81 22 150/85 H 01/27/25 23:00 83 26 H 123/60 01/27/25 22:57 85 01/27/25 21:00 92 H 14 122/66 Pulse Ox O2 Del Method O2 Flow Rate 01/28/25 07:20 92 Room Air 01/28/25 07:08 01/28/25 03:53 95 CPAP 01/28/25 03:47 94 2 01/28/25 00:55 95 2 01/28/25 00:38 94 Nasal Cannula 2 01/28/25 00:16 01/28/25 00:14 Nasal Cannula, CPAP 2 01/28/25 00:14 93 Nasal Cannula 2 01/27/25 23:00 94 Nasal Cannula 2 01/27/25 22:57 01/27/25 21:00 96 Nasal Cannula 2 Laboratory Results 01/28/25 06:23 01/28/25 06:23 Mag 1.8 Diagnostic Findings Chest X-Ray 01/27/25 19:09 Chest radiograph, one view History: Chest pain Comparison: 08/03/2024 Findings: Single AP view of the chest performed. No focal consolidation or pleural effusion. No pneumothorax. The cardiomediastinal silhouette is within normal limits. Normal pulmonary vascularity. No evidence for lymphadenopathy. No visualized bony or soft tissue abnormality. Impression: Normal chest radiograph Electronically signed by Brenden Gillespie 01-27-2025 7:28 PM PG Care Time/CCT Total # of Minutes Spent Total Time Spent with Patient: Total time spent is greater than 50% in coordination of care (as documented) at patient's floor/unit and/or counseling patient: Coding Level of Care Code 78035 SUB INP/OBS CARE 3/50MIN Diagnoses Community acquired pneumonia J18.9 Asthma J45.909 Asthma complication type: unspecified Asthma persistence: unspecified Asthma severity: severe Paroxysmal atrial fibrillation I48.0 Atrial fibrillation type: paroxysmal Type 2 diabetes mellitus E11.9 Primary hypertension I10 Hypertension type: primary hypertension Hypothyroidism E03.9 (2) Asthma Asthma complication type: unspecified Asthma persistence: unspecified Asthma severity: severe Qualified Code(s): J45.909 - Unspecified asthma, uncomplicated (3) Atrial fibrillation Atrial fibrillation type: paroxysmal Qualified Code(s): I48.0 - Paroxysmal atrial fibrillation (5) Hypertension Hypertension type: primary hypertension Qualified Code(s): I10 - Essential (primary) hypertension
[2025-01-28 08:15] LABS: Estimated Average Glucose 137 mg/dl; Hemoglobin A1C 6.4 % (4.5-5.6)
[2025-01-28 08:27] LABS: BUN Creatinine Ratio 22.7 (10-20); Calcium 9.7 mg/dl (8.6-10.3); Creatinine Clr Calc Pharmacy 74.1 ml/min; Potassium 4.4 mmol/L (3.5-5.1)
[2025-01-28] MEDS: MAGNESIUM OXIDE 400 MG TAB PO SCH (08:40)
[2025-01-28] MEDS: predniSONE 20 MG TAB PO SCH (08:40)
[2025-01-28] MEDS: OXYBUTYNIN CHLORIDE XL 5 MG TABCR PO SCH (08:40)
[2025-01-28] MEDS: FUROSEMIDE 20 MG TAB PO SCH (08:40)
[2025-01-28] MEDS: AZITHROMYCIN 250 MG TAB PO SCH (08:41)
[2025-01-28] MEDS: LOSARTAN POTASSIUM 50 MG TAB PO SCH (08:41)
[2025-01-28] MEDS: METOPROLOL SUCC 25MG EXT REL TAB PO SCH (08:41)
[2025-01-28 08:42] LABS: Thyroid Stimulating Hormone 1.296 uIu/ml (0.300-4.500)
[2025-01-28] MEDS: MAGNESIUM SULFATE / D5W 1 GM/100 ML BAG IV ONE (08:50)
[2025-01-28] MEDS: guaiFENesin 600 MG TABCR PO SCH (08:56)
[2025-01-28] MEDS ORDERED: NON-FORMULARY MEDICATION (Fluticasone-Umeclidin-Vilanter [Trelegy Ellipta] 200-62.5-25 mcg INH SCH (10:15)
[2025-01-28] MEDS: FLUTICASONE/VILANTEROL 100/25MCG 14 PUFFS/INHALER INH SCH (10:18)
[2025-01-28] MEDS ORDERED: FLUTICASONE FUROATE 100MCG 14 PUFFS/INHALER INH SCH (10:30)
[2025-01-28] MEDS ORDERED: UMECLIDINIUM/VILANTEROL 62.5/25MCG 7 PUFFS/INHALER INH SCH (10:30)
[2025-01-28] MEDS ORDERED: Nursing to Pharmacy Communication SCH (11:30)
[2025-01-28] MEDS: ACETAMINOPHEN 325 MG TAB PO PRN (13:06)
[2025-01-28] MEDS: dilTIAZem HCL 120 MG CAPCR PO SCH (13:43)
[2025-01-28] MEDS: RIVAROXABAN 20 MG TAB PO SCH (13:43)
--- NOTE | 2025-01-28 14:00 | Electrocardiogram Report ---
Test Reason : Blood Pressure : */* mmHG Vent. Rate : 107 BPM Atrial Rate : * BPM P-R Int : * ms QRS Dur : 82 ms QT Int : 318 ms P-R-T Axes : * 58 36 degrees QTcB Int : 424 ms Atrial fibrillation with rapid ventricular response Abnormal ECG When compared with ECG of 03-Aug-2024 15:34, Atrial fibrillation has replaced Sinus rhythm Confirmed by Lance Jacob ([id number]) on 01/28/2025 2:00:23 PM Referred By: REFERRED SELF Confirmed By: Lance Jacob
[2025-01-28] MEDS: LEVALBUTEROL HCL 0.63 MG/3 ML NEB NEB SCH (14:42)
[2025-01-28] MEDS ORDERED: RIVAROXABAN 20 MG TAB PO SCH (17:00)
[2025-01-28] MEDS ORDERED: dilTIAZem HCL 120 MG CAPCR PO SCH (21:00)
[2025-01-28] MEDS: allopurinoL 100 MG TAB PO SCH (21:42)
[2025-01-28] MEDS: MONTELUKAST SODIUM 10 MG TABLET PO SCH (21:43)
[2025-01-28] MEDS: CETIRIZINE HCL 10 MG TABLET PO SCH (21:43)
[2025-01-28] MEDS: cefTRIAXone SODIUM 2,000 MG/50 ML BAG IV SCH (21:48)
[2025-01-29] MEDS: VILANTER INH SCH (07:32)
[2025-01-29] MEDS: FLUTICASONE INH SCH (07:32)
[2025-01-29] MEDS: UMECLIDIN INH SCH (07:32)
[2025-01-29 07:41] LABS: BUN Creatinine Ratio 26.3 (10-20); Calcium 9.8 mg/dl (8.6-10.3); Creatinine Clr Calc Pharmacy 72.8 ml/min; Potassium 4.1 mmol/L (3.5-5.1)
[2025-01-29 12:51] LABS: Basophils # (auto) 0.05 K/uL (0.00-0.20); Basophils % (auto) 0.5 %; Eosinophils # (auto) 0.04 K/uL (0.00-0.50); Eosinophils % (auto) 0.4 %; Hematocrit (blood only) 41.7 % (37.0-47.0); Hemoglobin 13.3 g/dl (12.0-16.0); Immature Granulocytes # (auto) 0.04 K/uL (0.01-0.20); Immature Granulocytes % (auto) 0.4 %; Lymphocytes # (auto) 1.01 K/uL (1.20-3.40); Lymphocytes % (auto) 10.4 %; Mean Corpuscular Hemoglobin 26.8 pg (25.0-34.0); Mean Corpuscular Hgb Conc 31.9 g/dL (32.0-36.0); Mean Corpuscular Volume 83.9 fL (80.0-100.0); Mean Platelet Volume 10.6 fL (9.4-12.4); Monocytes # (auto) 0.24 K/uL (0.11-0.59); Monocytes % (auto) 2.5 %; Neutrophils # (auto) 8.35 K/uL (1.40-6.50); Neutrophils % (auto) 85.8 %; Platelet Count 257 K/uL (130-400); RDW Coefficient of Variation 15.8 % (11.5-14.5); RDW Standard Deviation 47.7 fL (36.4-46.3); Red Blood Count 4.97 M/uL (4.20-5.40); White Blood Count 9.73 K/ul (4.8-10.8)
--- NOTE | 2025-01-29 16:24 | Hospitalist Progress Note ---
Date of Service January 29, 2025 Assessment & Plan (1) Community acquired pneumonia: (2) Asthma: (3) Atrial fibrillation: (4) Type 2 diabetes mellitus: (5) Hypertension: (6) Hypothyroidism: Plan 69 years old female with PMH of FULL CODE @ home, morbid obesity with BMI 47.5 (height 165.1 cm; weight 129.4 kg), REYNALDO on nocturnal CPAP 10 cm H2O, mild intermittent asthma (diagnosed in 2003), not on home oxygen or home steroids, failed albuterol MDI due to albuterol-mediated tachycardia, subsequently transitioned to lev-albuterol with no tachycardia, but also no improvement in mild intermittent asthma exacerbations, and instead, on Trelegy Ellipta (fluticasone 100ug - umeclidinium 62.5ug - vilanterol 25ug), 1 puff PO daily, and singulair 10mg PO qhs at home, allergic rhinitis on cetirizine 10mg PO qpm and fluticasone prpionate 50ug/spray, 1 spray to each nostril bid prn allergic rhinitis, urinary incontinence on oxybutynin 10mg PO qam, hyperlipidemia on atorvastatin 20mg PO daily, non-insulin dependent DM II with HbA1c 6.4% (01/28/2025, 6:23am) on metformin 500mg PO qam, hypothyroidism with TSH 1.296 uIU/mL (01/28/2025, 6:23am) on synthroid 150ug PO qam, HTN on diltiazem ER 120mg PO qpm, metoprolol succinate 25mg PO daily, losartan 50mg PO qam, lasix 2mg PO qam, and paroxysmal AFIB on diltiazem ER 120mg PO qpm, metoprolol succinate 25mg PO daily, and xarelto 20mg PO qpm, who was admitted to the inpatient hospitalist service @ [facility] on 01/27/2025 with a presumptive diagnosis of acute CAP. Reports been feeling well until WEDNESDAY when developed cough, fatigue, chills with cough w/ greyish sputum--> green over day or two and increase SOB. Reports went into afib/RVR at home and took an extra dose of metoprolol and came to ER. Note see note from pulmonology from 01/[address] chest w/ b/l LL atelectasis vs consolidative process but no clinical signs of infection at that time CXR report negative however appear to have increased RLL/perihilar congestion and LLL increased opacity and hypoxia to 88% req 2L NC w/ WBC 11k.9. and RR 26. Lactic wnl. s/p Duoneb x 1, prednisone 50mg PO x 1 and Ceftriaxone/Azithromycin in ER The following medical issues are being addressed on 01/29/2025: #Community acquired pneumonia, RESOLVED. Ceftriaxone/Azithromycin. MRSA nares negative. BNP not elevated at 65 WBC improved/normalized on repeat, has been afebrile Duonebs transitioned to XOPENEX q8h - issues w/ tachycardia w/ neb albuterol by report and pt took extra BB [employer] for palpitations and EKG w/ AFIB RVR to 107bpm on admission. Appears in NSR since last evening Prednisone as outlined below for asthma and plan for taper Pulmonary toilet - added incentive spirometry, flutter valve, mucinex BID (takes at home) Trelegy inhaler resumed - brought in. otherwise can use equivalents inhouse. Rec repeat sample w/ pulm office Sputum cx sent - f/u O2 as needed to maintain sats #Asthma, RESOLVING. - follows w/ Dr Norwood, hx reactive airway disease. Dx w/ asthma in her 50s. Hx elevated eosinophil count and was given prednisone by pulm x 5 days and sample of trelegy at that time. Eosinophils do NOT appear to be elevated at time of admission Mucinex BID resumed for congestion/clearance, pulmonary toilet + flutter valve provided Resumed home inhlaer, changed nebs to Xopenex as above to prevent tachycardia. 1gm IV mag, also to keep replete w/ Afib hx Cont montelukast, cetirizine Prednisone 40mg daily - decreased wheezing, can start to taper next 24-48hr pending repeat exam Outpt pulm f/u at dc #Afib, RESOLVED. - reported palpitations/extra metoprolol prior to admission. EKG w/ Afib RVR 107bpm but reported not in on admission pr HPI Remains on usual metoprolol, xarelto. Currently NSR on telemetry since last evening and 1gm IV mag ordered to keep ~2 and will remain on telemetry. Nebs adjusted above to prevent issues #Hypothyroidism, CHRONIC. - TSH wnl and continues on home synthroid #HTN, CHRONIC. - chronic but elevated 146/92 on admit but improved w/ tx above. Baseline on losartan, diltiazem 120mg PM, metoprolol 25mg daily which have been continued and BP 128/64 #DMT2, CHRONIC. - A1c 6.4 on metformin which has been held and initially placed on lantus 5u BID w/ SSI and do note POC 280s last evening but was provided 50mg prednisone on admission --> Lantus decreased to 2u BID for this morning given insulin naive and POC 160 and remains on SSI. Adjustment as needed w/ continued steroids #REYNALDO, CHRONIC. - CPAP HS. Asymptomatic with no daytime somnolence reported on 01/29/2025. cf., TTE (07/28/2025, 8:05am) with normal LVEF 60-65%, grade 2 diastolic dysfunction, RV moderately dilated w/ normal systolic function (as per CARDS Dr. Lance Jacob). DVT proph: Xarelto continued for long-term, active anticoagulation in the setting of paroxysmal AFIB to prophylax against thrombo-embolism / CVA. Dispo: FULL CODE. ACLS as required. D/C home in the 01/30/2025 am on prednisone 40mg PO daily x 7 days, and follow up with PULM Dr. Olinda Norwood within 5 days of hospital discharge. No antibiotics are required given afebrile state with normal procalcitonin 0.04 ng/mL (01/29/2025, 9:17am). Admission and Anticipated Discharge Date Admission Date: January 27, 2025 Subjective "I am breathing find today. No coughing or wheezing. No fevers of chills. I don't take albuterol because that caused my heart to speed up, so my lung Dr. Olinda Norwood put me on lev-albuterol, and that doesn't speed up my heart, but it also doesn't help with my asthma." Review of Systems Constitutional: Patient denies antecedent/coincident fevers, chills, diaphoresis, sore throat, shortness of breath, chest pains, palpitations, pleurisy, nausea, vomiting, diarrhea, abdominal pain, pelvic pain, hematemesis, hematochezia, hematuria, dysuria, frequency, urgency, headaches, dizziness, lightheadedness, visual changes, hearing changes, syncope, falls, trauma, travel history, sick contacts, or food/drug ingestions novel or new. All other review of systems are reported as negative by the patient on 01/29/2025. Physical Exam Constitutional: General: Comfortable, coherent, cooperative; wide awake and alert. Not confused, lethargic, or obtunded. Patient speaks in complete, fluent, and articulate sentences without pause, cough, or wheeze, with O2 sat 92% on room air (01/29/2025, 3:03pm). HEENT: Normocephalic, atraumatic. Extra-ocular muscles intact. Pupils equally round and reactive to light. No nystagmus, gaze paresis, anisocoria, miosis, mydriasis, hyphema, scleral injection, conjunctivitis, or pterygium. No otorrhea or rhinorrhea. No pharyngeal erythema, edema, or discharge. Neck: Supple, no stridor, bruit, goiter, or hepato-jugular reflux. Jugular venous pressure is estimated to be 3 cm above the sternal angle of Emile, which in turn, is 5 cm above the level of the right atrium; with jugular venous pressure estimated to be 8 cm, then, there is no jugular venous distention on 01/29/2025. Lymphatics: No cervical (anterior/posterior), supraclavicular, infraclav icular, axillary, epitrochlear, or inguinal adenopathy. Chest: Symmetric rise and fall with respirations. Non-tender to palpation. Lungs: Clear to auscultation and percussion. No audible expiratory wheeze, egophony, pectoriloquy, increase in tactile fremitus, or flatness/dullness to percussion. Heart: Regular rate and rhythm. S1 and S2 noted. No S3 or S4 summation gallop. No tripartite friction rub. Grade II/ early systolic murmur @ LLSB without radiation to the carotids, axilla, or back, and which remains invariant in regards to the respiratory cycle. Abdomen: Soft, generalized tenderness, non-distended. No rebound, guarding, Lerner's sign, or organomegaly. Bowel sounds auscultated in all 4 quadrants. Extremities: No clubbing, cyanosis, or edema. 2+ pedal pulses bilaterally. Skin: No decubitus ulcer, exanthem, or enanthem. Genito-urinary: No urethral discharge. No mcdaniel catheter. Neurology: Alert and oriented in regards to person, place, time, and situation. DTR+ and symmetric. 5/5 motor strength in all 4 extremities, both proximally and distally. No pronator drift. No facial droop. No dysarthria. Psychiatry: No homicidal ideation. No suicidal ideation. No flat affect; smiles appropriately. Results & Data Results & Data Vital Signs (Past 12 Hours) Vital Signs Temp Pulse Pulse Pulse Resp BP BP 01/29/25 15:03 36.8 C 70 18 115/73 01/29/25 14:32 77 01/29/25 14:18 81 18 01/29/25 11:45 36.8 C 66 18 116/74 01/29/25 08:17 01/29/25 08:14 68 18 01/29/25 08:02 36.7 C 64 22 151/86 H 01/29/25 07:14 62 Pulse Ox O2 Del Method 01/29/25 15:03 92 Room Air 01/29/25 14:32 01/29/25 14:18 96 Room Air 01/29/25 11:45 92 Room Air 01/29/25 08:17 Room Air, CPAP 01/29/25 08:14 91 Room Air 01/29/25 08:02 91 Room Air 01/29/25 07:14 Laboratory Results Abnormal lab results 01/28/25 01/28/25 01/29/25 Range/Units 16:53 20:21 06:22 MCHC (32.0-36.0) g/dL RDW Std Deviation (36.4-46.3) fL RDW Coeff of Parish (11.5-14.5) % Neut # (Auto) (1.40-6.50) K/uL Lymph # (Auto) (1.20-3.40) K/uL BUN 26 H (6-23) mg/dl BUN/Creatinine Ratio 26.3 H (10-20) Glucose 116 H (70-99(Fasting)) mg/dl POC Glucose 193 H 196 H (70-99) mg/dl Lactate (0.4-2.0) mmol/L 01/29/25 01/29/25 01/29/25 Range/Units 08:10 09:17 12:17 MCHC (32.0-36.0) g/dL RDW Std Deviation (36.4-46.3) fL RDW Coeff of Parish (11.5-14.5) % Neut # (Auto) (1.40-6.50) K/uL Lymph # (Auto) (1.20-3.40) K/uL BUN (6-23) mg/dl BUN/Creatinine Ratio (10-20) Glucose (70-99(Fasting)) mg/dl POC Glucose 105 H 168 H (70-99) mg/dl Lactate 3.3 H* (0.4-2.0) mmol/L 01/29/25 Range/Units 12:30 MCHC 31.9 L (32.0-36.0) g/dL RDW Std Deviation 47.7 H (36.4-46.3) fL RDW Coeff of [place] 15.8 H (11.5-14.5) % Neut # (Auto) 8.35 H (1.40-6.50) K/uL Lymph # (Auto) 1.01 L (1.20-3.40) K/uL BUN (6-23) mg/dl BUN/Creatinine Ratio (10-20) Glucose (70-99(Fasting)) mg/dl POC Glucose (70-99) mg/dl Lactate (0.4-2.0) mmol/L WBC 11.94 (01/27/2025, 7:03pm) WBC 9.88 (01/28/2025, 6:23am) WBC 9.73 (01/29/2025, 12:30pm) Lactic acid #1 1.8 mmol/L (01/27/2025, 9:03pm). Lactic acid #2 3.3 mmol/L (01/29/2025, 9:17am). Lactic acid #3 1.8 mmol/L (01/29/2025, 12:30pm). Procalcitonin #1 0.04 ng/mL (01/29/2025, 9:17am). Diagnostic Findings Portable CXR (01/27/2025, 7:09pm): No infiltrate, effusion, cardiomegaly, pulmonary vascular congestion, or pneumothorax (by my review). PG Care Time/CCT Total # of Minutes Spent Total Time Spent with Patient: Total time spent is greater than 50% in coordination of care (as documented) at patient's floor/unit and/or counseling patient: Coding Level of Care Code 43256 SUB INP/OBS CARE 2/35MIN Diagnoses Community acquired pneumonia J18.9 Asthma J45.909 Asthma complication type: unspecified Asthma persistence: unspecified Asthma severity: severe Paroxysmal atrial fibrillation I48.0 Atrial fibrillation type: paroxysmal Type 2 diabetes mellitus E11.9 Primary hypertension I10 Hypertension type: primary hypertension Hypothyroidism E03.9 (2) Asthma Asthma complication type: unspecified Asthma persistence: unspecified Asthma severity: severe Qualified Code(s): J45.909 - Unspecified asthma, uncomplicated (3) Atrial fibrillation Atrial fibrillation type: paroxysmal Qualified Code(s): I48.0 - Paroxysmal atrial fibrillation (5) Hypertension Hypertension type: primary hypertension Qualified Code(s): I10 - Essential (primary) hypertension
[2025-01-30 08:07] VITALS: O2SAT 91
[2025-01-30 11:28] VITALS: RESP 18; TEMP 97.9
[2025-01-30 13:44] VITALS: BP 132/74; PULSE 66
--- NOTE | 2025-01-30 14:03 | Discharge Summary ---
Discharge Summary Date of Service January 30, 2025 Principal Dx & Hospital Course #1 = Principal Diagnosis (1) Community acquired pneumonia: (2) Asthma: (3) Atrial fibrillation: (4) Type 2 diabetes mellitus: (5) Hypertension: (6) Hypothyroidism: Plan 69 years old female with PMH of FULL CODE @ home, morbid obesity with BMI 47.5 (height 165.1 cm; weight 129.4 kg), REYNALDO on nocturnal CPAP 10 cm H2O, mild intermittent asthma (diagnosed in 2003), not on home oxygen or home steroids, failed albuterol MDI due to albuterol-mediated tachycardia, subsequently transitioned to lev-albuterol with no tachycardia, but also no improvement in mild intermittent asthma exacerbations, and instead, on Trelegy Ellipta (fluticasone 100ug - umeclidinium 62.5ug - vilanterol 25ug), 1 puff PO daily, and singulair 10mg PO qhs at home, allergic rhinitis on cetirizine 10mg PO qpm and fluticasone prpionate 50ug/spray, 1 spray to each nostril bid prn allergic rhinitis, urinary incontinence on oxybutynin 10mg PO qam, hyperlipidemia on atorvastatin 20mg PO daily, non-insulin dependent DM II with HbA1c 6.4% (01/28/2025, 6:23am) on metformin 500mg PO qam, hypothyroidism with TSH 1.296 uIU/mL (01/28/2025, 6:23am) on synthroid 150ug PO qam, HTN on diltiazem ER 120mg PO qpm, metoprolol succinate 25mg PO daily, losartan 50mg PO qam, lasix 2mg PO qam, and paroxysmal AFIB on diltiazem ER 120mg PO qpm, metoprolol succinate 25mg PO daily, and xarelto 20mg PO qpm, who was admitted to the inpatient hospitalist service @ [facility] on 01/27/2025 with a presumptive diagnosis of acute CAP. Patient had been feeling well until WEDNESDAY (01/25/2025) when the patient developed cough, fatigue, chills with cough w/ greyish sputum--> green over the past one-two days and increase in SOB. Patient subsequently reported going into afib/RVR at home and took an extra dose of metoprolol and came to ER. Note see note from pulmonology from 01/[address] chest w/ b/l LL atelectasis vs consolidative process but no clinical signs of infection at that time Portable CXR (01/27/2025, 7:09pm): No infiltrate/consolidation, effusion, cardiomegaly, pulmonary vascular congestion, or pneumothorax (by my review). However, on the day the portable CXR (01/27/2025, 7:09pm) was performed, the hospitalist service opined that portable CXR (01/27/2025, 7:09pm) may have demonstrated "increased RLL/perihilar congestion and LLL increased opacity" along with documented "hypoxia to 88% req 2L NC w/ WBC 11k.9. and RR 26. Lactic wnl." Patient subsequently received duoneb x 1, prednisone 50mg PO x 1 and Ceftriaxone/Azithromycin in [facility]. The following medical issues are being addressed [facility]: #Community acquired pneumonia, RESOLVED. Patient received ceftriaxone 2g IV daily x 3 doses (01/27/2025, 10:02pm)(, 9:48pm)(01/29/2025, 9:21pm) and azithromycin 500mg PO daily x 3 doses (01/27/2025, 8:37pm)(01/28/2025, 8:41am)(01/29/2025, 7:30am) empirically while in [facility], despite 01/27/2025, 7:09pm portable CXR revealing no infiltrate/consolidation to suggest an acute infectious process, and despite normal lactic acid and procalcitonin levels on 01/29/2025 and on 01/30/2025: Lactic acid #3 1.8 mmol/L (01/29/2025, 12:30pm). Lactic acid #4 2.0 mmol/L (01/30/2025, 8:34am). Procalcitonin #1 0.04 ng/mL (01/29/2025, 9:17am). Procalcitonin #2 0.03 ng/mL (01/30/2025, 8:34am). Hence, the likelihood of acute bacterial infection remains very low. In addition, patient underwent BIOFIRE respiratory pathogen PCR panel testing (01/27/2025, 7:03pm), and was negative for adenovirus, Bordetella pertussis, Bordetella parapetussis, Chlamydophila pneumoniae, coronavirus OC43, HKU1, 229E, NL63, SARS-CoV-2, human metapneumovirus, influenza A/B, Mycoplasma pneumoniae, Parainfluenza 1,2,3,4, RSV, and enterovirus/rhinovirus. Hence, I surmise that patient suffered from an acute asthma exacerbation with unknown trigger/precipitant as patient reports no cockroaches in the home, no pets in the home, no dust mites in the home, no smokers/smoke in the home, no change in humidity in the home/environment. MRSA nares negative (01/27/2025, 9:25pm). WBC improved/normalized on repeat; patient remained afebrile throughout hospitalization. Duonebs transitioned to XOPENEX q8h - issues w/ tachycardia w/ neb albuterol by report and pt took extra BB INSURANCE HEALTHCARE REPRESENTATIVE for palpitations and EKG w/ AFIB RVR to 107bpm on admission. Appears in NSR since last evening Prednisone as outlined below for asthma and plan for taper Pulmonary toilet - added incentive spirometry, flutter valve, mucinex BID (takes at home) Trelegy inhaler resumed - brought in. otherwise can use equivalents inhouse. Rec repeat sample w/ pulm office Sputum cx sent - f/u O2 as needed to maintain sats #Asthma, RESOLVING. - follows w/ Dr. Garcia Norwood, hx reactive airway disease. Dx w/ asthma in her 50s. Hx elevated eosinophil count and was given prednisone by pulm x 5 days and sample of trelegy at that time. Eosinophils do NOT appear to be elevated at time of admission Mucinex BID resumed for congestion/clearance, pulmonary toilet + flutter valve provided Resumed home inhlaer, changed nebs to Xopenex as above to prevent tachycardia. 1gm IV mag, also to keep replete w/ Afib hx Cont montelukast, cetirizine Prednisone 40mg daily - no wheezing on hospital discharge date 01/30/2025. Patient was subsequently discharged back to her home on 01/30/2025 with electronic prescriptions transmitted to her [facility] [id number], [address] [place] [address], on 01/30/2025, for the following medications on hospital discharge home on 01/30/2025: 1. Prednisone 40mg PO daily, #14 tablets, each tablet 20mg, no refills. 2. Albuterol 1.25mg in 3mL NS / neb, 1 neb PO q4 prn SOB/wheeze, #90 mL, 5 refills. Of note, patient reports that she had been taking Xopenex (e.g., lev-albuterol) at home, and that her SOB/wheezing did not improve at all, and hence, patient does not wish to continue with Xopenex (e.g., lev-albuterol) at home. Instead, patient requested a prescription for albuterol nebulized medication, stating, "albuterol has always helped me breathe better, especially the albuterol inhaler, which I use as a rescue medication when I need it right away to help me breathe better." Hence, I complied with the patient's request for albuterol nebulized medication, as shown above by the electronic prescription for albuterol nebulized medication that was transmitted to the patient's [facility] [id number], [address] [place] [address], on 01/30/2025, for the following medications on hospital discharge home on 01/30/2025. Of final note, patient reports that she will follow up with her PULM Dr. Olinda Norwood within 5 days of hospital discharge. #Afib, RESOLVED. - patient initially reported palpitations at he home and hence, patient received extra metoprolol prior to hospital admission date 01/27/2025. EKG w/ Afib RVR 107bpm but reported not in on admission pr HPI Asymptomatic on home-scheduled metoprolol succinate 25mg PO daily, xarelto 20mg PO qpm. Patient will continue both medications on hospital discharge home on 01/30/2025. Patient remained in NSR on telemetry since 01/28/2025. #Hypothyroidism, CHRONIC. - TSH normal at 1.296 uIU/mL (01/28/2025, 6:23am) on home-scheduled synthroid 150ug PO daily. Patient will continue this medication on hospital discharge home on 01/30/2025. #HTN, CHRONIC. - chronic but elevated BP 146/92 on admission date 01/27/2025, but improved w/ tx above. cf., discharge BP 132/74 (01/30/2025, 1:44pm) on home-scheduled losartan 50mg PO qam, diltiazem 120mg PO qpm, and metoprolol succinate 25mg PO daily. Patient will continue all three medications on hospital discharge home on 01/30/2025. #DMT2, CHRONIC. - HbA1c 6.4% (01/28/2025, 6:23am) on home-scheduled metformin 500mg PO qam which was held while patient remained in [facility], and was replaced with lantus insulin 5 units SQ bid with sliding scale aspart insulin SQ qac + qhs and POC glucose qac + qhs while in [facility]. Patient will resume her home-scheduled metformin 500mg PO qam on hospital discharge home on 01/30/2025. Patient will not continue with lantus insulin 5 units SQ bid with sliding scale aspart insulin qac + qhs and POC glucose qac + qhs on hospital discharge home on 01/30/2025. #REYNALDO, CHRONIC. - CPAP 10cm H2O qhs at home. Asymptomatic with no daytime somnolence reported on 01/29/2025. cf., TTE (07/28/2025, 8:05am) with normal LVEF 60-65%, grade 2 diastolic dysfunction, RV moderately dilated w/ normal systolic function (as per CARDS Dr. Lance Jacob). Hence, patient received CPAP 10cm H2O qhs while in [facility] and will continue CPAP 10cm H2O qhs on hospital discharge home on 01/30/2025. DVT proph: Xarelto continued for long-term, active anticoagulation in the setting of paroxysmal AFIB to prophylax against thrombo-embolism / CVA. Dispo: FULL CODE. ACLS was never performed. There were not adverse events noted with this hospitalization. Patient was subsequently discharged back to her home on 01/30/2025 on prednisone 40mg PO daily x 7 days, and will follow up with PULM Dr. Olinda Norwood within 5 days of hospital discharge. No antibiotics are required on hospital discharge home on 01/30/2025, given afebrile state with normal procalcitonin 0.04 ng/mL (01/29/2025, 9:17am) and procalcitonin 0.03 ng/mL (01/30/2025, 8:34am). Admission HPI Per Admitting Provider Pt is a 69 yo female with a past medical history of asthma, a fib on xarelto, obesity, REYNALDO on CPAP, DMT2 on metformin only, and hypothyroidism who presents to the hospital on 01/27 for community acquired pneumonia. Pt states that she felt well until when she started to get cough, fatigue, chills. No fever noted. She states the cough was initially with greyish sputum and then progressed to more green color the last day or so. N o chest pain or leg swelling but states she has had some SOB that has also worsened over the last day or so. Tonight around 6 pm she went into afib RVR at home and took an extra dose of home metoprolol as instructed but was unsure how long to wait for this so she called her and decided to come to the hospital for further eval. is present at bedside. She states she does not feel her heart is racing anymore, feeling a bit better overall with the breathing treatments. As gotten pneumonia before. Discharge Exam Constitutional General: Comfortable, coherent, cooperative; wide awake and alert. Not confused, lethargic, or obtunded. Patient speaks in complete, fluent, and articulate sentences without pause, cough, or wheeze, with O2 sat 91% on room air (01/30/2025, 1:44pm). HEENT: Normocephalic, atraumatic. Extra-ocular muscles intact. Pupils equally round and reactive to light. No nystagmus, gaze paresis, anisocoria, miosis, mydriasis, hyphema, scleral injection, conjunctivitis, or pterygium. No otorrhea or rhinorrhea. No pharyngeal erythema, edema, or discharge. Neck: Supple, no stridor, bruit, goiter, or hepato-jugular reflux. Jugular venous pressure is estimated to be 3 cm above the sternal angle of Emile, which in turn, is 5 cm above the level of the right atrium; with jugular venous pressure estimated to be 8 cm, then, there is no jugular venous distention on 01/30/2025. Lymphatics: No cervical (anterior/posterior), supraclavicular, infraclavicular, axillary, epitrochlear, or inguinal adenopathy. Chest: Symmetric rise and fall with respirations. Non-tender to palpation. Lungs: Clear to auscultation and percussion. No audible expiratory wheeze, egophony, pectoriloquy, increase in tactile fremitus, or flatness/dullness to percussion. Heart: Regular rate and rhythm. S1 and S2 noted. No S3 or S4 summation gallop. No tripartite friction rub. Grade II/ early systolic murmur @ LLSB without radiation to the carotids, axilla, or back, and which remains invariant in regards to the respiratory cycle. Abdomen: Soft, generalized tenderness, non-distended. No rebound, guarding, Lerner's sign, or organomegaly. Bowel sounds auscultated in all 4 quadrants. Extremities: No clubbing, cyanosis, or edema. 2+ pedal pulses bilaterally. Skin: No decubitus ulcer, exanthem, or enanthem. Genito-urinary: No urethral discharge. No mcdaniel catheter. Neurology: Alert and oriented in regards to person, place, time, and situation. DTR+ and symmetric. 5/5 motor strength in all 4 extremities, both proximally and distally. No pronator drift. No facial droop. No dysarthria. Psychiatry: No homicidal ideation. No suicidal ideation. No flat affect; smiles appropriately. Discharge Plan Discharge Items Patient Disposition: Home - Self-Care Reason For Visit: CAP Discharge Diagnosis: Acute asthma exacerbation; s/p ruled out acute bacterial CAP. Condition on Discharge: Fair Activity: Resume your previous activity Lifting: Gradually increase as tolerated Bathing: No limitations Sexual Activity: When tolerated Exercise/Sports: Gradually increase as tolerated Driving/Machine Use: No limitations Weightbearing: Full weightbearing Non-emergency contact: Primary Care Provider Call non-emergency contact if: you have any medication questions Follow-up/Referrals: Chandni Gonzalez CRNP [Primary Care Provider] - 02/07/25 9:30 am (Please arrive 15 min. early) Olinda Norwood MD, FCCP [Physician] - (See your VIDEO SOFTWARE ENGINEER Dr. Olinda Norwood within 5 days of hospital discharge.) Diet: Heart Healthy Addtl Attending Provider Instructions: See your PCP SADIA Guevara, and your VIDEO SOFTWARE ENGINEER Dr. Olinda Norwood, both within 5 days of hospital discharge. Addtl District Wire Chief Provider Instructions: [facility] has been made aware of your discharge. They are to call you with follow up appointment. Pending Studies at Discharge: No Stand-Alone Forms: My [facility], Smoking Cessation Medications and DC Order Prescriptions: New albuterol sulfate 1.25 mg/3 mL solution for nebulization 1.25 mg inhalation Q4H PRN (Reason: bronchospasm) Qty: 90 5RF prednisone 20 mg tablet 40 mg PO DAILY Qty: 14 0RF Continued allopurinol [Zyloprim] 100 mg tablet 100 mg PO QPM Qty: 90 3RF atorvastatin 20 mg tablet 20 mg PO UD Qty: 12 3RF Rx Instructions: Take Q Wednesday levothyroxine 150 mcg tablet 150 mcg PO QAM Qty: 90 3RF oxybutynin chloride 10 mg tablet extended release 24hr 10 mg PO QAM Qty: 90 3RF losartan 50 mg tablet 50 mg PO QAM Qty: 100 3RF furosemide 20 mg tablet 20 mg PO QAM Qty: 90 3RF metformin 500 mg tablet extended release 24 hr 500 mg PO QAM Qty: 90 3RF Trelegy Ellipta 200-62.5-25 mcg blister with device 1 inh inhalation DAILY Qty: 28 2RF (DME) Accu-Chek SmartView Test Strip strip See Dose Instructions .ROUTE .MEDSUPPLY Qty: 10 Rx Instructions: CHECK BLOOD SUGAR ONCE DAILY BEFORE ANY MEAL (DME) blood-glucose meter [Accu-Chek Nikki] misc See Dose Instructions .ROUTE .MEDSUPPLY Qty: 1 Rx Instructions: USE TO CHECK BLOOD SUGAR ONCE DAILY (DME) lancets [OneTouch Delica Lancets] 30 gauge misc See Dose Instructions .ROUTE .MEDSUPPLY Qty: 25 Rx Instructions: USE TO CHECK BLOOD SUGAR ONCE DAILY calcium carbonate [Calcium 500] 500 mg calcium (1,250 mg) tablet 500 mg PO QAM (DME) Auto Titrating CPAP Misc See Rx Instructions .ROUTE .MEDSUPPLY Qty: 1 0RF Rx Instructions: Auto PAP with 10-20mm H20. Lifetime usage. G47.33 (DME) CPAP Supplies Misc See Rx Instructions .ROUTE .MEDSUPPLY Qty: 1 0RF Rx Instructions: CPAP supplies. G47.33 fluticasone propionate [Flonase Allergy Relief] 50 mcg/actuation spray,suspension 1 spray intranasal BID PRN (Reason: Congestion) Qty: 16 4RF Rx Instructions: administer into each nostril montelukast [Singulair] 10 mg tablet 10 mg PO HS Qty: 90 4RF betamethasone dipropionate 0.05 % cream See Rx Instructions topical BID PRN (Reason: skin irritation) Qty: 15 0RF Rx Instructions: Apply small amount to right index finger topically twice a day PRN; metoprolol succinate 25 mg tablet extended release 24 hr 25 mg PO DAILY magnesium 500 mg Tablet 500 mg PO QAM cetirizine [Zyrtec] 10 mg Tablet 10 mg PO QPM diltiazem HCl [Tiazac] 120 mg capsule,extended release 24 hr 120 mg PO QPM Xarelto 20 mg tablet 20 mg PO QPM Hold Instructions: Resume on 06/11/24. benzonatate 100 mg capsule 100 - 200 mg PO Q8H PRN (Reason: cough) Rx Instructions: 100 mg orally 1 or 2 capsules every 8 hours as needed for cough. PRN; Discontinued levalbuterol tartrate [Xopenex HFA] 45 mcg/actuation HFA aerosol inhaler 2 inh inhalation Q6H Qty: 15 4RF levalbuterol HCl 1.25 mg/3 mL solution for nebulization 1.25 mg inhalation Q6H Qty: 90 2RF Discharge Orders: Discharge Order (Routine); Ordered 01/30/25 Ordered By: Wilmer Peters/Other Patient Handouts: Managing Type 2 Diabetes Admission Data Admit Date/Time: 01/27/25 21:19 Attending Provider: Wilmer Dejesus Admit Provider: Caprice Arango Primary Care Provider: Chandni Gonzalez Other Providers: Alissa Rubio Other Interventions: Discharge Summary Assessment (RN) Last Done: 01/30/25 13:44 Hospital Stay Data Consultations 01/27/25 20:45 ED Decision to Admit Stat Pending Results Patient Have Any Pending Studies at Discharge: No Discharge Instructions Given to Patient (Per Discharging Provider) See your PCP SADIA Guevara, and your VIDEO SOFTWARE ENGINEER Dr. Olinda Norwood, both within 5 days of hospital discharge. Total Time Total Time Spent Total Time Spent (In Minutes): 35 minutes. Of this time period, 19 minutes were spent in coordinating patient's discharge. Coding Level of Care Code 85525 INP/OBS DISCH >30 MIN Diagnoses Community acquired pneumonia J18.9 Asthma J45.909 Asthma complication type: unspecified Asthma persistence: unspecified Asthma severity: severe Paroxysmal atrial fibrillation I48.0 Atrial fibrillation type: paroxysmal Type 2 diabetes mellitus E11.9 Primary hypertension I10 Hypertension type: primary hypertension Hypothyroidism E03.9
== END 2025-01-30 13:52 | disposition home or self-care (01) | DRG 194 ==
LOC: SUATTDRO → ED 18:43 → 2W 21:19 → SUATTDRO 21:19 → 2W 01-28 00:16